=== PATIENT | male | born 1950 | race Caucasian/White ===

== ENCOUNTER 2018-01-19 14:11 | Outpatient (CLI) | payer MEDICARE, BC, SELFPAY ==
[2018-01-19 14:37] LABS: Abs Immature Grans 0.03 k/cumm (0.0-0.09); Absolute Basophil Count 0.04 k/cumm (0.0-0.2); Absolute Eosinophil Count 0.31 k/cumm (0.0-0.7); Absolute Lymphocyte Count 2.23 k/cumm (1.2-3.4); Absolute Neutrophil Count 6.31 k/cumm (1.2-6.7); Basophils % 0.4; Eosinophils % 3.2; HCT 38.8 % (40.0-50.0); HGB 13.2 g/dL (13.5-17.5); Immature Grans % 0.3; Lymphocytes % 22.7; Mean Corpuscular Hemoglobin 31.7 pg (27.0-33.0); Mean Platelet Volume 9.3 fL (8.0-11.0); Monocytes % 9.2; Neutrophils % 64.2; Platelet Count 288 x1000/uL (130-400); RBC 4.17 m/cumm (4.50-6.00); RBC Distribution Width 13.3 % (11.8-14.1); White Blood Cell Count 9.82 k/cumm (4.4-10.8)
[2018-01-19 15:31] LABS: ALT 62 U/L (12-78); AST 43 U/L (15-37); Albumin 3.5 g/dL (3.4-5.0); Alkaline Phosphatase 115 U/L (46-116); C-Reactive Protein 2.17 mg/dL (0.0-0.3); CREATININE 0.81 mg/dL (0.70-1.30)
== END 2018-01-19 14:31 ==
PROVIDERS: PCP Family Medicine; Visit Provider Internal Medicine Rheumatology
DX: M06.9 Rheumatoid arthritis, unspecified (principal); Z79.899 Other long term (current) drug therapy
CPT/HCPCS: 36415; 82040; 82565; 84075; 84450; 84460; 85025; 86140

== ENCOUNTER 2018-02-02 12:40 | Outpatient (CLI) | payer MEDICARE, BC, SELFPAY ==
[2018-02-02 13:16] LABS: Abs Immature Grans 0.04 k/cumm (0.0-0.09); Absolute Eosinophil Count 0.01 k/cumm (0.0-0.7); Absolute Lymphocyte Count 1.05 k/cumm (1.2-3.4); Absolute Monocyte Count 0.21 k/cumm (0.11-0.7); Basophils % 0.4; Eosinophils % 0.1; HGB 13.5 g/dL (13.5-17.5); Immature Grans % 0.4; Lymphocytes % 9.2; Mean Corp. HGB Concentration 33.8 g/dL (32.0-36.0); Mean Corpuscular Hemoglobin 31.5 pg (27.0-33.0); Mean Corpuscular Volume 93.5 fL (80-95); Mean Platelet Volume 10.2 fL (8.0-11.0); Monocytes % 1.8; Neutrophils % 88.1; Platelet Count 267 x1000/uL (130-400); RBC 4.28 m/cumm (4.50-6.00); RBC Distribution Width 13.5 % (11.8-14.1); White Blood Cell Count 11.41 k/cumm (4.4-10.8)
[2018-02-02 13:19] LABS: Absolute Basophil Count 0.05 k/cumm (0.0-0.2); Absolute Neutrophil Count 10.05 k/cumm (1.2-6.7)
[2018-02-02 13:31] LABS: ALT 86 U/L (12-78); AST 208 U/L (15-37); Albumin 3.4 g/dL (3.4-5.0); Alkaline Phosphatase 73 U/L (46-116); C-Reactive Protein 0.28 mg/dL (0.0-0.3); CREATININE 1.03 mg/dL (0.70-1.30)
== END 2018-02-02 13:00 ==
PROVIDERS: PCP Family Medicine; Visit Provider Internal Medicine Rheumatology
DX: M06.9 Rheumatoid arthritis, unspecified (principal); Z79.899 Other long term (current) drug therapy
CPT/HCPCS: 36415; 82040; 82565; 84075; 84450; 84460; 85025; 86140

== ENCOUNTER 2018-02-08 14:41 | Outpatient (CLI) | payer MEDICARE, BC, SELFPAY ==
[2018-02-08 15:11] LABS: Abs Immature Grans 0.05 k/cumm (0.0-0.09); Absolute Eosinophil Count 0.07 k/cumm (0.0-0.7); Absolute Lymphocyte Count 1.72 k/cumm (1.2-3.4); Absolute Monocyte Count 0.52 k/cumm (0.11-0.7); Absolute Neutrophil Count 9.36 k/cumm (1.2-6.7); Basophils % 0.3; Eosinophils % 0.6; HGB 13.7 g/dL (13.5-17.5); Immature Grans % 0.4; Lymphocytes % 14.6; Mean Corp. HGB Concentration 34.3 g/dL (32.0-36.0); Mean Corpuscular Hemoglobin 31.3 pg (27.0-33.0); Mean Corpuscular Volume 91.3 fL (80-95); Mean Platelet Volume 9.9 fL (8.0-11.0); Monocytes % 4.4; Neutrophils % 79.7; Platelet Count 263 x1000/uL (130-400); RBC 4.38 m/cumm (4.50-6.00); RBC Distribution Width 13.8 % (11.8-14.1); White Blood Cell Count 11.75 k/cumm (4.4-10.8)
[2018-02-08 15:12] LABS: Absolute Basophil Count 0.04 k/cumm (0.0-0.2)
[2018-02-08 16:06] LABS: ALT 64 U/L (12-78); AST 52 U/L (15-37); Albumin 3.7 g/dL (3.4-5.0); Alkaline Phosphatase 83 U/L (46-116); C-Reactive Protein 0.34 mg/dL (0.0-0.3); CREATININE 0.86 mg/dL (0.70-1.30)
== END 2018-02-08 15:01 ==
LOC: LBN 14:42 → LBO 14:54
PROVIDERS: PCP Family Medicine; Visit Provider Internal Medicine Rheumatology
DX: M06.9 Rheumatoid arthritis, unspecified (principal); Z79.899 Other long term (current) drug therapy
CPT/HCPCS: 36415; 82040; 82565; 84075; 84450; 84460; 85025; 86140

== ENCOUNTER 2018-02-17 11:06 | Outpatient (CLI) | payer MEDICARE, BC, SELFPAY ==
[2018-02-17 11:46] LABS: Abs Immature Grans 0.02 k/cumm (0.0-0.09); Absolute Basophil Count 0.03 k/cumm (0.0-0.2); Absolute Eosinophil Count 0.22 k/cumm (0.0-0.7); Absolute Lymphocyte Count 1.84 k/cumm (1.2-3.4); Absolute Monocyte Count 0.67 k/cumm (0.11-0.7); Absolute Neutrophil Count 6.35 k/cumm (1.2-6.7); Basophils % 0.3; Eosinophils % 2.4; HCT 38.9 % (40.0-50.0); HGB 13.4 g/dL (13.5-17.5); Immature Grans % 0.2; Lymphocytes % 20.2; Mean Corp. HGB Concentration 34.4 g/dL (32.0-36.0); Mean Corpuscular Hemoglobin 31.9 pg (27.0-33.0); Mean Corpuscular Volume 92.6 fL (80-95); Mean Platelet Volume 9.8 fL (8.0-11.0); Monocytes % 7.3; Neutrophils % 69.6; Platelet Count 230 x1000/uL (130-400); RBC Distribution Width 13.5 % (11.8-14.1); White Blood Cell Count 9.13 k/cumm (4.4-10.8)
[2018-02-19 12:40] LABS: Lyme Ab w Rflx to Lyme Confirm Negative
[2018-02-21 17:18] LABS: Parvovirus B19 Ab, IgG Positive (Negative); Parvovirus B19 Ab, IgM Negative (Negative)
== END 2018-02-17 11:26 ==
PROVIDERS: PCP Family Medicine; Visit Provider Internal Medicine Rheumatology
DX: T84.84XA Pain due to internal orthopedic prosthetic devices, implants and grafts, initial encounter (principal)
CPT/HCPCS: 36415; 87040; 85025; 86618; 86747

== ENCOUNTER 2018-06-12 14:35 | Outpatient (CLI) | payer MEDICARE, BC, SELFPAY ==
[2018-06-12 14:51] LABS: Abs Immature Grans 0.02 k/cumm (0.0-0.09); Absolute Basophil Count 0.04 k/cumm (0.0-0.2); Absolute Eosinophil Count 0.24 k/cumm (0.0-0.7); Absolute Lymphocyte Count 2.52 k/cumm (1.2-3.4); Absolute Monocyte Count 0.69 k/cumm (0.11-0.7); Absolute Neutrophil Count 4.88 k/cumm (1.2-6.7); Basophils % 0.5; Eosinophils % 2.9; HCT 39.1 % (40.0-50.0); HGB 13.5 g/dL (13.5-17.5); Immature Grans % 0.2; Mean Corp. HGB Concentration 34.5 g/dL (32.0-36.0); Mean Corpuscular Hemoglobin 31.8 pg (27.0-33.0); Mean Platelet Volume 9.7 fL (8.0-11.0); Monocytes % 8.2; Neutrophils % 58.2; Platelet Count 275 x1000/uL (130-400); RBC 4.25 m/cumm (4.50-6.00); RBC Distribution Width 13.9 % (11.8-14.1); White Blood Cell Count 8.39 k/cumm (4.4-10.8)
[2018-06-12 17:04] LABS: ALT 35 U/L (12-78); AST 30 U/L (15-37); Albumin 3.5 g/dL (3.4-5.0); Alkaline Phosphatase 82 U/L (46-116); C-Reactive Protein 0.69 mg/dL (0.0-0.3); CREATININE 0.91 mg/dL (0.70-1.30)
== END 2018-06-12 14:55 ==
PROVIDERS: PCP Family Medicine; Visit Provider Internal Medicine Rheumatology
DX: M06.9 Rheumatoid arthritis, unspecified (principal); Z79.899 Other long term (current) drug therapy
CPT/HCPCS: 36415; 82040; 82565; 84075; 84450; 84460; 85025; 86140

== ENCOUNTER 2018-07-04 14:28 | Outpatient (CLI) | payer MEDICARE, BC, SELFPAY ==
[2018-07-04 16:09] LABS: Cholesterol 181 mg/dL (50-200); HDL Cholesterol 74 mg/dL (40-60); LDL CHOLESTEROL 90 mg/dL (<100); Triglyceride 82 mg/dL (30-150)
== END 2018-07-04 14:48 ==
PROVIDERS: PCP Family Medicine; Visit Provider Family Medicine
DX: I10 Essential (primary) hypertension (principal)
CPT/HCPCS: 36415; 80061; 83721

== ENCOUNTER 2018-09-13 10:25 | Outpatient (CLI) | payer MEDICARE, BC, SELFPAY ==
[2018-09-13 10:58] LABS: Abs Immature Grans 0.01 k/cumm (0.0-0.09); Absolute Basophil Count 0.02 k/cumm (0.0-0.2); Absolute Eosinophil Count 0.17 k/cumm (0.0-0.7); Absolute Lymphocyte Count 1.75 k/cumm (1.2-3.4); Absolute Neutrophil Count 3.81 k/cumm (1.2-6.7); Basophils % 0.3; Eosinophils % 2.6; HCT 39.2 % (40.0-50.0); HGB 13.4 g/dL (13.5-17.5); Immature Grans % 0.2; Lymphocytes % 27.1; Mean Corp. HGB Concentration 34.2 g/dL (32.0-36.0); Mean Corpuscular Hemoglobin 31.5 pg (27.0-33.0); Mean Platelet Volume 10.1 fL (8.0-11.0); Monocytes % 10.8; Platelet Count 264 x1000/uL (130-400); RBC 4.26 m/cumm (4.50-6.00); RBC Distribution Width 14.2 % (11.8-14.1); White Blood Cell Count 6.46 k/cumm (4.4-10.8)
[2018-09-13 12:47] LABS: ALT 31 U/L (12-78); AST 26 U/L (15-37); Albumin 3.6 g/dL (3.4-5.0); Alkaline Phosphatase 68 U/L (46-116); CREATININE 0.77 mg/dL (0.70-1.30)
[2018-09-13 13:59] LABS: C-Reactive Protein 0.21 mg/dL (0.0-0.3)
== END 2018-09-13 10:45 ==
PROVIDERS: PCP Family Medicine; Visit Provider Internal Medicine Rheumatology
DX: M06.9 Rheumatoid arthritis, unspecified (principal); Z79.899 Other long term (current) drug therapy
CPT/HCPCS: 36415; 82040; 82565; 84075; 84450; 84460; 85025; 86140

== ENCOUNTER 2018-10-06 10:37 | Outpatient (CLI) | payer MEDICARE, BC, SELFPAY ==
[2018-10-06 11:18] LABS: Abs Immature Grans 0.02 k/cumm (0.0-0.09); Absolute Basophil Count 0.03 k/cumm (0.0-0.2); Absolute Eosinophil Count 0.17 k/cumm (0.0-0.7); Absolute Lymphocyte Count 1.54 k/cumm (1.2-3.4); Absolute Monocyte Count 0.56 k/cumm (0.11-0.7); Basophils % 0.5; Eosinophils % 2.7; HCT 38.5 % (40.0-50.0); Immature Grans % 0.3; Lymphocytes % 24.8; Mean Corp. HGB Concentration 33.8 g/dL (32.0-36.0); Mean Corpuscular Hemoglobin 31.5 pg (27.0-33.0); Mean Corpuscular Volume 93.2 fL (80-95); Mean Platelet Volume 10.3 fL (8.0-11.0); Neutrophils % 62.7; Platelet Count 268 x1000/uL (130-400); RBC 4.13 m/cumm (4.50-6.00); RBC Distribution Width 14.4 % (11.8-14.1); White Blood Cell Count 6.22 k/cumm (4.4-10.8)
[2018-10-06 12:25] LABS: ALT 30 U/L (12-78); AST 18 U/L (15-37); Albumin 3.4 g/dL (3.4-5.0); Alkaline Phosphatase 65 U/L (46-116); C-Reactive Protein 0.09 mg/dL (0.0-0.3); CREATININE 0.89 mg/dL (0.70-1.30)
== END 2018-10-06 10:57 ==
PROVIDERS: PCP Family Medicine; Visit Provider Internal Medicine Rheumatology
DX: M06.9 Rheumatoid arthritis, unspecified (principal); Z79.899 Other long term (current) drug therapy
CPT/HCPCS: 82040; 82565; 84075; 84450; 84460; 85025; 86140

== ENCOUNTER 2018-10-14 11:18 | Emergency (ER) | payer MEDICARE, BC, SELFPAY ==
[2018-10-14 11:20] VITALS: BP 122/72; PULSE 70; RESP 14; TEMP 37.2; O2SAT 97
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
[2018-10-14] MEDS: Lidocaine 5% Patch 1 PATCH TP (12:38)
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
[2018-10-14] MEDS: Acetaminophen 325 MG TAB 650 MG PO (12:43)
--- NOTE | 2018-10-14 13:05 | NUR.NOTE ---
Nursing Note: pt sent home with incentive spectrometer clear instructions given
== END 2018-10-14 13:00 | disposition home or self-care (01) ==
PROVIDERS: Emergency Provider Student in an Organized Health Care Education/Training Program; PCP Family Medicine
DX: S20.212A Contusion of left front wall of thorax, initial encounter (principal); V18.0XXA Pedal cycle driver injured in noncollision transport accident in nontraffic accident, initial encounter; Y93.55 Activity, bike riding
CPT/HCPCS: 99283; 71046; 71100

== ENCOUNTER 2019-01-23 09:40 | Outpatient (CLI) | payer MEDICARE, BC, SELFPAY ==
[2019-01-23 10:14] LABS: Abs Immature Grans 0.02 k/cumm (0.0-0.09); Absolute Basophil Count 0.03 k/cumm (0.0-0.2); Absolute Eosinophil Count 0.21 k/cumm (0.0-0.7); Absolute Lymphocyte Count 1.71 k/cumm (1.2-3.4); Absolute Monocyte Count 0.73 k/cumm (0.11-0.7); Absolute Neutrophil Count 3.67 k/cumm (1.2-6.7); Basophils % 0.5; Eosinophils % 3.3; HCT 41.5 % (40.0-50.0); HGB 14.2 g/dL (13.5-17.5); Immature Grans % 0.3; Lymphocytes % 26.8; Mean Corp. HGB Concentration 34.2 g/dL (32.0-36.0); Mean Corpuscular Hemoglobin 31.4 pg (27.0-33.0); Mean Corpuscular Volume 91.8 fL (80-95); Monocytes % 11.5; Neutrophils % 57.6; Platelet Count 286 x1000/uL (130-400); RBC 4.52 m/cumm (4.50-6.00); RBC Distribution Width 14.3 % (11.8-14.1); White Blood Cell Count 6.37 k/cumm (4.4-10.8)
[2019-01-23 10:47] LABS: ALT 40 U/L (16-63); AST 27 U/L (15-37); Albumin 3.6 g/dL (3.4-5.0); Alkaline Phosphatase 92 U/L (46-116); CREATININE 0.75 mg/dL (0.70-1.30)
== END 2019-01-23 10:00 ==
PROVIDERS: PCP Family Medicine; Visit Provider Internal Medicine Rheumatology
DX: M06.9 Rheumatoid arthritis, unspecified (principal); Z79.899 Other long term (current) drug therapy
CPT/HCPCS: 36415; 82040; 82565; 84075; 84450; 84460; 85025; 86140

== ENCOUNTER 2019-07-23 01:35 | Outpatient (CLI) | payer MEDICARE, BC, SELFPAY ==
--- NOTE | 2019-07-23 06:15 | DI.US_ITS ---
EXAM: US SCROTUM CLINICAL HISTORY: Nodule posterior aspect R testis,lump, n50.89 TECHNIQUE: Ultrasound performed using standard protocol. COMPARISON: US AAA SCREENING from 06/21/2017 FINDINGS: Scrotal ultrasound was performed according to the usual protocol. There are mild bilateral hydrocele s. Testicular echotexture is within normal limits with an incidental right microlith noted. There i s normal vascular flow to the testes which is symmetrical. Epididymi show normal vascular flow. There are multiple right epididymal head cysts which appear to correspond with patient's palpable scrotal abnormality, the largest measures about 14 millimeters in diameter. IMPRESSION: Multiple right epididymal head cysts, corresponding to the patient's palpable abnormality. No other significant findings. No intra testicular mass. DATA REPOSITORY:
== END 2019-07-23 01:55 ==
PROVIDERS: PCP Family Medicine; Visit Provider Family Medicine
DX: N50.89 Other specified disorders of the male genital organs (principal); N50.3 Cyst of epididymis; N43.3 Hydrocele, unspecified
CPT/HCPCS: 76870

== ENCOUNTER 2019-09-05 02:44 | Outpatient (CLI) | payer MEDICARE, BC, SELFPAY ==
[2019-09-05 13:32] LABS: Abs Immature Grans 0.03 k/cumm (0.0-0.09); Absolute Basophil Count 0.02 k/cumm (0.0-0.2); Absolute Eosinophil Count 0.12 k/cumm (0.0-0.7); Absolute Monocyte Count 0.73 k/cumm (0.11-0.7); Absolute Neutrophil Count 2.57 k/cumm (1.2-6.7); Basophils % 0.4; Eosinophils % 2.1; HCT 37.2 % (40.0-50.0); HGB 12.6 g/dL (13.5-17.5); Immature Grans % 0.5 %; Lymphocytes % 38.8; Mean Corp. HGB Concentration 33.9 g/dL (32.0-36.0); Mean Corpuscular Volume 91.6 fL (80-95); Mean Platelet Volume 9.6 fL (8.0-11.0); Monocytes % 12.9; Neutrophils % 45.3; Platelet Count 260 x1000/uL (130-400); RBC 4.06 m/cumm (4.50-6.00); White Blood Cell Count 5.67 k/cumm (4.4-10.8)
[2019-09-05 14:29] LABS: ALT 28 U/L (16-63); AST 30 U/L (15-37); Albumin 3.7 g/dL (3.4-5.0); Alkaline Phosphatase 67 U/L (46-116); Anion Gap 10.3 mmol/L (3-11); BUN 21 mg/dL (7-18); Bilirubin, Total 0.6 mg/dL (0.2-1.0); C-Reactive Protein 0.22 mg/dL (0.0-0.3); CO2 24.7 mmol/L (21.0-32.0); CREATININE 0.85 mg/dL (0.70-1.30); Calcium 8.5 mg/dL (8.5-10.1); Chloride 104 mmol/L (98-107); Glucose 118 mg/dL (74-106); Sodium 139 mmol/L (136-145); Total Protein 6.4 g/dL (6.4-8.2)
== END 2019-09-05 03:04 ==
PROVIDERS: PCP Family Medicine; Visit Provider Internal Medicine Rheumatology
DX: M06.9 Rheumatoid arthritis, unspecified (principal); Z79.899 Other long term (current) drug therapy
CPT/HCPCS: 36415; 80053; 85025; 86140

== ENCOUNTER 2020-01-08 00:16 | Outpatient (CLI) | payer MEDICARE, BC, SELFPAY ==
[2020-01-10 19:16] LABS: Patient Race White; SARS-CoV-2 RNA Undetected (Undetected); SARS-CoV-2 Specimen Source Nasal
== END 2020-01-08 00:36 ==
PROVIDERS: PCP Nurse Practitioner; Visit Provider Nurse Practitioner
DX: Z11.59 Encounter for screening for other viral diseases (principal)
CPT/HCPCS: U0003

== ENCOUNTER 2020-02-26 05:10 | Outpatient (CLI) | payer MEDICARE, BC, SELFPAY ==
[2020-02-26 09:02] LABS: Abs Immature Grans 0.02 10^3/uL (0.0-0.06); Absolute Basophil Count 0.02 10^3/uL (0.0-0.2); Absolute Eosinophil Count 0.15 10^3/uL (0.0-0.7); Absolute Lymphocyte Count 2.17 10^3/uL (1.2-3.4); Absolute Monocyte Count 0.91 10^3/uL (0.1-0.8); Absolute Neutrophil Count 2.29 10^3/uL (1.2-6.7); Basophils % 0.4; Eosinophils % 2.7; Immature Grans % 0.4; MCH 30.4 pg (27.0-33.0); MCHC 33.3 % (32.0-36.0); MCV 91.1 fL (80-95); MPV 10.2 fL (8.0-11.0); Monocytes % 16.4; Neutrophils % 41.1; Nucleated RBC 0 %; Platelet Count 239 10^3/uL (130-400); RBC 4.28 10^6/uL (4.36-5.78); RDW 15.2 % (11.8-14.1); WBC 5.56 10^3/uL (4.4-10.8)
[2020-02-26 09:54] LABS: ALT 28 U/L (16-63); AST 27 U/L (15-37); Albumin 3.7 g/dL (3.4-5.0); Alkaline Phosphatase 62 U/L (46-116); Anion Gap 8.8 mmol/L (3-11); BUN 13 mg/dL (7-18); Bilirubin, Total 0.7 mg/dL (0.2-1.0); CO2 26.2 mmol/L (21.0-32.0); CREATININE 0.75 mg/dL (0.70-1.30); Calcium 8.4 mg/dL (8.5-10.1); Chloride 107 mmol/L (98-107); Glucose 84 mg/dL (74-106); Potassium 4.7 mmol/L (3.5-5.1); Sodium 142 mmol/L (136-145); Total Protein 6.5 g/dL (6.4-8.2)
== END 2020-02-26 05:30 ==
PROVIDERS: PCP Nurse Practitioner; Visit Provider Internal Medicine Rheumatology
DX: M06.9 Rheumatoid arthritis, unspecified (principal); Z79.899 Other long term (current) drug therapy
CPT/HCPCS: 36415; 80053; 85025; 86140

== ENCOUNTER 2020-08-26 02:58 | Outpatient (CLI) | payer MEDICARE, BC, SELFPAY ==
[2020-08-26 13:12] LABS: Abs Immature Grans 0.02 10^3/uL (0.0-0.06); Absolute Basophil Count 0.01 10^3/uL (0.0-0.2); Absolute Eosinophil Count 0.08 10^3/uL (0.0-0.7); Absolute Lymphocyte Count 2.14 10^3/uL (1.2-3.4); Absolute Monocyte Count 1.11 10^3/uL (0.1-0.8); Absolute Neutrophil Count 2.38 10^3/uL (1.2-6.7); Basophils % 0.2; Eosinophils % 1.4; HCT 35.6 % (40.0-50.0); HGB 11.9 g/dL (13.5-17.5); Immature Grans % 0.3; Lymphocytes % 37.3; MCH 30.3 pg (27.0-33.0); MCHC 33.4 % (32.0-36.0); MCV 90.6 fL (80-95); MPV 10.4 fL (8.0-11.0); Monocytes % 19.3; Neutrophils % 41.5; Nucleated RBC 0 %; Platelet Count 209 10^3/uL (130-400); RBC 3.93 10^6/uL (4.36-5.78); RDW 15.1 % (11.8-14.1); RDW-SD 50.8 fL; WBC 5.74 10^3/uL (4.4-10.8)
[2020-08-26 14:36] LABS: ALT 32 U/L (16-63); AST 30 U/L (15-37); Albumin 3.8 g/dL (3.4-5.0); Alkaline Phosphatase 63 U/L (46-116); Anion Gap 9.2 mmol/L (3-11); BUN 17 mg/dL (7-18); Bilirubin, Total 0.4 mg/dL (0.2-1.0); C-Reactive Protein 0.28 mg/dL (0.0-0.3); CO2 26.8 mmol/L (21.0-32.0); CREATININE 0.9 mg/dL (0.70-1.30); Calcium 8.8 mg/dL (8.5-10.1); Chloride 105 mmol/L (98-107); Glucose 83 mg/dL (74-106); Potassium 4.4 mmol/L (3.5-5.1); Sodium 141 mmol/L (136-145); Total Protein 6.6 g/dL (6.4-8.2)
== END 2020-08-26 02:59 | disposition home or self-care (01) ==
LOC: LBO 02:58
PROVIDERS: PCP Nurse Practitioner; Visit Provider Internal Medicine Rheumatology
DX: M06.9 Rheumatoid arthritis, unspecified (principal); Z79.899 Other long term (current) drug therapy
CPT/HCPCS: 36415; 80053; 85025; 86140

== ENCOUNTER 2021-03-01 11:23 | Outpatient (CLI) | payer MEDICARE, BC, SELFPAY ==
[2021-03-02 01:34] LABS: COVID-19 RT-PCR UVMMC Result Negative (Negative)
== END 2021-03-01 11:24 | disposition home or self-care (01) ==
PROVIDERS: PCP Nurse Practitioner; Visit Provider Internal Medicine Rheumatology
DX: Z20.822 Contact with and (suspected) exposure to COVID-19 (principal); Z01.818 Encounter for other preprocedural examination
CPT/HCPCS: 87635; U0003; U0005

== ENCOUNTER 2021-03-02 02:18 | Outpatient (CLI) | payer MEDICARE, BC, SELFPAY ==
[2021-03-02 13:12] LABS: HCT 39.3 % (40.0-50.0); MCH 29.4 pg (27.0-33.0); MCHC 33.1 % (32.0-36.0); MCV 88.9 fL (80-95); MPV 11.4 fL (8.0-11.0); Platelet Count 226 10^3/uL (130-400); RBC 4.42 10^6/uL (4.36-5.78); RDW 15.2 % (11.8-14.1); RDW-SD 49.9 fL; WBC 6.21 10^3/uL (4.4-10.8)
[2021-03-02 14:37] LABS: ALT 31 U/L (16-63); AST 29 U/L (15-37); Alkaline Phosphatase 63 U/L (46-116); Anion Gap 9.7 mmol/L (3-11); BUN 14 mg/dL (7-18); Bilirubin, Total 0.4 mg/dL (0.2-1.0); C-Reactive Protein 0.15 mg/dL (0.0-0.3); CO2 25.3 mmol/L (21.0-32.0); CREATININE 0.8 mg/dL (0.70-1.30); Calcium 8.9 mg/dL (8.5-10.1); Chloride 105 mmol/L (98-107); Glucose 80 mg/dL (74-106); Potassium 4.6 mmol/L (3.5-5.1); Sodium 140 mmol/L (136-145); Total Protein 6.8 g/dL (6.4-8.2)
== END 2021-03-02 02:19 | disposition home or self-care (01) ==
LOC: LBO 02:19
PROVIDERS: PCP Nurse Practitioner; Visit Provider Internal Medicine Rheumatology
DX: M06.89 Other specified rheumatoid arthritis, multiple sites (principal)
CPT/HCPCS: 36415; 80053; 85027; 86140

== ENCOUNTER 2021-03-03 01:37 | Outpatient (RCR) | payer MEDICARE, BC, SELFPAY | END 2021-03-22 23:59 | disposition home or self-care (01) | LOC: INF 01:37 | PROVIDERS: PCP Nurse Practitioner; Visit Provider Family Medicine | DX: D84.821 Immunodeficiency due to drugs (principal); Z29.8 Encounter for other specified prophylactic measures; M06.9 Rheumatoid arthritis, unspecified | CPT/HCPCS: 96372; Q0220 ==

== ENCOUNTER 2021-05-17 03:07 | Outpatient (CLI) | payer MEDICARE, BC, SELFPAY ==
[2021-05-18 13:55] LABS: COVID-19 RT-PCR UVMMC Result Negative (Negative)
== END 2021-05-17 03:08 | disposition home or self-care (01) ==
PROVIDERS: PCP Nurse Practitioner; Visit Provider Internal Medicine Rheumatology
DX: Z20.822 Contact with and (suspected) exposure to COVID-19 (principal); Z01.818 Encounter for other preprocedural examination
CPT/HCPCS: U0003; U0005

== ENCOUNTER 2021-05-20 03:47 | Outpatient (RCR) | payer MEDICARE, BC, SELFPAY | END 2021-05-20 23:59 | disposition home or self-care (01) | LOC: INF 03:47 | PROVIDERS: PCP Nurse Practitioner; Visit Provider Family Medicine | DX: D84.821 Immunodeficiency due to drugs (principal) | CPT/HCPCS: 96372; Q0221 ==

== ENCOUNTER 2021-09-01 03:10 | Outpatient (CLI) | payer MEDICARE, BC, SELFPAY ==
[2021-09-01 13:11] LABS: Abs Immature Grans 0.07 10^3/uL (0.0-0.06); Absolute Basophil Count 0.02 10^3/uL (0.0-0.2); Absolute Eosinophil Count 0.25 10^3/uL (0.0-0.7); Absolute Monocyte Count 1.54 10^3/uL (0.1-0.8); Absolute Neutrophil Count 3.04 10^3/uL (1.2-6.7); Basophils % 0.3; Eosinophils % 3.4; HCT 37.8 % (40.0-50.0); HGB 13.2 g/dL (13.5-17.5); Immature Grans % 0.9; Lymphocytes % 33.7; MCH 30.3 pg (27.0-33.0); MCHC 34.9 % (32.0-36.0); MCV 87 fL (80-95); MPV 11.3 fL (8.0-11.0); Monocytes % 20.8; Neutrophils % 40.9; Platelet Count 229 10^3/uL (130-400); RBC 4.36 10^6/uL (4.36-5.78); RDW 15.8 % (11.8-14.1); RDW-SD 49.8 fL; WBC 7.42 10^3/uL (4.4-10.8)
== END 2021-09-01 03:11 | disposition home or self-care (01) ==
LOC: LBO 03:18
PROVIDERS: PCP Nurse Practitioner; Visit Provider Internal Medicine Rheumatology
DX: M05.79 Rheumatoid arthritis with rheumatoid factor of multiple sites without organ or systems involvement (principal); Z79.899 Other long term (current) drug therapy
CPT/HCPCS: 36415; 85025

== ENCOUNTER 2021-09-03 02:05 | Outpatient (CLI) | payer MEDICARE, BC, SELFPAY ==
--- OUTSIDE RECORDS SUMMARY | 2021-09-03 02:09 | XMS_ITS | Encounter Summary ---
:[address] [facility] Address [address] [place] [address] Care Team Providers Name Role Phone Cathy Mota SUPERVISOR BRAKE REPAIR Primary Care Provider Encounter Details Date Type Department Care Team Description 05/17/2021 Lab Requisition [facility] Outr Resulting Lab, Pathology & Laboratory Provider [facility] [address] [place] [address] Social History Tobacco Use Types Packs/Day Years Used Date Former Smoker Smokeless Tobacco: Never Used Alcohol Use Standard Drinks/Week Comments Yes 2 (1 standard drink = 0.6 oz pure alcoho l) Sex Assigned at Date Recorded Not on file documented as of this encounter Functional Status Functional Status Response Date of Assessment Because of a physical, mental, or emotional condition, No 06/06/2019 does this person have difficulty doing errands alone such as visiting a doctor's office or shopping? Cognitive Status Response Date of Assessment Because of a physical, mental, or emotional condition, No 06/06/2019 does this person have serious difficulty concentrating, remembering, or making decisions? documented as of this encounter Plan of Treatment Upcoming Encounters Date Type Specialty Care Team Description 09/16/2021 Nurse Only Infusion Therapy 09/30/2021 Nurse Only Infusion Therapy 03/07/2022 Telemedicine Rheumatology Sirisha Puckett MD [address] [facility] [address] [place] [phone] (Wo rk) 07/12/2022 Office Visit Dermatology Lian Bai MD [address] [facility], [facility] [place] [address] [place], [place] [phone] (Wo rk) documented as of this encounter Procedures Procedure Name Priority Date/Time Associated Diagnosis Comme nts [facility] Today 05/17/2021 9:28 EDT LAB PCR COVID-19 TESTING Routine 05/17/2021 9:28 EDT Resu lts for this procedure are i n the results section. documented in this encounter Results COVID-19 TEST [facility] LAB PCR (05/17/2021 9:28 EDT) Specimen Swab Performing Organization Address City/[facility]/ZIP Code Phon e Number [facility] [address] [place] [address] SERVICES COVID-19 TESTING (05/17/2021 9:28 EDT) COVID-19 rt-PCR Negative Negative [facility] Result Comment: [facility] This test has not been FDA c leared or approved. This test has been authorized by FDA under an EUA for use by authorized laboratories. This test has been authorized only for detection of nucleic acid fro SERVICES m 2019-nCoV, not for any oth er viruses or pathogens. This test is only authorized for the duration of the declaration that circumstances exist justifying the authorization of emergency use of in vitro d iagnostic tests for detectio n and/or diagnosis of 2019-nCoV under section 564(b)(1) of Act, 21 U.S.C ?? 360bbb-3(b) (1), unless the authorization is terminated or revoked sooner. Negative results do not prec lude 2019-nCoV infection and should not be used as the sole basis for treatment or other patient management decisions. Negative results must be combined with clinical observa tions, patient history, and epidemiological informatio n. Testing was performed using the asim SARS-CoV-2 assay ([employer] on the Asim 6800 System Performing Lab Asim [address] [facility] Lab [facility] SERVICES Specimen Swab Performing Organization Address City/[facility]/ZIP Code Phon e Number [facility] [address] [place] [address] SERVICES documented in this encounter Visit Diagnoses Not on filedocumented in this encounter Care Teams Furnace Tapper Relationship Specialty Start Date End Date Cathy Mota, SUPERVISOR BRAKE REPAIR PCP - General 02/27/[address] [place] [phone] documented as of this encounter
--- OUTSIDE RECORDS SUMMARY | 2021-09-03 02:09 | XMS_ITS | Encounter Summary ---
:1950 Author Organization [facility] Address [address] [place] [address] Care Team Providers Name Role Phone Cathy Mota IN FILE OPERATOR Primary Care Provider Reason for Visit Reason Comments Follow-up [facility]; feels well with no deysi cristian Conley yesterday. 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 ([facility]) (HCC) (Primary Dx); [facility] Rheumatology Chronic lymphocytic leukemia ([facility]) ( HCC); [address] Long-term use [place] immunosupp[place] [address] [address] [place] [address] Social History Tobacco Use Types Packs/Day Years Used Date Former Smoker Smokeless Tobacco: Never Used Alcohol Use Standard Drinks/Week Comments Yes 2 (1 standard drink = 0.6 oz pure alcoho l) Sex Assigned at Date Recorded Not on file documented as of this encounter Last Filed Vital Signs Vital Sign Reading Time Taken Comments Blood Pressure 124/78 03/04/2021 1001 EST Pulse 72 03/04/2021 1001 EST Temperature 36.2 ??C (97.2 ??F) 03/04/2021 1001 EST Respiratory Rate - - Oxygen Saturation - - Inhaled Oxygen Concentration - - Weight 85.3 kg (188 lb) 03/04/2021 1001 EST Height 172.7 cm (5' 8) 03/04/2021 1001 EST Body Mass Index 28.59 03/04/2021 1001 EST documented in this encounter Functional Status Functional Status Response [...] making decisions? documented as of this encounter Patient Instructions Patient InstructionsSirisha Puckett MD - 03/04/2021 10:00 EST No changes Rituximab in two weeks Labs prior to next visit documented in this encounter Progress Notes Sirisha Puckett MD - 03/04/[address] [facility] Rheumatology Chief Complaint Patient presents with ??? Follow-up [facility]; feels well with no pain. Got Evusheld yesterday. HPI: 1. 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 On biologic therapies prior torituximab. Added rituximab due to development of CLL, scleritis. 2. CLL (chronic lymphocytic leukemia) - In remission with rituximab. 3. Scleritis of both eyes - Had work-up at [facility] by Dr Conte. Symptoms worsened withtrial off naproxen, and improved on oral prednisone. Treated with short course of durezol, as well as rituximab, and doing well except for episodic increase in eye pressures. INTERVAL HISTORY: Otilio returns for 6 month follow up. No changes were made at the last visit. We discussed with Otilio getting a dose of Evusheld for preexposure prophylaxis for COVID due to him being on B-cell depletion therapy (rituximab). Otilio agreed to do this, and as a result we postponed his rituximab infusion by 2 weeks. Otilio says he had an increase in hands, feet, left hip and left knee.This was about a month ago, and he is better for the past two weeks. No intervention was done for the flare. Today, Otilio says he is doing well. He says that he received the Evusheld yesterday, and did not haveany side effects. Otilio denies any significant joint pain or swelling. Last rituximab infusions were on 09/08/2020 and 09/22/2020. Next infusions are scheduled for later this month. Current Outpatient Medications Medication ??? brimonidine (ALPHAGAN) 0.2 % ophthalmic solution ??? dorzolamide (TRUSOPT) 2 % ophthalmic solution ??? ferrous gluconate (FERGON) 324 mg (38 mg iron) tablet ??? lisinopril (PRINIVIL) 10 mg tablet ??? MEDICAL MARIJUANA ??? Melatonin 1 mg tablet ??? Multivitamins with Minerals tablet tablet ??? omeprazole (PRILOSEC) 20 mg capsule ??? RITUXIMAB INTRAVENOUS ??? timolol (TIMOPTIC) 0.25 % ophthalmic solution ??? UNABLE TO FIND No current facility-administered medications for this visit. Allergies include: Etanercept and Methotrexate Past Medical History: Diagnosis Date ??? 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 Anemia ??? Hemorrhagic colitis 08/2007 ??? 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 Review of Systems: Denies shortness of breath, chest pain, or rash. Had cataract surgery, right eye, with Dr Mas on 01/29/2021. Postop note reviewed from 02/04/2021 indicating no complications. Otilio is still on drops for glaucoma, and says pressures have been good. Scleritis is quiet. Has follow up with Dr Mas soon. Physical Examination: BP 124/78 Pulse 72 Temp 36.2 ??C (97.2 ??F) Ht 172.7 cm (68) Wt 85.3 kg (188 lb) BMI 28.59 kg/m?? EYES: Conjunctivae not injected ENT: Wearing a mask. NECK: Reduction in extension and lateral rotation without pain. No lymphadenopathy. CHEST: Clear to auscultation bilaterally. CARDIOVASCULAR: Regular rate and rhythm. No murmur. No peripheral edema. JOINT EXAM: No soft tissue swelling or synovitis of MCP or PIP joints of hands, MTPs feet. Right shoulder with moderate reduction in abduction; internal rotation to mid-back; left shoulder continues with moderate reduction abduction, internal rotation to posterior waist. Elbows with full painless ROM.Right wrist is surgically fused. Left wrist has decreased extension and flexion, no swelling, is close to being fused, unchanged. Full painless ROM knees, ankles. Right hip with mild decrease in external rotation, full internal rotation and no discomfort in groin. Left hip (prosthesis) with normal ROM, and no discomfort. SKIN: No rash on arms, legs. No nail pitting. No dilated capillary loops in the nail beds. Labs: Labs 08/27/20, [facility]: CBC w/diff wnl except HGB 11.9; CMP wnl; CRP 0.28 mg/dL. Labs 03/02/21, [facility]: CBC wnl except HGB 13.0; CMP wnl, CRP 0.15 mg/dL. Assessment and Plan: 1. Seropositive rheumatoid arthritis of multiple joints (HCC-CMS) (HCC) Low to no RA disease activity based on joint exam, history and lab results. Due for rituximab later this month. 2. Chronic lymphocytic leukemia (HCC-CMS) (HCC) In remission; receiving rituximab. 3. Long-term use of immunosuppressant medication Up-to-date on Covid vaccine and booster, and received a dose of Evusheld yesterday, which Otilio tolerated well. Check labs prior to next visit. Follow up in 6 months. Sirisha Puckett MD 03/04/2021 10:20 documented in this encounter Plan of Treatment Upcoming Encounters Date Type Specialty Care Team Description 09/16/2021 Nurse Only Infusion Therapy 09/30/2021 Nurse Only Infusion Therapy 03/07/2022 Telemedicine Rheumatology Sirisha Puckett MD [address] [facility] [address] [place] [phone] (Wo rk) 07/12/2022 Office Visit Dermatology Lian Bai MD [address] [facility], [facility] [address] [place], [place] [phone] (Wo rk) documented as of this encounter Visit Diagnoses Diagnosis Seropositive rheumatoid arthritis of mul tiple joints (HCC-CMS) (HCC) - Primary Chronic lymphocytic leukemia (HCC-CMS) ( HCC) Chronic lymphoid leukemia, without menti on of having achieved remission Long-term use of immunosuppressant medic ation Encounter for long-term (current) use of other medications documented in this encounter Discontinued Medications Medication Sig Discontinue Reason Start Date End Date diphenhydrAMINE (BENADRYL) 1 cap orally now Therapy completed 09/2703/04/2021 25 mg capsule ketOROLAC tromethamine Place 1 Drop into Therapy completed 01/28/2003/04/2021 (ACULAR LS) 0.4 % drops the right eye 4 times daily. montelukast (SINGULAIR) 10 1 tab orally now Therapy completed 09/2703/04/2021 mg tablet ofloxacin (OCUFLOX) 0.3 % Place 1 Drop into Therapy completed 01/2903/04/2021 ophthalmic solution both eyes 4 times daily. prednisoLONE (PRED FORTE) 1 Place 1 Drop into Therapy completed 03/04/2021 % ophthalmic suspension the right eye 4 times daily. documented as of this encounter Care Teams Maintenance Scheduler Relationship Specialty Start Date End Date Cathy Mota NP PCP - General 02/27/[address] [place] [phone] documented as of this encounter
--- OUTSIDE RECORDS SUMMARY | 2021-09-03 02:09 | XMS_ITS | Encounter Summary ---
:1950 Author Organization [facility] Address [address] [place] [address] Care Team Providers Name Role Phone Cathy Mota REVERSING MILL ROLLER Primary Care Provider Reason for Visit Reason Comments Follow-up the Pt.states that have been feeling well, and has no question or concern. 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 ([facility]) (HCC) (Primary Dx); [facility] Rheumatology Chronic lymphocytic leukemia ([facility]) ( HCC); [address] Immunocompromised state due to drug ther apy (HCC); [place] [address] [address] Long-term use of immunosuppressant medic ation [phone] [place] [address] Social History Tobacco Use Types Packs/Day Years Used Date Former Smoker Smokeless Tobacco: Never Used Alcohol Use Standard Drinks/Week Comments Yes 2 (1 standard drink = 0.6 oz pure alcoho l) Sex Assigned at Date Recorded Not on file documented as of this encounter Last Filed Vital Signs Vital Sign Reading Time Taken Comments Blood Pressure 118/72 09/02/2021 1108 EDT Pulse 60 09/02/2021 1108 EDT Temperature 36.5 ??C (97.7 ??F) 09/02/2021 1108 EDT Respiratory Rate - - Oxygen Saturation - - Inhaled Oxygen Concentration - - Weight 85.3 kg (188 lb) 09/02/2021 1108 EDT Height 172.7 cm (5' 8) 09/02/2021 1108 EDT Body Mass Index 28.59 09/02/2021 1108 EDT documented in this encounter Functional Status Functional [...] Patient Instructions Patient InstructionsSirisha Puckett MD - 09/02/2021 11:00 EDT I'll let you know about the other labs Evusheld in mid-Oct at [facility] Rituximab as planned Labs prior to next visit documented in this encounter Progress Notes Sirisha Puckett MD - 09/02/2021 1100 EDT [facility] Rheumatology Chief Complaint Patient presents with ??? Follow-up the Pt.states that have been feeling well, and has no question or concern. HPI: 1. 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 On biologic therapies prior torituximab. Added rituximab due to development of CLL, scleritis. 2. CLL (chronic lymphocytic leukemia) - In remission with rituximab. 3. Scleritis of both eyes - Had work-up at [facility] by Dr Conte. Symptoms worsened withtrial off naproxen, and improved on oral prednisone. Treated with short course of durezol, as well as rituximab, and doing well except for episodic increase in eye pressures. INTERVAL HISTORY: Otilio returns for 6 month follow up. No changes were made at the last visit. Today, Otilio says he is doing well. Otilio denies any significant joint pain or swelling. Last rituximab infusions were on 03/18/21 and 04/01/21. Next infusions are scheduled for later this month. Had PT for left Achilles, and says this is improving. Is trying to do stretches daily. Current Outpatient Medications Medication ??? dorzolamide (TRUSOPT) 2 % ophthalmic solution ??? ELDERBERRY FRUIT-HONEY ORAL ??? ferrous gluconate (FERGON) 324 mg (38 mg iron) tablet ??? lisinopril (PRINIVIL) 10 mg tablet ??? magnesium oxide (MAG-OX) 400 mg (241.3 mg magnesium) tablet ??? MEDICAL MARIJUANA ??? Melatonin 1 mg tablet ??? Multivitamins with Minerals tablet tablet ??? omeprazole (PRILOSEC) 20 mg capsule ??? RITUXIMAB INTRAVENOUS ??? timolol (TIMOPTIC) 0.25 % ophthalmic solution ??? UNABLE TO FIND ??? UNABLE TO FIND No current facility-administered medications for this visit. Allergies include: Gold sodium thiomalate, Humira [adalimumab], Cat dander, Etanercept, House dust, and Methotrexate Past Medical History: Diagnosis Date ??? 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 Anemia ??? Arthritis ??? Asthma ??? 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 Hemorrhagic colitis 08/2007 ??? Sunburn ??? Transient global amnesia 01/30/2016 Seen in ER with episode ??? 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 Stroke Mother ??? Alcohol Abuse Father ??? Depression Sister ??? Asthma Sister ??? Alcohol Abuse Sister ??? *Other(comment) Paternal Grandmother Unspecified skin cancer ??? Substance Abuse Paternal Grandfather ??? Alcohol Abuse Paternal Grandfather ??? *Other(comment) Other Family hx of rheumatoid arthritis ??? Depression Daughter ??? Asthma Son Review of Systems: Denies shortness of breath, chest pain, or rash. Received Evusheld 03/04/21 and mid-April for second dose at [facility]. Had cataract surgery, right eye, with Dr Mas on 01/29/2021. Otilio is son drops for glaucoma, and says pressures have been good. Scleritis is quiet. Physical Examination: BP 118/72 (BP Cuff Location: Right arm, BP Cuff Sizes: Adult, regular) Pulse 60 Temp 36.5 ??C (97.7 ??F) Ht 172.7 cm (68) Wt 85.3 [...] (prosthesis) with normal ROM, and no discomfort. Mild swelling at left distal Achilles tendon. SKIN: No rash on arms, legs. No nail pitting. No dilated capillary loops in the nail beds. Labs: Labs 08/27/20, [facility]: CBC w/diff wnl except HGB 11.9; CMP wnl; CRP 0.28 mg/dL. Labs 03/02/21, [facility]: CBC wnl except HGB 13.0; CMP wnl, CRP 0.15 mg/dL. Labs 09/01/21, [facility]: WBC 7.42, HGB 13.2, PLT 229, ALYC 2500. CMP and CRP pending. Assessment and Plan: 1. Seropositive rheumatoid arthritis of multiple joints (HCC-CMS) ([facility]) Low to no RA disease activity based on joint exam, history and lab results. Due for rituximab later this month. 2. Chronic lymphocytic leukemia (HCC-CMS) (HCC) In remission; receiving rituximab. 3. Immunocompromised state due to drug therapy (HCC) Up-to-date on Covid vaccine and booster doses, and received Evusheld. Will recommend another dose of Evusheld for this Sept. 3. Long-term use of immunosuppressant medication Check labs prior to next visit. Follow up in 6 months. Sirisha Puckett MD 09/02/2021 11:22 documented in this encounter Plan of Treatment Upcoming Encounters Date Type Specialty Care Team Description 09/16/2021 Nurse Only Infusion Therapy 09/30/2021 Nurse Only Infusion Therapy 03/07/2022 Telemedicine Rheumatology Sirisha Puckett MD [address] [facility] [address] [place], [place] [phone] (Wo rk) 07/12/2022 Office Visit Dermatology Lian Bai MD [address] [facility] [place], [place] [address] (Wo rk) documented as of this encounter Visit Diagnoses Diagnosis Seropositive rheumatoid arthritis of mul tiple joints (HCC-CMS) (HCC) - Primary Chronic lymphocytic leukemia (HCC-CMS) ( [facility]) Chronic lymphoid leukemia, without menti on of having achieved remission Immunocompromised state due to drug ther apy ([facility]) Long-term use of immunosuppressant medic ation Encounter for long-term (current) use of other medications documented in this encounter Discontinued Medications Medication Sig Discontinue Reason Start Date End Date brimonidine (ALPHAGAN) Place 1 Drop into Therapy completed 02/05/2009/02/2021 0.2 % ophthalmic solution the right eye 2 times daily. Iron-Vitamin C 100-250 mg daily. Duplicate order 09/02/2021 tablet documented as of this encounter Historical Medications This list may reflect changes made after this encounter. Medication Sig Dispensed Refills Start Date End Date magnesium oxide (MAG-OX) Take 25 mg by mouth 0 400 mg (241.3 mg daily. magnesium) tablet Iron-Vitamin C 100-250 mg daily. 0 09/02/2021 tablet added in this encounter Care Teams Supervisor Public Health Nursing Relationship Specialty Start Date End Date Cathy Mota NP PCP - General 02/27/[address] [place] [phone] documented as of this encounter
--- OUTSIDE RECORDS SUMMARY | 2021-09-03 02:09 | XMS_ITS | Encounter Summary ---
:1950 Author Organization [facility] Address [address] [place] [address] Care Team Providers Name Role Phone Cathy Mota RECORD SYSTEMS ANALYST Primary Care Provider Reason for Visit Reason Comments Infusion Rituxan 2 of 2 Episode Based Medications (Routine) - Authorization Not Required Specialty Diagnoses / Procedures Referred By Contact Refer red To Contact Infusion Therapy Diagnoses Seropositive rheumatoid arthritis of multiple joints ([facility]) ([facility]) Sirisha Puckett MD [facility] [address] [place] [address] [place] [address] Referral ID Status Reason Start Expiration Visits Visits Date Date Requested Authorized [id number] Authorization Not 01/11/2022 4 4 Required 1 Encounter Details Date Type Department Care Team Description 04/01/2021 Nurse Only [facility] Se ropositive rheumatoid Adult Hem Onc Infusi on arthritis of multiple [address] joints ([facility]) ([facility]) [place] [address] (Primary Dx) [phone] Social History Tobacco Use Types Packs/Day Years Used Date Former Smoker Smokeless Tobacco: Never Used Alcohol Use Standard Drinks/Week Comments Yes 2 (1 standard drink = 0.6 oz pure alcoho l) Sex Assigned at Date Recorded Not on file documented as of this encounter Last Filed Vital Signs Vital Sign Reading Time Taken Comments Blood Pressure 128/72 04/01/2021 1110 EST Pulse 68 04/01/2021 1110 EST Temperature - - Respiratory Rate - - Oxygen Saturation 98% 04/01/2021 1110 EST Inhaled Oxygen Concentration - - Weight - - Height - - Body Mass Index - - documented in this encounter Functional Status Functional [...] making decisions? documented as of this encounter Progress Notes Shanta Shirley RN - 04/01/2021 1100 EST Otilio comes in for 2 of [address] Puckett. He states he tolerated the last infusion without any issues. He does feel the lower dose of steroid is easier to tolerate. Treatment infused without incident. He will return in 6 months as needed. I encouraged him to call with any questions or concerns, SHANTA SHIRLEY RN documented in this encounter Plan of Treatment Upcoming Encounters Date Type Specialty Care Team Description 09/16/2021 Nurse Only Infusion Therapy 09/30/2021 Nurse Only Infusion Therapy 03/07/2022 Telemedicine Rheumatology Sirisha Puckett MD [address] [facility] [address] [place] [address] (Lili fraga) 07/12/2022 Office Visit Dermatology Lian Bai MD [address] [facility] [address] [place], [place] [address] (Lili fraga) documented as of this encounter Visit Diagnoses Diagnosis Seropositive rheumatoid arthritis of mul tiple joints (HCC-CMS) ([facility]) - Primary documented in this encounter Administered Medications Inactive Administered Medications - up to 3 most recent administrations Medication Order MAR Action Action Date Dose Rate Site acetaminophen (TYLENOL) tablet 650 Given 04/01/2021 11:10 EST 65 0 mg mg 650 mg, oral, NOW X1, 1 dose, On Riya 04/01/21 at 1130, Routine diphenhydrAMINE (BENADRYL) capsule 25 mg Given 04/01/2021 11:10 EST 25 mg 25 mg, oral, NOW X1, 1 dose, On Riya 04/01/21 at 1130, Routine methylPREDNISolone sod suc(PF) (SOLU-MEDROL) Given 04/01/2021 11 :22 EST 80 mg injection 80 mg 80 mg, intravenous, NOW X1, 1 dose, On Riya 04/01/21 at 1130, Routine riTUXimab (RITUXAN) 1,000 mg in dextrose 5% New Bag 03/23 11:50 EST 1,000 mg (D5W) 250 mL infusion 1,000 mg, intravenous, NOW X1, 1 dose, On Riya 04/01/21 at 1130 sodium chloride 0.9 % (NS) infusion New Bag 04/01/2021 11:14 EST 25 mL/hr at 25 mL/hr, intravenous, CONTINUOUS, Starting on Riya 04/01/21 at 1130, Until Riya 04/01/21 at 1629, Routine documented in this encounter Orders Nursing Count Last Ordered Date First Ordered Date NURSING COMMUNICATION 1 04/01/2021 VITAL SIGNS 1 04/01/2021 VITAL SIGNS - NOTIFY MD 1 04/01/2021 documented in this encounter Care Teams Supervisor Production Department Relationship Specialty Start Date End Date Cathy Mota NP PCP - General 02/27/20 [facility] [address] [place] [phone] documented as of this encounter
--- OUTSIDE RECORDS SUMMARY | 2021-09-03 02:09 | XMS_ITS | Encounter Summary ---
:[address] [facility] Address [address] [place] [address] Care Team Providers Name Role Phone Cathy Mota FAST FOOD SHIFT SUPERVISOR Primary Care Provider Reason for Visit Reason Onset Date Comments Medication Management 03/18/2021 Encounter Details Date Type Department Care Team Description 03/18/2021 Telephone [facility] - Kristie Mendoza Med ication Management [facility] Rheumatology RN [address] [place] [address] Social History Tobacco Use Types Packs/Day Years [...] making decisions? documented as of this encounter Miscellaneous Notes Telephone Encounter - Kristie Mendoza RN - 03/18/2021 1051 EST Tricia Dyer called to report that Otilio is there for his Rituxan and he pointed out that that thedose of methylprednisolone at his last Rituxan was 80 mg because he didn't react well to the 125 mg.Read the encounter where Dr. Puckett changed the methylpred dose and changed the dose to 80 mg. documented in this encounter Plan of Treatment Upcoming Encounters Date Type Specialty Care Team Description 09/16/2021 Nurse Only Infusion Therapy 09/30/2021 Nurse Only Infusion Therapy 03/07/2022 Telemedicine Rheumatology Sirisha Puckett MD [address] [facility] [address] [place], [place] [phone] (Wo rk) 07/12/2022 Office Visit Dermatology Lian Bai MD [address] [facility] [address] [place], [place] [address] (Wo rk) documented as of this encounter Visit Diagnoses Not on filedocumented in this encounter Care Teams Phy Therapist Relationship Specialty Start Date End Date Cathy Mota, KRISTI PCP - General 02/27/[address] [place] [phone] documented as of this encounter
--- OUTSIDE RECORDS SUMMARY | 2021-09-03 02:09 | XMS_ITS | Encounter Summary ---
:1950 Author Organization [facility] Address [address] [place] [address] Care Team Providers Name Role Phone Cathy Mota IT SOFTWARE DEVELOPER Primary Care Provider Reason for Visit Reason Onset Date Comments Post-OP Follow Up 03/11/2021 POM#1 CE PCIOLcatrachito t eye (01/29/2021) Encounter Details Date Type Department Care Team Description 03/11/2021 Post-op Visit [facility] Jameel Mas, Cat aract extraction Ophthalmology - Berl in MD status of eye, right [address] (Primary Dx) [address] [place] [phone] Social History Tobacco Use Types Packs/Day Years [...] documented as of this encounter Progress Notes Jameel Mas MD - 03/11/2021 1045 EST Chief Complaint: Pseudophakia, Cataract Post-Op Month 1, right eye(s) HPI POM #1 s/p CE/PCIOL, right eye(s). Location: Right eye Pain: 0 - No pain Quality: Blurry Severity: Duration: Weeks Timing: Lasts: Context: POM #1 s/p CE/PCIOL, right eye (01/29/21) finished all drops. Used brimonidine bid in righteye for 2-3 weeks and then stopped. Modifying factors: Using dorz bid & timolol bid- both eyes. Used drops this morning & last evening. Feels occasional pressure behind both eyes- not painful. Associated Signs & Symptoms: Would like rx for bifocal today- is using otc readers & reportsnear vision still a little blurry. Visual Fluctuations: None Attestation: Base Eye Exam Visual Acuity (Snellen - Linear) Right Left Dist sc 20/40 20/40 -2 Dist ph sc 20/25 +3 20/20 -1 Tonometry (Applanation, 11:15) Right Left Pressure 16 19 Pupils Pupils APD Right PERRL None Left PERRL None Dilation Right eye: Phenylephrine 2.5%, Tropicamide 1% @ 11:15 Refraction Manifest Refraction (Auto) Sphere Cylinder [place] Dist VA Add Near VA Right -1.25 +2.50 095 Left -1.50 +2.25 090 Manifest Refraction #2 Sphere Cylinder [place] Dist VA Add Near VA Right -0.75 +1.00 090 20/20-2 +2.75 J1+ Left -0.50 +1.25 095 20/20-1 +2.75 J1+ Final Rx Sphere Cylinder [place] Add Right -0.75 +1.00 090 +2.75 Left -0.50 +1.25 095 +2.75 Expiration Date: 03/12/2023 Cataract surgery right eye 01/29/2021 IMPRESSION & PLAN: POM #1 s/p CE/PCIOL, right eye(s) -The patient is doing well -Finished with eye drops -Recommend AT's PRN for burning -MRx given -Resume follow up with Dr. Charles Glaucoma (secondary), both eyes With prior steroid response, IOP is again acceptable. Continue timolol BID both eyes Continue Dorzolamide BID both eyes Keep follow up with Dr. Charles I have reviewed the patient's past medical, family, social and surgical history. I have also reviewed the patient's medications, allergies, and problem list. I performed my own HPI and have reviewed the tech's ROS as well. I personally completed this exam myself. Jameel Mas MD documented in this encounter Plan of Treatment Upcoming Encounters Date Type Specialty Care Team Description 09/16/2021 Nurse Only Infusion Therapy 09/30/2021 Nurse Only Infusion Therapy 03/07/2022 Telemedicine Rheumatology Sirisha Puckett MD [address] [place] [address] [address] [place] [phone] (Wo rk) 07/12/2022 Office Visit Dermatology Lian Bai MD [address] [facility], [address] [place], [place] [phone] (Wo rk) documented as of this encounter Visit Diagnoses Diagnosis Cataract extraction status of eye, right - Primary documented in this encounter Eye Exam Visual Acuity (Snellen - Linear) Right eye Left eye Dist sc 20/40 20/40 -2 Dist ph sc 20/25 +3 20/20 -1 Tonometry #1 (Applanation, 11:15) Right eye Left eye Pressure 16 19 Tonometry #2 (Applanation-MD, 11:58) Right eye Left eye Pressure 16 18 Pupils Pupils APD Right eye PERRL None Left eye PERRL None Neuro/Psych Oriented x3: Yes Mood/Affect: Normal Dilation Right eye: Phenylephrine 2.5%, Tropicami de 1% @ 11:15 Slit Lamp Exam Right eye Left eye Lids/Lashes Normal Normal Conjunctiva/Sclera White and quiet White and quiet Cornea Sealed incisions, Nasal pterygium Clear 2mm onto cornea Anterior Chamber Deep and quiet Deep and quiet Iris Round and reactive Round and reactive Lens Posterior chamber intraocular Posterior chamber intraocular lens lens Vitreous Posterior vitreous detachment Fundus Exam Right eye Left eye Disc Healthy Rim C/D Ratio 0.4 Macula few small central drusen Vessels Normal Periphery Normal Manifest Refraction #1 (Auto) Sphere Cylinder Yuma Dist VA Add Near VA Right eye -1.25 +2.50 095 Left eye -1.50 +2.25 090 Manifest Refraction #2 Sphere Cylinder [place] Dist VA Add Near VA Right eye -0.75 +1.00 090 20/20-2 +2.75 J1+ Left eye -0.50 +1.25 095 20/20-1 +2.75 J1+ Final Rx Sphere Cylinder [place] Add Right eye -0.75 +1.00 090 +2.50 Left eye -0.50 +1.25 095 +2.50 Expiration Date: 03/12/2023 Comments: S/p Cataract surgery Right eye : 01/29/2021 Left eye: 05/15/2020 Cataract surgery right eye 01/29/2021 Care Teams Utility Teller Relationship Specialty Start Date End Date Cathy Mota NP PCP - General 02/27/[address] [place] [phone] documented as of this encounter
--- OUTSIDE RECORDS SUMMARY | 2021-09-03 02:09 | XMS_ITS | Clinical Summary ---
:1950 Author Organization [facility] Address [address] [place] [address] Care Team Providers Name Role Phone Cathy Mota MANAGER SPA Primary Care Provider Allergies Active Allergy Reactions Severity Noted Date Comments Cat Dander 01/08/2021 Verified Etanercept 10/08/2018 Other reaction( s): uveitis Gold Sodium Thiomalate Rash Medium 01/08/2021 Verif ied House Dust 05/11/2021 Uncoded. Severi ty unknown. Adalimumab Medium 01/08/2021 Verified. Non-e ffective Methotrexate 10/08/2018 Other reaction( s): increased LFTs Medications Medication Sig Dispensed Refills Start Date End Date Status omeprazole (PRILOSEC) 1 cap(s) orally 0 Active 20 mg capsule once a day lisinopril (PRINIVIL) 1 tab(s) orally 0 Active 10 mg tablet once a day RITUXIMAB INTRAVENOUS 1000 mg in 250 mls 0 9 Active NS IV over 90 minutes MEDICAL MARIJUANA minimal effective 0 Active amount inhaled as directed Melatonin 1 mg tablet Take by mouth. 0 Active Multivitamins with Take 1 Tab by 0 Active Minerals tablet tablet mouth daily. ferrous gluconate Take 324 mg by 0 Active (FERGON) 324 mg (38 mg mouth daily with iron) tablet breakfast. timolol (TIMOPTIC) Place 1 Drop into 0 02/25/2020 Active 0.25 % ophthalmic both eyes 2 times solution daily. dorzolamide (TRUSOPT) Place 1 Drop into 10 mL 11 05/21/2020 Active 2 % ophthalmic both eyes 3 times solution daily. Additional Information Patient taking differently: 1 Drop both eyes 2 TIMES DAILY, Reported on 12/22/2020 UNABLE TO FIND Matcha green tea supplement- 2 tsp/ day 0 Active Green plant based protein-1 tbsp/ day UNABLE TO FIND Take 1,000 g by mouth if 0 Active needed. Epigallocatechin gallate (EGCG). Green tea extract ELDERBERRY Take 7 g/mL by mouth 0 Active FRUIT-HONEY ORAL daily. Take 30 ml magnesium oxide Take 25 mg by mouth 0 Active (MAG-OX) 400 mg daily. (241.3 mg magnesium) tablet brimonidine Place 1 Drop into the 5 mL 0 02/05/20 Discontinued (ALPHAGAN) 0.2 % right eye 2 times daily. 21 22 (Therapy completed) ophthalmic solution Iron-Vitamin C daily. 0 09/03/19 Disco ntinued 100-250 mg tablet 22 (D uplicate order) Active Problems Problem Noted Date Immunocompromised state due to drug therapy 09/02/2021 Achilles tendinitis, left leg 06/08/2021 Combined forms of age-related cataract of right eye Overview: Added automatically from request for stephane simmons [id number] Sensorineural hearing loss, bilateral 08/31/2020 Long-term use of immunosuppressant medication 06/06/19 20 S/P nasal polypectomy 06/06/2019 Scleritis of both eyes 01/22/2019 Seropositive rheumatoid arthritis of multiple joints ( [facility]) 01/22/2019 Essential hypertension 01/22/2019 Chronic lymphocytic leukemia ([facility]) 01/22/2019 Gastroesophageal reflux disease without esophagitis History of smoking 07/14/2011 Hemorrhagic colitis 07/14/2011 H/O total hip arthroplasty 07/14/2011 Overview: S/P Left anterior total hip arthroplasty - 07/14/2011 (Dr. 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 06/06/2019 Encounters Date Type Specialty Care Team Description 09/02/2021 Office Visit Rheumatology Sirisha Puckett MD Seroposit amairani rheumatoid arthritis of multiple joints ([facility]) ([facility]) (Primary Dx); Chronic lymphoc ytic leukemia ([facility]) ([facility]); Immunocompromis ed state due to drug therapy ([facility]); Long-term use o f immunosuppressant medication 09/02/2021 Telephone Rheumatology Sirisha Puckett MD Labs Only 08/13/2021 Telephone Rheumatology Sirisha Puckett MD Other (ch art prep) 08/05/2021 Telephone Rheumatology Jodi Moulton, FELICIA Appointme nt Related 07/07/2021 Office Visit Dermatology Lian Bai MD Actinic keratoses (Primary Dx); Seborrheic suman toses, inflamed; Rosacea; Actinic skin da mage from Last 3 Months Immunizations Name Administration Dates Next Due Covid-19 mRNA Booster Vaccine (MODERNA 04/25/2021, COVID-19 BOOSTER) PF 0.25 mL IM (18 yrs+) Covid-19 mRNA Vaccine (MODERNA COVID-19) 05/20/2020, 021 PF 0.5 ml IM (12 yrs+) PPD Skin Test Placement 03/13/2006 Pneumococcal Conj Vacc PCV13 (PREVNAR-13) 02/20/2018 IM Pneumococcal Polysaccharide (PPSV23) 09/08/2016, 08/15/2007, 08/20/1998 Vaccine (PNEUMOVAX-23) =>2YO SQ/IM Td (Adult) 5 Lf Vaccine (TENIVAC) 04/06/2011, 06/21/2003 Preservative Free =>7yo IM Zostavax (Zoster Vaccine, Live) SQ 06/01/2015 Surgical History Surgery Date Site/Laterality Comments WRIST FUSION Right TOTAL HIP ARTHROPLASTY Left SHOULDER ARTHROPLASTY Left INGUINAL HERNIA REPAIR Bilateral NASAL POLYP SURGERY 02/21/2000 - 02/19/2001 Medical History Medical History Date Comments Anemia Hemorrhagic colitis 08/2007 Uveitis Possibly secondary t o etanercept Absolute anemia 01/22/2019 Asthma Transient global amnesia 01/30/2016 Seen in ER with episode Arthritis Sunburn H/O chronic lymphocytic leukemia of B-ce ll type not having achieved remission Family History Medical History Relation Name Comments Depression Daughter Alcohol Abuse Father Stroke Mother *Other(comment) Other Family hx of rhe umatoid arthritis Alcohol Abuse Paternal Grandfather Substance Abuse Paternal Grandfather *Other(comment) Paternal Grandmother Unspecified skin cancer Alcohol Abuse Sister Asthma Sister Depression Sister Asthma Son Relation Name Status Comments Daughter Alive Father Mother Other Paternal Grandfather Paternal Grandmother Sister Alive Son Alive Social History Tobacco Use Types Packs/Day Years Used Date Former Smoker Smokeless Tobacco: Never Used Alcohol Use Standard Drinks/Week Comments Yes 2 (1 standard drink = 0.6 oz pure alcoho l) Sex Assigned at Date Recorded Not on file Last Filed Vital Signs Vital Sign Reading Time Taken Comments Blood Pressure 118/72 09/02/2021 1108 EDT Pulse 60 09/02/2021 1108 EDT Temperature 36.5 ??C (97.7 ??F) 09/02/2021 1108 EDT Respiratory Rate 17 01/29/2021 0940 EST Oxygen Saturation 98% 04/01/2021 1110 EST Inhaled Oxygen Concentration - - Weight 85.3 kg (188 lb) 09/02/2021 1108 EDT Height 172.7 cm (5' 8) 09/02/2021 1108 EDT Body Mass Index 28.59 09/02/2021 1108 EDT Plan of Treatment Upcoming Encounters Date Type Specialty Care Team Description 09/16/2021 Nurse Only Infusion Therapy 09/30/2021 Nurse Only Infusion Therapy 03/07/2022 Telemedicine Rheumatology Sirisha Puckett MD [address] [facility] [address] [place] [address] (Wo rk) 07/12/2022 Office Visit Dermatology Lian Bai MD [address] [facility], [address] [place], [place] [address] (Wo rk) Health Maintenance Due Date Last Done Comments Hepatitis C Screen 1950 COVID-19 Vaccine (5 - Booster for 08/25/2021 04/25/2021, , Moderna series) 05/20/2020, Additional history exists Fall Risk Screening 09/02/2022 09/02/2021, 07/07/2021, 03/04/2021, Additional history exists Implants Implanted Type Area Unmanned Equipment Operator Device Shelf Model / Identifier Expiration Serial / Date Lot Lens Intraocular Monfocl Ant Bicnvx Opt Foldable +17.0d Tecnis [id number] - [id number] Lens Right: [employer] [id number] 09/20/2024 [id number] / Implanted: Qty: 1 on 01/29/2021 by Jameel Mas MD at [facility] [id number] / Opthamology Opthamology Implant Implant Ortho Implant Ortho Implant Left: Hip Ortho Implant Ortho Implant Left: Shoulder Jason Jason Right: Wrist Insurance Payer Benefit Plan / Subscriber ID Effective Phone Address T ype Group Dates MEDICARE MEDICARE A/B [id number] 2015-Pres [address] Medicare GL ent [id number] [place] [address] [facility] [id number] 2019-Prese [id number] [facility] [employer] 0 nt [address] [place] [address] Alejandro Cadena Personal/Famil Self 1950 [address] (Home) [facility] [facility], [place] [address] Alejandro Cadena Personal/Famil Self 1950 [address] (Home) [facility] [place] [address] Alejandro Cadena Personal/Famil Self 1950 [address] (Home) [facility] [address] Alejandro Cadena Personal/Famil Self 1950 [address] (Home) [facility] [address] Alejandro Cadena Personal/Famil Self 1950 [address] (Home) [facility] [address] Alejandro Cadena Personal/Famil Self 1950 [address] (Home) [facility] [address] Cadena,Alejandro Personal/Famil Self 1950 [address] (Home) [facility] [address] Advance Directives For more information, please contact: [phone] Latest Code Status on File Code Status Date Activated Date Inactivated Comments Full Code 01/29/2021 7:24 01/29/2021 12:01 When the patient has NO PULSE: Full Code / CPR Who Made the Decision? Default/Not Discussed Care Teams 7Th Grade Social Studies Teacher Relationship Specialty Start Date End Date Cathy Mota, KRISTI PCP - General 02/27/[address] [place] [address] [address] [place] [phone]
--- OUTSIDE RECORDS SUMMARY | 2021-09-03 02:09 | XMS_ITS | Encounter Summary ---
:1950 Author Organization [facility] Address [address] [place] [address] Care Team Providers Name Role Phone Cathy Mota POISER Primary Care Provider Encounter Details Date Type Department Care Team Description 05/11/2021 [facility] Lian Aranda MD Dermatology [address] [facility] [address] [place] [address] [address], [place], [place] [address] (Wo rk) Social History Tobacco Use Types Packs/Day Years [...] documented as of this encounter Progress Notes Nain Valerio MA - 05/11/2021 0853 EDT Abstraction done by jms documented in this encounter Plan of Treatment Upcoming Encounters Date Type Specialty Care Team Description 09/16/2021 Nurse Only Infusion Therapy 09/30/2021 Nurse Only Infusion Therapy 03/07/2022 Telemedicine Rheumatology Sirisha Puckett MD [address] [facility] [address] [place], [place] [phone] (Wo rk) 07/12/2022 Office Visit Dermatology Lian Bai MD [address] [facility], [address] [place], [place] [address] (Wo rk) documented as of this encounter Visit Diagnoses Not on filedocumented in this encounter Historical Medications This list may reflect changes made after this encounter. Medication Sig Dispensed Refills Start Date End Date ELDERBERRY Take 7 g/mL by mouth 0 FRUIT-HONEY ORAL daily. Take 30 ml UNABLE TO FIND Take 1,000 g by mouth if 0 needed. Epigallocatechin gallate (EGCG). Green tea extract added in this encounter Care Teams Collator Relationship Specialty Start Date End Date Cathy Mota, KRISTI PCP - General 02/27/[address] [place] [phone] documented as of this encounter
--- OUTSIDE RECORDS SUMMARY | 2021-09-03 02:09 | XMS_ITS | Encounter Summary ---
:1950 Author Organization [facility] Address [address] [place] [address] Care Team Providers Name Role Phone Cathy Mota RFP WRITER Primary Care Provider Reason for Visit Reason Comments Other Encounter Details Date Type Department Care Team Description 04/30/2021 [facility] Yola Mas MD Other Ophthalmology - [place] in [address] [place] [phone] [place] [address] [phone] Social History Tobacco Use Types Packs/Day Years [...] this encounter Miscellaneous Notes Telephone Encounter - Jameel Mas MD - 04/30/2021 1631 EST These were originally prescribed by Dr. Shippee. If he wants to follow up here he will need an appointment in 4-5 months. documented in this encounter Plan of Treatment Upcoming Encounters Date Type Specialty Care Team Description 09/16/2021 Nurse Only Infusion Therapy 09/30/2021 Nurse Only Infusion Therapy 03/07/2022 Telemedicine Rheumatology Sirisha Puckett MD [address] [facility] [address] [place] [address] (Wo rk) 07/12/2022 Office Visit Dermatology Lian Bai MD [address] [facility], [facility] [address] [place], [place] [address] (Wo rk) documented as of this encounter Visit Diagnoses Not on filedocumented in this encounter Care Teams Sweet Goods Machine Operator Relationship Specialty Start Date End Date Cathy Mota, KRISTI PCP - General 02/27/[address] [place] [address] [address] [place] [phone] documented as of this encounter
--- OUTSIDE RECORDS SUMMARY | 2021-09-03 02:09 | XMS_ITS | Encounter Summary ---
:1950 Author Organization [facility] Address [address] [place] [address] Care Team Providers Name Role Phone Cathy Mota CNC SPECIALIST Primary Care Provider Reason for Visit Reason Onset Date Comments Labs Only 09/02/2021 Encounter Details Date Type Department Care Team Description 09/02/2021 Telephone [facility] Sirisha Puckett MD Labs Only Rheumatology [address] [facility] [address] [place] [address] [place] [address] (Wo rk) Social History Tobacco Use Types [...] this encounter Miscellaneous Notes Telephone Encounter - Jodi Moulton RN - 09/02/2021 1706 EDT It looks like we have confirmation in scanned documents that orders for CMP, CBC, and CRP were faxedon 08/13/21. Re-faxed orders with note to have lab to call patient to get him in for CMP and CRP. elephone Encounter - Donovan Collier - 09/02/2021 2025 EDT Shilpi called states they only eloise the CBC because that was the only order they received. States that if the other lab order can be faxed to they can have the patient come in to have those drawn tomorrow. documented in this encounter Plan of Treatment Upcoming Encounters Date Type Specialty Care Team Description 09/16/2021 Nurse Only Infusion Therapy 09/30/2021 Nurse Only Infusion Therapy 03/07/2022 Telemedicine Rheumatology Sirisha Puckett MD [address] [facility] [address] [place], [place] [address] (Wo rk) 07/12/2022 Office Visit Dermatology Lian Bai MD [address] [facility], [address] [place], [place] [phone] (Wo rk) documented as of this encounter Visit Diagnoses Not on filedocumented in this encounter Care Teams Environmental Protection Geologist Relationship Specialty Start Date End Date Cathy Mota NP PCP - General 02/27/20 [address] [facility] [address] [place] [address] documented as of this encounter
--- OUTSIDE RECORDS SUMMARY | 2021-09-03 02:09 | XMS_ITS | Encounter Summary ---
:1950 Author Organization [facility] Address [address] [place] [address] Care Team Providers Name Role Phone Cathy Mota BILL COLLECTOR Primary Care Provider Reason for Visit Reason Comments New Patient Visit FBSE,no personal or family h istory of skin cancer, no concerns Referral (Routine) - Authorization Not Required Specialty Diagnoses / Procedures Referred By Contact Refer red To Contact Dermatology [facility] [address] [place] [address] Phone: Fax: Referral ID Status Reason Start Expiration Visits Visits Date Date Requested Authorized [id number] Authorization Not 1 1 Required Encounter Details Date Type Department Care Team Description 07/07/2021 Office Visit [facility] - Hernandez Bai MD Actinic keratoses (Primary Dx); [facility] Dermatology [address] [place] [address] Seborrheic keratoses, inflam ed; [address] [facility] [place]; [place], [place] [phone] [place] [address] Actinic skin damage [phone] [place], [address] [place] [address] (Wo rk) Social History Tobacco Use Types [...] as of this encounter Patient Instructions Patient InstructionsGinny Ferro - 07/07/2021 11:20 EDT WOUND CARE INSTRUCTIONS FOR CRYOSURGERY (FREEZING THERAPY) Treatment with liquid nitrogen (cryosurgery) causes localized swelling, throbbing, and blister formation. Do not pop an intact blister. If the blisters open, apply Vaseline/petroleum jelly daily until the area heals. We do not recommend the use of triple antibiotic ointment or other ointments as they can cause allergic reactions and do not significantly reduce the incidence of infection, which is very rare to startwith. . CONTACT THE OFFICE IF YOU EXPERIENCE: ?? increasing redness ?? warmth to touch ?? increasing pain ?? drainage with a foul odor ?? rapid swelling of the wound ?? fever or chills It was a pleasure taking care of you today. Please call our office if you have any concerns or questions. Follow these tips to protect your skin from the sun's damaging ultraviolet rays and reduce your riskof skin cancer: Seek shade when appropriate, remembering that the sun???s rays are strongest between 10 a.m. and 2 p.m. If your shadow is shorter than you are, seek shade. Wear protective clothing, such as a lightweight long-sleeved shirt, pants, a wide-brimmed hat and sunglasses, when possible. Generously apply a broad-spectrum, water-resistant sunscreen with an SPF of 30 or higher. Broad-spectrum sunscreen provides protection from both UVA and UVB rays. ??? Use sunscreen whenever you are going to be outside, even on cloudy days. ??? Apply enough sunscreen to cover all exposed skin. Most adults need about 1 ounce ??? or enough to fill a shot glass ??? to fully cover their body. ??? Don???t forget to apply to the tops of your feet, your neck, your ears and the top of your head. ??? If you are concerned about potential adverse effects of sunscreens, consider mineral-based agents that contain zinc or titanium oxide (these are generally a bit harder to fully rub in, but are typically quite effective and well tolerated) When outdoors, reapply sunscreen every two hours, or after swimming or sweating. Use extra caution near water, snow and sand, as they reflect the damaging rays of the sun, which can increase your chance of sunburn. Avoid tanning beds. Ultraviolet light from tanning beds can cause skin cancer and premature skin aging. Consider using a self-tanning product if you want to look siddiqui, but continue to take good sun protective measures (self tanners do not provide adequate protection from the sun's rays) -------- Perform regular skin self-exams to detect skin cancer early ??? Seek evaluation for any new or suspicious spots on your skin, or anything changing, itching or bleeding. ??? Remember the ABCDEs of melanoma: A is for Asymmetry One half of the spot is unlike the other half. B is for Border The spot has an irregular, scalloped, or poorly defined border. C is for Color The spot has varying colors from one area to the next, such as shades of siddiqui, brown or black, or areas of white, red, or blue. D is for Diameter Melanomas are usually greater than 6 millimeters (about the size of a pencil eraser) but they can besmaller. E is for Evolving The spot looks different from the rest of your moles, or is changing in size, shape, or color -------- For more information and helpful tips for many skin conditions: Visit [email or web address].aad.org/public documented in this encounter Progress Notes Ginny Ferro - 07/07/2021 1120 EDT Dermatology Outpatient Visit Note Chief Complaint Patient presents with ??? New Patient Visit FBSE,no personal or family history of skin cancer, no concerns Dermatologic History: No specialty comments available. Last Dermatology office visit: NPV SUBJECTIVE Mr. Cadena is a 70 y.o. male who presents for new evaluation and treatment for a skin exam with several cutaneous concerns. He reports several raised itchy spots on his back. Also has an irritated bump on his scalp. He notes redness of his nose. Denies roughness. No personal or family history of skin cancer. OBJECTIVE VS: There were no vitals taken for this visit. Mr. Cadena is male with Ness type III skin. Cutaneous full body examination including the hair, scalp, face, eyelids, lips, neck, chest, back, abdomen, all four extremities, hands, feet, digits and nails was performed.The examination was significant for the following: - left congregation, nasal tip, right cheek x 2: pink gritty papules - back x 3: irritated stuck on waxy papules - top of scalp: stuck on pink irritated papule - central face: rare inflammatory papules with mild erythema - diffuse actinic injury and bland siddiqui macules in photo-distribution ASSESSMENT/PLAN Actinic keratoses of the left congregation, nasal tip, right cheek x 2 - The nature of actinic keratoses was discussed with the patient today. He/she was reassured that these are premalignant lesions that can, at times, resolve without treatment with vigilant sun protection. A small percentage of actinic keratoses will progress to squamous cell carcinomas. - Recommend treatment with cryotherapy today. Risks and benefits are discussed and patient agrees toproceed with treatment. See procedure note below. The patient tolerated the procedure well. Irritated seborrheic keratoses of the back x 3, top of scalp - The benign nature of the patient's lesions was discussed. No intervention is needed unless they become symptomatic and the patient was reassured today. - Given irritated and symptomatic nature, recommended treatment with liquid nitrogen cryotherapy today. Patient agrees with plan. See procedure note below. The patient tolerated the procedure well. Rosacea - Diagnosis discussed. - Not bothersome at this time. Actinic skin damage - The nature of sun-induced photo-aging and skin cancers is discussed. Sun avoidance, protective clothing, and the use of OTC broad spectrum 50+-SPF sunscreens with both UVA and UVB covereage is advised. Observe closely for skin damage/changes, and call if such occurs. No orders of the defined types were placed in this encounter. CRYOSURGERY PROCEDURE NOTE PATIENT INFORMATION: Yaw Cadena : MRN: [id number] PROVIDER: Lian Bai MD The indication, risks, benefits and alternatives to this procedure were discussed in detail with thepatient and questions were answered. The below noted lesions were then destroyed with liquid nitrogen cryosurgery using two freeze- thaw cycles. The expected healing course was discussed, and it was noted that sometimes lesions do not fully resolve, and cryosurgery can cause a white spot or a scar. Verbal wound care instructions were given. SITE/LESION TYPE/DIAGNOSIS: Lesion(s) A: Location: left congregation, nasal tip, right cheek x 2 Lesion Type/Diagnosis: 4 actinic keratosis(es) Lesion(s) B: Location: Back x 3, top of scalp Lesion Type/Diagnosis: 4 irritated seborrheic keratosis(es) He will Return in about 1 year (around 07/07/2022) for FBSE, hx AKs. Scribe Attestation By time stamping my name below, I attest that this documentation has been prepared under the direction and in the presence of the provider listed as the provider on this encounter. Ginny Ferro 07/07/2021 11:46 Provider Attestation By time stamping my name below, I, as the provider for this encounter, personally performed the services described in this documentation. All medical record entries made by the scribe were at my direction and in my presence. I have reviewed the chart and any discharge instructionsand agree that the record reflects my personal performance and is accurate and complete. Lian Bai MD 07/12/2021 22:46 documented in this encounter Plan of Treatment Upcoming Encounters Date Type Specialty Care Team Description 09/16/2021 Nurse Only Infusion Therapy 09/30/2021 Nurse Only Infusion Therapy 03/07/2022 Telemedicine Rheumatology Sirisha Puckett MD [address] [facility] [address] [place] [address] (Wo rk) 07/12/2022 Office Visit Dermatology Lian Bai MD [address] [place] [address], [address] [place], [place] [phone] (Wo rk) documented as of this encounter Visit Diagnoses Diagnosis Actinic keratoses - Primary Actinic keratosis Seborrheic keratoses, inflamed Rosacea Actinic skin damage Other dermatitis due to solar radiation documented in this encounter Care Teams Enrichment Teacher Relationship Specialty Start Date End Date Cathy Mota NP PCP - General 02/27/[address] [place] [address] documented as of this encounter
--- OUTSIDE RECORDS SUMMARY | 2021-09-03 02:09 | XMS_ITS | Encounter Summary ---
:1950 Author Organization [facility] Address [address] [place] [address] Care Team Providers Name Role Phone Cathy Mota STATEMENT CLERKS SUPERVISOR Primary Care Provider Reason for Visit Reason Comments Infusion Rituxan 1 of 2 (Fama) Episode Based Medications (Routine) - Authorization Not Required Specialty Diagnoses / Procedures Referred By Contact Refer red To Contact Infusion Therapy Diagnoses Seropositive rheumatoid arthritis of multiple joints ([facility]) ([facility]) Sirisha Pucektt MD [facility] Infusion [address] [place] [address] [place] [address] Referral ID Status Reason Start Expiration Visits Visits Date Date Requested Authorized [id number] Authorization Not 01/11/2022 4 4 Required 1 Encounter Details Date Type Department Care Team Description 03/18/2021 Nurse Only [facility] Se ropositive rheumatoid Adult Hem Onc Infusi on arthritis of multiple [address] joints ([facility]) ([facility]) [place] [address] (Primary Dx) [phone] Social History Tobacco Use Types Packs/Day Years Used Date Former Smoker Smokeless Tobacco: Never Used Alcohol Use Standard Drinks/Week Comments Yes 2 (1 standard drink = 0.6 oz pure alcoho l) Sex Assigned at Date Recorded Not on file documented as of this encounter Last Filed Vital Signs Vital Sign Reading Time Taken Comments Blood Pressure 138/72 03/18/2021 1112 EST Pulse 72 03/18/2021 1112 EST Temperature - - Respiratory Rate - - Oxygen Saturation 96% 03/18/2021 1112 EST Inhaled Oxygen Concentration - - Weight [...] encounter Progress Notes Shanta Shirley RN - 03/18/2021 1100 EST Otilio comes in for his first of two Rituxan infusions. He states he is feeling well and offers no complaints to me at this time. He did receive the Evusheld injections two weeks ago. Treatment infused without incident. He will return in two weeks and was encouraged to call with any questions or concerns, SHANTA SHIRLEY RN documented in this encounter Plan of Treatment Upcoming Encounters Date Type Specialty Care Team Description 09/16/2021 Nurse Only Infusion Therapy 09/30/2021 Nurse Only Infusion Therapy 03/07/2022 Telemedicine Rheumatology Sirisha Puckett MD 130 [facility] [address] [place] [address] (Lili fraga) 07/12/2022 Office Visit Dermatology Lian Bai MD 111 [facility], [facility] [address] [place] [address] (Lili fraga) documented as of this encounter Visit Diagnoses Diagnosis Seropositive rheumatoid arthritis of mul tiple joints (HCC-CMS) ([facility]) - Primary documented in this encounter Administered Medications Inactive Administered Medications - up to 3 most recent administrations Medication Order MAR Action Action Date Dose Rate Site acetaminophen (TYLENOL) tablet 650 Given 03/18/2021 11:10 EST 65 0 mg mg 650 mg, oral, NOW X1, 1 dose, On Riya 03/18/21 at 1130, Routine diphenhydrAMINE (BENADRYL) capsule 25 mg Given 03/18/2021 11:10 EST 25 mg 25 mg, oral, NOW X1, 1 dose, On Riya 03/18/21 at 1130, Routine methylPREDNISolone sod suc(PF) (SOLU-MEDROL) Given 03/18/2021 11 :22 EST 80 mg injection 80 mg 80 mg, intravenous, NOW X1, 1 dose, On Riya 03/18/21 at 1130, Routine riTUXimab (RITUXAN) 1,000 mg in dextrose 5% New Bag 02/21 11:50 EST 1,000 mg (D5W) 250 mL infusion 1,000 mg, intravenous, NOW X1, 1 dose, On Riya 03/18/21 at 1130 sodium chloride 0.9 % (NS) infusion New Bag 03/18/2021 11:15 EST 50 mL/hr at 50 mL/hr, intravenous, NOW X1, 1 dose, On Riya 03/18/21 at 1145, Routine documented in this encounter Orders Nursing Count Last Ordered Date First Ordered Date NURSING COMMUNICATION 2 03/18/2021 VITAL SIGNS 1 03/18/2021 documented in this encounter Care Teams Plant Technical Specialist Relationship Specialty Start Date End Date Cathy Mota NP PCP - General 02/27/[address] [place] [phone] documented as of this encounter
--- OUTSIDE RECORDS SUMMARY | 2021-09-03 02:09 | XMS_ITS | Encounter Summary ---
:1950 Author Organization [facility] Address [address] [place] [address] Care Team Providers Name Role Phone Cathy Mota SECONDARY ENGLISH TEACHER Primary Care Provider Reason for Referral Laboratory Services (Routine/Next Available) - New Request Specialty Diagnoses / Procedures Referred By Contact Refer red To Contact Diagnoses Seropositive rheumatoid arthritis of multiple sites ([facility]) ([facility]) High risk medication use Sirisha Puckett MD Procedures C REACTIVE PROTEIN [address] [facility] [address] [address] Referral ID Status Reason Start Date Expiration Date Visits V isits Requested Authorized [id number] New Request 08/13/2021 8 8 aboratory Services (Routine/Next Available) - New Request Specialty Diagnoses / Procedures Referred By Contact Refer red To Contact Diagnoses Seropositive rheumatoid arthritis of multiple sites ([facility]) ([facility]) High risk medication use Sirisha Puckett MD Procedures COMPREHENSIVE METABOLIC PANEL (CMP) [address] [facility] [address] [place] [address] Referral ID Status Reason Start Date Expiration Date Visits V isits Requested Authorized [id number] New Request 08/13/2021 8 8 aboratory Services (Routine/Next Available) - New Request Specialty Diagnoses / Procedures Referred By Contact Refer red To Contact Diagnoses Seropositive rheumatoid arthritis of multiple sites ([facility]) ([facility]) High risk medication use Sirisha Puckett MD Procedures COMPLETE BLOOD COUNT AND DIFFERENTIAL [address] [facility] [address] [place] [address] Referral ID Status Reason Start Date Expiration Date Visits V isits Requested Authorized [id number] New Request 08/13/2021 8 8 Reason for Visit Reason Onset Date Comments Other 08/13/2021 chart prep Encounter Details Date Type Department Care Team Description 08/13/2021 Telephone [facility] Sirisha Puckett MD Other (chart prep) Rheumatology [address] [facility] [address] [place] [address] [place] [phone] (Wo rk) Social History Tobacco Use [...] Telephone Encounter - Kristie Mendoza RN - 08/13/2021 1350 EDT External lab orders placed. Will bring print outs for faxing to [facility]. Thank you. elephone Encounter - Lashell Melissa - 08/13/2021 1128 EDT Pt will need new standing orders placed, current orders will on 08/18. TY. documented in this encounter Plan of Treatment Upcoming Encounters Date Type Specialty Care Team Description 09/16/2021 Nurse Only Infusion Therapy 09/30/2021 Nurse Only Infusion Therapy 03/07/2022 Telemedicine Rheumatology Sirisha Puckett MD [address] [facility] [address] [place] [address] (Wo rk) 07/12/2022 Office Visit Dermatology Lian Bai MD 111 [facility], [facility] 5 [place], [place] [address] (Wo rk) Scheduled Orders Name Type Priority Associated Diagnoses Order S chedule COMPLETE BLOOD COUNT AND Lab Routine Seropositive rhe umatoid 8 Occurrences starting DIFFERENTIAL arthritis of multiple 2021 until sites ([facility]) ([facility]) 08/13/2022 High risk medication use COMPREHENSIVE METABOLIC Lab Routine Seropositive rheu matoid 8 Occurrences starting PANEL (CMP) arthritis of multiple 2021 until sites ([facility]) ([facility]) 08/13/2022 High risk medication use C REACTIVE PROTEIN Lab Routine Seropositive rheumatoi d 8 Occurrences starting arthritis of multiple 2021 until sites ([facility]) ([facility]) 08/13/2022 High risk medication use documented as of this encounter Visit Diagnoses Diagnosis Seropositive rheumatoid arthritis of [facility] sites ([facility]) ([facility]) - Primary High risk medication use Encounter for long-term (current) use of other medications documented in this encounter Care Teams Consultants Intern Relationship Specialty Start Date End Date Cathy Mota, KRISTI PCP - General 02/27/[address] [place] [address] documented as of this encounter
--- OUTSIDE RECORDS SUMMARY | 2021-09-03 02:09 | XMS_ITS | Encounter Summary ---
:1950 Author Organization [facility] Address [address] [place] [address] Care Team Providers Name Role Phone Cathy Mota PROTOTYPE ASSEMBLER ELECTRONICS Primary Care Provider Reason for Referral Laboratory Services (Routine/Next Available) - New Request Specialty Diagnoses / Procedures Referred By Contact Refer red To Contact Diagnoses Encounter for preprocedure screening laboratory testing for COVID-19 Sirisha Puckett MD Procedures COVID-19 TESTING ([facility]) [address] [place] [address] Referral ID Status Reason Start Date Expiration Date Visits V isits Requested Authorized [id number] New Request 04/21/2021 1 1 Encounter Details Date Type Department Care Team Description 04/21/2021 Orders Only [facility] - Kristie Mendoza Enc ounter for [facility] Rheumatology RN preprocedure screening [address] [place] [address] COVID-19 (Primary Dx) [phone] Social History Tobacco Use Types Packs/Day Years [...] documented as of this encounter Progress Notes Kristie Mendoza RN - 04/21/2021 0943 EST Orders placed for preprocedure covid test as required by [facility] prior to evusheld. documented in this encounter Plan of Treatment Upcoming Encounters Date Type Specialty Care Team Description 09/16/2021 Nurse Only Infusion Therapy 09/30/2021 Nurse Only Infusion Therapy 03/07/2022 Telemedicine Rheumatology Sirisha Puckett MD 130 [facility] [address] [place] [phone] (Wo rk) 07/12/2022 Office Visit Dermatology Lian Bai MD 111 [facility], [address] [place], [place] [address] (Wo rk) Scheduled Orders Name Type Priority Associated Diagnoses Order S chedule COVID-19 TESTING Microbiology Routine Encounter for Ordered: 0 04/21/2021 ([facility] [place]) preprocedure screening laboratory testing for COVID-19 documented as of this encounter Visit Diagnoses Diagnosis Encounter for preprocedure screening lab oratory testing for COVID-19 - Primary documented in this encounter Care Teams Powder Worker Tnt Relationship Specialty Start Date End Date Cathy Mota, KRISTI PCP - General 02/27/[address] [place] [phone] documented as of this encounter
--- OUTSIDE RECORDS SUMMARY | 2021-09-03 02:09 | XMS_ITS | Encounter Summary ---
:1950 Author Organization [facility] Address [address] [place] [address] Care Team Providers Name Role Phone Cathy Mota MOUNTING MACHINE OPERATOR Primary Care Provider Reason for Visit Reason Onset Date Comments Medication Management 04/20/2021 Encounter Details Date Type Department Care Team Description 04/20/2021 Telephone [facility] - Kristie Mendoza Med ication Management [facility] Rheumatology RN [address] [place] [address] Social History Tobacco Use Types [...] Telephone Encounter - Kristie Mendoza RN - 04/20/2021 1004 EST M stating the new dosing recs for Evusheld and timing of a 4th covid booster and that Dr. Puckett sent orders to [facility] for a second round of Evusheld. Left my direct line to call with any questions. documented in this encounter Plan of Treatment Upcoming Encounters Date Type Specialty Care Team Description 09/16/2021 Nurse Only Infusion Therapy 09/30/2021 Nurse Only Infusion Therapy 03/07/2022 Telemedicine Rheumatology Sirisha Puckett MD 130 [facility] [address] [place] [address] (Wo rk) 07/12/2022 Office Visit Dermatology Lian Bai MD 111 [facility], [address] [place], [place] [address] (Wo rk) documented as of this encounter Visit Diagnoses Not on filedocumented in this encounter Care Teams Car Retarder Operator Relationship Specialty Start Date End Date Cathy Mota, KRISTI PCP - General 02/27/[address] [place] [phone] documented as of this encounter
--- OUTSIDE RECORDS SUMMARY | 2021-09-03 02:09 | XMS_ITS | Encounter Summary ---
:1950 Author Organization [facility] Address [address] [place] [address] Care Team Providers Name Role Phone Cathy Mota SET DESIGNER Primary Care Provider Reason for Visit Reason Onset Date Comments Appointment Related 08/05/2021 Encounter Details Date Type Department Care Team Description 08/05/2021 Telephone [facility] Jodi Moulton RN Appointment Related Rheumatology [address] [place], [place] [address] Social History Tobacco Use Types Packs/Day Years [...] Telephone Encounter - Jodi Moulton RN - 08/05/2021 0824 EDT M for patient advising him that his Rituxan infusions are scheduled for 09/16/21 and 09/30/21 both at 1pm. documented in this encounter Plan of Treatment Upcoming Encounters Date Type Specialty Care Team Description 09/16/2021 Nurse Only Infusion Therapy 09/30/2021 Nurse Only Infusion Therapy 03/07/2022 Telemedicine Rheumatology Sirisha Puckett MD 130 [facility] [address] [place], [place] [phone] (Wo rk) 07/12/2022 Office Visit Dermatology Lian Bai MD 111 [facility], [address] [place], [place] [address] (Wo rk) documented as of this encounter Visit Diagnoses Not on filedocumented in this encounter Care Teams Manufacturing Project Engineer Relationship Specialty Start Date End Date Cathy Mota NP PCP - General 02/27/[address] [place] [address] documented as of this encounter
--- OUTSIDE RECORDS SUMMARY | 2021-09-03 02:10 | XMS_ITS | Encounter Summary ---
:1950 Author Organization [facility] Address [address] [place] [address] Care Team Providers Name Role Phone Cathy Mota SECOND LANGUAGE TUTOR Primary Care Provider Reason for Visit Reason Comments Infusion Rituximab 1 of 2 Encounter Details Date Type Department Care Team Description 09/08/2020 Nurse Only [facility] Rh eumatoid arthritis Adult Hem Onc Infusi on involving multiple joints [address] ([facility]) (Primary Dx) [place], [place] [id number] Social History Tobacco Use Types Packs/Day Years Used Date Former Smoker Smokeless Tobacco: Never Used Sex Assigned at Date Recorded Not on [...] documented as of this encounter Progress Notes Zaynab Srinivasan RN - 09/08/2020 1300 EDT Yaw is here today for Rituximab #1 of 2 treatment plan. Patient was seen by Dr. Puckett on 08/31/20. IV catheter placed, patent with blood return present. Blood return noted before and after all chemotherapy and biotherapy infusions. Patient received pre-meds: Acetaminophen, Diphenhydramine and Methylprednisolone prior to treatment. Rituximab administered over 120min. Patient tolerating chemotherapy treatment at this time. IV catheter discontinued, site covered with band aid. Advised patient to call oncology clinic during office hours or advice line after hours for concerns or if symptoms occur requiring attention. Infusion #2 scheduled for 09/22/20, patient is aware, has appointment card. ZAYNAB SRINIVASAN RN documented in this encounter Plan of Treatment Upcoming Encounters Date Type Specialty Care Team Description 09/16/2021 Nurse Only Infusion Therapy 09/30/2021 Nurse Only Infusion Therapy 03/07/2022 Telemedicine Rheumatology Sirisha Puckett MD 130 [facility] [address] [place] [address] (Wo rk) 07/12/2022 Office Visit Dermatology Lian Bai MD 111 [facility], [address] [place] [employer] [address] (Wo rk) documented as of this encounter Visit Diagnoses Diagnosis Rheumatoid arthritis involving multiple joints (HCC-CMS) (HCC) - Primary documented in this encounter Administered Medications Inactive Administered Medications - up to 3 most recent administrations Medication Order MAR Action Action Date Dose Rate Site acetaminophen (TYLENOL) tablet 650 Given 09/08/2020 13:20 EDT 65 0 mg mg 650 mg, oral, NOW X1, 1 dose, On Mon09/08/20 at 1330, Routine diphenhydrAMINE (BENADRYL) capsule 25 mg Given 09/08/2020 13:20 EDT 25 mg 25 mg, oral, NOW X1, 1 dose, On Mon09/08/20 at 1330, Routine methylPREDNISolone sod suc(PF) (SOLU-MEDROL) Given 09/08/2020 13 :20 EDT 125 mg injection 125 mg 125 mg, intravenous, NOW X1, 1 dose, On Mon09/08/20 at 1330, Routine riTUXimab (RITUXAN) 1,000 mg in sodium New Bag 09/08/2020 13:30 ED T 1,000 mg chloride (NS) 0.9 % 250 mL RAPID infusio n 1,000 mg, intravenous, NOW X1, 1 dose, On Mon09/08/20 at 1330 sodium chloride 0.9 % (flush) flush 10 m L Given 09/08/2020 15:35 EDT 10 mL 10 mL, intravenous, PRN, Starting on Mon09/08/20 at 1303, Until Mon09/08/20 at 1809, Line Care, Routine sodium chloride 0.9 % (NS) infusion New Bag 09/08/2020 13:20 EDT 25 mL/hr at 25 mL/hr, intravenous, CONTINUOUS, Starting on Mon09/08/20 at 1330, Until Mon09/08/20 at 1809, Routine documented in this encounter Care Teams Hide Sorter Relationship Specialty Start Date End Date Cathy Mota, KRISTI PCP - General 02/27/[address] [place] [phone] documented as of this encounter
--- OUTSIDE RECORDS SUMMARY | 2021-09-03 02:10 | XMS_ITS | Encounter Summary ---
:1950 Author Organization [facility] Address [address] [place] [address] Care Team Providers Name Role Phone Cathy Mota COMPOSING ROOM MACHINIST Primary Care Provider Encounter Details Date Type Department Care Team Description 08/18/2020 Orders Only Health system - Jodi Moulton Rheu matoid arthritis involving multiple sites, unspecified whether rheumatoid factor present ([facility]) (Primary Dx); [facility] Rheumatology RN Encounter for long-term (cur rent) use of high-risk medication [address] [place], [place] [address] Social History Tobacco Use Types Packs/Day Years Used Date Never Smoker Smokeless Tobacco: Never Used Sex Assigned [...] documented as of this encounter Progress Notes Jodi Moulton RN - 08/18/2020 0934 EDT Standing order renewed. documented in this encounter Plan of Treatment Upcoming Encounters Date Type Specialty Care Team Description 09/16/2021 Nurse Only Infusion Therapy 09/30/2021 Nurse Only Infusion Therapy 03/07/2022 Telemedicine Rheumatology Sirisha Puckett MD 130 [facility] [address] [place], [place] [address] (Wo rk) 07/12/2022 Office Visit Dermatology Lian Bai MD 111 [facility] 5 [place], [place] [address] (Wo rk) documented as of this encounter Visit Diagnoses Diagnosis Rheumatoid arthritis involving multiple sites, unspecified whether rheumatoid factor present ([facility]) ([facility]) - Primary Encounter for long-term (current) use of high-risk medication Encounter for long-term (current) use of other medications documented in this encounter Care Teams Construction Trades Contractor Relationship Specialty Start Date End Date Cathy Mota NP PCP - General 02/27/[address] [place] [phone] documented as of this encounter
--- OUTSIDE RECORDS SUMMARY | 2021-09-03 02:10 | XMS_ITS | Encounter Summary ---
:1950 Author Organization [facility] Address [address] [place] [address] Care Team Providers Name Role Phone Cathy Mota GLASS DESIGNER Primary Care Provider Encounter Details Date Type Department Care Team Description 05/15/2020 Travel Social History Tobacco Use Types Packs/Day Years Used Date Never Smoker Smokeless Tobacco: Never Used Sex Assigned at Date Recorded Not on file COVID-19 Exposure Response Date Recorded In the last month, have you been in contact with No / Unsure 05/15/2020 13:08 EDT someone who was confirmed or suspected to have Coronavirus / COVID-19? documented as of this encounter Functional Status [...] Therapy 03/07/2022 Telemedicine Rheumatology Sirisha Puckett MD [address] [place] [address] [phone] (Wo rk) 07/12/2022 Office Visit Dermatology Lian Bai MD 111 [facility], [address] [place], [place] [address] (Wo rk) documented as of this encounter Visit Diagnoses Not on filedocumented in this encounter Care Teams Caustic Room Operator Relationship Specialty Start Date End Date Cathy Mota NP PCP - General 02/27/[address] [place] [address] documented as of this encounter
--- OUTSIDE RECORDS SUMMARY | 2021-09-03 02:10 | XMS_ITS | Encounter Summary ---
:1950 Author Organization [facility] Address [address] [place] [address] Care Team Providers Name Role Phone FannyJarrod smithCathy L END USER SUPPORT SPECIALIST Primary Care Provider Encounter Details Date Type Department Care Team Description 01/19/2021 Prep for Procedure [facility] Jameel Mas , Ophthalmology - [place] [address] [facility] [address] [facility] [address] [place] [phone] Social History Tobacco Use Types Packs/Day Years [...] Therapy 03/07/2022 Telemedicine Rheumatology Sirisha Puckett MD [address] [place] [address] [address] [place] [address] (Wo rk) 07/12/2022 Office Visit Dermatology Lian Bai MD 111 [facility], [address] [place], [place] [address] (Wo rk) documented as of this encounter Visit Diagnoses Not on filedocumented in this encounter Care Teams Pump Erector Relationship Specialty Start Date End Date Cathy Mota NP PCP - General 02/27/[address] [place] [address] documented as of this encounter
--- OUTSIDE RECORDS SUMMARY | 2021-09-03 02:10 | XMS_ITS | Encounter Summary ---
:1950 Author Organization [facility] Address [address] [place] [address] Care Team Providers Name Role Phone Cathy Mota ONCOLOGY SPECIALIST Primary Care Provider Encounter Details Date Type Department Care Team Description 01/29/2021 Travel Social History Tobacco Use Types Packs/Day Years Used Date Former Smoker Smokeless Tobacco: Never Used Alcohol Use Standard Drinks/Week Comments Yes 2 (1 standard drink = 0.6 oz pure alcoho l) Sex Assigned at Date Recorded Not on file COVID-19 Exposure Response Date Recorded In the last month, have you been in contact with No / Unsure 01/29/2021 7:49 EST someone who was confirmed or suspected to [...] Therapy 03/07/2022 Telemedicine Rheumatology Sirisha Puckett MD [address] [place] [address] [phone] (Wo ) 07/12/2022 Office Visit Dermatology Lian Bai MD 111 [facility], [address] [place], [place] [address] (Wo rk) documented as of this encounter Visit Diagnoses Not on filedocumented in this encounter Care Teams Financial Services Associate Relationship Specialty Start Date End Date Cathy Mota NP PCP - General 02/27/[address] [place] [address] documented as of this encounter
--- OUTSIDE RECORDS SUMMARY | 2021-09-03 02:10 | XMS_ITS | Encounter Summary ---
:1950 Author Organization [facility] Address [address] [place] [address] Care Team Providers Name Role Phone Jorge Rosario MD Primary Care Provider Unavailable Reason for Visit Reason Onset Date Comments Appointment Related 07/10/2019 Encounter Details Date Type Department Care Team Description 07/10/2019 Telephone [facility] - Jose Puckett MD Appointment Related [facility] Rheumatology [address] [facility] [address] [facility] [address] [place] [address] [place], [place] [phone] (Wo rk) Social History Tobacco Use [...] this encounter Miscellaneous Notes Telephone Encounter - Olivia Collazo - 07/10/2019 1328 EDT Otilio [facility]- returning your call to schedule a follow up documented in this encounter Plan of Treatment Upcoming Encounters Date Type Specialty Care Team Description 09/16/2021 Nurse Only Infusion Therapy 09/30/2021 Nurse Only Infusion Therapy 03/07/2022 Telemedicine Rheumatology Sirisha Puckett MD 130 [facility] [address] [place] [address] (Wo rk) 07/12/2022 Office Visit Dermatology Lian Bai MD 111 [facility], [address] [place], [place] [address] (Wo rk) documented as of this encounter Visit Diagnoses Not on filedocumented in this encounter Care Teams Dredge Pumper Relationship Specialty Start Date End Date Jorge Rosario MD PCP - General 01/24/19 02/26/20 documented as of this encounter
--- OUTSIDE RECORDS SUMMARY | 2021-09-03 02:10 | XMS_ITS | Encounter Summary ---
:1950 Author Organization [facility] Address [address] [place] [address] Care Team Providers Name Role Phone Cathy Mota MULTIPLE WIRE SAWYER Primary Care Provider Encounter Details Date Type Department Care Team Description 04/28/2020 Travel Social History Tobacco Use Types Packs/Day Years Used Date Never Smoker Smokeless Tobacco: Never Used Sex Assigned at Date Recorded Not on file COVID-19 Exposure Response Date Recorded In the last month, have you been in contact with No / Unsure 04/28/2020 13:09 EST someone who was confirmed or suspected [...] 03/07/2022 Telemedicine Rheumatology Sirisha Puckett MD 130 [facility] [address] [phone] (Wo rk) 07/12/2022 Office Visit Dermatology Lian Bai MD 111 [facility], [address] [place], [place] [address] (Wo rk) documented as of this encounter Visit Diagnoses Not on filedocumented in this encounter Care Teams Human Resource Intern Relationship Specialty Start Date End Date Cathy Mota NP PCP - General 02/27/[address] [place] [address] documented as of this encounter
--- OUTSIDE RECORDS SUMMARY | 2021-09-03 02:10 | XMS_ITS | Encounter Summary ---
:1950 Author Organization [facility] Address [address] [place] [address] Care Team Providers Name Role Phone Cathy Mota SSN/SSBN ASSISTANT NAVIGATOR Primary Care Provider Encounter Details Date Type Department Care Team Description 04/29/2020 Travel Social History Tobacco Use Types Packs/Day Years Used Date Never Smoker Smokeless Tobacco: Never Used Sex Assigned at Date Recorded Not on file COVID-19 Exposure Response Date Recorded In the last month, have you been in contact with No / Unsure 04/29/2020 8:58 EST someone who was confirmed or suspected [...] 03/07/2022 Telemedicine Rheumatology Sirisha Puckett MD 130 [facility] [place] [facility] [address] [phone] (Wo rk) 07/12/2022 Office Visit Dermatology Lian Bai MD 111 [facility], [address] [place], [place] [address] (Wo rk) documented as of this encounter Visit Diagnoses Not on filedocumented in this encounter Care Teams Self Propelled Hot Mix Roller Operator Relationship Specialty Start Date End Date Cathy Mota NP PCP - General 02/27/[address] [place] [address] documented as of this encounter
--- OUTSIDE RECORDS SUMMARY | 2021-09-03 02:10 | XMS_ITS | Encounter Summary ---
:1950 Author Organization [facility] Address [address] [place] [address] Care Team Providers Name Role Phone SvetlanaJarrodCathy L HEAD PORTER BAGGAGE Primary Care Provider Encounter Details Date Type Department Care Team Description 01/11/2021 Orders Only [facility] Kristie Mendoza RN Rheumatology [address] [place] [address] Social History Tobacco Use Types Packs/Day [...] Sirisha Puckett MD 130 [facility] [address] [place], [place] [phone] (Wo rk) 07/12/2022 Office Visit Dermatology Lian Bai MD 111 [facility] 5 [place], [place] [address] (Wo rk) documented as of this encounter Visit Diagnoses Not on filedocumented in this encounter Care Teams Assembler Molded Frames Relationship Specialty Start Date End Date Cathy Mota, KRISTI PCP - General 02/27/[address] [place] [address] documented as of this encounter
--- OUTSIDE RECORDS SUMMARY | 2021-09-03 02:10 | XMS_ITS | Encounter Summary ---
:1950 Author Organization [facility] Address [address] [place] [address] Care Team Providers Name Role Phone Cathy Mota DIRECTOR OF VOCATIONAL TRAINING Primary Care Provider Reason for Visit Reason Comments Cataract Cataract eval - right eye - ref by Leonardo Charles Consult (Routine) - Authorization Not Required Specialty Diagnoses / Procedures Referred By Contact Refer red To Contact Ophthalmology Diagnoses Cataract Jay Charles, OD [facility] [address] [address] [address] [place] [address] Phone: Fax: Referral ID Status Reason Start Expiration Visits Visits Date Date Requested Authorized [id number] Authorization Not 1 1 Required Encounter Details Date Type Department Care Team Description 12/22/2020 Office Visit [facility] Yola Mas MD Ophthalmology - [place] in [address] [place] [phone] [address] [place] [id number] [phone] Social History Tobacco Use Types Packs/Day Years [...] as of this encounter Patient Instructions Patient InstructionsJameel Mas MD - 12/22/2020 8:00 EDT Surgery scheduled for 01/29/21, right eye Start using Ketorolac (liu cap) 2 days before your surgery four times daily in the right eye. (Breakfast, Lunch, Dinner, Bedtime) Saturday 01/27 & 01/28. (liu cap) Ketorolac 1 drop 4x daily for 2 days breakfast lunch dinner bedtime Day 1: 01/27 Day 2: 01/28 documented in this encounter Ordered Prescriptions Prescription Sig Dispensed Refills Start Date End Date ofloxacin (OCUFLOX) 0.3 % Place 1 Drop into 5 mL 0 11/202003/04/2021 ophthalmic solution both eyes 4 times daily. prednisoLONE (PRED FORTE) Place 1 Drop into 5 mL 0 11/202002/10/2021 1 % ophthalmic suspension the right eye 4 times daily. ketOROLAC tromethamine Place 1 Drop into 5 mL 0 202003/04/2021 (ACULAR LS) 0.4 % drops the right eye 4 times daily. documented in this encounter Progress Notes Jameel Mas MD - 12/22/2020 0800 EDT Chief Complaint Patient presents with ??? Cataract Cataract eval - right eye - ref by Leonardo NARVAEZ The patient is a 70 y.o. male here for follow up of cataract in the right eye. He reports that he isnoticing more difficulty with driving at night (due to the right eye glare). He has no pain in the eyes. Right Eye: Blurred Vision, Glare or Light Sensitivity (pressure feeling) Left Eye: NL Visual Aid: Glasses Current Rx Age Location: Pain: 0 - No pain Quality: Severity: Duration: Timing: Lasts: Context: Pt here for cat eval - ref by Leonardo Araceli. He notices icreased blurry vision & glare - with difficlty at night. He has no new floaters or flashes, and no eye pain but does have pressure feeling on & off. Left eye stable. Modifying factors: using timolol & dorzolamide BID in both eyes Associated Signs & Symptoms: Attestation: ROS Constitutional: NL ENT/Mouth NL Cardiovascular: High Blood Pressure Respiratory: NL Gastrointestinal: Heartburn Genitourinary: NL Musculoskeletal: (RA) Integumentary: NL Neurologic: NL Psychiatric: NL Endocrine: NL Hematologic: Anemia Immunologic: Drug Allergy Applications Support Analyst: NL Exposures: None Other: Attestation: Base Eye Exam Visual Acuity (Snellen - Linear) Right Left Dist sc 20/25 -3 20/60 -3 Dist ph sc 20/25 -3 Tonometry (Applanation, 8:31) Right Left Pressure 19 14 Pupils Pupils Dark Light APD Right PERRL 4.5 3.5 None Left PERRL 4.5 3.5 None Neuro/Psych Oriented x3: Yes Mood/Affect: Normal Dilation Right eye: Tropicamide 1%, Phenylephrine 2.5% @ 8:31 Additional Tests Glare Testing (BAT) Off High Right 20/20-1 20/20-2 Left Refraction Manifest Refraction (Auto) Sphere Cylinder [place] Dist [place] Right -0.75 +0.75 105 Left -0.25 +1.00 101 Manifest Refraction #2 Sphere Cylinder [place] Dist [place] Right -0.75 +0.50 106 20/20-1 Left +0.00 +1.25 096 20/20 DIAGNOSTIC TESTING/PROCEDURES: IMPRESSION & PLAN: 1. Cataract, right eye(s) Visually significant right, The patient's visual symptoms cannot be adequately improved with a change in glasses. Additional eye conditions including glaucoma have been evaluated and do not appear to contribute the patient's visual difficulties. -Discussed cataract surgery in detail including risks (including but not limited to infection, retinal detachment, loss of vision/eye, corneal/macular edema, need for additional surgery), benefits, andalternatives and the patient elects to proceed with the right eye. -The patient was given an informational pamphlet - biometry and IOL calculations done 04/29/20 Surgical plannin01/29/21 Flomax (Tamsulosin): No Pupil dilation: 7.0 Blood thinners: No Able to lie flat: Yes Pseudoexfoliation: No Corneal guttae: no History of refractive surgery: no Risk for anisometropia: low Refractive aim: [place] Referred by: Dr. Leonardo Charles 2. Glaucoma (secondary), both eyes With prior steroid response, IOP is acceptable today. Continue timolol BID both eyes Continue Dorzolamide BID both eyes Follows with Dr. Charles. 3. Age-related macular degeneration, both eyes Right: Early non-exudative macular degeneration Left: no drusen -Recommend regular use of Amsler grid -Continue to monitor I have reviewed the patient's past medical, family, social and surgical history. I have also reviewed the patient's medications, allergies, and problem list. I performed my own HPI and have reviewed the tech's ROS as well. I completed this exam personally. Jameel Mas MD I am scribing for Jameel Mas MD, while he is personally performing the service. CLEMENTINE Kim Patient Education Topic: cataract Method: Verbal Taught to: Patient Barriers: None Outcomes: independent Signature: Jameel Mas MD documented in this encounter Plan of Treatment Upcoming Encounters Date Type Specialty Care Team Description 09/16/2021 Nurse Only Infusion Therapy 09/30/2021 Nurse Only Infusion Therapy 03/07/2022 Telemedicine Rheumatology Sirisha Puckett MD 130 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 form of senile cataract of left eye documented as of this encounter Eye Exam Visual Acuity (Snellen - Linear) Right eye Left eye Dist sc 20/25 -3 20/60 -3 Dist ph sc 20/25 -3 Tonometry (Applanation, 8:31) Right eye Left eye Pressure 19 14 Pupils Pupils Dark Light APD Right eye PERRL 4.5 3.5 None Left eye PERRL 4.5 3.5 None Neuro/Psych Oriented x3: Yes Mood/Affect: Normal Dilation Right eye: Tropicamide 1%, Phenylephrine 2.5% @ 8:31 Glare Testing (BAT) Off High Right eye 20/20-3 20/40-1 Left eye Slit Lamp Exam Right eye Left eye Lids/Lashes Normal Normal Conjunctiva/Sclera White and quiet White and quiet Cornea Nasal pterygium 2mm onto cornea Clear Anterior Chamber Deep and quiet Deep and quiet Iris Round and reactive Round and reactive Lens 2+ Nuclear sclerosis, Cortical Posterior chamber intraocular cataract lens Vitreous Posterior vitreous detachment Fundus Exam Right eye Left eye Disc Healthy Rim C/D Ratio 0.4 Macula few small central drusen Vessels Normal Periphery Normal Manifest Refraction #1 (Auto) Sphere Cylinder [place] Dist VA Right eye -0.75 +0.75 105 Left eye -0.25 +1.00 101 Manifest Refraction #2 Sphere Cylinder [place] Dist VA Right eye -0.75 +0.50 106 20/20-1 Left eye +0.00 +1.25 096 20/20 Care Teams Cloth Shearing Supervisor Relationship Specialty Start Date End Date Cathy Mota NP PCP - General 02/27/[address] [place] [phone] documented as of this encounter
--- OUTSIDE RECORDS SUMMARY | 2021-09-03 02:10 | XMS_ITS | Encounter Summary ---
:1950 Author Organization [facility] Address [address] [place] [address] Care Team Providers Name Role Phone FannyJarrod smithCathy L ADMIN DIR Primary Care Provider Reason for Visit Reason Comments Post-OP Follow Up POW #1 s/p CE/PCIOL, left ey e (05/15/20) Encounter Details Date Type Department Care Team Description 05/21/2020 Post-op Visit [facility] Jameel Mas extraction status of eye, left (Primary Dx); Ophthalmology - [place] in [place] Secondary glaucoma of both eyes, indeter minate stage [address] [place] [address] [place], [place] [phone] Social History Tobacco Use Types Packs/Day Years Used Date Never Smoker Smokeless Tobacco: Never Used Sex Assigned at Date Recorded Not on file COVID-19 Exposure Response Date Recorded In the last month, have you been in contact with No / Unsure 05/21/2020 8:59 EDT someone who was confirmed or suspected [...] Patient Instructions Patient InstructionsJameel Mas MD - 05/21/2020 9:00 EDT Stop Ofloxacin (siddiqui cap) You may stop wearing shield at night Continue with Prednisolone and Ketorolac as written on eye drop schedule. documented in this encounter Ordered Prescriptions Prescription Sig Dispensed Refills Start Date End Date dorzolamide (TRUSOPT) 2 % Place 1 Drop into 10 mL 11 02/2020 ophthalmic solution both eyes 3 times daily. documented in this encounter Progress Notes Jameel Mas MD - 05/21/2020 0900 EDT Chief Complaint: Pseudophakia, Cataract Post-Op Week 1, left eye, HPI The patient is a 69 y.o. male, POW #1 s/p CE/PCIOL, left eye. Patient denies eye pain and has used drops as instructed. Location: Left eye Pain: 0 - No pain Quality: Severity: Duration: Days Timing: Lasts: Context: POW #1 s/p CE/PCIOL, left eye (05/15/20) Modifying factors: Feels distance vision is improving some, but says it's still a bit blurry. No eyediscomfort. Post-op drops are going well. Has not been bending down. No new floaters or flashes. Associated Signs & Symptoms: Using: Lumigan: Qam, right eye / Dorzolamide: BID, both eyes / Timolol: BID, both eyes Visual Fluctuations: Attestation: Base Eye Exam Visual Acuity (Snellen - Linear) Right Left Dist sc 20/40 Dist ph sc 20/20 -1 Tonometry (Applanation, 9:17) Right Left Pressure 24 14 Tonometry #2 (Applanation, 9:23) Right Left Pressure 24 15 Pupils Pupils APD Right PERRL None Left PERRL None Neuro/Psych Oriented x3: Yes Mood/Affect: Normal Slit Lamp and Fundus Exam Slit Lamp Exam Right Left Lids/Lashes Normal Normal Conjunctiva/Sclera White and quiet White and quiet Cornea Nasal pterygium 2mm onto cornea sealed incisions, Edema over the incision Anterior Chamber Deep and quiet deep, Trace-1+ Cell Iris dilates 7 Round and reactive Lens 2+ Nuclear sclerosis, Cortical cataract Posterior chamber intraocular lens Fundus Exam Right Left Disc Clear view to posterior pole Refraction Manifest Refraction (Auto) Sphere Cylinder [place] Dist [place] Right Left -1.25 +2.00 090 20/20-1 IMPRESSION & PLAN: POW #1 s/p CE/PCIOL, left eye (05/15/20) -patient is doing well -D/C Ofloxacin -Continue ketorolac QID until bottle runs out -Taper PF TID X 1 week, BID X 1 week (according to drop schedule given) -Warnings and precautions discussed Glaucoma,both eyes IOP is elevated on right eye today Increase dorzolamide to 3 times daily. I have reviewed the patient's past medical, [...] 03/07/2022 Telemedicine Rheumatology Sirisha Puckett MD 130 [facility] [address] [place] [address] (Wo rk) 07/12/2022 Office Visit Dermatology Lian Bai MD 111 [facility], [address] [place], [place] [address] (Wo rk) documented as of this encounter Visit Diagnoses Diagnosis Cataract extraction status of eye, left - Primary Secondary glaucoma of both eyes, indeter minate stage documented in this encounter Discontinued Medications Medication Sig Discontinue Reason Start Date End Date dorzolamide (TRUSOPT) 2 % Place 1 Drop into Reorder 05/21/2020 ophthalmic solution both eyes 2 times daily. ofloxacin (OCUFLOX) 0.3 % Place 1 Drop into Therapy completed 05/1505/21/2020 ophthalmic the left eye 4 solutionIndications: times daily. Combined form of senile cataract of left eye documented as of this encounter Eye Exam Visual Acuity (Snellen - Linear) Right eye Left eye Dist sc 20/40 Dist ph sc 20/20 -1 Tonometry #1 (Applanation, 9:17) Right eye Left eye Pressure 24 14 Tonometry #2 (Applanation, 9:23) Right eye Left eye Pressure 24 15 Pupils Pupils APD Right eye PERRL None Left eye PERRL None Neuro/Psych Oriented x3: Yes Mood/Affect: Normal Slit Lamp Exam Right eye Left eye Lids/Lashes Normal Normal Conjunctiva/Sclera White and quiet White and quiet Cornea Nasal pterygium 2mm onto cornea sealed i ncisions, Edema over the incision Anterior Chamber Deep and quiet deep, Trace-1+ Cell Iris dilates 7 Round and reactive Lens 2+ Nuclear sclerosis, Cortical Posterior chamber intraocular lens cataract Fundus Exam Right eye Left eye Disc Clear view to call center specialist ior pole Manifest Refraction (Auto) Sphere Cylinder [place] Dist [place] Right eye Left eye -1.25 +2.00 090 20/20-1 Care Teams Truck Crane Operator Relationship Specialty Start Date End Date Cathy Mota NP PCP - General 02/27/[address] [place] [phone] documented as of this encounter
--- OUTSIDE RECORDS SUMMARY | 2021-09-03 02:10 | XMS_ITS | Encounter Summary ---
:[address] [facility] Address [address] [place] [address] Care Team Providers Name Role Phone Cathy Mota NETWORK CONTROL TECHNICIAN Primary Care Provider Reason for Visit Reason Comments Post-OP Follow Up Same day post op cataract sidhu rgery - Right eye Encounter Details Date Type Department Care Team Description 01/29/2021 Post-op Visit [facility] Jameel Mas, Cat aract extraction Ophthalmology - [place] in [place] status of eye, right [address] (Primary Dx) [address] [place] [phone] Social History Tobacco Use Types Packs/Day Years [...] encounter Progress Notes Jameel Mas MD - 01/29/2021 1230 EST Chief Complaint: Pseudophakia, Cataract Post-Op Day 0, right eye HPI The patient is a 70 y.o. male, POD #1 s/p Cataract extraction with PCIOL, right eye. Location: Pain: 0 - No pain Quality: Severity: Duration: Timing: Lasts: Context: Same day post op cataract surgery - Right eye. He reports no pain in the eye. The eye does feel scratchy. I gave him 1 drop of Prednsiolone, Ofloxacin and Ketorolac in right eye. Modifying factors: Associated Signs & Symptoms: Visual Fluctuations: None Attestation: Base Eye Exam Visual Acuity (Snellen - Linear) Right Left Dist sc 20/150 Dist ph sc NI Tonometry (Tonopen, 12:32) Right Left Pressure 17 Tonometry #2 (Applanation-MD, 13:06) Right Left Pressure 22 Neuro/Psych Oriented x3: Yes Mood/Affect: Normal Slit Lamp and Fundus Exam Slit Lamp Exam Right Left Lids/Lashes Normal Normal Conjunctiva/Sclera White and quiet White and quiet Cornea Sealed incisions, 1+ edema, 2+ PEEs, Nasal pterygium 2mm onto cornea Clear Anterior Chamber deep, 2+ Cell Deep and quiet Iris Dilated Round and reactive Lens Posterior chamber intraocular lens Posterior chamber intraocular lens Fundus Exam Right Left Disc slightly hazy view to posterior pole IMPRESSION & PLAN: POD #0 s/p Cataract Extraction with PCIOL, right eye -patient is doing well, one drop of Cosopt given. -Use Ofloxacin, ketorolac and PF QID (drop schedule given) -Continue to wear plastic shield over eye at night for 1 week. -Warnings and precautions discussed. -RTC 1 week or sooner PRN eye redness/pain or worsening vision I have reviewed the patient's past medical, [...] 03/07/2022 Telemedicine Rheumatology Sirisha Puckett MD [facility] [address] [place] [address] (Wo rk) 07/12/2022 Office Visit Dermatology Lian Bai MD 111 [facility], [address] [place], [place] [address] (Wo rk) documented as of this encounter Visit Diagnoses Diagnosis Cataract extraction status of eye, right - Primary documented in this encounter Eye Exam Visual Acuity (Snellen - Linear) Right eye Left eye Dist sc 20/150 Dist ph sc NI Tonometry #1 (Tonopen, 12:32) Right eye Left eye Pressure 17 Tonometry #2 (Applanation-MD, 13:06) Right eye Left eye Pressure 22 Neuro/Psych Oriented x3: Yes Mood/Affect: Normal Slit Lamp Exam Right eye Left eye Lids/Lashes Normal Normal Conjunctiva/Sclera White and quiet White and quiet Cornea Sealed incisions, 1+ edema, 2+ Clear PEEs, Nasal pterygium 2mm onto cornea Anterior Chamber deep, 2+ Cell Deep and quiet Iris Dilated Round and reactive Lens Posterior chamber intraocular Posterior chamber intraocular lens lens Fundus Exam Right eye Left eye Disc slightly hazy view to posterior pole Care Teams Medical Review Specialist Relationship Specialty Start Date End Date Cathy Mota NP PCP - General 02/27/[address] [place] [address] documented as of this encounter
--- OUTSIDE RECORDS SUMMARY | 2021-09-03 02:10 | XMS_ITS | Encounter Summary ---
:1950 Author Organization [facility] Address [address] [place] [address] Care Team Providers Name Role Phone Jorge Rosario MD Primary Care Provider Unavailable Reason for Visit Reason Onset Date Comments Results 09/08/2019 Encounter Details Date Type Department Care Team Description 09/08/2019 Telephone [facility] Sirisha Puckett MD Results Rheumatology 130 [facility] 130 [facility] [address] [place] [address] [place] [phone] (Wo rk) Social History Tobacco Use Types [...] this encounter Miscellaneous Notes Telephone Encounter - Megan Balbuena RN - 09/09/2019 0822 EDT Called pt and LM on private voicemail with results. elephone Encounter - Sirisha Puckett MD - 09/08/2019 194 EDT Please call Otilio and let him know his labs all are normal except hemoglobin is mildly decreased. Kidney, liver, CRP, white cells, etc are all normal. Repeat labs prior to next visit. Thanks. documented in this encounter Plan of Treatment Upcoming Encounters Date Type Specialty Care Team Description 09/16/2021 Nurse Only Infusion Therapy 09/30/2021 Nurse Only Infusion Therapy 03/07/2022 Telemedicine Rheumatology Sirisha Puckett MD 130 [facility] [address] [place] [phone] (Wo rk) 07/12/2022 Office Visit Dermatology Lian Bai MD 111 [facility], [address] [place], [place] [address] (Wo rk) documented as of this encounter Visit Diagnoses Not on filedocumented in this encounter Care Teams Clinic Cma Relationship Specialty Start Date End Date Jorge Rosario MD PCP - General 01/24/19 02/26/20 documented as of this encounter
--- OUTSIDE RECORDS SUMMARY | 2021-09-03 02:10 | XMS_ITS | Encounter Summary ---
:1950 Author Organization [facility] Address [address] [place] [address] Care Team Providers Name Role Phone Cathy Mota SUPERVISOR MARBLE Primary Care Provider Encounter Details Date Type Department Care Team Description 03/01/2021 Lab Requisition [facility] Outr Resulting Lab, Pathology & Laboratory Provider [facility] [address] [place] [address] Social History Tobacco Use Types [...] 03/07/2022 Telemedicine Rheumatology Sirisha Puckett MD [address] [facility] [address] [place] [phone] (Wo rk) 07/12/2022 Office Visit Dermatology Lian Bai MD 111 [facility], [facility] [address] [place], [place] [phone] (Wo rk) documented as of this encounter Procedures Procedure Name Priority Date/Time Associated Diagnosis Comme nts COVID-19 TEST [facility] Today 03/01/2021 11:20 LAB PCR EST COVID-19 TESTING Routine 03/01/2021 11:20 Results for this EST procedure are i n the results section. documented in this encounter Results COVID-19 TEST [facility] PCR (03/01/2021 11:20 EST) Specimen Swab Performing Organization Address [facility] Phon e Number [facility] [address] [place] [address] SERVICES COVID-19 TESTING (03/01/2021 11:20 EST) COVID-19 rt-PCR Negative Negative [facility] Result Comment: [facility]ENTER LAB[facility]ORY [...] tions, patient history, and epidemiological informatio n. Performed on the Visual Revenue Fusion instrument Performing Lab [place] [facility] SERVICES Specimen Swab Performing Organization Address [facility] Phon e Number [facility] [address] [place] [address] SERVICES documented in this encounter Visit Diagnoses Not on filedocumented in this encounter Care Teams Bulb Packer Relationship Specialty Start Date End Date Cathy Mota, KRISTI PCP - General 02/27/20 [address] [place] [phone] documented as of this encounter
--- OUTSIDE RECORDS SUMMARY | 2021-09-03 02:10 | XMS_ITS | Encounter Summary ---
:1950 Author Organization [facility] Address [address] [place] [address] Care Team Providers Name Role Phone SvetlanaJarrodCathy L MOLD SHEET CLEANER Primary Care Provider Encounter Details Date Type Department Care Team Description 12/31/2020 Prep for Procedure [facility] Jameel Mas ombined forms of Ophthalmology - Berl in MD Roberta age-related [address] cataract of right [address] eye (Primary Dx) [place] [address] [place], [place] [phone] Social History Tobacco Use Types Packs/Day [...] 03/07/2022 Telemedicine Rheumatology Sirisha Puckett MD [address] [facility] [address] [place] [address] (Wo rk) 07/12/2022 Office Visit Dermatology Lian Bai MD 111 [facility], [address] [place], [place] [phone] (Wo rk) documented as of this encounter Visit Diagnoses Diagnosis Combined forms of age-related cataract o f right eye - Primary Other and combined forms of senile catar act documented in this encounter Orders Case Request Count Last Ordered Date First Ordered Date CASE REQUEST OPERATING ROOM 1 01/06/2021 documented in this encounter Care Teams Keyboard Operator Relationship Specialty Start Date End Date Cathy Mota, KRISTI PCP - General 02/27/[address] [place] [phone] documented as of this encounter
--- OUTSIDE RECORDS SUMMARY | 2021-09-03 02:10 | XMS_ITS | Encounter Summary ---
:1950 Author Organization [facility] Address [address] [place] [address] Care Team Providers Name Role Phone Cathy Mota GROUP CONTROLLER Primary Care Provider Reason for Visit Reason Comments Post-OP Follow Up POW #1 s/p CE/PCIOL, right e ye (01/29/21) Encounter Details Date Type Department Care Team Description 02/04/2021 Post-op Visit [facility] Jameel Mas, Cat aract extraction Ophthalmology - Berl in MD status of eye, right [address] (Primary Dx) [address] [place] [phone] Social History Tobacco Use Types Packs/Day Years [...] Patient Instructions Patient InstructionsJameel Mas MD - 02/04/2021 8:45 EST Stop Ofloxacin (siddiqui cap) You may stop wearing shield at night Continue with Prednisolone and Ketorolac as written on eye drop schedule. Start Brimonidine (Purple cap) 2 times daily documented in this encounter Ordered Prescriptions Prescription Sig Dispensed Refills Start Date End Date brimonidine (ALPHAGAN) 0.2 Place 1 Drop into 5 mL 0 09/02/2021 % ophthalmic solution the right eye 2 times daily. documented in this encounter Progress Notes Jameel Mas MD - 02/04/2021 0845 EST Chief Complaint: Pseudophakia, Cataract Post-Op Week 1, right eye, HPI The patient is a 70 y.o. male, POW #1 s/p CE/PCIOL, right eye. Patient denies eye pain and has used drops as instructed. Location: Right eye Pain: 0 - No pain Quality: Blurry Severity: Duration: Days Timing: Lasts: Context: POW #1 s/p CE/PCIOL, right eye (01/29/21) Modifying factors: Vision still seems bit blurry for distance with right eye. No discomfort. Denies recent floaters or flashes. Using post-op drops as prescribed. Associated Signs & Symptoms: Visual Fluctuations: None Attestation: Base Eye Exam Visual Acuity (Snellen - Linear) Right Left Dist sc 20/25 +2 Tonometry (Applanation, 8:55) Right Left Pressure 22 Neuro/Psych Oriented x3: Yes Mood/Affect: Normal Slit Lamp and Fundus Exam Slit Lamp Exam Right Left Lids/Lashes Normal Normal Conjunctiva/Sclera White and quiet White and quiet Cornea Sealed incisions, 1+ edema, 2+ PEEs, Nasal pterygium 2mm onto cornea Clear Anterior Chamber deep, 2+ Cell Deep and quiet Iris Round and reactive Round and reactive Lens Posterior chamber intraocular lens Posterior chamber intraocular lens Fundus Exam Right Left Disc Clear view to posterior pole Refraction Manifest Refraction (Auto) Sphere Cylinder [place] Right -1.75 +2.50 092 Left IMPRESSION & PLAN: POW #1 s/p CE/PCIOL, right eye (01/29/21) -patient is doing well -D/C Ofloxacin -Continue ketorolac QID until bottle runs out -Taper PF TID X 1 week, BID X 1 week (according to drop schedule given) -Warnings and precautions discussed Glaucoma (secondary), both eyes With steroid response, IOP a little elevated today. Continue timolol BID both eyes Continue Dorzolamide BID both eyes Start Brimonidine BID, right eye Return in 3 weeks for follow up and IOP check I have reviewed the patient's past medical, [...] Therapy 03/07/2022 Telemedicine Rheumatology Sirisha Puckett MD [address] [place] [address] [address] [place] [phone] (Wo rk) 07/12/2022 Office Visit Dermatology Lian Bai MD 111 [facility], [address] [place], [place] [phone] (Wo rk) documented as of this encounter Visit Diagnoses Diagnosis Cataract extraction status of eye, right - Primary documented in this encounter Discontinued Medications Medication Sig Discontinue Reason Start Date End Date bimatoprost (LUMIGAN) Place 1 Drop into Therapy completed 02/04/2021 0.03 % ophthalmic the right eye at dropsIndications: open bedtime. angle glaucoma documented as of this encounter Eye Exam Visual Acuity (Snellen - Linear) Right eye Left eye Dist sc 20/25 +2 Tonometry (Applanation, 8:55) Right eye Left eye Pressure 22 Neuro/Psych Oriented x3: Yes Mood/Affect: Normal Slit Lamp Exam Right eye Left eye Lids/Lashes Normal Normal Conjunctiva/Sclera White and quiet White and quiet Cornea Sealed incisions, 1+ edema, 2+ Clear PEEs, Nasal pterygium 2mm onto cornea Anterior Chamber deep, 2+ Cell Deep and quiet Iris Round and reactive Round and reactive Lens Posterior chamber intraocular Posterior chamber intraocular lens lens Fundus Exam Right eye Left eye Disc Clear view to posterior pole Manifest Refraction (Auto) Sphere Cylinder [place] Right eye -1.75 +2.50 092 Left eye Care Teams Discount Clerk Relationship Specialty Start Date End Date Cathy Mota NP PCP - General 02/27/[address] [place] [phone] documented as of this encounter
--- OUTSIDE RECORDS SUMMARY | 2021-09-03 02:10 | XMS_ITS | Encounter Summary ---
:1950 Author Organization [facility] Address [address] [place] [address] Care Team Providers Name Role Phone Svetlana Cathy L INSTRUMENT LENS GRINDER Primary Care Provider Reason for Visit Reason Comments Follow-up RA Encounter Details Date Type Department Care Team Description 02/27/2020 Telemedicine [facility] - Sirisha Puckett Rheu matoid arthritis involving multiple joints ([facility]) (Primary Dx); [facility] Rheumatology Chronic lymphocytic leukemia ([facility]); [address] Long-term use [place] [address] [address] [place] [phone] Social History Tobacco Use Types Packs/Day Years [...] documented as of this encounter Progress Notes Sirisha Puckett MD - 02/27/2020 1030 EST [facility] Video Visit Today's visit was provided through telemedicine video conferencing: The location of the patient: Home The location of the provider: Home office Verbal consent: The concept of ???Telemedicine?? has been described to the patient.Patient has been informed of theanticipated benefits and possible risks. Patient understands the information provided regarding telemedicine, has had the opportunity to ask questions about this information, and all questions have been answered to patient???s satisfaction. Patient consents for the use of telemedicine in his/her medical care and authorizes the transmission of any relevant medical information to providers and their staff involved in patient???s medical or mental health care. Verbal consent obtained by myself or auxiliary staff: yes. Subjective: Chief Complaint(s): Follow-up (RA) HPI: 1. 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 On biologic therapies prior torituximab. Added rituximab due to development of CLL, scleritis. 2. CLL (chronic lymphocytic leukemia) - In remission with rituximab. 3. 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 Symptoms worsened withtrial off naproxen, and improved on oral prednisone. Treated with short course of durezol, as well as rituximab, and doing well except for episodic increase in eye pressures. INTERVAL HISTORY: Otilio says he is doing well physically. Denies any significant joint pain or swelling. Says mentally,it is challenging due to everything going on with Covid, election, and feeling isolated. Last rituximab was in Sep 2019, x 2 doses, and these went well. Next infusions are scheduled for 03/11 and 03/25/20. Regarding the scleritis, Otilio says he continues to use drops for glaucoma. Says scleritis is good. Will need cataract removal. I have reviewed patient's tobacco history: reports that he has never smoked. He has never used smokeless tobacco. I have reviewed current problem list and current medications. ROS: Review of Systems Constitutional: Negative for fever and weight loss. HENT: Negative for sore throat. Respiratory: Negative for shortness of breath. Gastrointestinal: Negative for heartburn. Objective: Examination: Home Vitals: Denies pain today There were no vitals taken for this visit. Pertinent exam findings: appears well, non-labored breathing and eyes are not red; no synovitis noted on hand MCPs; reduction in ROM shoulders (at baseline) Data reviewed: [facility]: 02/26/20: CBC w/diff wnl except HGB 13.0, CMP wnl, CRP 0.1 mg/dL. Assessment & Plan: 1. Rheumatoid arthritis involving multiple joints (HCC-CMS) RA appears to be low to no activity based on Otilio's report and visual inspection of some of his joints. Scleritis appears quiet as well. Next rituximab is scheduled for the end of this month, in early March for second dose. 2. Chronic lymphocytic leukemia (HCC-CMS) Quiet based on recent labs. 3. Long-term use of immunosuppressant medication Labs prior to the next visit. Follow-up in 6 months. The following staff and their role did participate in today's encounter visit: Sirisha Puckett MD documented in this encounter Plan of Treatment Upcoming Encounters Date Type Specialty Care Team Description 09/16/2021 Nurse Only Infusion Therapy 09/30/2021 Nurse Only Infusion Therapy 03/07/2022 Telemedicine Rheumatology Sirisha Puckett MD 130 [facility] [address] [place] [phone] (Wo rk) 07/12/2022 Office Visit Dermatology Lian Bai MD 111 [facility], [address] [place], [place] [phone] (Wo rk) documented as of this encounter Visit Diagnoses Diagnosis Rheumatoid arthritis involving multiple joints (HCC-CMS) (HCC) - Primary Chronic lymphocytic leukemia (HCC-CMS) ( HCC) Chronic lymphoid leukemia, without menti on of having achieved remission Long-term use of immunosuppressant medic ation Encounter for long-term (current) use of other medications documented in this encounter Discontinued Medications Medication Sig Discontinue Reason Start Date End Date brimonidine-timolol 1 gtt in each Alternate therapy (COMBIGAN) 0.2-0.5 % affected eye every 12 drops opthalmic hours solution documented as of this encounter Historical Medications This list may reflect changes made after this encounter. Medication Sig Dispensed Refills Start Date End Date timolol (TIMOPTIC) 0.25 % Place 1 Drop into 0 06/2020 ophthalmic solution both eyes 2 times daily. added in this encounter Care Teams Tank Inspector Relationship Specialty Start Date End Date Cathy Mota, KRISTI PCP - General 02/27/[address] [place] [address] [address] [place] [phone] documented as of this encounter
--- OUTSIDE RECORDS SUMMARY | 2021-09-03 02:10 | XMS_ITS | Encounter Summary ---
:1950 Author Organization [facility] Address [address] [place] [address] Care Team Providers Name Role Phone Jorge Rosario MD Primary Care Provider Unavailable Reason for Visit Reason Comments Follow-up Feels well. 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 Hands a wris ts a little swollen because of this work. Encounter Details Date Type Department Care Team Description 06/06/2019 Telemedicine [facility] - Sirisha Puckett Rheu matoid arthritis involving multiple joints ([facility] (Primary Dx); [facility] Rheumatology Chronic lymph[facility] leukemia ([facility] [address] Long-term use of immunosupp[place] [address] [address] [place] [address] Social History Tobacco Use Types Packs/Day Years Used Date Never Smoker Smokeless Tobacco: Never Used Sex Assigned at Date Recorded Not on file documented as of this encounter Last Filed Vital Signs Vital Sign Reading Time Taken Comments Blood Pressure - - Pulse - - Temperature - - Respiratory Rate - - Oxygen Saturation - - Inhaled Oxygen Concentration - - Weight 79.4 kg (175 lb) 06/06/2019 0837 EDT Height 173.4 cm (5' 8.25) 06/06/2019 0837 EDT Body Mass Index 26.41 06/06/2019 0837 EDT documented in this encounter Functional Status [...] encounter Progress Notes Sirisha Puckett MD - 06/06/2019 0963 EDT [facility] Video Visit Today's visit was provided through [...] auxiliary staff: yes. Subjective: Chief Complaint(s): Follow-up (Feels well. 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 Hands a wrists a little swollen because of this work.) HPI: 1. 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 On biologic therapies prior torituximab. Added rituximab due to development of CLL, scleritis. 2. CLL (chronic lymphocytic leukemia) - C91.10, In remission with rituximab. 3. Scleritis of both eyes - H15.003, Had work-up at [facility] by Dr Conte. Symptoms worsened with trial off naproxen, and improved on oral prednisone. Treated with short course of durezol, as well as rituximab, and doing well except for episodic increase in eye pressures. INTERVAL HISTORY: Otilio says he is doing well physically. Denies any significant joint pain or swelling. Says at times his hands get stiff, but this is short-lived. Last rituximab was in Feb 2019, x 2 doses, and these went well. Regarding the scleritis, Otilio says he is using 3 different drops. He did see a specialist in [place], and same drops were continued. He says his eyes haven't been red in a while and he thinks the scleritis is quiet. Says eye pressures were good too on his last exam, 18 and . I have reviewed patient's tobacco history: reports that he has never smoked. He has never used smokeless tobacco. I have reviewed current problem list and current medications. ROS: Review of Systems Constitutional: Negative for fever. HENT: Negative for sore throat. Respiratory: Negative for shortness of breath. Went on a 12 mile bike ride two weeks ago. Working outdoors; intermittent cough Gastrointestinal: Negative for heartburn. Tried to stop omeprazole but had recurrence of symptoms Objective: Examination: Home Vitals: Pain 04/01 Ht 173.4 cm (68.25) Wt 79.4 kg (175 lb) BMI 26.41 kg/m?? Pertinent exam findings: appears well, non-labored breathing and eyes are not red; no synovitis noted on hand MCPs; reduction in ROM shoulders (at baseline) Data reviewed: [facility]: 01/23/19: CBC w/diff wnl (WBC 6.37, ALYC 1710), creatinine 0.75, albumin 3.6, alk phos 92, AST 27, ALT 40, CRP 0.6 mg/dL. Assessment & Plan: 1. Rheumatoid arthritis involving multiple joints (HCC-CMS) RA appears to be low to no activity based on Otilio's report and visual inspection of some of his joints. Scleritis appears quiet as well. Next rituximab due in August. Will coordinate office visit at that time. 2. Chronic lymphocytic leukemia (HCC-CMS) Quiet based on last labs. Also received rituximab for RA and CLL about 3 months ago. 3. Long-term use of immunosuppressant medication Labs prior to August. I spent a total of 28 minutes with Otilio Cadena. The following staff and their role did participate in today's encounter visit: Sirisha Puckett MD documented in this encounter Plan of Treatment Upcoming Encounters Date Type Specialty Care Team Description 09/16/2021 Nurse Only Infusion Therapy 09/30/2021 Nurse Only Infusion Therapy 03/07/2022 Telemedicine Rheumatology Sirisha [facility] MD [address] [facility] [address] [place] [phone] (Wo rk) 07/12/2022 Office Visit Dermatology Lian Bai MD 111 [facility], [facility] 5 [place], [place] [phone] (Wo rk) documented as of this encounter Visit Diagnoses Diagnosis Rheumatoid arthritis involving multiple joints (HCC-CMS) (HCC) - Primary Chronic lymphocytic leukemia (HCC-CMS) ( HCC) Chronic lymphoid leukemia, without menti on of having achieved remission Long-term use of immunosuppressant medic ation Encounter for long-term (current) use of other medications documented in this encounter Historical Medications This list may reflect changes made after this encounter. Medication Sig Dispensed Refills Start Date End Date bimatoprost (LUMIGAN) 0.03 Place 1 Drop into 0 02/04/2021 % ophthalmic the right eye at dropsIndications: open bedtime. angle glaucoma added in this encounter Care Teams Pocket Setter Relationship Specialty Start Date End Date Jorge Rosario MD PCP - General 01/24/19 02/26/20 documented as of this encounter
--- OUTSIDE RECORDS SUMMARY | 2021-09-03 02:10 | XMS_ITS | Encounter Summary ---
:1950 Author Organization [facility] Address [address] [place] [address] Care Team Providers Name Role Phone Jorge Rosario MD Primary Care Provider Unavailable Reason for Visit Reason Comments Infusion Rituxan Dose #1 Encounter Details Date Type Department Care Team Description 09/12/2019 Nurse Only [facility] Rh eumatoid arthritis Adult Hem Onc Infusi on involving multiple joints [address] ([facility]) (Primary Dx) [place] [address] Social History Tobacco Use Types Packs/Day Years Used Date Never Smoker Smokeless Tobacco: Never Used Sex Assigned at Date Recorded Not on file documented as of this encounter Last Filed Vital Signs Vital Sign Reading Time Taken Comments Blood Pressure - - Pulse 58 09/12/2019 0920 EDT Temperature 36.3 ??C (97.3 ??F) 09/12/2019 0920 EDT Respiratory Rate 16 09/12/2019 0920 EDT Oxygen Saturation 97% 09/12/2019 0920 EDT Inhaled Oxygen Concentration - - Weight - [...] documented as of this encounter Progress Notes Alivia Monteiro, FELICIA - 09/12/2019 0900 EDT Pt amb in to appt after visit with MD Puckett on 08/26/19. Pt reports he's been taking Rituxan for a few years, no issues w/reactions. Denies recent illness or fever. Denies serious return of s/s between treatments and states it has really been a miracle drug of him in a number of ways. Pt denies questions or concerns for this mortgage underwriter before infusion started. Adele rapid rituxan inf well. Aware to RTC in 2 weeks for 2nd dose. Amb out of appt. documented in this encounter Plan of Treatment Upcoming Encounters Date Type Specialty Care Team Description 09/16/2021 Nurse Only Infusion Therapy 09/30/2021 Nurse Only Infusion Therapy 03/07/2022 Telemedicine Rheumatology Sirisha Puckett MD [address] [facility] [address] [place] [phone] (Wo rk) 07/12/2022 Office Visit Dermatology Lian Bai MD 111 [facility], [facility] 5 [phone] (Wo rk) documented as of this encounter Visit Diagnoses Diagnosis Rheumatoid arthritis involving multiple joints (HCC-CMS) ([facility]) - Primary documented in this encounter Administered Medications Inactive Administered Medications - up to 3 most recent administrations Medication Order MAR Action Action Date Dose Rate Site acetaminophen (TYLENOL) tablet 650 mg Given 09/12/2019 9:20 EDT 650 mg 650 mg, oral, NOW X1, 1 dose, On Riya 09/12/19 at 0900, Routine diphenhydrAMINE (BENADRYL) capsule 25 mg Given 09/12/2019 9:20 EDT 25 mg 25 mg, oral, NOW X1, 1 dose, On Riya 09/12/19 at 0900, Routine methylPREDNISolone sod suc(PF) (SOLU-MEDROL) Given 09/12/2019 9: 25 EDT 125 mg injection 125 mg 125 mg, intravenous, NOW X1, 1 dose, On Riya 09/12/19 at 0900, Routine riTUXimab (RITUXAN) 1,000 mg in sodium New Bag 09/12/2019 9:50 EDT 1,000 mg chloride (NS) 0.9 % 250 mL RAPID infusio n 1,000 mg, intravenous, NOW X1, 1 dose, On Riya 09/12/19 at 0900 sodium chloride 0.9 % (NS) infusion New Bag 09/12/2019 9:25 EDT 25 mL/hr at 25 mL/hr, intravenous, CONTINUOUS, Starting on Riya 09/12/19 at 0900, Until Riya 09/12/19 at 1426, Routine documented in this encounter Care Teams Home Therapy Teacher Relationship Specialty Start Date End Date Jorge Rosario MD PCP - General 01/24/19 02/26/20 documented as of this encounter
--- OUTSIDE RECORDS SUMMARY | 2021-09-03 02:10 | XMS_ITS | Encounter Summary ---
:1950 Author Organization [facility] Address [address] [place] [address] Care Team Providers Name Role Phone Jorge Rosario MD Primary Care Provider Unavailable Reason for Visit Reason Comments Chemotherapy Encounter Details Date Type Department Care Team Description 03/06/2019 Nurse Only [facility] [place] [facility] [place] Rh eumatoid arthritis Adult Hem Onc Infusi on involving multiple joints [address] ([facility]) (Primary Dx) [place] [address] Social History Tobacco Use Types Packs/Day Years Used Date Never Smoker Smokeless Tobacco: Never Used Sex Assigned at Date Recorded Not on file documented as of this encounter Last Filed Vital Signs Vital Sign Reading Time Taken Comments Blood Pressure 132/80 03/06/2019 1000 EST Pulse - - Temperature 36.5 ??C (97.7 ??F) 03/06/2019 1000 EST Respiratory Rate 16 03/06/2019 1000 EST Oxygen Saturation 98% 03/06/2019 1000 EST Inhaled Oxygen Concentration - - Weight - - Height - - Body Mass Index - - documented in this encounter Progress Notes Mary Granado, FELICIA - 03/06/2019 0900 EST Out-patient Chemotherapy Note Patient presents to clinic today for Rituximab treatment plan. PIV placed in left forearm, patent. Patient tolerating chemotherapy treatment at this time with no signs of reaction or side effects. Patient education: Patient educated on all medications administered today. Patient expressed understanding of education provided and no barriers identified. Patient' s PIV flushed and removed. Access site noted to be WNL. Advised patient to call oncology clinic during office hours or advice line after hours for concerns or if symptoms occur requiring attention. Patient also advised to refer to patient instructions givenat the start of chemotherapy for symptom self-management advice. MARY GRANADO RN 03/06/2019 9:33 documented in this encounter Plan of Treatment Upcoming Encounters Date Type Specialty Care Team Description 09/16/2021 Nurse Only Infusion Therapy 09/30/2021 Nurse Only Infusion Therapy 03/07/2022 Telemedicine Rheumatology Sirisha Puckett MD [address] [facility] [address] [place] [address] (Wo rk) 07/12/2022 Office Visit Dermatology Lian Bai MD [address] [facility], [facility] [address] [place], [place] [address] (Wo rk) documented as of this encounter Visit Diagnoses Diagnosis Rheumatoid arthritis involving multiple joints (HCC-CMS) (HCC) - Primary documented in this encounter Administered Medications Inactive Administered Medications - up to 3 most recent administrations Medication Order MAR Action Action Date Dose Rate Site acetaminophen (TYLENOL) tablet 650 mg Given 03/06/2019 9:15 EST 650 mg 650 mg, oral, NOW X1, 1 dose, On Mon03/06/19 at 0845, Routine diphenhydrAMINE (BENADRYL) capsule 25 mg Given 03/06/2019 9:15 EST 25 mg 25 mg, oral, NOW X1, 1 dose, On Mon03/06/19 at 0845, Routine methylPREDNISolone sod suc(PF) (SOLU-MEDROL) Given 03/06/2019 9: 34 EST 125 mg injection 125 mg 125 mg, intravenous, NOW X1, 1 dose, On Mon03/06/19 at 0845, Routine montelukast (SINGULAIR) tablet 10 mg Given 03/06/2019 9:15 EST 10 mg 10 mg, oral, NOW X1, 1 dose, On Mon03/06/19 at 0845, Routine riTUXimab (RITUXAN) 1,000 mg in sodium New Bag 03/06/2019 10:00 ES T 1,000 mg chloride (NS) 0.9 % 250 mL RAPID infusio n 1,000 mg, intravenous, NOW X1, 1 dose, On Mon03/06/19 at 0845 sodium chloride 0.9 % (NS) infusion New Bag 03/06/2019 9:34 EST 125 mL/hr at 125 mL/hr, intravenous, CONTINUOUS, Starting on Mon03/06/19 at 0845, Until Mon03/06/19 at 1359, Routine documented in this encounter Care Teams Dog Track Kennel Manager Relationship Specialty Start Date End Date Jorge Rosario MD PCP - General 01/24/19 02/26/20 documented as of this encounter
--- OUTSIDE RECORDS SUMMARY | 2021-09-03 02:10 | XMS_ITS | Encounter Summary ---
:1950 Author Organization [facility] Address [address] [place] [address] Care Team Providers Name Role Phone Giuseppe Quintanilla MD Primary Care Provider Unavailable Encounter Details Date Type Department Care Team Description 10/19/2016 Historical Results [facility] - Samuel Cruz, [facility] Lab - Main [facility] [address] [place] [address] [phone] [address] [place] [address] Social History Tobacco Use Types Packs/Day Years Used Date Never Assessed Sex Assigned at Date Recorded Not on file documented as of this encounter Plan of Treatment Upcoming Encounters Date Type Specialty Care Team Description 09/16/2021 Nurse Only Infusion Therapy 09/30/2021 Nurse Only Infusion Therapy 03/07/2022 Telemedicine Rheumatology Sirisha Puckett MD [address] [facility] [address] [place], [place] [phone] (Wo rk) 07/12/2022 Office Visit Dermatology Lian Bai MD [address] [facility], [address] [place], [place] [address] (Wo rk) documented as of this encounter Procedures Procedure Name Priority Date/Time Associated Diagnosis Comme nts CBC W/PLT & Routine 10/19/2016 9:57 EDT Results for this DIFF,POINT OF CARE procedure are in - [facility] the results section. documented in this encounter Results CBC W/PLT & DIFF,POINT OF CARE - [facility] (10/19/2016 9:57 EDT) Pathologist Sig nature ABSOLUTE NEUTROPHIL 5.4 1.7 - 7.0 [facility] COUN - [facility] 10e3/uL CENTER LAB BASO # - [facility] 0.05 0.0 - 0.3 [facility] 10e3/uL [facility] BASO % - [facility] 1 0 - 2 % [facility] EOS # - [facility] 0.39 0.05 - 0.5 [facility] 10e3/uL [facility] EOS % - [facility] 4 0 - 5 % [facility] GRAN % - [facility] 59.7 40 - 80 % [facility] HEMATOCRIT - [facility] 40.6 36.0 - 52.0 % [facility] HEMOGLOBIN - [facility] 14.0 13.7 - 17.5 g/dl [facility] LYMPH # - [facility] 2.3 0.9 - 2.9 [facility] 10e3/ul [facility] LYMPH% - [facility] 25.5 20 - 40 % [facility] MEAN CORPUSCULAR HGB - 32.0 26 - 34 pg [facility] MEAN CORPUSCULAR HGB 34.5 31 - 36 g/dL [facility] CONC [facility] CENTER LAB MEAN CELL VOLUME - 92.7 77 - 100 fl [facility] MONO # - [facility] 0.9 0.3 - 0.9 [facility] 10e3/uL [facility] MONO% - [facility] 9.9 0 - 12 % [facility] PLATELET COUNT 232 150 - 400 [facility] 10e3/ul [facility] RED BLOOD COUNT - [facility] 4.38 4.3 - 5.7 [facility] D 10e6/ul [facility] RED CELL DISTRI WIDTH 13.1 11.8 - 15.6 % [facility] D [facility] WHITE BLOOD COUNT - 9.0 3.5 - 10.5 [facility] 10e3/ul [facility] Specimen Performing Organization Address City/State/ZIP Code Phon e Number [facility] [address] [place] [address] [facility] documented in this encounter Visit Diagnoses Not on filedocumented in this encounter Care Teams Head Wrestling Coach Relationship Specialty Start Date End Date Giuseppe Quintanilla MD PCP - General 01/02/15 01/23/19 documented as of this encounter
--- OUTSIDE RECORDS SUMMARY | 2021-09-03 02:10 | XMS_ITS | Encounter Summary ---
:1950 Author Organization [facility] Address [address] [place] [address] Care Team Providers Name Role Phone Cathy Mota TOP LIFT AND AUTOMATIC WINDOW REPAIRER Primary Care Provider Reason for Visit Reason Onset Date Comments Medication Management 02/22/2021 Encounter Details Date Type Department Care Team Description 02/22/2021 Telephone [facility] - Kristie Mendoza Med ication Management [facility] Rheumatology RN [address] [place] [address] Social History Tobacco Use Types [...] Telephone Encounter - Kristie Mendoza RN - 02/24/[address] Puckett's reply to lena with appreciation expressed. elephone Encounter - Sirisha Puckett MD - 02/23/2021 1713 EST No, this shouldn't interfere with the infusion. Ideally, if he got it prior to 03/04/21 that would begood, but I don't think we have control over this. I will send an order in to [facility] and copy C Reji on email for the order. Thanks. elephone Encounter - Kristie Mendoza RN - 02/23/2021 1325 EST Lena called to say that he is interested in trying to get the Evusheld. He asked if it would interfere at all with his Rituxan infusion which is scheduled for 03/04/21. Telephone Encounter - Kristie Mendoza RN - 02/22/2021 1644 EST Lena called back and I reviewed the written information from the [facility] about evusheld as well as potential side effects. He is going to look it up (provided spelling) and discuss with his and he will get back to us tomorrow. elephone Encounter - Kristie Mendoza RN - 02/22/2021 1414 EST LVM asking Lena to call my direct line to discuss whether he is interested in receiving Evusheld. documented in this encounter Plan of Treatment Upcoming Encounters Date Type Specialty Care Team Description 09/16/2021 Nurse Only Infusion Therapy 09/30/2021 Nurse Only Infusion Therapy 03/07/2022 Telemedicine Rheumatology Sirisha Puckett MD [address] [facility] [address] [place] [address] (Wo rk) 07/12/2022 Office Visit Dermatology Lian Bai MD [address] [facility], [facility] [address] [place], [place] [address] (Wo rk) documented as of this encounter Visit Diagnoses Not on filedocumented in this encounter Care Teams Enhanced Environmental Operator Relationship Specialty Start Date End Date Cathy Mota NP PCP - General 02/27/[address] [place] [address] documented as of this encounter
--- OUTSIDE RECORDS SUMMARY | 2021-09-03 02:10 | XMS_ITS | Encounter Summary ---
:1950 Author Organization [facility] Address [address] [place] [address] Care Team Providers Name Role Phone Cathy Mota REGISTERED VETERINARY TECHNICIAN Primary Care Provider Reason for Visit Reason Comments Infusion Rituxan 2 of 2 Encounter Details Date Type Department Care Team Description 03/25/2020 Nurse Only [facility] Rh eumatoid arthritis Adult Hem Onc Infusi on involving multiple joints [address] ([facility]) (Primary Dx) [place], [place] [id number] Social History Tobacco Use Types Packs/Day Years [...] encounter Progress Notes Shanta Shirley RN - 03/25/2020 0900 EST Otilio comes in for his second Rituxan infusion for this cycle. He states he is feeling well and offers no complaints to me at this time. Treatment infused without difficulty. He will follow up with Dr. Puckett and return for additional infusions in 6 months as needed. I encouraged him to call with any questions or concerns, SHANTA SHIRLEY, RN documented in this encounter Plan of Treatment Upcoming Encounters Date Type Specialty Care Team Description 09/16/2021 Nurse Only Infusion Therapy 09/30/2021 Nurse Only Infusion Therapy 03/07/2022 Telemedicine Rheumatology Sirisha Puckett MD [address] [facility] [address] [place] [address] (Wo rk) 07/12/2022 Office Visit Dermatology Lian Bai MD 111 [facility], [facility] [address] [place], [place] [address] (Wo rk) documented as of this encounter Visit Diagnoses Diagnosis Rheumatoid arthritis involving multiple joints (HCC-CMS) (HCC) - Primary documented in this encounter Administered Medications Inactive Administered Medications - up to 3 most recent administrations Medication Order MAR Action Action Date Dose Rate Site acetaminophen (TYLENOL) tablet 650 mg Given 03/25/2020 9:04 EST 650 mg 650 mg, oral, NOW X1, 1 dose, On Mon03/25/20 at 0915, Routine diphenhydrAMINE (BENADRYL) capsule 25 mg Given 03/25/2020 9:04 EST 25 mg 25 mg, oral, NOW X1, 1 dose, On Mon03/25/20 at 0915, Routine methylPREDNISolone sod suc(PF) (SOLU-MEDROL) Given 03/25/2020 9: 20 EST 125 mg injection 125 mg 125 mg, intravenous, NOW X1, 1 dose, On Mon03/25/20 at 0915, Routine riTUXimab (RITUXAN) 1,000 mg in sodium New Bag 03/25/2020 9:32 EST 1,000 mg chloride (NS) 0.9 % 250 mL RAPID infusio n 1,000 mg, intravenous, NOW X1, 1 dose, On Mon03/25/20 at 0915 sodium chloride 0.9 % (NS) infusion New Bag 03/25/2020 9:18 EST 25 mL/hr at 25 mL/hr, intravenous, CONTINUOUS, Starting on Mon03/25/20 at 0915, Until Mon03/25/20 at 1343, Routine documented in this encounter Care Teams Transplant Surgeon Relationship Specialty Start Date End Date Cathy Mota, REGISTERED VETERINARY TECHNICIAN PCP - General 02/27/[address] [place] [phone] documented as of this encounter
--- OUTSIDE RECORDS SUMMARY | 2021-09-03 02:10 | XMS_ITS | Encounter Summary ---
:1950 Author Organization [facility] Address [address] [place] [address] Care Team Providers Name Role Phone Jorge Rosario MD Primary Care Provider Unavailable Reason for Visit Reason Comments Follow-up Things have been going well. still having problems in his eyes with getting the pressure down due to scl eritis Encounter Details Date Type Department Care Team Description 01/24/2019 Office Visit [facility] - Sirisha Puckett Rheu matoid arthritis involving multiple joints ([facility]) (Primary Dx); [facility] Rheumatology Chronic lymphocytic leukemia ([facility]); [address] [place] [address] [address] [place] [address] Social History Tobacco Use Types Packs/Day Years Used Date Never Smoker Smokeless Tobacco: Never Used Sex Assigned at Date Recorded Not on file documented as of this encounter Last Filed Vital Signs Vital Sign Reading Time Taken Comments Blood Pressure 116/70 01/24/2019 0939 EST Pulse 60 01/24/2019 0939 EST Temperature - - Respiratory Rate - - Oxygen Saturation - - Inhaled Oxygen Concentration - - Weight 79.4 kg (175 lb) 01/24/2019 0939 EST Height 173.4 cm (5' 8.25) 01/24/2019 0939 EST Body Mass Index 26.41 01/24/2019 0939 EST documented in this encounter Patient Instructions Patient InstructionsSirisha Puckett MD - 01/24/2019 9:30 EST --Rituximab in Feb 2019 --Labs prior to next visit --wax specialist as planned documented in this encounter Progress Notes Sirisha Puckett MD - 01/24/2019 0930 EST [facility] Rheumatology Chief Complaint Patient presents with ??? Follow-up Things have been going well. still having problems in his eyes with getting the pressure down due to scleritis HPI: 1. 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 On biologic therapies prior torituximab. Added rituximab due to development of CLL, scleritis. 2. CLL (chronic lymphocytic leukemia) - C91.10, In remission with rituximab. 3. 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 Symptoms worsened with trial off naproxen, and improved on oral prednisone. Treated with short course of durezol, as well as rituximab, and doing well except for episodic increase in eye pressures. INTERVAL HISTORY: Otilio returns for 4 month follow up. Last rituximab treatment was in September. Otilio says he is doing well with respect to RA. He denies any significant joint pain or morning stiffness. Continues to work out for exercise. Main issue has been glaucoma. Has been trying different drops. Had a reaction to Combigan with redness of skin around his eyes. Stopped the combigan, and redness of skin around his eyes resolved, but pressures increased. He is back on combigan. He is being sent to wax specialist in [place]. Current Outpatient Medications: acetaminophen (TYLENOL) 325 mg tablet brimonidine-timolol (COMBIGAN) 0.2-0.5 % drops opthalmic solution diphenhydrAMINE (BENADRYL) 25 mg capsule dorzolamide (TRUSOPT) 2 % ophthalmic solution lisinopril (PRINIVIL) 10 mg tablet MEDICAL MARIJUANA Melatonin 1 mg tablet montelukast (SINGULAIR) 10 mg tablet omeprazole (PRILOSEC) 20 mg capsule RITUXIMAB INTRAVENOUS No current facility-administered medications for this visit. Allergies include: Etanercept and Methotrexate Past Medical History: Diagnosis Date ??? Anemia ??? Hemorrhagic colitis 08/2007 ??? 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 Social History: Continues to enjoy snf. Talked at a [place] meeting recently on veterans for peace. Review of Systems: I had referred him to ENT for intermittent hoarseness and choking. Otilio tells me today that he saw Dr Moore, [facility], and had fiberoscopy--says this was negative. Was instructed in making sure he slows down with eating, smaller bites, etc. Hasn't had any choking episodes since then. Denies shortness of breath, chest pain, or rash. Has had some wheezing when on his cross horse trainer. Says he has had a cold. Had a flu vaccine and pneumonia vaccine (not sure which one). Physical Examination: BP 116/70 Pulse 60 Ht 173.4 cm (68.25) Wt 79.4 kg (175 lb) BMI 26.41 kg/m?? EYES: Conjunctivae not injected ENT: No sign of thrush. NECK: Reduction in extension and lateral rotation without pain. NO lymphadenopathy. CHEST: Clear to auscultation bilaterally. CARDIOVASCULAR: Regular rate and rhythm. No murmur. No peripheral edema. JOINT EXAM: No soft tissue swelling or synovitis of MCP or PIP joints of hands, MTPs feet. Right shoulder with mild reduction in abduction; internal rotation to mid-back; left shoulder continues with moderate reduction abduction, internal rotation to posterior waist. Elbows with full painless ROM. Right wrist is surgically fused. Left wrist has [...] capillary loops in the nail beds. Labs: [facility]: 01/23/19: CBC w/diff wnl (WBC 6.37, ALYC 1710), creatinine 0.75, albumin 3.6, alk phos 92, AST 27, ALT 40, CRP 0.6 mg/dL. Diagnosis / Assessment: 1. Rheumatoid arthritis involving multiple joints (HCC-CMS) Low to no RA disease activity. Labs wnl except for mild increase in CRP, but still less than 1.0. 2. Chronic lymphocytic leukemia (HCC-CMS) In remission on rituximab. 3. Scleritis of both eyes Having increased eye pressure. Recommendations/Evaluation: --Rituximab in Feb 2019 --Labs prior to next visit --wax specialist as planned Sirisha Puckett MD 01/24/2019 9:50 documented in this encounter Plan of Treatment Upcoming Encounters Date Type Specialty Care Team Description 09/16/2021 Nurse Only Infusion Therapy 09/30/2021 Nurse Only Infusion Therapy 03/07/2022 Telemedicine Rheumatology Sirisha Puckett MD [address] [facility] [address] [place] [address] (Wo rk) 07/12/2022 Office Visit Dermatology Lian Bai MD [address] [facility], [address] [place], [place] [address] (Wo rk) documented as of this encounter Visit Diagnoses Diagnosis Rheumatoid arthritis involving multiple joints (HCC-CMS) (HCC) - Primary Chronic lymphocytic leukemia (HCC-CMS) ( HCC) Chronic lymphoid leukemia, without menti on of having achieved remission Scleritis of both eyes Scleritis, unspecified documented in this encounter Historical Medications This list may reflect changes made after this encounter. Medication Sig Dispensed Refills Start Date End Date Melatonin 1 mg tablet Take by mouth. 0 MEDICAL MARIJUANA minimal effective 0 amount inhaled as directed RITUXIMAB INTRAVENOUS 1000 mg in 250 mls 0 2018 NS IV over 90 minutes lisinopril (PRINIVIL) 10 1 tab(s) orally 0 mg tablet once a day omeprazole (PRILOSEC) 20 1 cap(s) orally 0 mg capsule once a day dorzolamide (TRUSOPT) 2 % Place 1 Drop into 0 05/21/2020 ophthalmic solution both eyes 2 times daily. acetaminophen (TYLENOL) 2 tabs orally now 0 09/2708/31/2020 325 mg tablet brimonidine-timolol 1 gtt in each 0 (COMBIGAN) 0.2-0.5 % drops affected eye every opthalmic solution 12 hours diphenhydrAMINE (BENADRYL) 1 cap orally now 0 09/201803/04/2021 25 mg capsule montelukast (SINGULAIR) 10 1 tab orally now 0 09/201803/04/2021 mg tablet added in this encounter Care Teams Press Room Supervisor Relationship Specialty Start Date End Date Jorge Rosario MD PCP - General 01/24/19 02/26/20 documented as of this encounter
--- OUTSIDE RECORDS SUMMARY | 2021-09-03 02:10 | XMS_ITS | Encounter Summary ---
:1950 Author Organization [facility] Address [address] [place] [address] Care Team Providers Name Role Phone Giuseppe Quintanilla MD Primary Care Provider Unavailable Encounter Details Date Type Department Care Team Description 08/24/2016 Historical Results [facility] - Huy Guevara, ROUNDER AND BACKER Only [facility] [address] [place] [address] [address] [place] [address] Social History Tobacco Use Types Packs/Day Years Used Date Never Assessed Sex Assigned at Date Recorded Not on file documented as of this encounter Plan of Treatment Upcoming Encounters Date Type Specialty Care Team Description 09/16/2021 Nurse Only Infusion Therapy 09/30/2021 Nurse Only Infusion Therapy 03/07/2022 Telemedicine Rheumatology Sirisha Puckett MD [address] [facility] [address] [place] [address] (Wo rk) 07/12/2022 Office Visit Dermatology Lian Bai MD [address] [facility], [address] [place], [place] [address] (Wo rk) documented as of this encounter Procedures Procedure Name Priority Date/Time Associated Comments Diagnosis COMPLETE BLOOD COUNT Routine 08/24/2016 11:10 Res ults for this WITH DIFFERENTIAL EDT procedure are in (AUTO) the results section. LDH Routine 08/24/2016 10:50 Results for this EDT procedure are i n the results section. BASIC METABOLIC PANEL Routine 08/24/2016 10:50 Re sults for this (BMP) EDT procedure are i n the results section. documented in this encounter Results COMPLETE BLOOD COUNT WITH DIFFERENTIAL (AUTO) (08/24/2016 11:10 EDT) Pathologist Sig nature ABSOLUTE NEUTROPHIL 5.57 1.7 - 7.0 [facility] COUN - [facility] 10e3/ul [facility] BASO # - [facility] 0.05 0.0 - 0.3 [facility] 10e3/uL [facility] BASO % - [facility] 1 0 - 2 % [facility] EOS # - [facility] 0.20 0.05 - 0.5 [facility] 10e3/uL [facility] EOS % - [facility] 2 0 - 5 % [facility] GRAN % - [facility] 67 40 - 80 % [facility] HEMATOCRIT - [facility] 40.7 36.0 - 52.0 % [facility] HEMOGLOBIN - [facility] 13.8 13.7 - 17.5 g/dl [facility] IG# - [facility] 0.02 0 - 0.07 10e3/uL [facility] IG% - [facility] 0.2 0 - 0.9 % [facility] LYMPH # - [facility] 2.00 0.9 - 2.9 [facility] 10e3/uL [facility] LYMPH% - [facility] 24 20 - 40 % [facility] MEAN CORPUSCULAR HGB - 31.4 26 - 34 pg [facility] ME D [facility] MEAN CORPUSCULAR HGB 33.9 31 - 36 g/dL [facility] CONC - [facility] MEAN CELL VOLUME - 92.7 77 - 100 fl [facility] MONO # - [facility] 0.48 0.3 - 0.9 [facility] 10e3/uL [facility] MONO% - [facility] 6 0 - 12 % [facility] PLATELET COUNT 242 150 - 400 [facility] 10e3/ul [facility] RED BLOOD COUNT - [facility] 4.39 4.3 - 5.7 [facility] D 10e6/ul [facility] RED CELL DISTRI WIDTH 13.8 11.8 - 15.6 % [facility] D - [facility] WHITE BLOOD COUNT - 8.3 3.5 - 10.5 [facility] 10e3/ul [facility] Specimen Performing Organization Address City/[facility]/ZIP Code Phon e Number [facility] [address] [place] [address] [facility] (ABNORMAL) LDH (08/24/2016 10:50 EDT) Pathologist Sig nature LDH - [facility] 203 (H) 100 - 190 U/L [facility] Specimen Performing Organization Address [facility] Code Phon e Number [facility] [address] [place] [address] [facility] (ABNORMAL) BASIC METABOLIC PANEL (BMP) (08/24/2016 10:50 EDT) BUN - [facility] 17 7 - 18 mg/dL [facility] CALCIUM - [facility] 8.4 (L) 8.5 - 10.1 [facility] mg/dL [facility] Chloride 107 98 - 107 mEq/L [facility] CO2 Total 27 21 - 32 mEq/L [facility] CREATININE 0.82 0.5 - 1.3 [facility] mg/dL [facility] eGFR >60 [facility] Comment: [facility] Chronic renal impairment is defined as GFR <60 Multiply result by 1.210 for patients . Anion Gap 7 5 - 15 [facility] GLUCOSE - [facility] 82 70 - 100 mg/dL [facility] Potassium 4.2 3.5 - 5.0 [facility] mEq/L [facility] Sodium 141 135 - 145 [facility] mEq/L [facility] Specimen Performing Organization Address City/[facility]/ZIP Code Phon e Number [facility] [address] [place] [address] [facility] documented in this encounter Visit Diagnoses Not on filedocumented in this encounter Care Teams Furn[employer] Equipment Operator Relationship Specialty Start Date End Date Giuseppe Quintanilla MD PCP - General 01/02/15 01/23/19 documented as of this encounter
--- OUTSIDE RECORDS SUMMARY | 2021-09-03 02:10 | XMS_ITS | Encounter Summary ---
:1950 Author Organization [facility] Address [address] [place] [address] Care Team Providers Name Role Phone Cathy Mota LUMBER STICKER Primary Care Provider Encounter Details Date Type Department Care Team Description 06/04/2020 Travel Social History Tobacco Use Types Packs/Day Years Used Date Never Smoker Smokeless Tobacco: Never Used Sex Assigned at Date Recorded Not on file COVID-19 Exposure Response Date Recorded In the last month, have you been in contact with No / Unsure 06/04/2020 9:59 EDT someone who was confirmed or suspected [...] Therapy 03/07/2022 Telemedicine Rheumatology Sirisha Puckett MD [address] [place] [address] [address] (Wo rk) 07/12/2022 Office Visit Dermatology Lian Bai MD [address] [facility], [address] [place] [address] (Wo rk) documented as of this encounter Visit Diagnoses Not on filedocumented in this encounter Care Teams Welt Butter Hand Relationship Specialty Start Date End Date Cathy Mota NP PCP - General 02/27/[address] [place] [address] documented as of this encounter
--- OUTSIDE RECORDS SUMMARY | 2021-09-03 02:10 | XMS_ITS | Encounter Summary ---
:1950 Author Organization [facility] Address [address] [place] [address] Care Team Providers Name Role Phone FannyCathy smith Symone SOFTWARE TECHNICAL LEAD Primary Care Provider Reason for Referral Specialty Diagnoses / Procedures Referred By Contact Refer red To Contact Jameel Mas MD [address] [place] [address] Referral ID Status Reason Start Date Expiration Date Visits Requ ested Visits Authorized Comments - Bleeding - Discharge - Fever/chills - Flashes or floaters - Headache - Increased pain - Nausea or vomiting - Vision loss Reason for Visit Auth/Cert Specialty Diagnoses / Procedures Referred By Contact Refer red To Contact Diagnoses 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 of age-related cataract of right eye [H25.811] Procedures [facility] X[facility]SL [facility] RMVL INSJ IO LENS PROSTH W/O ECP EXTRACTION, CATARACT, EXTRACAPSULAR, WITH IOL INSERTION Referral ID Status Reason Start Date Expiration Date Visits Requ ested Visits Authorized [id number] 1 1 Encounter Details Date Type Department Care Team Description 01/29/2021 Hospital Encounter [facility]ulma Mas [place] [facility] [place] [address] [facility] [address] [place] [phone] (Wo rk) Social History Tobacco Use Types [...] / COVID-19? documented as of this encounter Last Filed Vital Signs Vital Sign Reading Time Taken Comments Blood Pressure 143/85 01/29/2021 0940 EST Pulse 56 01/29/2021 0807 EST Temperature 36.4 ??C (97.6 ??F) 01/29/2021 0954 EST Respiratory Rate 17 01/29/2021 0940 EST Oxygen Saturation 96% 01/29/2021 0940 EST Inhaled Oxygen Concentration - - Weight 82.1 kg (181 lb) 01/29/2021 0807 EST Height 172.7 cm (5' 8) 01/29/2021 0807 EST Body Mass Index 27.52 01/29/2021 0807 EST documented in this encounter Functional Status [...] making decisions? documented as of this encounter Medications at Time of Discharge Medication Sig Dispensed Refills Start Date End Date dorzolamide (TRUSOPT) 2 % Place 1 Drop into 10 mL 11 02/2020 ophthalmic solution both eyes 3 times daily. ferrous gluconate (FERGON) Take 324 mg by 0 324 mg (38 mg iron) tablet mouth daily with breakfast. lisinopril (PRINIVIL) 10 1 tab(s) orally 0 mg tablet once a day MEDICAL MARIJUANA minimal effective 0 amount inhaled as directed Melatonin 1 mg tablet Take by mouth. 0 Multivitamins with Take 1 Tab by mouth 0 Minerals tablet tablet daily. omeprazole (PRILOSEC) 20 1 cap(s) orally 0 mg capsule once a day RITUXIMAB INTRAVENOUS 1000 mg in 250 mls 0 2018 NS IV over 90 minutes timolol (TIMOPTIC) 0.25 % Place 1 Drop into 0 06/2020 ophthalmic solution both eyes 2 times daily. UNABLE TO FIND Matcha green tea supplement- 2 tsp/ day 0 Green plant based protein-1 tbsp/ day bimatoprost (LUMIGAN) 0.03 Place 1 Drop into 0 02/04/2021 % ophthalmic the right eye at dropsIndications: open bedtime. angle glaucoma diphenhydrAMINE (BENADRYL) 1 cap orally now 0 09/201803/04/2021 25 mg capsule ketOROLAC tromethamine Place 1 Drop into 5 mL 0 202003/04/2021 (ACULAR LS) 0.4 % drops the right eye 4 times daily. montelukast (SINGULAIR) 10 1 tab orally now 0 09/201803/04/2021 mg tablet ofloxacin (OCUFLOX) 0.3 % Place 1 Drop into 5 mL 0 11/202003/04/2021 ophthalmic solution both eyes 4 times daily. prednisoLONE (PRED FORTE) Place 1 Drop into 5 mL 0 11/202002/10/2021 1 % ophthalmic suspension the right eye 4 times daily. documented as of this encounter Discharge Disposition Disposition Code Departure Means Destination Comments Home or Self Care Car Home home with documented in this encounter H&P Notes Jameel Mas MD - 01/29/2021 0719 EST The preoperative history and physical which was performed within 30 days of this Procedure (completed 01/08/21 by Cathy Mota PhD, SOFTWARE TECHNICAL LEAD scanned under Media tab) has been reviewed and the clinically appropriate elements of the physical examination have been repeated. There are no changes to the documented history and physical or if so such changes are documented below Jameel Mas MD 01/29/21 7:19 documented in this encounter OR Notes OR Surgeon - Jameel Mas MD - 01/29/2021 0909 EST PREOPERATIVE DIAGNOSIS: Visually significant and symptomatic cataract, right eye. See preoperative ophthalmology notes for cataract subtype. POSTOPERATIVE DIAGNOSIS: same as above PROCEDURES: 1. Review of intraocular lens power calculations, both eyes 2. Extraction of lens by phacoemulsification, right eye. 3. Intraocular lens implantation, Judson and Judson model ZCB00 17.0 D, right eye. SURGEON: Jameel Mas MD RUG DYER HELPER: CLEMENTINE Kim ANESTHESIA: Topical and MAC ESTIMATED BLOOD LOSS: less than 1.0 mL SPECIMENS: None COMPLICATIONS: None INDICATIONS: Please see my preoperative notes for a complete explanation of the patient's indications for surgery. PROCEDURE IN DETAIL: After obtaining informed consent, the patient was taken to the operating room where blood pressure, cardiac, and oxygen monitors were applied. A time-out then took place confirmingthe patient, the procedure, and the correct site. Drops of 0.5% tetracaine and 5% povidone-iodine were applied to the ocular surface and conjunctival cul-de-sac as part of the prep. The right eye was then prepped with Betadine and draped in the usual sterile fashion for intraocular surgery. A lid speculum was placed into the right eye. Additional drops of tetracaine were then applied. A paracentesis was created with an MVR blade. 1% preservative-free lidocaine with 1% phenylephrine was injected intothe anterior chamber. The anterior chamber was then deepened with VisCoat and a Ramirez ring was used to immobilize the eye. A triplanar clear corneal incision was created using a 2.4 mm keratome temporally. A continuous curvelinear capsulorrhexis was created using a pre-bent cystitome and capsulorrhexis forceps. Hydrodissection was performed using balanced salt solution on a cannula. Phacoemulsification of the lens nucleus was accomplished in a phacochop technique. The nuclear fragments were completely removed using phacoemulsification. The remaining cortex was removed using irrigation and aspiration. The capsular bag was filled with ProVisc. The intraocular lens power calculations were reviewedand the best lens was selected to give the desired post-operative refractive state. A 17.0 diopter lens was placed into the capsular bag using a lens injector. The lens was positioned with a Anupama chop per and centered well. The remaining viscoelastic material was removed using irrigation and aspiration. The eye was formed and the incisions were hydrated with balanced salt solution on an angled blunt-tipped cannula. The incisions were then checked with Weck-Olga sponges and found to be watertight. Moxifloxacin 0.5% was injected into the anterior chamber with a 30 gauge cannula a total of 0.1 mL was given. The lid speculum, drapes, and operating microscope were removed from the surgical field and Betadine was cleansed from the periocular skin using a wet sponge. Prednisolone drops were instilled into the conjunctival sac. A clear protective shield was taped over eye. The patient tolerated the procedure well and there were no complications. The patient returned to the care analyst area alert and in good condition. reprocedure Instructions - De Obregon RN - 01/27/2021 8976 EST Yaw Cadena has been instructed as follows regarding medication administration for the day of the scheduled procedure. Date of Surgery: 01/29/2021 Instructions for Taking Medications Day of Surgery Medication Sig Last Dose Hold DOS Take DOS bimatoprost (LUMIGAN) 0.03 % ophthalmic drops Place 1 Drop into the right eye at bedtime. Patient not taking: Reported on 12/22/2020 diphenhydrAMINE (BENADRYL) 25 mg capsule 1 cap orally now Patient not taking: Reported on 12/22/2020 dorzolamide (TRUSOPT) 2 % ophthalmic solution Place 1 Drop into both eyes 3 times daily. Patient taking differently: Place 1 Drop into both eyes 2 times daily. ferrous gluconate (FERGON) 324 mg (38 mg iron) tablet Take 324 mg by mouth daily with breakfast. hold ketOROLAC tromethamine (ACULAR LS) 0.4 % drops Place 1 Drop into the right eye 4 times daily. lisinopril (PRINIVIL) 10 mg tablet 1 tab(s) orally once a day yes MEDICAL MARIJUANA minimal effective amount inhaled as directed Melatonin 1 mg tablet Take by mouth. hold montelukast (SINGULAIR) 10 mg tablet 1 tab orally now Patient not taking: Reported on 12/22/2020 Multivitamins with Minerals tablet tablet Take 1 Tab by mouth daily. hold ofloxacin (OCUFLOX) 0.3 % ophthalmic solution Place 1 Drop into both eyes 4 times daily. omeprazole (PRILOSEC) 20 mg capsule 1 cap(s) orally once a day yes prednisoLONE (PRED FORTE) 1 % ophthalmic suspension Place 1 Drop into the right eye 4 times daily. RITUXIMAB INTRAVENOUS 1000 mg in 250 mls NS IV over 90 minutes timolol (TIMOPTIC) 0.25 % ophthalmic solution Place 1 Drop into both eyes 2 times daily. UNABLE TO FIND Matcha green tea supplement- 2 tsp/ day Green plant based protein-1 tbsp/ day holdye documented in this encounter Plan of Treatment Upcoming Encounters Date Type Specialty Care Team Description 09/16/2021 Nurse Only Infusion Therapy 09/30/2021 Nurse Only Infusion Therapy 03/07/2022 Telemedicine Rheumatology Sirisha Puckett MD [address] [facility] [address] [place] [address] (Wo rk) 07/12/2022 Office Visit Dermatology Lian Bai MD [address] [facility], [facility] [address] [place], [place] [address] (Wo rk) Scheduled Referrals Name Type Priority Associated Order Schedule Diagnoses PROVIDER FOLLOW-UP Outpatient Routine/Next Ordered: INSTRUCTIONS Referral Available 01/29/2021 documented as of this encounter Procedures Procedure Name Priority Date/Time Associated Diagnosis Comme nts EXTRACTION, CATARACT, 01/29/2021 8:21 EST Combined for ms of EXTRACAPSULAR, WITH IOL age-related catar act of INSERTION right eye documented in this encounter Visit Diagnoses Diagnosis Combined forms of age-related cataract o f right eye - Primary Other and combined forms of senile catar act documented in this encounter Admitting Diagnoses Diagnosis Combined forms of age-related cataract o f right eye Other and combined forms of senile catar act documented in this encounter Administered Medications Inactive Administered Medications - up to 3 most recent administrations Medication Order MAR Action Action Date Dose Rate Site acetaminophen (TYLENOL) tablet 650 mg 650 mg, oral, ONCE, Starting on 01/20 at 0920, Until Mon01/29/21 at 1156, Routine, Recovery (only) fentaNYL citrate (PF) injection 25 mcg 25 mcg, intravenous, EVERY 5 MIN PRN, St arting on Mon01/29/21 at 0920, Until Mon01/29/21 at 1156, Pain, Moderate-Severe Pain (Scale 4-10), Routine, Recovery (only) glycopyrrolate (ROBINUL) injection 0.2 m g 0.2 mg, intravenous, EVERY 3 MINUTES PRN , Starting on Mon01/29/21 at 0920, Until Mon01/29/21 at 1156, BRADYCARDIA, Routine, Recovery ( only) ketOROLAC (ACULAR) 0.5 % ophthalmic solution 1 Given 021 8:10 EST 1 Drop Drop 1 Drop, right eye, PRE-OP MULTIPLE, 3 doses, Starting on Mon01/29/21 at 0724, Until Mon01/29/21 at 0810, for cataract pre-procedure, follow admin instructions, Routine, Preprocedure Given 01/29/2021 7:58 EST 1 Drop Given 01/29/2021 7:46 EST 1 Drop labetalol (TRANDATE) injection 5 mg 5 mg, intravenous, EVERY 3 MINUTES PRN, Starting on Mon01/29/21 at 0920, Until Mon01/29/21 at 1156, High Blood Pressure, S BP greater than 180 mmHg, Routine, Recovery (only) lactated ringers BOLUS 500 mL 500 mL, intravenous, ONCE PRN, 1 dose, S tarting on Mon01/29/21 at 0920, Until Mon01/29/21 at 1156, Other, SBP below 100 o r MAP below 60, Routine, Recovery (only) ofloxacin (OCUFLOX) 0.3 % ophthalmic solution 1 Given 01/29/2021 8:19 EST 1 Drop Drop 1 Drop, right eye, PRE-OP MULTIPLE, 3 doses, Starting on Mon01/29/21 at 0724, Until Mon01/29/21 at 0819, Other, for cataract pre-procedure, follow admin instructions, Routine, Preprocedure Given 01/29/2021 8:17 EST 1 Drop Given 01/29/2021 8:15 EST 1 Drop ondansetron (PF) (ZOFRAN) injection 4 mg 4 mg, intravenous, ONCE PRN, 1 dose, Sta rting on Mon01/29/21 at 0920, Until Mon01/29/21 at 1156, Nausea, Routine, Recovery (only) phenylephrine (MYDFRIN) 2.5 % ophthalmic Given 01/29/2021 8:[address] 1 Drop solution 1 Drop 1 Drop, right eye, PRE-OP MULTIPLE, 3 doses, Starting on Mon01/29/21 at 0724, Until Mon01/29/21 at 0807, Other, for cataract pre-procedure, follow admin instructions, Routine, Preprocedure Given 01/29/2021 7:54 EST 1 Drop Given 01/29/2021 7:43 EST 1 Drop tropicamide (MYDRIACYL) 1 % ophthalmic solution Given 01/29/2021 8:02 EST 1 Drop 1 Drop 1 Drop, right eye, PRE-OP MULTIPLE, 3 doses, Starting on Mon01/29/21 at 0724, Until Mon01/29/21 at 0802, Other, for cataract pre-procedure, follow admin instructions, Routine, Preprocedure Given 01/29/2021 7:49 EST 1 Drop Given 01/29/2021 7:35 EST 1 Drop documented in this encounter Active and Recently Administered Medications Times are shown in EST. Scheduled Medication Order 01/27/2021 01/28/2021 01/29/2021 acetaminophen (TYLENOL) tablet 650 mg 650 mg, oral, ONCE, Starting on 01/20 at 0920, Until Mon01/29/21 at 1156, Routine, Recovery (only) lidocaine 1% + phenylephrine 1% intracameral syringe (COMPLETED) 0844 (Given - Provider: Jameel Mas MD)0845 (Due) 0.8 mL, intracameral, INTRA-OP ONCE, 1 d ose, On Mon01/29/21 at 0845, Routine, Intraprocedure moxifloxacin intracameral syringe 1.5 mg/0.3 mL 0845 (Canceled Entry - Provider: Batch Job User Admin - Comment: Automatically canceled at discontinue of medication order) 1.5 mg, intracameral, INTRA-OP ONCE, 1 dose, On Mon01/29/21 at 0845, Routine PRN Medication Order 01/27/2021 01/28/2021 01/29/2021 balanced salt solution inrrigation solut ion (BSS PLUS) 500 mL, EPINEPHrine HCl (PF) (ADRENALIN) 0.3 mL irrigation (CANCELED) 0839 (Given - Provider: Jameel Mas MD - Comment: irrigation) PRN, Starting on Mon01/29/21 at 0839, U ntil Mon01/29/21 at 0910, Routine, Intraprocedure balanced salts (BSS) ophthalmic solution (CANCELED) 0842 (Given - Provider: Jameel Mas MD) PRN, Starting on Mon01/29/21 at 0842, U ntil Mon01/29/21 at 0910, Routine, Intraprocedure chondroitin-sodium hyaluronate (VISCOAT) ophthalmic solution (CA NCELED) 0843 (Given - Provider: Jameel Mas MD) PRN, Starting on Mon01/29/21 at 0843, U ntil Mon01/29/21 at 0910, Routine, Intraprocedure fentaNYL citrate (PF) injection 25 mcg 25 mcg, intravenous, EVERY 5 MIN PRN, St arting on Mon01/29/21 at 0920, Until Mon01/29/21 at 1156, Pain, Moderate-Severe Pain (Scale 4-10), Routine, Recovery (only) glycopyrrolate (ROBINUL) injection 0.2 mg 0.2 mg, intravenous, EVERY 3 MINUTES PRN , Starting on Mon01/29/21 at 0920, Until Mon01/29/21 at 1156, BRADYCARDIA, Routine, Recovery (only) ketOROLAC (ACULAR) 0.5 % ophthalmic solution 1 Drop (COMPLETED) 0746 (Given - Provider: Mary José RN)0758 (Given - Provider: Mary José RN)0810 (Given - Provider: Mary José RN) 1 Drop, right eye, PRE-OP MULTIPLE, 3 do ses, Starting on Mon01/29/21 at 0724, Until Discontinued, for cataract pre-procedure, follow admin instructions, Routine, Preprocedure labetalol (TRANDATE) injection 5 mg 5 mg, intravenous, EVERY 3 MINUTES PRN, Starting on Mon01/29/21 at 0920, Until Mon01/29/21 at 1156, High Blood Pressure, SBP greater than 180 mmHg, Routine, Recovery (only) lactated ringers BOLUS 500 mL 500 mL, intravenous, ONCE PRN, 1 dose, S tarting on Mon01/29/21 at 0920, Until Mon01/29/21 at 1156, Other, SBP below 100 or MAP below 60, Routine, Recovery (only) moxifloxacin (VIGAMOX) 0.5 % ophthalmic solution (CANCELED) 0855 (Given - Provider: Jameel Mas MD - Comment: injection) PRN, Starting on Mon01/29/21 at 0855, U ntil Mon01/29/21 at 0910, Routine, Intraprocedure ofloxacin (OCUFLOX) 0.3 % ophthalmic solution 1 Drop (COMPLETED) 0815 (Given - Provider: Mary José RN)0817 (Given - Provider: Mary José RN)0819 (Given - Provider: Mary José RN) 1 Drop, right eye, PRE-OP MULTIPLE, 3 do ses, Starting on Mon01/29/21 at 0724, Until Mon01/29/21 at 1344, Other, for cataract pre-procedure, follow admin instructions, Routine, Preprocedure ondansetron (PF) (ZOFRAN) injection 4 mg 4 mg, intravenous, ONCE PRN, 1 dose, Sta rting on Mon01/29/21 at 0920, Until Mon01/29/21 at 1156, Nausea, Routine, Recovery (only) phenylephrine (MYDFRIN) 2.5 % ophthalmic solution 1 Drop (COMPLE ISHAN) 0743 (Given - Provider: Mary José RN)0754 (Given - Provider: Mary José RN)0807 (Given - Provider: Mary José RN) 1 Drop, right eye, PRE-OP MULTIPLE, 3 do ses, Starting on Mon01/29/21 at 0724, Until Discontinued, Other, for cataract pre-procedure, follow admin instructions, Routine, Preprocedure povidone-iodine 5 % ophthalmic solution (CANCELED) 0855 (Given - Provider: Jameel Mas MD) PRN, Starting on Mon01/29/21 at 0855, U ntil Mon01/29/21 at 0910, Routine, Intraprocedure sodium hyaluronate (HEALON) ophthalmic injection (CANCELED) 0846 (Given - Provider: Jameel Mas MD) PRN, Starting on Mon01/29/21 at 0846, U ntil Mon01/29/21 at 0910, Routine, Intraprocedure tetracaine (PONTOCAINE) 0.5 % ophthalmic solution (CANCELED) 0844 (Given - Provider: Jameel Mas MD) PRN, Starting on Mon01/29/21 at 0844, U ntil Mon01/29/21 at 0910, Routine, Intraprocedure tropicamide (MYDRIACYL) 1 % ophthalmic solution 1 Drop (COMPLETE D) 0735 (Given - Provider: Mary José, FELICIA)0749 (Given - Provider: Mary José, FELICIA)0802 (Given - Provider: Mary José RN) 1 Drop, right eye, PRE-OP MULTIPLE, 3 do ses, Starting on Mon01/29/21 at 0724, Until Discontinued, Other, for cataract pre-procedure, follow admin instructions, Routine, Preprocedure documented in this encounter Orders Medications Ordered That Might Not Have Count Last Ord ered Date First Ordered Date Been Administered acetaminophen (TYLENOL) tablet 650 mg 1 01/29/2021 balanced salt solution inrrigation 1 01/29/2021 solution (BSS PLUS) 500 mL, EPINEPHrine HCl (PF) (ADRENALIN) 0.3 mL irrigation balanced salts (BSS) ophthalmic solution 1 chondroitin-sodium hyaluronate (VISCOAT) 1 ophthalmic solution fentaNYL citrate (PF) injection 25 mcg 1 glycopyrrolate (ROBINUL) injection 0.2 mg 1 2020 labetalol (TRANDATE) injection 5 mg 1 01/29/2021 lactated ringers BOLUS 500 mL 1 01/29/2021 lidocaine 1% + phenylephrine 1% 1 01/29/2021 intracameral syringe moxifloxacin (VIGAMOX) 0.5 % ophthalmic 1 01/30/20 21 solution moxifloxacin intracameral syringe 1.5 1 01/29/2021 mg/0.3 mL ondansetron (PF) (ZOFRAN) injection 4 mg 1 povidone-iodine 5 % ophthalmic solution 1 01/30/20 sodium hyaluronate (HEALON) ophthalmic 1 1 injection tetracaine (PONTOCAINE) 0.5 % ophthalmic 1 021 solution Nursing Count Last Ordered Date First Ordered Date ACTIVITY INSTRUCTIONS 2 01/29/2021 BATHING INSTRUCTIONS 1 01/29/2021 WOUND CARE INSTRUCTIONS 1 01/29/2021 Discharge Count Last Ordered Date First Ordered Date DISCHARGE PATIENT 1 01/29/2021 documented in this encounter Care Teams Senior Telecommunications Engineer Relationship Specialty Start Date End Date Cathy Mota NP PCP - General 02/27/[address] [place] [phone] documented as of this encounter
--- OUTSIDE RECORDS SUMMARY | 2021-09-03 02:10 | XMS_ITS | Encounter Summary ---
:1950 Author Organization [facility] Address [address] [place] [address] Care Team Providers Name Role Phone Cathy Mota SENIOR CONTROLLER Primary Care Provider Encounter Details Date Type Department Care Team Description 01/27/2021 Travel Social History Tobacco Use Types Packs/Day Years Used Date Former Smoker Smokeless Tobacco: Never Used Alcohol Use Standard Drinks/Week Comments Yes 2 (1 standard drink = 0.6 oz pure alcoho l) Sex Assigned at Date Recorded Not on file COVID-19 Exposure Response Date Recorded In the last month, have you been in contact with No / Unsure 01/27/2021 13:55 EST someone who was confirmed or suspected [...] Therapy 03/07/2022 Telemedicine Rheumatology Sirisha Puckett MD [address] [place] [address] [phone] (Wo ) 07/12/2022 Office Visit Dermatology Lian Bai MD [address] [facility] [place] [address] (Wo rk) documented as of this encounter Visit Diagnoses Not on filedocumented in this encounter Care Teams Handicraft Or Hobby Shop Manager Relationship Specialty Start Date End Date Cathy Mota NP PCP - General 02/27/[address] [place] [address] documented as of this encounter
--- OUTSIDE RECORDS SUMMARY | 2021-09-03 02:10 | XMS_ITS | Encounter Summary ---
:1950 Author Organization [facility] Address [address] [place] [address] Care Team Providers Name Role Phone Jorge Rosario MD Primary Care Provider Unavailable Reason for Visit Reason Comments Chemotherapy And Provider Visit Rituxan #2 Encounter Details Date Type Department Care Team Description 09/26/2019 Nurse Only [facility] Rh eumatoid arthritis Adult Hem Onc Infusi on involving multiple joints [address] ([facility]) (Primary Dx) [place] [address] Social History Tobacco Use Types Packs/Day Years [...] documented as of this encounter Progress Notes Carmen Nova RN - 09/26/2019 0900 EDT Yaw comes in today for Dose 2 of 2, Rituxan infusions. Last treatment on 09/11. Per Dr. Puckett, patient to follow up in 6 months. Right AC 22g placed (+) brisk, blood return. Pre-meds given: Tylenol, Benadryl, Methylprednisolone. Rituxan 1000mg infused over 90m, tolerated well without event. PIV removed, flushed (+) brisk blood return. Covered with gauze/tape. Encouraged to call for any questions or concerns. CARMEN NOVA, RN documented in this encounter Plan of Treatment Upcoming Encounters Date Type Specialty Care Team Description 09/16/2021 Nurse Only Infusion Therapy 09/30/2021 Nurse Only Infusion Therapy 03/07/2022 Telemedicine Rheumatology Sirisha Puckett MD [address] [facility] [address] [place] [address] (Wo rk) 07/12/2022 Office Visit Dermatology Lian Bai MD [address] [facility] [place], [place] [phone] (Wo rk) documented as of this encounter Visit Diagnoses Diagnosis Rheumatoid arthritis involving multiple joints (HCC-CMS) (HCC) - Primary documented in this encounter Administered Medications Inactive Administered Medications - up to 3 most recent administrations Medication Order MAR Action Action Date Dose Rate Site acetaminophen (TYLENOL) tablet 650 mg Given 09/26/2019 9:15 EDT 650 mg 650 mg, oral, NOW X1, 1 dose, On Riya 09/26/19 at 0915, Routine diphenhydrAMINE (BENADRYL) capsule 25 mg Given 09/26/2019 9:15 EDT 25 mg 25 mg, oral, NOW X1, 1 dose, On Riya 09/26/19 at 0915, Routine methylPREDNISolone sod suc(PF) (SOLU-MEDROL) Given 09/26/2019 9: 15 EDT 125 mg injection 125 mg 125 mg, intravenous, NOW X1, 1 dose, On Riya 09/26/19 at 0915, Routine riTUXimab (RITUXAN) 1,000 mg in sodium New Bag 09/26/2019 9:45 EDT 1,000 mg chloride (NS) 0.9 % 250 mL RAPID infusio n 1,000 mg, intravenous, NOW X1, 1 dose, On Riya 8/6/20 at 0915 sodium chloride 0.9 % (NS) infusion New Bag 09/26/2019 9:15 EDT 25 mL/hr at 25 mL/hr, intravenous, CONTINUOUS, Starting on Riya 09/26/19 at 0915, Until Riya 09/26/19 at 1402, Routine documented in this encounter Care Teams Automotive Starter Repairer Relationship Specialty Start Date End Date Jorge Rosario MD PCP - General 01/24/19 02/26/20 documented as of this encounter
--- OUTSIDE RECORDS SUMMARY | 2021-09-03 02:10 | XMS_ITS | Encounter Summary ---
:1950 Author Organization [facility] Address [address] [place] [address] Care Team Providers Name Role Phone Svetlana Cathy L CASH PERSON Primary Care Provider Reason for Visit Reason Onset Date Comments Pre-op Exam 04/29/2020 Encounter Details Date Type Department Care Team Description 04/29/2020 Office Visit [facility] Yola Mas MD Ophthalmology - [place] in [address] [place] [address] [address] [place] [address] [place] [address] [phone] Social History Tobacco Use Types Packs/Day Years [...] making decisions? documented as of this encounter Ordered Prescriptions Prescription Sig Dispensed Refills Start Date End Date prednisoLONE (PRED FORTE) Place 1 Drop into 1 Bottle 0 06/04/2020 1 % ophthalmic the left eye 4 suspensionIndications: times daily. Combined form of senile cataract of left eye ketOROLAC tromethamine Place 1 Drop into 5 mL 0 202006/04/2020 (ACULAR LS) 0.4 % the left eye 4 dropsIndications: Combined times daily. form of senile cataract of left eye ofloxacin (OCUFLOX) 0.3 % Place 1 Drop into 1 Bottle 0 05/21/2020 ophthalmic the left eye 4 solutionIndications: times daily. Combined form of senile cataract of left eye documented in this encounter Progress Notes Katerin Harley COA - 04/29/2020 0900 EST IOL Master/Lens Star only BIOMETRY Right eye Left eye Type: Lenstar Lenstar Indication: IOL Calculations IOL Calculations Biometry Completed by CLEMENTINE Kim Original tests to be found in patients shadow chart I was directly supervised by Dr. Chelsey Potter and she was in the suite and immediately available for the entire time the service was provided. documented in this encounter Plan of Treatment Upcoming Encounters Date Type Specialty Care Team Description 09/16/2021 Nurse Only Infusion Therapy 09/30/2021 Nurse Only Infusion Therapy 03/07/2022 Telemedicine Rheumatology Sirisha Puckett MD [address] [facility] [address] [place] [address] (Wo rk) 07/12/2022 Office Visit Dermatology Lian Bai MD [address] [facility], [address] [place] [address] (Wo rk) documented as of this encounter Procedures Procedure Name Priority Date/Time Associated Diagnosis Comme nts IOL MASTER/LENS Routine 04/29/2020 16:38 Combined form of Resu lts for this STAR ONLY EST senile cataract of procedure are in right eye the results Combined form of section. senile cataract of left eye documented in this encounter Results IOL MASTER/LENS STAR ONLY (04/29/2020 16:38 EST) Specimen Narrative [facility] - 04/29/2020 16:[address] BIOMETRY ??Right eye Left eye Type: ??Lenstar Lenstar ?? Indication: ??IOL Calculations ??IOL Mark culations ?? Biometry Completed by Giancarlo Kim Original tests to be found in patients s hadow chart I was directly supervised by Dr. Chelsey Potter and she was in the suite and immediately available for the entire time the service was provided. Performing Organization Address City/State/ZIP Code Phon e Number [facility] POINT OF CARE documented in this encounter Visit Diagnoses Diagnosis Combined form of senile cataract of righ t eye - Primary Combined form of senile cataract of left eye documented in this encounter Care Teams Embroidery Supervisor Relationship Specialty Start Date End Date Cathy Mota, KRISTI PCP - General 02/27/[address] [place] [phone] documented as of this encounter
--- OUTSIDE RECORDS SUMMARY | 2021-09-03 02:10 | XMS_ITS | Encounter Summary ---
:1950 Author Organization [facility] Address [address] [place] [address] Care Team Providers Name Role Phone Cathy Mota MENTAL HEALTH PROGRAM DIRECTOR Primary Care Provider Encounter Details Date Type Department Care Team Description 07/27/2020 Orders Only [facility] - Samuel Simeon, RN Rheu matoid arthritis [facility] Rheumatology involving multiple [address] joints ([facility]) [place] [address] (Primary Dx) [phone] Social History Tobacco Use Types Packs/Day Years [...] documented as of this encounter Progress Notes Samuel Simeon RN - 07/27/2020 0954 EDT DMARD Standing Order Labs have been ordered for 1 year. documented in this encounter Plan of Treatment Upcoming Encounters Date Type Specialty Care Team Description 09/16/2021 Nurse Only Infusion Therapy 09/30/2021 Nurse Only Infusion Therapy 03/07/2022 Telemedicine Rheumatology Sirisha Puckett MD [address] [facility] [address] [place] [address] (Wo rk) 07/12/2022 Office Visit Dermatology Lian Bai MD 111 [facility], [facility] 5 [place], [place] [address] (Wo rk) documented as of this encounter Visit Diagnoses Diagnosis Rheumatoid arthritis involving multiple joints (HCC-CMS) (HCC) - Primary documented in this encounter Care Teams Display Card Writer Relationship Specialty Start Date End Date Cathy Mota NP PCP - General 02/27/[address] [place] [address] [address] [place] [phone] documented as of this encounter
--- OUTSIDE RECORDS SUMMARY | 2021-09-03 02:10 | XMS_ITS | Encounter Summary ---
:1950 Author Organization [facility] Address [address] [place] [address] Care Team Providers Name Role Phone Cathy Mota DIRECTOR REACTOR PROJECTS Primary Care Provider Reason for Visit Reason Comments Post-OP Follow Up POD #0 s/p Cataract Extracti on with PCIOL, left eye (05/15/20) Encounter Details Date Type Department Care Team Description 05/15/2020 Post-op Visit [facility] Jameel Mas, Cat aract extraction Ophthalmology - [place] in [place] status of eye, left [address] (Primary Dx) [address] [place] [phone] Social History Tobacco Use Types Packs/Day Years [...] encounter Progress Notes Jameel Mas MD - 05/15/2020 1300 EDT Chief Complaint: Pseudophakia, Cataract Post-Op Day 0, left eye HPI The patient is a 69 y.o. male, POD #0 s/p Cataract extraction with PCIOL, left eye. Location: Left eye Pain: 0 - No pain Quality: Severity: Duration: Timing: Lasts: Context: POD #0 s/p Cataract Extraction with PCIOL, left eye (05/15/20) Modifying factors: No discomfort presently. Tech instilled all 3 post-op drops at 1:44 PM Associated Signs & Symptoms: Visual Fluctuations: Attestation: Base Eye Exam Visual Acuity (Snellen - Linear) Right Left Dist sc 20/150 -1 Tonometry (Applanation, 13:47) Right Left Pressure 15 13 Neuro/Psych Oriented x3: Yes Mood/Affect: Normal Slit Lamp and Fundus Exam Slit Lamp Exam Right Left Lids/Lashes Normal Normal Conjunctiva/Sclera White and quiet White and quiet Cornea Nasal pterygium 2mm onto cornea sealed incisions, 2+ Edema, 2+ Punctate epithelial erosions Anterior Chamber Deep and quiet deep, 2+ Cell Iris dilates 7 Dilated Lens 2+ Nuclear sclerosis, Cortical cataract Posterior chamber intraocular lens Fundus Exam Right Left Disc hazy view to posterior pole IMPRESSION & PLAN: POD #0 s/p Cataract Extraction with PCIOL, left eye (05/15/20) -patient is doing well -Use Ofloxacin, ketorolac and PF QID (drop [...] 03/07/2022 Telemedicine Rheumatology Sirisha Puckett MD [address] [facility] [address] [place] [address] (Wo rk) 07/12/2022 Office Visit Dermatology Lian Bai MD 111 [facility], [facility] [place] [facility] 5 [place], [place] [phone] (Wo rk) documented as of this encounter Visit Diagnoses Diagnosis Cataract extraction status of eye, left - Primary documented in this encounter Eye Exam Visual Acuity (Snellen - Linear) Right eye Left eye Dist sc 20/150 -1 Tonometry (Applanation, 13:47) Right eye Left eye Pressure 15 13 Dorzolamide and timolol drops given 2:05 Neuro/Psych Oriented x3: Yes Mood/Affect: Normal Slit Lamp Exam Right eye Left eye Lids/Lashes Normal Normal Conjunctiva/Sclera White and quiet White and quiet Cornea Nasal pterygium 2mm onto cornea sealed i ncisions, 2+ Edema, 2+ Punctate epithelial erosions Anterior Chamber Deep and quiet deep, 2+ Cell Iris dilates 7 Dilated Lens 2+ Nuclear sclerosis, Cortical Posterior chamber intraocular lens cataract Fundus Exam Right eye Left eye Disc hazy view to posteri or pole Care Teams Cnc Service Technician Relationship Specialty Start Date End Date Cathy Mota NP PCP - General 02/27/[address] [place] [address] documented as of this encounter
--- OUTSIDE RECORDS SUMMARY | 2021-09-03 02:10 | XMS_ITS | Encounter Summary ---
:1950 Author Organization [facility] Address [address] [place] [address] Care Team Providers Name Role Phone Jorge Rosario MD Primary Care Provider Unavailable Reason for Visit Reason Onset Date Comments Appointment Related 07/16/2019 Inquiring about infu khloe schedule Encounter Details Date Type Department Care Team Description 07/16/2019 Telephone [facility] - Jose Puckett MD Appointment Related [facility] Rheumatology [address] (Inquiring about [address] [facility] [address] infusion schedule) [place] [address] [place], [place] [phone] Social History Tobacco Use Types Packs/Day [...] Telephone Encounter - Megan Balbuena RN - 07/16/2019 1716 EDT Pt is due in August for infusions.Called pt and left that information on private voicemail. elephone Encounter - Lisette Doll - 07/16/2019 1640 EDT Patient called to schedule follow up for August with Dr. Puckett. Patient also was inquiring about when his upcoming infusions are planned to be and would like to speak with a nurse about when those dates possibly were. Patient states the best number to reach him is [phone]. Thanks. documented in this encounter Plan of Treatment Upcoming Encounters Date Type Specialty Care Team Description 09/16/2021 Nurse Only Infusion Therapy 09/30/2021 Nurse Only Infusion Therapy 03/07/2022 Telemedicine Rheumatology Sirisha Puckett MD [address] [facility] [address] [place] [address] (Wo rk) 07/12/2022 Office Visit Dermatology Lian Bai MD [address] [facility], [address] [place], [place] [address] (Wo rk) documented as of this encounter Visit Diagnoses Not on filedocumented in this encounter Care Teams Head Bellhop Captain Relationship Specialty Start Date End Date Jorge Rosario MD PCP - General 01/24/19 02/26/20 documented as of this encounter
--- OUTSIDE RECORDS SUMMARY | 2021-09-03 02:10 | XMS_ITS | Encounter Summary ---
:1950 Author Organization [facility] Address [address] [place] [address] Care Team Providers Name Role Phone FannyJarrod smithCathy Symone HOTEL OFFICE MANAGER Primary Care Provider Encounter Details Date Type Department Care Team Description 01/07/2021 Documentation Visit [facility] Jameel Mas Combined forms of Ophthalmology - MD Roberta age-related [place] [address] cataract of right [address] eye (Primary Dx) [address] [place] [phone] Social History Tobacco Use Types Packs/Day Years [...] encounter Progress Notes Jameel Mas MD - 01/07/2021 1700 EST Right Eye Lens Calc w/o IOL Biometry Optical Coherence Biometry Calculations Date of original biometry: 04/29/20 Read date: 01/19/21 Indicated eye: the right eye Procedure date: 01/29/21 Procedure location: [facility] Lens type: ZCB00 Lens power: 17.0 Electronically Signed: Jameel Mas MD 01/19/21 documented in this encounter Plan of Treatment Upcoming Encounters Date Type Specialty Care Team Description 09/16/2021 Nurse Only Infusion Therapy 09/30/2021 Nurse Only Infusion Therapy 03/07/2022 Telemedicine Rheumatology Sirisha Puckett MD [address] [facility] [address] [place], [place] [address] (Wo rk) 07/12/2022 Office Visit Dermatology Lian Bai MD 111 [facility], [facility] 5 [place], [place] [address] (Wo rk) documented as of this encounter Procedures Procedure Name Priority Date/Time Associated Diagnosis Comme nts RIGHT EYE LENS CALC Routine 01/19/2021 9:47 EST Combined forms of Results for this W/O IOL BIOMETRY age-related cataract pro cedure are in of right eye the results section. documented in this encounter Results RIGHT EYE LENS CALC W/O IOL BIOMETRY (01/19/2021 9:47 EST) Specimen Narrative [facility] POINT OF CARE - 01/19/2021 9:47 ES T Optical Coherence Biometry Calculations Date of original biometry: 04/29/20 Read date: 01/19/21 Indicated eye: the right eye Procedure date: 01/29/21 Procedure location: [facility] Lens type: ZCB00 ?? Lens power: 17.0 Electronically Signed: Jameel Mas MD 01/19/21 Performing Organization Address City/State/ZIP Code Phon e Number [facility] POINT OF CARE documented in this encounter Visit Diagnoses Diagnosis Combined forms of age-related cataract o f right eye - Primary Other and combined forms of senile catar act documented in this encounter Care Teams Sub Prior Relationship Specialty Start Date End Date Cathy Mota NP PCP - General 02/27/[address] [place] [address] documented as of this encounter
--- OUTSIDE RECORDS SUMMARY | 2021-09-03 02:10 | XMS_ITS | Encounter Summary ---
:1950 Author Organization [facility] Address [address] [place] [address] Care Team Providers Name Role Phone Jorge Rosario MD Primary Care Provider Unavailable Reason for Visit Reason Comments Follow-up Things have been going well Encounter Details Date Type Department Care Team Description 08/26/[address] [facility] - Sirisha Puckett Rheu matoid arthritis involving multiple joints ([facility]) (Primary Dx); [facility] Rheumatology Chronic lymphocytic leukemia ([facility] [address] Scleritis of both eyes; [place] [address] [address] Long-term use of immunosuppressant medic ation [phone] [place] [phone] Social History Tobacco Use Types Packs/Day Years Used Date Never Smoker Smokeless Tobacco: Never Used Sex Assigned at Date Recorded Not on file documented as of this encounter Last Filed Vital Signs Vital Sign Reading Time Taken Comments Blood Pressure 118/70 08/26/2019 1038 EDT Pulse - - Temperature - - Respiratory Rate - - Oxygen Saturation - - Inhaled Oxygen Concentration - - Weight 78 kg (172 lb) 08/26/2019 1038 EDT Height 173.4 cm (5' 8.25) 08/26/2019 1038 EDT Body Mass Index 25.96 08/26/2019 1038 EDT documented in this encounter Functional Status [...] Patient Instructions Patient InstructionsSirisha Puckett MD - 08/26/2019 10:30 EDT --Labs tomorrow at [facility] --Rituximab infusions later this month documented in this encounter Progress Notes Sirisha Puckett MD - 08/26/2019 1030 EDT [facility] Rheumatology Chief Complaint Patient presents with ??? 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 Added rituximab due to development of CLL, scleritis. 2. CLL (chronic lymphocytic leukemia) - C91.10, In remission with rituximab. 3. 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 Symptoms worsened with trial off naproxen, and improved on oral prednisone. Treated with short course of durezol, as well as rituximab, and doing well except for episodic increase in eye pressures. ?? INTERVAL HISTORY: Otilio returns for follow up. Last rituximab was in Feb 2019, x 2 doses, and he is due for next rituximab later this month. Otilio says he is doing well. Denies any flare ups. Says eyes have been clear of scleritis. Still dealing with glaucoma. Says the left hip was bothering him (hip is replaced), lateral and groin areas. This was a couple ofweeks ago and has since improved. Current Outpatient Medications: acetaminophen (TYLENOL) 325 mg tablet bimatoprost (LUMIGAN) 0.03 % ophthalmic drops brimonidine-timolol (COMBIGAN) 0.2-0.5 % drops opthalmic solution diphenhydrAMINE (BENADRYL) 25 mg capsule dorzolamide (TRUSOPT) 2 % ophthalmic solution ferrous gluconate (FERGON) 324 mg (38 mg iron) tablet lisinopril (PRINIVIL) 10 mg tablet MEDICAL MARIJUANA Melatonin 1 mg tablet montelukast (SINGULAIR) 10 mg tablet Multivitamins with Minerals tablet tablet omeprazole (PRILOSEC) 20 mg capsule RITUXIMAB INTRAVENOUS No current facility-administered medications for this visit. Allergies include: Etanercept and Methotrexate Past Medical History: Diagnosis Date ??? 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 Anemia ??? Hemorrhagic colitis 08/2007 ??? 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 Social History: Continues to enjoy fci. Being more active bicycle riding. Review of Systems: Denies shortness of breath, chest pain, or rash. Had colonoscopy last week; says no biopsies were needed. Physical Examination: BP 118/70 (BP Cuff Sizes: Adult, regular) Ht 173.4 cm (68.25) Wt 78 kg (172 lb) BMI 25.96 kg/m?? EYES: Conjunctivae not injected ENT: Wearing [...] capillary loops in the nail beds. Labs: [facility]: 01/23/19: CBC w/diff wnl (WBC 6.37, ALYC 1710), creatinine 0.75, albumin 3.6, alk phos 92, AST 27, ALT 40, CRP 0.6 mg/dL. Assessment and Plan: 1. Rheumatoid arthritis involving multiple joints (HCC-CMS) Low to no RA disease activity. Labs for this visit are pending. Rituximab later this month. 2. Chronic lymphocytic leukemia (HCC-CMS) In remission on rituximab. 3. Scleritis of both eyes Having increased eye pressure--following with ophthamology. Follow up in 6 months. Sirisha Puckett MD 08/26/2019 10:43 documented in this encounter Plan of Treatment Upcoming Encounters Date Type Specialty Care Team Description 09/16/2021 Nurse Only Infusion Therapy 09/30/2021 Nurse Only Infusion Therapy 03/07/2022 Telemedicine Rheumatology Sirisha Puckett MD [address] [facility] [address] [place] [address] (Wo rk) 07/12/2022 Office Visit Dermatology Lian Bai MD 111 [facility], [facility] 5 [place], [place] [address] (Wo rk) documented as of this encounter Visit Diagnoses Diagnosis Rheumatoid arthritis involving multiple joints (HCC-CMS) (HCC) - Primary Chronic lymphocytic leukemia (HCC-CMS) ( HCC) Chronic lymphoid leukemia, without menti on of having achieved remission Scleritis of both eyes Scleritis, unspecified Long-term use of immunosuppressant medic ation Encounter for long-term (current) use of other medications documented in this encounter Historical Medications This list may reflect changes made after this encounter. Medication Sig Dispensed Refills Start Date End Date ferrous gluconate (FERGON) Take 324 mg by 0 324 mg (38 mg iron) tablet mouth daily with breakfast. Multivitamins with Minerals Take 1 Tab by mouth 0 tablet tablet daily. added in this encounter Care Teams Retail Aide Relationship Specialty Start Date End Date Jorge Rosario MD PCP - General 01/24/19 02/26/20 documented as of this encounter
--- OUTSIDE RECORDS SUMMARY | 2021-09-03 02:10 | XMS_ITS | Encounter Summary ---
:1950 Author Organization [facility] Address [address] [place] [address] Care Team Providers Name Role Phone Cathy Mota Symone DAIRY POWDER MIXER OPERATOR Primary Care Provider Encounter Details Date Type Department Care Team Description 05/06/2020 Documentation Visit [facility] Jameel Mas Combined form of Ophthalmology - MD Roberta senile cataract of [place] [address] left eye (Primary [address] Gunner Dx) [address] [place] [phone] Social History Tobacco Use Types Packs/Day [...] encounter Progress Notes Jameel Mas MD - 05/06/2020 0843 EDT Left Eye Lens Calc w/o IOL Biometry Optical Coherence Biometry Calculations Date of original biometry: 04/29/20 Read date: 05/07/20 Indicated eye: the left eye Procedure date: 05/15/20 Procedure location: [facility] Lens type: ZCB00 Lens power: 17.5 Electronically Signed: Jameel Mas MD 05/07/20 documented in this encounter Plan of Treatment Upcoming Encounters Date Type Specialty Care Team Description 09/16/2021 Nurse Only Infusion Therapy 09/30/2021 Nurse Only Infusion Therapy 03/07/2022 Telemedicine Rheumatology Sirisha Puckett MD [address] [place] [address] [address] [place], [place] [address] (Wo rk) 07/12/2022 Office Visit Dermatology Lian Bai MD 111 [facility], [address] [place], [place] [address] (Wo rk) documented as of this encounter Procedures Procedure Name Priority Date/Time Associated Diagnosis Comme nts LEFT EYE LENS CALC Routine 05/07/2020 13:19 Combined form of R esults for this W/O IOL BIOMETRY EDT senile cataract of proce dure are in left eye the results section. documented in this encounter Results LEFT EYE LENS CALC W/O IOL BIOMETRY (05/07/2020 13:19 EDT) Specimen [facility]ative [facility] - 05/07/2020 13:19 E DT Optical Coherence Biometry Calculations Date of original biometry: 04/29/20 Read date: 05/07/20 Indicated eye: the left eye Procedure date: 05/15/20 Procedure location: [facility] Lens type: ZCB00 ?? Lens power: 17.5 Electronically Signed: Jameel Mas MD 05/07/20 Performing Organization Address City/State/ZIP Code Phon e Number [facility] POINT OF CARE documented in this encounter Visit Diagnoses Diagnosis Combined form of senile cataract of left eye - Primary documented in this encounter Care Teams Vp Revenue Cycle Relationship Specialty Start Date End Date Cathy Mota, KRISTI PCP - General 02/27/[address] [place] [address] documented as of this encounter
--- OUTSIDE RECORDS SUMMARY | 2021-09-03 02:10 | XMS_ITS | Encounter Summary ---
:1950 Author Organization 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 ([facility]) (Primary Dx); [facility] [place] Chronic lymphocytic leukemia ([facility]); [address] Scleritis of both eyes; [place] [address] [address] Long-term use of immunosuppressant medic ation [phone] [place] [phone] Social History Tobacco Use Types Packs/Day Years Used Date Former Smoker Smokeless Tobacco: Never Used Sex Assigned at Date Recorded Not on file documented as of this encounter Last Filed Vital Signs Vital Sign Reading Time Taken Comments Blood Pressure 136/80 08/31/2020 1138 EDT Pulse 64 08/31/2020 1138 EDT Temperature - - Respiratory Rate - - Oxygen Saturation - - Inhaled Oxygen Concentration - - Weight 82.3 kg (181 lb 8 oz) 08/31/2020 1138 EDT Height - - Body Mass Index 27.4 08/26/2019 1038 EDT documented in this encounter [...] Patient Instructions Patient InstructionsSirisha Puckett MD - 08/31/2020 11:30 EDT Labs prior to next visit Rituximab later this month documented in this encounter Progress Notes Sirisha Puckett MD - 08/31/2020 1130 EDT [facility] Rheumatology Chief Complaint Patient presents with ??? Follow-up RA- pt reports no complaints or concerns today HPI: 1. 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 On biologic therapies prior torituximab. Added rituximab due to development of CLL, scleritis. 2. CLL (chronic lymphocytic leukemia) - In remission with rituximab. 3. Scleritis of both eyes - Had work-up at [facility] by Dr Conte. Symptoms worsened withtrial off naproxen, and improved on oral prednisone. Treated with short course of durezol, as well as rituximab, and doing well except for episodic increase in eye pressures. INTERVAL HISTORY: Otilio returns for follow up. Otilio says he is doing well. Denies any significant joint pain or swelling. Last rituximab infusions were on 03/11/20 and 03/25/20. Next infusions are scheduled for later this month. Otilio has concerns about being on rituximab and recent concerns about possibility of lack of responseto the Covid vaccine. He and I had a portal message exchange on this as well. Otilio would like to know if he has other options for the treatment of RA that would not immunosuppress him. He also says he has been a little lax with wearing a mask in public. Current Outpatient Medications Medication ??? bimatoprost (LUMIGAN) 0.03 % ophthalmic drops ??? diphenhydrAMINE (BENADRYL) 25 mg capsule ??? dorzolamide (TRUSOPT) 2 % ophthalmic solution ??? ferrous gluconate (FERGON) 324 mg (38 mg iron) tablet ??? ketOROLAC tromethamine (ACULAR LS) 0.4 % drops ??? lisinopril (PRINIVIL) 10 mg tablet ??? MEDICAL MARIJUANA ??? Melatonin 1 mg tablet ??? montelukast (SINGULAIR) 10 mg tablet ??? Multivitamins with Minerals tablet [...] file. Social History: Continues to enjoy fci. Has been hiking at least once a week. Review of Systems: Denies shortness of breath, chest pain, or rash. Had cataract surgery, left eye, with Dr Mas. Went well. Will have right eye done in about 6 months. Still on drops for glaucoma, and says pressures have been good. Scleritis is quiet. Physical Examination: BP 136/80 (BP Cuff Location: Left arm, BP Cuff Sizes: Adult, regular) Pulse 64 Wt 82.3 kg (181 lb 8 oz) BMI 27.40 kg/m?? EYES: Conjunctivae not injected ENT: Wearing [...] in the nail beds. Labs: Labs 08/27/20, [facility]: CBC w/diff wnl except HGB 11.9; CMP wnl; CRP 0.28 mg/dL. Assessment and Plan: 1. Seropositive rheumatoid arthritis of multiple joints (HCC-CMS) Low to no RA disease activity. Rituximab later this month. 2. Chronic lymphocytic leukemia (HCC-CMS) In remission on rituximab. 3. Scleritis of both eyes Quiet. 4. Long-term use of immunosuppressant medication Discussed with Otilio that the rituximab is controlling three diseases -- RA, CLL, and scleritis. We don't have another option that would be this effective for all three conditions. He also has been on other biologics for RA, without nearly the same success as rituximab. I understand his concerns about Covid. He can decrease his risk of getting Covid by wearing a mask when in public and trying to control who he interacts with. I am hoping that reliable antibody testing will be available soon. Also, there is ongoing study of booster vaccination that would apply to patients who are immunocompromised. Check labs prior to next visit. Follow up in 6 months. Sirisha Puckett MD 08/31/2020 11:53 documented in this encounter Plan of Treatment Upcoming Encounters Date Type Specialty Care Team Description 09/16/2021 Nurse Only Infusion Therapy 09/30/2021 Nurse Only Infusion Therapy 03/07/2022 Telemedicine Rheumatology Sirisha Puckett MD [address] [facility] [address] [place] [address] (Wo rk) 07/12/2022 Office Visit Dermatology Lian Bai MD [address] [facility], [facility] [address] [place], [place] [address] (Wo rk) documented as [...] Sig Discontinue Reason Start Date End Date acetaminophen (TYLENOL) 2 tabs orally now Therapy completed 019 08/31/2020 325 mg tablet documented as of this encounter Historical Medications This list may reflect changes made after this encounter. Medication Sig Dispensed Refills Start Date End Date UNABLE TO FIND Matcha green tea supplement- 2 tsp/ day 0 Green plant based protein-1 tbsp/ day added in this encounter Care Teams Emergency Man Relationship Specialty Start Date End Date Cathy Mota, KRISTI PCP - General 02/27/[address] [place] [phone] documented as of this encounter
--- OUTSIDE RECORDS SUMMARY | 2021-09-03 02:10 | XMS_ITS | Encounter Summary ---
:1950 Author Organization [facility] Address [address] [place] [address] Care Team Providers Name Role Phone Cathy Mota TIE MILL OPERATOR Primary Care Provider Encounter Details Date Type Department Care Team Description 07/13/2020 Orders Only [facility] Sirisha Puckett MD Rheumatology [address] [place] [address] [address] [place] [address] [place] [address] (Wo rk) Social History Tobacco [...] encounter Progress Notes Sirisha Puckett MD - 07/13/2020 1417 EDT Noted. Will let Otilio know that we won't be able to order antibodies yet per [facility] protocol. Jodi Rosen RN - 07/13/2020 1417 EDT Caty from [facility] lab returned call and stated that at this time their policy is that all antibody testing must be approved by their pathologist Dr. Downs and that Dr. Puckett would need to call him at [phone] to discuss parameters for approval. Jodi Moulton RN - 07/13/2020 1417 EDT LVM for [facility] lab requesting callback on my direct line. Advised that it's okay to leave a detailed message advising us on what they are using for Covid antibody testing. Sirisha Winchester MD - 07/13/2020 1417 EDT Patient requests Covid antibody testing at [facility]. Can you find out what test [facility] is using for Covid antibody testing? documented in this encounter Plan of Treatment Upcoming Encounters Date Type Specialty Care Team Description 09/16/2021 Nurse Only Infusion Therapy 09/30/2021 Nurse Only Infusion Therapy 03/07/2022 Telemedicine Rheumatology Sirisha Puckett MD [address] [facility] [address] [place] [address] (Wo rk) 07/12/2022 Office Visit Dermatology Lian Bai MD [address] [facility], [facility] [address] [place], [place] [address] (Wo rk) documented as of this encounter Visit Diagnoses Not on filedocumented in this encounter Care Teams Bobbin Handler Relationship Specialty Start Date End Date Cathy Mota NP PCP - General 02/27/[address] [place] [address] documented as of this encounter
--- OUTSIDE RECORDS SUMMARY | 2021-09-03 02:10 | XMS_ITS | Encounter Summary ---
:1950 Author Organization [facility] Address [address] [place] [address] Care Team Providers Name Role Phone Cathy Mota PLASTICS SUPERVISOR Primary Care Provider Reason for Visit Auth/Cert Specialty Diagnoses / Procedures Referred By Contact Refer red To Contact Diagnoses 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 of age-related cataract of right eye [H25.811] Procedures OR XCAPSL CTRC RMVL INSJ IO LENS PROSTH W/O ECP EXTRACTION, CATARACT, EXTRACAPSULAR, WITH IOL INSERTION Referral ID Status Reason Start Date Expiration Date Visits Requ ested Visits Authorized [id number] 1 1 Encounter Details Date Type Department Care Team Description 01/29/2021 Anesthesia Event [facility] Leia Solomon MD [address] [place] [phone] Operating Room Mackenzie Alvarado MD [address] [place] [phone] [place] [address] Anesthesia Record Procedure Summary Procedure Name Responsible Anesthesia Start Anesthesia Stop Time Anesthesiologist Time Laurie PULIDO Alexa E, MD 01/29/21 0830 01/29/21 091 5 CATARACT, EXTRACAPSULAR, WITH IOL INSERTION (Right Eye) Events Date Time Event Comment 01/29/2021 0830 An Start The patient was re-evaluated immediately before moderate or deep sedation use, before anesthesia induction, or be fore the anesthesia procedure. 0830 An Start Data 0835 Anesthesia Ready 0910 an stop data 0915 Handoff to RN I completed my h andoff to the receiving nurse during which we: 1. Beatriz ntified the patient 2. Identified the responsible provider 3. Reviewed the pertinent medical history 4. Discussed the surgical course 5. Reviewed intra-o p anesthesia management and issues during anesthesi a 6. Set expectations for post-procedure p eriod 7. Allowed opportunity for questions and ac knowledgement of understanding. 0915 An Stop Name Total midazolam 1 mg/mL 2 mL vial 2 mg hydrALAzine injection 4 mg NaCl 0.9% (NS) infusion 10 mL Agents Name O2 N2O Air Aux O2 flow Blood No blood administrations on file. Lines, Drains, and Airways Type Details Placement Removal Wound Right; Eye; micro 01/29/21 0830 by incisions Peripheral IV 01/29/21; 0815; 22; 01/29/21 0815 by Estefanía, 01/20 0954 by Distal, Left, Posterior; FELICIA Hernandez Leah, RN Forearm; Inserted by RN (Cruz Wang RN); 1; None; Chlorhexidine; 01/29/21; 0954 documented in this encounter Social History Tobacco Use Types Packs/Day Years [...] making decisions? documented as of this encounter OR Notes Anesthesia Postprocedure Evaluation - Elliot Lindsey AA - 01/29/2021 0915 EST Patient: Yaw Cadena Vital signs were reviewed with the recovery nurse. Complete vitals history is available in the Epic flowsheets. Vitals Value Taken Time BP 155/94 01/29/21 0914 Temp 36.3 01/29/21 0915 Resp 15 01/29/21 0915 Pulse From Oximetry 65 BPM 01/29/21 0915 SpO2 95 % 01/29/21 0915 Vitals shown include unvalidated device data. Last Pain Score - Type of Anesthesia - MAC Anesthesia Post Evaluation Post-procedure vitals reviewed and are stable. Level of consciousness: alert and oriented and awake Temperature status: normothermia Respiratory status: airway patent and room air Cardiovascular status: appropriate for condition, acceptable, stable and within patient's normal range Hydration status: adequate Nausea/Vomiting: none Pain management: adequate Post-Op Assessment: patient tolerated procedure well with no complications Patient participation: able to participate Disposition: outpatient/home Anesthesia Complications: No apparent anesthesia complications nesthesia Preprocedure Evaluation - Leia Sullivan MD - 01/28/2021 1043 EST Anesthesia Preprocedure Evaluation Patient Medical History, including Anesthesia History reviewed. Chart and Nursing Notes reviewed, including NPO status and Medication History. Additional ROS/History Findings: Chronic lymphocytic leukemia (in remission, follows / [facility] oncology), RA, HTN, GERD, asthma (hasn'tused inhaler in many years) PCP note dated 01/27/21 reviewed in media scans No current facility-administered medications for this encounter. Current Outpatient Medications Medication ??? bimatoprost (LUMIGAN) [...] ??? Multivitamins with Minerals tablet tablet ??? [START ON 01/29/2021] ofloxacin (OCUFLOX) 0.3 % ophthalmic solution ??? omeprazole (PRILOSEC) 20 mg capsule ??? [START ON 01/29/2021] prednisoLONE (PRED FORTE) 1 % ophthalmic suspension ??? RITUXIMAB INTRAVENOUS ??? timolol (TIMOPTIC) 0.25 % ophthalmic solution ??? UNABLE TO FIND Allergies Allergen Reactions ??? Etanercept Other reaction(s): uveitis ??? Methotrexate Other reaction(s): increased LFTs Past Medical History: Diagnosis Date ??? 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 Anemia ??? Hemorrhagic colitis 08/2007 ??? 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 INGUINAL HERNIA REPAIR Bilateral ??? SHOULDER ARTHROPLASTY Left ??? TOTAL HIP ARTHROPLASTY Left ??? WRIST FUSION Right Past Anesthetics [x] sab for thr 2011 [x]No family history of allergic reactions to anesthesia Review of Systems Constitutional: Negative. Respiratory: Negative. Cardiovascular: Negative. Gastrointestinal: Negative. Negative for heartburn. Musculoskeletal: Positive for joint pain. Neurological: Negative. Endo/Heme/Allergies: Negative. SOCIAL HISTORY: Social History Tobacco Use Smoking Status Former Smoker Smokeless Tobacco Never Used Social History Substance and Sexual Activity Drug Use Yes ??? Types: Marijuana Social History Substance and Sexual Activity Alcohol Use Yes ??? Alcohol/week: 2.0 - 3.0 standard drinks ??? Types: 2 - 3 Cans of beer per week Lab Results Component Value Date HGB 14.0 10/19/2016 MCV 92.7 10/19/2016 PLT 232 10/19/2016 Lab Results Component Value Date NA 141 08/24/2016 K 4.2 08/24/2016 CL 107 08/24/2016 CO2 27 08/24/2016 Lab Results Component Value Date BUN 17 08/24/2016 Lab Results Component Value Date CREATININE 0.82 08/24/2016 No results found for: INR, PROTIME No results found for: PTT COVID: [x] None on file Blood Type: No results found for: ABO, LABRH, LABANTI, SPECEXP EKG: [x] N/A ECHO: [x] N/A Cardiac Stress: [x] N/A There were no vitals taken for this visit. Physical Exam Airway Mallampati: I TM distance: >3 FB Neck ROM: full Comments: Full webster Cardiovascular - normal exam Dental - normal exam Comments: Some fillings/crowns top/bottom Pulmonary - normal exam Abdominal Anesthesia Plan ASA 2 Anesthesia Type - MAC Anesthesia plan and risks discussed. Informed consent obtained from patient. The preoperative history and physical which was performed within 30 days of this procedure, has beenreviewed and the clinically appropriate elements of the physical examination have been repeated. There are no changes to the documented history and physical or, if so, such changes are documented in this note PAT Note Notes from 12/29/20 through 01/28/21 No notes of this type exist for this encounter. documented in this encounter Plan of Treatment Upcoming Encounters Date Type Specialty Care Team Description 09/16/2021 Nurse Only Infusion Therapy 09/30/2021 Nurse Only Infusion Therapy 03/07/2022 Telemedicine Rheumatology Sirisha Puckett MD [address] [facility] [address] [place] [address] (Wo rk) 07/12/2022 Office Visit Dermatology Lian Bai MD [address] [facility] [place], [place] [address] (Wo rk) documented as of this encounter Visit Diagnoses Not on filedocumented in this encounter Administered Medications Inactive Administered Medications - up to 3 most recent administrations Medication Order MAR Action Action Date Dose Rate Site hydrALAZINE (APRESOLINE) injection Given 01/29/2021 8:44 EST 4 mg intravenous, PRN, Starting on Mon01/29/21 at 0844, Until Mon01/29/21 at 0915, Routine, Anesthesia Intraprocedure midazolam (PF) (VERSED) injection Given 01/29/2021 8:41 EST 1 mg intravenous, PRN, Starting on Mon01/29/21 at 0834, Until Mon01/29/21 at 0915, Routine, Anesthesia Intraprocedure Given 01/29/2021 8:34 EST 1 mg sodium chloride 0.9 % (NS) infusion New Bag 01/29/2021 8:33 EST intravenous, FA IP EQF CONTINUOUS PRN FOR ONE STEP MEDS, Starting on Mon01/29/21 at 0833, Until Mon01/29/21 at 0915, Routine, Anesthesia Intraprocedure documented in this encounter Care Teams Mix Mill Tender Relationship Specialty Start Date End Date Cathy Mota NP PCP - General 02/27/20 [address] [place] [phone] documented as of this encounter
--- OUTSIDE RECORDS SUMMARY | 2021-09-03 02:10 | XMS_ITS | Encounter Summary ---
:1950 Author Organization [facility] Address [address] [place] [address] Care Team Providers Name Role Phone Cathy Mota LOST AND FOUND CLERK Primary Care Provider Reason for Visit Auth/Cert Specialty Diagnoses / Procedures Referred By Contact Refer red To Contact Diagnoses 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 of age-related cataract of right eye [H25.811] Procedures IN XCAPSL CTRC RMVL INSJ IO LENS PROSTH W/O ECP EXTRACTION, CATARACT, EXTRACAPSULAR, WITH IOL INSERTION Referral ID Status Reason Start Date Expiration Date Visits Requ ested Visits Authorized [id number] 1 1 Encounter Details Date Type Department Care Team Description 01/29/2021 Surgery [facility] - Darnell Mas MD EXTRACTION, CATARACT, [facility] Operating Room [address] EXTRACAPSULAR, WITH IOL [address] [place], [place] INSERTION [[address] [place] [phone] (CPT??)] [phone] (Wo rk) Surgery Details Date/Time Status Location OR Service Patient Class Case Class Case Trauma Type Case? 01/29/21 Posted [facility] OR [address] - [address] Outpatient Elective Surgery Panel 1 Procedure LRB Anes Op Region Wound Class Commen ts EXTRACTION, CATARACT, Right Monitor Anesthesia Care Eye C lass I/ Clean EXTRACAPSULAR, WITH IOL INSERTION Surgeon Surgeon Role Service Panel Jameel Mas MD Primary Ophthalmology 1 Social History Tobacco Use Types Packs/Day Years [...] Sign Reading Time Taken Comments Blood Pressure 142/83 01/29/2021 0807 EST Pulse 56 01/29/2021 0807 EST Temperature 36.5 ??C (97.7 ??F) 01/29/2021 0807 EST Respiratory Rate 17 01/29/2021 0807 EST Oxygen Saturation 94% 01/29/2021 08 EST Inhaled Oxygen Concentration - - Weight [...] Procedure (completed 01/08/21 by Cathy Mota PhD, LOST AND FOUND CLERK scanned under Media tab) has been reviewed [...] D, right eye. SURGEON: Jameel Mas MD BAGEL MAKER: CLEMENTINE Kim ANESTHESIA: Topical and MAC ESTIMATED [...] complications. The patient returned to the care trainer area alert and in good condition. reprocedure Instructions - De Obregon RN - 01/27/2021 1407 EST Yaw Cadena has been instructed as [...] 03/07/2022 Telemedicine Rheumatology Sirisha Puckett MD [address] [facility] [address] [place] [address] (Wo rk) 07/12/2022 Office Visit Dermatology Lian Bai MD [address] [facility], [address] [place], [place] [address] (Wo rk) Scheduled Referrals [...] and combined forms of senile catar act Combined forms of age-related cataract o f [...] Until Mon01/29/21 at 1156, Routine, Recovery (only) balanced salt solution inrrigation Given 01/29/2021 8:39 EST 500 mL Right Eye solution (BSS PLUS) 500 mL, EPINEPHrine HCl (PF) (ADRENALIN) 0.3 mL irrigation PRN, Starting on Mon01/29/21 at 0839, Until Mon01/29/21 at 0910, Routine, Intraprocedure balanced salts (BSS) ophthalmic solution Given 01/29/2021 8:42 EST 30 mL PRN, Starting on Mon01/29/21 at 0842, Until Mon01/29/21 at 0910, Routine, Intraprocedure chondroitin-sodium hyaluronate (VISCOAT) Given 01/29/2021 8:[address] 1 Each Right Eye ophthalmic solution PRN, Starting on Mon01/29/21 at 0843, Until Mon01/29/21 at 0910, Routine, Intraprocedure fentaNYL citrate [...] r MAP below 60, Routine, Recovery (only) lidocaine 1% + phenylephrine 1% Given 01/29/2021 8:44 EST 0.8 mL Right Eye intracameral syringe 0.8 mL, intracameral, INTRA-OP ONCE, 1 dose, On Mon01/29/21 at 0845, Routine, Intraprocedure moxifloxacin (VIGAMOX) 0.5 % ophthalmic solution Given 01/29/2021 8:55 EST 1 Drop PRN, Starting on Mon01/29/21 at 0855, Until Mon01/29/21 at 0910, Routine, Intraprocedure ofloxacin (OCUFLOX) [...] Drop Given 01/29/2021 7:43 EST 1 Drop povidone-iodine 5 % ophthalmic solution Given 01/29/2021 8:55 EST 2 Drops Right Ey e PRN, Starting on Mon01/29/21 at 0855, Until Mon01/29/21 at 0910, Routine, Intraprocedure sodium hyaluronate (HEALON) ophthalmic Given 01/29/2021 8:46 EST 8.5 mg Right Eye injection PRN, Starting on Mon01/29/21 at 0846, Until Mon01/29/21 at 0910, Routine, Intraprocedure tetracaine (PONTOCAINE) 0.5 % Given 01/29/2021 8:44 EST 2 Drops Right Eye ophthalmic solution PRN, Starting on Mon01/29/21 at 0844, Until Mon01/29/21 at 0910, Routine, Intraprocedure tropicamide (MYDRIACYL) 1 % ophthalmic solution Given [...] José, FELICIA)0749 (Given - Provider: Mary José, RN)0802 (Given - Provider: Mary José RN) 1 Drop, right eye, PRE-OP MULTIPLE, 3 do ses, Starting on Mon01/29/21 at 0724, Until Discontinued, Other, for cataract pre-procedure, follow admin instructions, Routine, Preprocedure documented in this encounter Orders Medications Ordered That Might Not Have Count Last Ord ered Date First Ordered Date Been Administered acetaminophen (TYLENOL) tablet 650 mg 1 01/29/2021 fentaNYL citrate (PF) injection 25 mcg 1 glycopyrrolate (ROBINUL) injection 0.2 mg 1 2020 labetalol (TRANDATE) injection 5 mg 1 01/29/2021 lactated ringers BOLUS 500 mL 1 01/29/2021 moxifloxacin intracameral syringe 1.5 1 01/29/2021 mg/0.3 mL ondansetron (PF) (ZOFRAN) injection 4 mg 1 021 Nursing Count Last Ordered Date First Ordered Date ACTIVITY INSTRUCTIONS 2 01/29/2021 BATHING INSTRUCTIONS 1 01/29/2021 WOUND CARE INSTRUCTIONS 1 01/29/2021 Discharge Count Last Ordered Date First Ordered Date DISCHARGE PATIENT 1 01/29/2021 documented in this encounter Care Teams Assistant Professor Of Radiology Relationship Specialty Start Date End Date Cathy Mota NP PCP - General 02/27/[address] [place] [phone] documented as of this encounter
--- OUTSIDE RECORDS SUMMARY | 2021-09-03 02:10 | XMS_ITS | Encounter Summary ---
:1950 Author Organization [facility] Address [address] [place] [address] Care Team Providers Name Role Phone Giuseppe Quintanilla MD Primary Care Provider Unavailable Encounter Details Date Type Department Care Team Description 06/14/2016 Hospital Encounter [facility]- Jackie Unknown, Provider, [facility] [address] [facility] [phone] [place] [address] (Work) [phone] Social History Tobacco Use Types Packs/Day Years Used Date Never Assessed Sex Assigned at Date Recorded Not on file documented as of this encounter Discharge Disposition Disposition Code Departure Means Destination Home or Self Half-Way documented in this encounter Plan of Treatment Upcoming Encounters Date Type Specialty Care Team Description 09/16/2021 Nurse Only Infusion Therapy 09/30/2021 Nurse Only Infusion Therapy 03/07/2022 Telemedicine Rheumatology Sirisha Puckett MD [address] [facility] [address] [place] [address] (Wo rk) 07/12/2022 Office Visit Dermatology Lian Bai MD [address] [facility] [address] [place], [place] [address] (Wo rk) documented as of this encounter Visit Diagnoses Not on filedocumented in this encounter Care Teams Solution Architect Relationship Specialty Start Date End Date Giuseppe Quintanilla MD PCP - General 01/02/15 01/23/19 documented as of this encounter
--- OUTSIDE RECORDS SUMMARY | 2021-09-03 02:10 | XMS_ITS | Encounter Summary ---
:[address] [facility] Address [address] [place] [address] Care Team Providers Name Role Phone Cathy Mota GRANULAR OPERATOR Primary Care Provider Reason for Visit Reason Comments Infusion Rituxan #2 Encounter Details Date Type Department Care Team Description 09/22/[address] [facility] Rh eumatoid arthritis Adult Hem Onc Infusi on involving multiple joints [address] ([facility]) (Primary Dx) [place], [place] [id number] Social History Tobacco Use Types Packs/Day Years [...] encounter Progress Notes Carmen Nova RN - 09/22/2020 1300 EDT Yaw comes in today for Dose 2 of 2, Rituxan infusions. Last treatment on 09/08. Per Dr. Puckett, patient to follow up in 6 months. Methylprednisolone reduced to 80mg. ?? Left AC 22g placed (+) brisk, blood return. Pre-meds given: Tylenol, Benadryl, Methylprednisolone. Rituxan 1000mg infused over 120m, tolerated well without event. ?? PIV removed, flushed (+) brisk blood return. Covered with gauze/tape. ?? Encouraged to call for any questions or concerns. ?? CARMEN NOVA RN documented in this encounter Plan of Treatment Upcoming Encounters Date Type Specialty Care Team Description 09/16/2021 Nurse Only Infusion Therapy 09/30/2021 Nurse Only Infusion Therapy 03/07/2022 Telemedicine Rheumatology Sirisha Puckett MD [address] [facility] [address] [place] [address] (Wo rk) 07/12/2022 Office Visit Dermatology Lian Bai MD [address] [facility] [address] [place], [place] [address] (Wo rk) documented as of this encounter Visit Diagnoses Diagnosis Rheumatoid arthritis involving multiple joints (HCC-CMS) (HCC) - Primary documented in this encounter Administered Medications Inactive Administered Medications - up to 3 most recent administrations Medication Order MAR Action Action Date Dose Rate Site acetaminophen (TYLENOL) tablet 650 Given 09/22/2020 13:05 EDT 65 0 mg mg 650 mg, oral, NOW X1, 1 dose, On Mon09/22/20 at 1330, Routine diphenhydrAMINE (BENADRYL) capsule 25 mg Given 09/22/2020 13:05 EDT 25 mg 25 mg, oral, NOW X1, 1 dose, On Mon09/22/20 at 1330, Routine methylPREDNISolone sod suc(PF) (SOLU-MEDROL) Given 09/22/2020 13 :07 EDT 80 mg injection 80 mg 80 mg, intravenous, NOW X1, 1 dose, On Mon09/22/20 at 1330, Routine riTUXimab (RITUXAN) 1,000 mg in sodium New Bag 09/22/2020 13:30 ED T 1,000 mg chloride (NS) 0.9 % 250 mL RAPID infusio n 1,000 mg, intravenous, NOW X1, 1 dose, On Mon09/22/20 at 1330 sodium chloride 0.9 % (NS) infusion New Bag 09/22/2020 13:00 EDT 25 mL/hr at 25 mL/hr, intravenous, CONTINUOUS, Starting on Mon09/22/20 at 1330, Until Mon09/22/20 at 1733, Routine documented in this encounter Orders Medications Ordered That Might Not Have Count Last Ord ered Date First Ordered Date Been Administered sodium chloride 0.9 % (flush) flush 10 mL 1 2020 documented in this encounter Care Teams Bench Assembler Relationship Specialty Start Date End Date Cathy Mota, KRISTI PCP - General 02/27/[address] [place] [address] documented as of this encounter
--- OUTSIDE RECORDS SUMMARY | 2021-09-03 02:10 | XMS_ITS | Encounter Summary ---
:1950 Author Organization [facility] Address [address] [place] [address] Care Team Providers Name Role Phone Cathy Mota GROUND WATER CONTRACTOR Primary Care Provider Reason for Visit Reason Onset Date Comments Medications Refill 02/10/2021 Encounter Details Date Type Department Care Team Description 02/10/2021 Refill [facility] Yola Mas MD Medications Refill Ophthalmology - [place] in [address] [place] [address] [address] [place] [address] [place] [address] [phone] Social History Tobacco Use Types Packs/Day Years [...] Place 1 Drop into 5 mL 0 03/04/2021 1 % ophthalmic suspension the right eye 4 times daily. documented in this encounter Miscellaneous Notes Telephone Encounter - Suzan Amezcua - 02/10/2021 1315 EST Need refill of ketorolac and prednisolone [facility]acy [facility] documented in this encounter Plan of Treatment Upcoming Encounters Date Type Specialty Care Team Description 09/16/2021 Nurse Only Infusion Therapy 09/30/2021 Nurse Only Infusion Therapy 03/07/2022 Telemedicine Rheumatology Sirisha Puckett MD 130 [facility] [address] [place] [phone] (Wo rk) 07/12/2022 Office Visit Dermatology Lian Bai MD 111 [facility], [address] [place], [place] [address] (Wo rk) documented as of this encounter Visit Diagnoses Not on filedocumented in this encounter Discontinued Medications Medication Sig Discontinue Reason Start Date End Date prednisoLONE (PRED FORTE) Place 1 Drop into Reorder 01/29/2021 02/10/2021 1 % ophthalmic suspension the right eye 4 times daily. documented as of this encounter Care Teams Vamp Stitcher Relationship Specialty Start Date End Date Cathy Mota NP PCP - General 02/27/[address] [place] [address] [address] [place] [address] documented as of this encounter
--- OUTSIDE RECORDS SUMMARY | 2021-09-03 02:10 | XMS_ITS | Encounter Summary ---
:[address] 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 form of senile cataract of left eye documented in this encounter Progress Notes Jameel Mas MD - 06/04/2020 0945 EDT Chief Complaint: Pseudophakia, Cataract Post-Op Month 1, left eye(s) HPI POM #1 s/p CE/PCIOL, left eye(s). Location: Left eye Pain: 0 - No pain Quality: Severity: Duration: Days Timing: Lasts: Context: POM#1 s/p CEwPCIOL left eye. Vision improved with no pain, and no new floaters or flashes. Right eye stable as well. Modifying factors: Associated Signs & Symptoms: Using: Lumigan: Qam, right eye / Dorzolamide: TID, both eyes / Timolol: BID, both eyes Visual Fluctuations: None Attestation: Base Eye Exam Visual Acuity (Snellen - Linear) Right Left Dist sc 20/40 -2 Dist cc 20/25 -1 Tonometry (Applanation, 10:25) Right Left Pressure 20 13 Neuro/Psych Oriented x3: Yes Mood/Affect: Normal Dilation Left eye: Tropicamide 1%, Phenylephrine 2.5% @ 10:25 Slit Lamp and Fundus Exam Slit Lamp Exam Right Left Lids/Lashes Normal Normal Conjunctiva/Sclera White and quiet White and quiet Cornea Nasal pterygium 2mm onto cornea sealed incisions Anterior Chamber Deep and quiet deep, Trace-1+ Cell Iris Round and reactive Round and reactive Lens 2+ Nuclear sclerosis, Cortical cataract Posterior chamber intraocular lens Fundus Exam Right Left Vitreous Normal Disc Healthy Rim C/D Ratio 0.5 Macula Normal Vessels Normal Periphery Normal Refraction Wearing Rx Sphere Cylinder [place] Add Right -1.25 +1.50 090 +2.25 Left -1.75 +1.25 090 +2.25 Manifest Refraction (Auto) Sphere Cylinder [place] Dist VA Right Left -1.00 +1.50 101 20/20- Manifest Refraction #2 Sphere Cylinder [place] Dist VA Right Left -0.75 +1.75 096 20/20 IMPRESSION & PLAN: POW #3+ s/p CE/PCIOL, left eye(s) -The patient is doing well, with very mild residual inflammatory cell. -Finished with steroid drops -Restart Ketorolac QID for 2 more weeks. -Recommend AT's PRN for burning -Resume follow up with Dr. Charles Glaucoma, both eyes With history of steroid response. IOP in the right eye is better after increasing dorzolamide, but this will need further monitoring to see if it stays down. IOP in the left eye is excellent. 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 form of senile cataract of left eye prednisoLONE (PRED FORTE) Place 1 Drop into Therapy completed 05/1506/04/2020 1 % ophthalmic the left eye 4 suspensionIndications: times daily. Combined form of senile cataract of left eye documented as of this encounter Eye Exam Visual Acuity (Snellen - Linear) Right eye Left eye Dist sc 20/40 -2 Dist cc 20/25 -1 Tonometry (Applanation, 10:25) Right eye Left eye Pressure 20 13 Neuro/Psych Oriented x3: Yes Mood/Affect: Normal Dilation Left eye: Tropicamide 1%, Phenylephrine 2.5% @ 10:25 Slit Lamp Exam Right eye Left eye Lids/Lashes Normal Normal Conjunctiva/Sclera White and quiet White and quiet Cornea Nasal pterygium 2mm onto cornea sealed i ncisions Anterior Chamber Deep and quiet deep, Trace-1+ Cell Iris Round and reactive Round and reactive Lens 2+ Nuclear sclerosis, Cortical Posterior chamber intraocular lens cataract Vitreous Normal Fundus Exam Right eye Left eye Disc Healthy Rim C/D Ratio 0.5 Macula Normal Vessels Normal Periphery Normal Wearing Rx Sphere Cylinder [place] Add Right eye -1.25 +1.50 090 +2.25 Left eye -1.75 +1.25 090 +2.25 Manifest Refraction #1 (Auto) Sphere Cylinder [place] Dist VA Right eye Left eye -1.00 +1.50 101 20/20- Manifest Refraction #2 Sphere Cylinder [place] Dist VA Right eye Left eye -0.75 +1.75 096 20/20 Care Teams Air Pollution Analyst Relationship Specialty Start Date End Date Cathy Mota NP PCP - General 02/27/[address] [place] [address] documented as of this encounter
--- OUTSIDE RECORDS SUMMARY | 2021-09-03 02:10 | XMS_ITS | Encounter Summary ---
:1950 Author Organization [facility] Address [address] [place] [address] Care Team Providers Name Role Phone Cathy Mota WRINGER OPERATOR Primary Care Provider Reason for Visit Reason Comments Infusion Rituxan 1 of 2 Encounter Details Date Type Department Care Team Description 03/11/2020 Nurse Only [facility] Rh eumatoid arthritis Adult Hem Onc Infusi on involving multiple joints [address] ([facility]) (Primary Dx) [place] [address] Social History Tobacco Use Types Packs/Day Years Used Date Never Smoker Smokeless Tobacco: Never Used Sex Assigned at Date Recorded Not on file documented as of this encounter Last Filed Vital Signs Vital Sign Reading Time Taken Comments Blood Pressure 142/76 03/11/2020 0910 EST Pulse 68 03/11/2020 0910 EST Temperature - - Respiratory Rate - - Oxygen Saturation 96% 03/11/2020 0910 EST Inhaled Oxygen Concentration - - Weight [...] encounter Progress Notes Shanta Shirley RN - 03/11/2020 0900 EST Otilio comes in for 1 of 2 Rituxan infusions ordered by Dr. Puckett. He offers no complaints to me at this time. Treatment infused without difficulty. He will return in two weeks and was encouraged to call with any questions or concerns, SHANTA SHIRLEY RN documented in this encounter Plan of Treatment Upcoming Encounters Date Type Specialty Care Team Description 09/16/2021 Nurse Only Infusion Therapy 09/30/2021 Nurse Only Infusion Therapy 03/07/2022 Telemedicine Rheumatology Sirisha Puckett MD 130 [facility] [address] [place] [address] (Wo rk) 07/12/2022 Office Visit Dermatology Lian Bai MD 111 [facility], [facility] [address] [place], [place] [address] (Wo rk) documented as of this encounter Visit Diagnoses Diagnosis Rheumatoid arthritis involving multiple joints (HCC-CMS) (HCC) - Primary documented in this encounter Administered Medications Inactive Administered Medications - up to 3 most recent administrations Medication Order MAR Action Action Date Dose Rate Site acetaminophen (TYLENOL) tablet 650 mg Given 03/11/2020 9:14 EST 650 mg 650 mg, oral, NOW X1, 1 dose, On Mon03/11/20 at 0930, Routine diphenhydrAMINE (BENADRYL) capsule 25 mg Given 03/11/2020 9:14 EST 25 mg 25 mg, oral, NOW X1, 1 dose, On Mon03/11/20 at 0930, Routine methylPREDNISolone sod suc(PF) (SOLU-MEDROL) Given 03/11/2020 9: 25 EST 125 mg injection 125 mg 125 mg, intravenous, NOW X1, 1 dose, On Mon03/11/20 at 0930, Routine riTUXimab (RITUXAN) 1,000 mg in sodium New Bag 03/11/2020 9:45 EST 1,000 mg chloride (NS) 0.9 % 250 mL RAPID infusio n 1,000 mg, intravenous, NOW X1, 1 dose, On Mon03/11/20 at 0930 sodium chloride 0.9 % (NS) infusion New Bag 03/11/2020 9:20 EST 25 mL/hr at 25 mL/hr, intravenous, CONTINUOUS, Starting on Mon03/11/20 at 0930, Until Mon03/11/20 at 1408, Routine documented in this encounter Care Teams Director Of Channel Marketing Relationship Specialty Start Date End Date Cathy Mota, KRISTI PCP - General 02/27/[address] [place] [phone] documented as of this encounter
--- OUTSIDE RECORDS SUMMARY | 2021-09-03 02:10 | XMS_ITS | Encounter Summary ---
:[address] [facility] Address [address] [place] [address] Care Team Providers Name Role Phone FannyJarrod smithCathy Symone DIE BAKER Primary Care Provider Reason for Visit Reason Comments Eye Problem Cataract evaluation - left e ye Encounter Details Date Type Department Care Team Description 04/28/2020 Office Visit [facility] Yola Mas MD Ophthalmology - [place] in [address] [place] [phone] [place] [address] [phone] Social History Tobacco Use Types Packs/Day Years [...] Patient Instructions Patient InstructionsJameel Mas MD - 04/28/2020 13:15 EST Please make an appointment with your Primary Doctor for a pre-operative physical. Try to schedule for about 2 weeks prior to your surgery. Your lens measurement appointment is: April 29 at 9:00am at our office [address], [place], [place] Your surgery date is: May 15 at [facility] (check in at Patient Registration).The Hospital will call you prior to the surgery with your report time. documented in this encounter Progress Notes Jameel Mas MD - 04/28/2020 1315 EST Chief Complaint Patient presents with ??? Eye Problem Cataract evaluation - left eye HPI The patient is a 69 y.o. male is here for a cataract evaluation Left eye. He reports vision has beendecreasing in left eye. He has been sensitive to glare and light at night. He has been using Lumigan, Timolol and Dorzolamide as directed. Right Eye: Blurred Vision, Glare or Light Sensitivity, Problem with Night Vision Left Eye: Blurred Vision, Glare or Light Sensitivity, Problem with Night Vision Visual Aid: Glasses Current Rx Age > Location: Pain: 0 - No pain Quality: Severity: Duration: Timing: Lasts: Context: Pt here for cataract evaluation, he has noticied decline in vision of left eye in the past few months, with sensitvity to glare/lights at night. He reports no pain or irritation in his eyes, and no floaters or flashes. Modifying factors: uses Lumigan right eye once daily, timolol BID & Dorzolamide BID in both eyes(glaucoma). has h/o scleritis/RA Associated Signs & Symptoms: last Rituximab infusion in feb 2019 Attestation: ROS Constitutional: ENT/Mouth NL Cardiovascular: High Blood Pressure Respiratory: NL Gastrointestinal: (acid reflux) Genitourinary: NL Musculoskeletal: (RA) Integumentary: NL Neurologic: NL Psychiatric: NL Endocrine: NL Hematologic: Leukemia(lymphocytic leukemia) Immunologic: Drug Allergy Bar Welder: NL Exposures: Other: Attestation: Base Eye Exam Visual Acuity (Snellen - Linear) Right Left Dist cc 20/25 20/40 -1 Dist ph cc 20/30 -2 Correction: Glasses Tonometry (Applanation, 13:47) Right Left Pressure 18 17 Pupils Dark Light APD Right 4 3 None Left 4 3 None Visual Roque (Counting fingers) Right Left Full Full Extraocular Movement Right Left Full Full Neuro/Psych Oriented x3: Yes Mood/Affect: Normal Dilation Both eyes: Tropicamide 1%, Phenylephrine 2.5% @ 13:47 Additional Tests Glare Testing (BAT) Off High Right 20/20 20/25 Left 20/30+1 20/40-1 Slit Lamp and Fundus Exam Slit Lamp Exam Right Left Lids/Lashes Normal Normal Conjunctiva/Sclera White and quiet White and quiet Cornea Nasal pterygium 2mm onto cornea Peripheral Stromal vessels Anterior Chamber Deep and quiet Deep and quiet Iris dilates 7 dilates 5.5 Lens 2+ Nuclear sclerosis, Cortical cataract 2+ Nuclear sclerosis, 2-3+ Scattered Cortical cataract Fundus Exam Right Left Vitreous Normal Normal Disc Healthy Rim Healthy Rim C/D Ratio 0.4 0.5 Macula Normal Normal Vessels Normal Normal Periphery Normal Normal Refraction Wearing Rx Sphere Cylinder [place] Add Right -1.25 +1.50 090 +2.25 Left -1.75 +1.25 090 +2.25 Manifest Refraction (Auto) Sphere Cylinder [place] Dist VA Right -0.50 +1.00 104 Left -2.25 +0.75 100 Manifest Refraction #2 Sphere Cylinder [place] Dist VA Right -1.25 +1.25 090 20/20 Left -2.50 +1.00 090 20/30+1 DIAGNOSTIC TESTING/PROCEDURES: IMPRESSION & PLAN: 1. Cataract, left eye(s) Visually significant left, The patient's visual symptoms cannot be adequately improved with a changein glasses. Additional eye conditions including glaucoma have been evaluated and do not appear to contribute the patient's visual difficulties. -Discussed cataract surgery in detail including risks (including but not limited to infection, retinal detachment, loss of vision/eye, corneal/macular edema, need for additional surgery), benefits, andalternatives and the patient elects to proceed with the Left eye only for now. -The patient was given an informational pamphlet -Return for biometry and IOL calculations, BOTH eyes- April 29 at 9:00am Surgical planning: May 15 - left eye Flomax (Tamsulosin): No Pupil dilation: Right - 7, Left - 5.5 Blood thinners: Able to lie flat: Yes Pseudoexfoliation: No Corneal guttae: No History of refractive surgery: No Risk for anisometropia: No Refractive aim: [place] Referred by: Dr. Charles ([facility]) Discussed history of inflammation (scleritis) and steroid response. We will plan to use an abbreviated steroid taper, and may consider adding additional IOP lowering medications if the IOP becomes elevated. The pupil does not dilate as well on the left eye and he may need a malyugin ring during surgery. 2. Glaucoma (secondary), both eyes With prior steroid response Continue Lumigan daily right eye Continue timolol BID both eyes Continue Dorzolamide BID both eyes Follows with Dr. Charles. I have reviewed the patient's past medical, family, social and surgical history. I have also reviewed the patient's medications, allergies, and problem list. I performed my own HPI and have reviewed the tech's ROS as well. I completed this exam personally. Jameel Mas MD I am scribing for Jameel Mas MD, while he is personally performing the service. CLEMENTINE Chisholm Patient Education Topic: Cataracts Method: Verbal Taught to: Patient Barriers: None Outcomes: independent Signature: Jameel Mas MD documented in this encounter Plan of Treatment Upcoming Encounters Date Type Specialty Care Team Description 09/16/2021 Nurse Only Infusion Therapy 09/30/2021 Nurse Only Infusion Therapy 03/07/2022 Telemedicine Rheumatology Sirisha Puckett MD 130 [facility] [address] [place] [address] (Wo rk) 07/12/2022 Office Visit Dermatology Lian Bai MD 111 [facility], [facility] [address] [place], [place] [address] (Wo rk) documented as of this encounter Visit Diagnoses Diagnosis Combined form of senile cataract of righ t eye - Primary Combined form of senile cataract of left eye documented in this encounter Eye Exam Visual Acuity (Snellen - Linear) Right eye Left eye Dist cc 20/25 20/40 -1 Dist ph cc 20/30 -2 Correction: Glasses Tonometry (Applanation, 13:47) Right eye Left eye Pressure 18 17 Pupils Dark Light APD Right eye 4 3 None Left eye 4 3 None Visual Roque (Counting fingers) Right eye Left eye Full Full Extraocular Movement Right eye Left eye Full Full Neuro/Psych Oriented x3: Yes Mood/Affect: Normal Dilation Both eyes: Tropicamide 1%, Phenylephrine 2.5% @ 13:47 Glare Testing (BAT) Off High Right eye 20/20 20/25 Left eye 20/30+1 20/40-1 Slit Lamp Exam Right eye Left eye Lids/Lashes Normal Normal Conjunctiva/Sclera White and quiet White and quiet Cornea Nasal pterygium 2mm onto cornea Peripher al Stromal vessels Anterior Chamber Deep and quiet Deep and quiet Iris dilates 7 dilates 5.5 Lens 2+ Nuclear sclerosis, Cortical 2+ Nuclea r sclerosis, 2-3+ cataract Scattered Cortical c ataract Vitreous Normal Normal Fundus Exam Right eye Left eye Disc Healthy Rim Healthy Rim C/D Ratio 0.4 0.5 Macula Normal Normal Vessels Normal Normal Periphery Normal Normal Wearing Rx Sphere Cylinder [place] Add Right eye -1.25 +1.50 090 +2.25 Left eye -1.75 +1.25 090 +2.25 Manifest Refraction #1 (Auto) Sphere Cylinder [place] Dist VA Right eye -0.50 +1.00 104 Left eye -2.25 +0.75 100 Manifest Refraction #2 Sphere Cylinder [place] Dist VA Right eye -1.25 +1.25 090 20/20 Left eye -2.50 +1.00 090 20/30+1 Care Teams Mail Truck Driver Relationship Specialty Start Date End Date Cathy Mota NP PCP - General 02/27/[address] [place] [address] documented as of this encounter
--- OUTSIDE RECORDS SUMMARY | 2021-09-03 02:10 | XMS_ITS | Encounter Summary ---
:1950 Author Organization [facility] Address [address] [place] [address] Care Team Providers Name Role Phone Cathy Mota COLLECTIONS TECHNICIAN Primary Care Provider Encounter Details Date Type Department Care Team Description 05/21/2020 Travel Social History Tobacco Use Types Packs/Day [...] Therapy 03/07/2022 Telemedicine Rheumatology Sirisha Puckett MD [address] [place] [address] [address] (Wo rk) 07/12/2022 Office Visit Dermatology Lian Bai MD [address] [facility], [address] [place], [place] [address] (Wo rk) documented as of this encounter Visit Diagnoses Not on filedocumented in this encounter Care Teams Loading Unit Operator Seating Relationship Specialty Start Date End Date Cathy Mota NP PCP - General 02/27/[address] [place] [address] documented as of this encounter
--- OUTSIDE RECORDS SUMMARY | 2021-09-03 02:10 | XMS_ITS | Encounter Summary ---
:1950 Author Organization [facility] Address [address] [place] [address] Care Team Providers Name Role Phone Cathy Mota OPTIMIZATION ANALYST Primary Care Provider Reason for Referral Laboratory Services (Routine/Next Available) - New Request Specialty Diagnoses / Procedures Referred By Contact Refer red To Contact Diagnoses Encounter for preprocedure screening laboratory testing for COVID-19 Sirisha Puckett MD Procedures COVID-19 TESTING ([facility], [facility], [place]) [address] [facility] [address] [place] [address] Referral ID Status Reason Start Date Expiration Date Visits V isits Requested Authorized [id number] New Request 03/01/2021 1 1 Reason for Visit Reason Onset Date Comments Medication Management 03/01/2021 Encounter Details Date Type Department Care Team Description 03/01/[address] [facility] - Kristie Mendoza Med ication Management [facility] Rheumatology RN [address] [place] [address] Social History Tobacco Use Types [...] Telephone Encounter - Kristie Mendoza RN - 03/01/2021 1544 EST Talked with Otilio and let him know Dr. Puckett's reply. He is fine with getting Rituxan 03/18 at 11:00 asscheduled and then requesting the second one be scheduled 04/01/21 at 11:00 if possible. Forwarding this to Tricia Dyer so Rituxan can be cancelled on to Evusheld and second one scheduled 12/11. Thank you. elephone Encounter - Sirisha Puckett MD - 03/01/2021 1506 EST Good question. There are no data on this. If possible, can he postpone the rituximab by 2 weeks? elephone Encounter - Kristie Mendoza RN - 03/01/2021 1358 EST FELICIA Resendiz from [facility] called because she scheduled Otilio for his Evusheld on Monday03/03/21 and Otilio has a Rituxan infusion scheduled 03/04/21. Astrid wanted to make sure there is no conflictwith that timing. elephone Encounter - Sirisha Puckett MD - 03/01/2021 1255 EST Thank you. Telephone Encounter - Kristie Mendoza RN - 03/01/2021 0959 EST Astrid RN from [facility] infusion area called to say that in order to Evusheld there, patients have to have a negative covid test 48-72 hours prior to getting the Evusheld. She can get Otilio in this weekon Monday or if he gets a negative covid test result. [facility] has a covid testing center and they don't send the tests to the state so can get results within 48 hours. I called that testing site to get their fax number so we can send the order there and then will let Otilio know to call to schedule a test. There phone number is [phone]. Order placed for the test and will fax it when I getthe fax number. documented in this encounter Plan of Treatment Upcoming Encounters Date Type Specialty Care Team Description 09/16/2021 Nurse Only Infusion Therapy 09/30/2021 Nurse Only Infusion Therapy 03/07/2022 Telemedicine Rheumatology Sirisha Puckett MD [address] [facility] [address] [place] [address] (Wo rk) 07/12/2022 Office Visit Dermatology Lian Bai MD [address] [facility], [address] [place], [place] [address] (Wo rk) Scheduled Orders Name Type Priority Associated Diagnoses Order S chedule COVID-19 TESTING Microbiology Routine Encounter for Ordered: 0 03/01/2021 ([facility], [facility], [place]) preprocedure screening laboratory testing for COVID-19 documented as of this encounter Visit Diagnoses Diagnosis Encounter for preprocedure screening lab oratory testing for COVID-19 - Primary documented in this encounter Care Teams Roll Machine Operator Relationship Specialty Start Date End Date Cathy Mota NP PCP - General 02/27/[address] [place] [address] documented as of this encounter
--- OUTSIDE RECORDS SUMMARY | 2021-09-03 02:10 | XMS_ITS | Encounter Summary ---
:1950 Author Organization [facility] Address [address] [place] [address] Care Team Providers Name Role Phone Jorge Rosario MD Primary Care Provider Unavailable Reason for Visit Reason Comments Chemotherapy Encounter Details Date Type Department Care Team Description 03/20/2019 Nurse Only [facility] eumatoid arthritis Adult Hem Onc Infusi on involving multiple joints [address] ([facility]) (Primary Dx) [place] [address] Social History Tobacco Use Types Packs/Day Years Used Date Never Smoker Smokeless Tobacco: Never Used Sex Assigned at Date Recorded Not on file documented as of this encounter Last Filed Vital Signs Vital Sign Reading Time Taken Comments Blood Pressure 138/82 03/20/2019 0946 EST Pulse - - Temperature 35.8 ??C (96.5 ??F) 03/20/2019 0946 EST Respiratory Rate 18 03/20/2019 0946 EST Oxygen Saturation 98% 03/20/2019 0946 EST Inhaled Oxygen Concentration - - Weight - - Height - - Body Mass Index - - documented in this encounter Progress Notes Mary Granado RN - 03/20/2019 0900 EST Out-patient Chemotherapy Note Patient presents to clinic today for cycle #2 , day # 2 of Rituximab treatment plan. Patient noted with Peripheral IV Left forearm for access. IV flushed, site patent and brisk blood return noted before and after all chemotherapy and biotherapy infusions. Patient received rituximab. Patient tolerating chemotherapy treatment at this time with no signs of reaction or side effects. Patient education: Patient educated on all medications administered today. Patient expressed understanding of education provided and no barriers identified Patient' s PIV flushed and removed. Access site noted to be WNL. Will see Dr. Puckett in May for f/u. Advised patient to call oncology clinic during office hours or advice line after hours for concerns or if symptoms occur requiring attention. Patient also advised to refer to patient instructions givenat the start of chemotherapy for symptom self-management advice. MARY GRANADO RN 03/20/2019 9:49 documented in this encounter Plan of Treatment Upcoming Encounters Date Type Specialty Care Team Description 09/16/2021 Nurse Only Infusion Therapy 09/30/2021 Nurse Only Infusion Therapy 03/07/2022 Telemedicine Rheumatology Sirisha Puckett MD [address] [facility] [address] [place], [place] [address] (Wo rk) 07/12/2022 Office Visit Dermatology Lian Bai MD [address] [facility], [address] [place], [place] [address] (Wo rk) documented as of this encounter Visit Diagnoses Diagnosis Rheumatoid arthritis involving multiple joints (HCC-CMS) (HCC) - Primary documented in this encounter Administered Medications Inactive Administered Medications - up to 3 most recent administrations Medication Order MAR Action Action Date Dose Rate Site acetaminophen (TYLENOL) tablet 650 mg Given 03/20/2019 9:35 EST 650 mg 650 mg, oral, NOW X1, 1 dose, On Mon03/20/19 at 0830, Routine methylPREDNISolone sod suc(PF) (SOLU-MEDROL) Given 03/20/2019 9: 35 EST 125 mg injection 125 mg 125 mg, intravenous, NOW X1, 1 dose, On Mon03/20/19 at 0830, Routine riTUXimab (RITUXAN) 1,000 mg in sodium New Bag 03/20/2019 9:46 EST 1,000 mg chloride (NS) 0.9 % 250 mL RAPID infusio n 1,000 mg, intravenous, NOW X1, 1 dose, On Mon03/20/19 at 0830 documented in this encounter Orders Medications Ordered That Might Not Have Count Last Ord ered Date First Ordered Date Been Administered diphenhydrAMINE (BENADRYL) capsule 25 mg 1 020 documented in this encounter Care Teams Dicer Operator Relationship Specialty Start Date End Date Jorge Rosario MD PCP - General 01/24/19 02/26/20 documented as of this encounter
--- OUTSIDE RECORDS SUMMARY | 2021-09-03 02:11 | XMS_ITS | Encounter Summary ---
:1950 [place] [address] Care Team Providers Name Role Phone Jorge Rosario MD Primary Care Provider Encounter Details Date Type Department Care Team Description 03/11/2021 Telephone Orthopaedics at [facility] Sneha Fountain APRN [facility] [place] [address] ORTHOPAEDIC SURGERY [phone] [place] [id number] (Wo rk) Social History Tobacco Use Types Packs/Day Years Used Date Former Smoker Cigarettes 0.5 Quit: 05/17/18 74 Smokeless Tobacco: Never Used Alcohol Use Standard Drinks/Week Comments Yes 0 (1 standard drink = 0.6 oz pure alcoho l) 1-2 day Alcohol Habits Answer Date Recorded How often do you have a drink containing alcohol? Not asked How many drinks containing alcohol do you have on a typical Not asked day when you are drinking? How often do you have six or more drinks on one occasion? No t asked Comment: 1-2 day 08/07/2017 Sex Assigned at Date Recorded Not on file documented as of this encounter Miscellaneous Notes Telephone Encounter - Sneha Fountain APRN - 03/11/2021 3:58 PM EST Chart review. Recommend x-rays prior to appointment. I have already ordered this as a future order in the computer. documented in this encounter Plan of Treatment Not on filedocumented as of this encounter Results XR Pelvis and Hip 2 Views Left (03/24/2021 11:12 AM EST) Anatomical Region Laterality Modality Pelvis, Hip Left Digital Radiography Specimen (Source) Anatomical Location Collection Method / Collectio n Time Received Time / Laterality Volume Impressions 03/24/2021 11:44 AM EST Uncomplicated left TRINI. Thank you for letting us participate in the care of this patient. ??If you are a health care provider and have any questi ons regarding this report, please contact the number below. ??For patients who have questions please contact the health care management associate that requested your imaging first. ? Electronically signed by: Diamante Lang MD, [facility] ([phone]), at 03/24/2021 11:44 AM Narrative 03/24/2021 11:44 AM EST EXAMINATION: XR PELVIS AND HIP 2 VIEWS LEFT CLINICAL HISTORY: S/P TRINI TECHNIQUE: 3 views of the pelvis and hips COMPARISON: 08/07/2017 FINDINGS: There is a left total hip arthroplasty i n unchanged alignment. No periprosthetic lucency or fracture. Grossly stable appe arance of the right hip. Procedure Note Diamante Lang MD - 03/24/2021Formatt ing of this note might be different from the original. EXAMINATION: XR PELVIS AND HIP 2 VIEWS L EFT CLINICAL HISTORY: S/P TRINI TECHNIQUE: 3 views of the pelvis and hips COMPARISON: 08/07/2017 FINDINGS: There is a left total hip arthroplasty i n unchanged alignment. No periprosthetic lucency or fracture. Grossly stable appe arance of the right hip. IMPRESSION Uncomplicated left TRINI. Thank you for letting us participate in the care of this patient. If you are a health care provider and have any questi ons regarding this report, please contact the number below. For patients w ho have questions please contact the health care management associate that requested your imaging first. Sneha Fountain APRN IMG DX ORDERABLES documented in this encounter Visit Diagnoses Diagnosis History of total left hip replacement - Primary History of total left hip replacement documented in this encounter Care Teams Steel Fabricator Relationship Specialty Start Date End Date Jorge Rosario MD PCP - General 05/18/11 03/23/[address] [place] [address] documented as of this encounter
--- OUTSIDE RECORDS SUMMARY | 2021-09-03 02:11 | XMS_ITS | Encounter Summary ---
:1950 Author Organization [facility] Address [address] [place] [address] Care Team Providers Name Role Phone Unavailable Primary Care Provider Unavailable Encounter Details Date Type Department Care Team Description 07/26/2006 Before PRISM Converted [facility] - Sirisha Puckett MD Visit (Maple) Maple conversion [address] [facility] [place], [place] [phone] [place] [phone] Social History Tobacco Use Types Packs/Day Years Used Date Never Assessed Sex Assigned at Date Recorded Not on file documented as of this encounter Progress Notes Rigoberto, Conv Md Allergy Immunology - 12/28/2008 1317 EST DIVISION OF RHEUMATOLOGY PROGRESS/FOLLOWUP NOTE - 07/26/2006 SUBJECTIVE Yaw Cadena is a 55-year-old gentleman with seropositive rheumatoid arthritis, who was last seen in rheumatology in January 2006 and is here for a followup visit. He says that his left wrist continues to be the most problematic joint for him. He occasionally has left shoulder pain but has been able to get back to the gym for the last one and a half months and played nine holes of golf with hisson. He took himself off sulfasalazine early in April because he had not noticed much difference being on sulfasalazine along with the Humira, and has not noticed any worsening in his arthritis since being off of it. REVIEW OF SYSTEMS A 13-point review was done by the patient and documented in his medical record. It is all negative except for two hours of morning stiffness, trouble sleeping, and slightly more anxiety and depression. MEDICATIONS 1. Humira 40 mg subcutaneous every other week. 2. Omeprazole 20 mg daily. 3. Glucosamine daily. PHYSICAL EXAMINATION The patient appears in no acute distress. His son is with him today. He rates pain a 3-4/10 in the left wrist. Height 68.5 inches. Weight is 193 pounds which is unchanged from his last visit. Blood pressure 126/72. Pulse 60. Respirations 12. HEENT: Sclerae are anicteric with moist mucous membranes. Neck: No cervical or supraclavicular lymphadenopathy. Chest: Lungs are clear to auscultation bilaterally. Cardiovascular: Regular rate and rhythm without murmur. Joint exam: Full painless range of motion of the large joints of the upper and lower extremities. Atthe left wrist, he has about 60% diminished flexion and extension in the wrist, as well as soft tissue swelling and tenderness mostly at the ulnar aspect. Soft tissue swelling and tenderness at the third and fourth MTPs of the left foot. Remaining exam is unremarkable. LABORATORY Labs from July 24, 2006, show a white count of 9.98, hemoglobin 13.3, platelets 239,000, a normal differential, creatinine 1.0, albumin 3.6, alkaline phosphatase 83, AST 38, ALT 46. X-rays of the left wrist from April 2005 were reviewed again today and discussed with Otilio. They showed significant narrowing at the radiocarpal and radioulnar joints especially at the radioulnar jointspace with erosion at the carpal bones. ASSESSMENT Seropositive rheumatoid arthritis with persistent inflammation and pain at the left wrist. He has intermittently used a splint, which he is not satisfied with because of the way it is made and it causes pain in the palm of his hand. We agree that he likely was not getting much additional benefit on the sulfasalazine, and staying on the Humira alone is appropriate at this time especially since he has not tolerated methotrexate because of increased LFTs. However, we are concerned of the continuing activity in the left wrist. Corticosteroid injection today may help decrease the pain, but we can not be certain that it will increase his range of motion much. It is certainly worth a try. Having a more appropriate better fitting wrist splint will likely provide benefit to him with reduction in pain and inflammation. PLAN 1. Informed consent and final verification was performed by Dr. Puckett and documented in the patient'smedical record. The left wrist was prepped with Betadine and alcohol. Ethyl chloride spray was used as a topical anesthetic. A 27-gauge needle was used for deeper anesthesia with 1% lidocaine without ep inephrine and then a 22-gauge needle with 20 mg of Aristospan and an additional 1 mL of lidocaine was injected into the left wrist. He tolerated the procedure well and had decreased pain after the procedure. 2. Continue Humira 40 mg every other week. 3. He was fitted with a left large-sized Corflex Splint and given a prescription to order one. 4. He may use ibuprofen 600 mg up to three times a day as needed for pain. 5. Followup in November or sooner if needed. The patient was seen on July 26, [address] Sherif Riley. saw and examined the patient with the resident. I agree with the findings and plan of care documented in the resident's note. Signed by Sherif Riley MD 07/31/2006 15:03 Reviewed by Sirisha Puckett MD 07/29/2006 23:20 Lia Willis MDSheldon M Cooper, MD Dictated by: Sirisha Puckett MD Sherif Riley MD -Sirisha Puckett MD -CHAVO Job ID: [id number] Doc ID: [id number] cc: Giuseppe Quintanilla MD Doc ID: [id number] cc: Giuseppe Quintanilla MD documented in this encounter Plan of Treatment Upcoming Encounters Date Type Specialty Care Team Description 09/16/2021 Nurse Only Infusion Therapy 09/30/2021 Nurse Only Infusion Therapy 03/07/2022 Telemedicine Rheumatology Sirisha Puckett MD [address] [place] [address] [address] ([facility]) 07/12/2022 Office Visit Dermatology Lian Bai MD 111 [facility] [address] [place], [place] [address] (Wo rk) documented as of this encounter Visit Diagnoses Not on filedocumented in this encounter
--- OUTSIDE RECORDS SUMMARY | 2021-09-03 02:11 | XMS_ITS | Encounter Summary ---
:1950 Author Organization [place] [address] Care Team Providers Name Role Phone Jorge Rosario MD Primary Care Provider Encounter Details Date Type Department Care Team Description 08/21/2019 Hospital [place] [address] Social History Tobacco Use Types Packs/Day Years [...] on file documented as of this encounter Medications at Time of Discharge Medication Sig Dispensed Refills Start Date End Date timolol (TIMOPTIC) INSTILL 1 DROP INTO BOTH 3 04/2017 0.25 % Drops EYES TWO TIMES A DAY lisinopril TAKE ONE TABLET BY MOUTH 4 05/23/2017 (PRINIVIL;ZESTRIL) 10 EVERY DAY mg Tablet UNABLE TO FIND Medical marijuana 0 GOLIMUMAB (SIMPONI Inject subcutaneously 0 SUBQ) every 30 days. brimonidine (ALPHAGAN) 0 08/03/2015 0.2 % Drops RESTASIS 0.05 % 0 07/02/2015 Dropperette naproxen (EC NAPROSYN) 0 07/04/2015 500 mg Tablet, Delayed Release (E.C.) ranitidine (ZANTAC) 0 07/30/2015 150 mg Tablet fluticasone (FLOVENT) Inhale 1 puff into the 0 110 mcg/Actuation lungs daily. inhaler documented as of this encounter Plan of Treatment Not on filedocumented as of this encounter Procedures Procedure Name Priority Date/Time Associated Diagnosis Comme nts SURGICAL PATHOLOGY Routine 08/21/2019 10:30 AM Ailin santiago for this REPORT EDT procedure are i n the results section. documented in this encounter Results Surgical Pathology Report (08/21/2019 10:30 AM EDT) Component Value Ref Test Analysis Performed At [facility] gist Range Method Time Signature Surgical ? Location: [facility] Report The signing pathologist has (i) examined the relevant preparation(s) for the [facility] specimen(s) and (ii) rendered or confirmed the diagnosis(es) . HOSPITAL LABORATORY . ?Surgic al Pathology DIAGNOSIS Rectum, ??polypectomy: - ??Hyperplastic polyp. CR-PX Electronically signed by: ??Allen Rodriguez MD Verified: ??08/28/2019 ?Pathologist Performed at: ??-[facility] Dept. of Pathology, [place], [place] SPECIMEN(S) SUBMITTED A - Rectal polyp x 2, biopsy ?? (not provided) Referring Identifier: ?(not provided) Copy to: Jorge Rosario CLINICAL INFORMATION Screening SPECIMEN PROCESSING A - Labeled/Fixative: #1 rectal polyp, formalin. Quantity/Size: Three, ranging 0.2-0.3 cm. Tissue Description: Soft, siddiqui-brown tissues. Sections/Processing: Submitted en toto ??in 1 cassette labeled A1. ??MLL Specimen (Source) Anatomical Collection Method Collection Time Re ceived Time Location / / Volume Laterality 08/21/2019 10:30 AM EDT Manjinder Yan DO PATHOLOGY/CYTOLOGY ORDERABL ES Performing Organization Address City/State/ZIP Code Phon e Number [place] [phone] documented in this encounter Visit Diagnoses Not on filedocumented in this encounter Care Teams Embossing Calender Operator Relationship Specialty Start Date End Date Jorge Rosario MD PCP - General 05/18/11 03/23/[address] [place] [address] documented as of this encounter
--- OUTSIDE RECORDS SUMMARY | 2021-09-03 02:11 | XMS_ITS | Encounter Summary ---
:1950 Author Organization [facility] Address [address] [place] [address] Care Team Providers Name Role Phone Unavailable Primary Care Provider Unavailable Encounter Details Date Type Department Care Team Description 11/01/2004 Hospital Encounter [facility] Bobo, Maldonado [facility] [phone] [place] [address] [place] [phone] (Wo rk) Social History Tobacco Use Types Packs/Day Years Used Date Never Assessed Sex Assigned at Date Recorded Not on file documented as of this encounter Discharge Disposition Disposition Code Departure Means Destination Auto Discharge documented in this encounter Plan of Treatment Upcoming Encounters Date Type Specialty Care Team Description 09/16/2021 Nurse Only Infusion Therapy 09/30/2021 Nurse Only Infusion Therapy 03/07/2022 Telemedicine Rheumatology Sirisha Puckett MD 130 [facility] [address] [place] [address] (Wo rk) 07/12/2022 Office Visit Dermatology Lian Bai MD 111 [facility], [facility] 5 [place], [place] [address] (Wo rk) documented as of this encounter Visit Diagnoses Not on filedocumented in this encounter
--- OUTSIDE RECORDS SUMMARY | 2021-09-03 02:11 | XMS_ITS | Encounter Summary ---
:1950 Author Organization [facility] [place] [address] Care Team Providers Name Role Phone Jorge Rosario MD Primary Care Provider Encounter Details Date Type Department Care Team Description 08/06/2012 Hospital Encounter [place] [facility] [place]D of Left hip s/p L TRINI on 07/13; [address] [place] [address] Social History Tobacco Use Types Packs/Day Years Used Date Former Smoker Cigarettes 0.5 Quit: 05/17/18 74 Smokeless Tobacco: Never Used Alcohol Use Standard Drinks/Week Comments Yes 0 (1 standard drink = 0.6 oz pure alcoho l) 2-4 drinks per week Alcohol Habits Answer Date Recorded How often do you have a drink containing alcohol? Not asked How many drinks containing alcohol do you have on a Not aske d typical day when you are drinking? How often do you have six or more drinks on one Not asked occasion? Comment: 2-4 drinks per week 06/17/2011 Sex Assigned at Date Recorded Not on file documented as of this encounter Medications at Time of Discharge Medication Sig Dispensed Refills Start Date End Date GOLIMUMAB (SIMPONI Inject subcutaneously 0 SUBQ) every 30 days. fluticasone (FLOVENT) Inhale 1 puff into the 0 110 mcg/Actuation lungs daily. inhaler documented as of this encounter Plan of Treatment Not on filedocumented as of this encounter Procedures Procedure Name Priority Date/Time Associated Diagnosis Comme nts XR PELVIS AP AND Routine 08/06/2012 2:52 PM DJD of Left hip s/ p Results for this HIP 2 VIEWS OF 1 EDT L TRINI on 07/13 procedure are in HIP Status post hip the results replacement section. documented in this encounter Results XR pelvis AP and hip 2 views of 1 hip (08/06/2012 2:52 PM EDT) Anatomical Region Laterality Modality Pelvis, Hip N/A Radiographic Imaging Specimen (Source) Anatomical Collection Method Collection Time Re ceived Time Location / / Volume Laterality 08/06/2012 2:52 PM EDT Narrative 08/06/2012 4:38 PM EDT Examination AP PELVIS AND 2 VIEWS ONE HIP/LEFT Clinical History Status Post TRINI Comparison Comparisons 08/17/2011. Findings 3 views of the left hip prosthesis. ??Th is is compared to 2 views on 08/17/2011. Left total hip arthroplasty without evid ence for radiographic complication. ?? Position alignment is unchanged stable a ppearance of the right hip with moderate degree of degenerative change a nd prominent marginal osteophytes. ??The SI joints are intact. Procedure Note Linda Del Castillo MD - 08/06/2012Forma tting of this note might be different from the original. Examination AP PELVIS AND 2 VIEWS ONE HIP/LEFT Clinical History Status Post TRINI Comparison Comparisons 08/17/2011. Findings 3 views of the left hip prosthesis. This is compared to 2 views on 08/17/2011. Left total hip arthroplasty without evid ence for radiographic complication. Position alignment is unchanged stable a ppearance of the right hip with moderate degree of degenerative change a nd prominent marginal osteophytes. The SI joints are intact. 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
--- OUTSIDE RECORDS SUMMARY | 2021-09-03 02:11 | XMS_ITS | Encounter Summary ---
:1950 Author Organization [facility] Address [address] [place] [address] Care Team Providers Name Role Phone Jorge Rosario MD Primary Care Provider Encounter Details Date Type Department Care Team Description 06/06/2012 Hospital Encounter [facility] [place] [facility] [place] [address] [place] [address] Sirisha Hoskins MD [address] [place] [address] [address] [place] [address] [place] [address] Social History Tobacco Use Types Packs/Day [...] the 0 110 mcg/Actuation lungs daily. inhaler omeprazole (PRILOSEC) 20mg, PO, Once daily 0 03/2307/26/2012 20 mg capsule documented as of this encounter Procedure Notes Shaw Espinoza MD - 06/06/2012 11:52 AM EDTProcedure(s): ARTHROCENTESIS,DRAIN/INJECT JOINT/BURSA Pre-Procedure Diagnose(s): Left shoulder pain Yaw Cadena [id number] HISTORY: left shoulder Pain Left shoulder joint INJECTION UNDER FLUOROSCOPY TECHNIQUE: After an extensive conversation with the patient regarding risks and benefits, oral and written consent were obtained. The patient was placed supine on the fluoroscopic table. The skin overlying the left shoulder was prepped and draped in the usual aseptic manner. 1% Lidocaine was used to achieve local anesthesia. Under fluoroscopic guidance, 25 gauge needle was advanced into the joint space. Small amount of air was injected to the document needle placement. A mixture of Ropivacaine, Lidocaine and triamcinolone acetonide was injected. All needles removed at end of procedure. FINDINGS: 1. Small amount of injected air in the left glenohumeral joint space. 2. PAIN SCORE: Before: 4 /10 After: 3. Medications: Lidocaine 1% - <5 ml, for subcutaneous anesthesia Ropivacaine HCL 0.5% - 3ml, vial size 20ml, discarded 17ml Triamciolone Acetonide - 40 mg, vial size 50mg, discarded 10mg Fluoroscopy time: 13 sec COMPLICATIONS: None immediate. POST-PROCEDURE CARE: Information regarding monitor of infection, post- procedural pain and management of steroid flare were reviewed with patient. IMPRESSION: Uneventful left shoulder joint injection under fluoroscopy. Resident/Fellow: none Attending:Shaw Pelaez MD was present for and performed the entire procedure. documented in this encounter Miscellaneous Notes Miscellaneous - Provider, Scanning - 06/10/2012 8:39 PM EDT Miscellaneous - Provider, Scanning - 06/10/2012 8:33 PM EDT documented in this encounter Plan of Treatment Not on filedocumented as of this encounter Procedures Procedure Name Priority Date/Time Associated Diagnosis Comme nts XR FLUORO INJECTION Routine 06/06/2012 11:20 AM R esults for this FL DRAIN LARGE JT EDT procedure are in the results section. documented in this encounter Results XR Fluoro injection FL drain large JT (06/06/2012 11:20 AM EDT) Anatomical Region Laterality Modality N/A Radiographic Imaging Specimen (Source) Anatomical Collection Method Collection Time Re ceived Time Location / / Volume Laterality 06/06/2012 11:20 AM EDT Impressions 06/07/2012 12:09 PM EDT IMPRESSION: Uneventful left shoulder joint injection under fluoroscopy. ?? Resident/Fellow: None ?? Attending: Shaw Pelaez MD was present for and performed the entire procedure. Narrative 06/07/2012 12:09 PM EDT Left Shoulder Joint Injection under Fluoroscopy ?? HISTORY: Left shoulder pain TECHNIQUE: After an extensive conversati on with the patient regarding risks and benefits, oral and written consent were obtained. The patient was placed supine on the fluoroscopic table. The skin over lying the left shoulder was prepped and draped in the usual aseptic manner. 1% l idocaine was used to achieve local anesthesia. Under fluoroscopic guidance, a 25-gauge needle was advanced into the joint space. A small amount of air w as injected to the document needle placement. A mixture of ropivacaine, lid ocaine and triamcinolone acetonide was injected. All needles were removed at th e end of the procedure. ?? FINDINGS: ?? 1. A small amount of injected air in the left glenohumeral joint space. ?? 2. PAIN SCORE: ?? Before: 10 ?? After: ?? 3. Medications: ?? Lidocaine 1% - <5 ml, for subcutaneous a nesthesia ?? Ropivacaine HCL 0.5% - 3 ml, vial size 2 0 ml, discarded 17 ml ?? Triamcinolone acetonide - 40 mg, vial si ze 50 mg, discarded 10 mg ?? Fluoroscopy time: 13 sec ?? COMPLICATIONS: None immediate. ?? POST-PROCEDURE CARE: Information regardi ng monitoring of infection, post-procedural pain, and management of steroid flare was reviewed with the patient. ?? Procedure Note Shaw Espinoza MD - 06/07/2012Formatti ng of this note might be different from the original. Left Shoulder Joint Injection under Fluo roscopy HISTORY: Left shoulder pain TECHNIQUE: After an extensive conversati on with the patient regarding risks and benefits, oral and written consent were obtained. The patient was placed supine on the fluoroscopic table. The skin over lying the left shoulder was prepped and draped in the usual aseptic manner. 1% l idocaine was used to achieve local anesthesia. Under fluoroscopic guidance, a 25-gauge needle was advanced into the joint space. A small amount of air w as injected to the document needle placement. A mixture of ropivacaine, lid ocaine and triamcinolone acetonide was injected. All needles were removed at th e end of the procedure. FINDINGS: 1. A small amount of injected air in the left glenohumeral joint space. 2. PAIN SCORE: Before: 4 /10 After: 1 /10 3. Medications: Lidocaine 1% - <5 ml, for subcutaneous a nesthesia Ropivacaine HCL 0.5% - 3 ml, vial size 2 0 ml, discarded 17 ml Triamcinolone acetonide - 40 mg, vial si ze 50 mg, discarded 10 mg Fluoroscopy time: 13 sec COMPLICATIONS: None immediate. POST-PROCEDURE CARE: Information regardi ng monitoring of infection, post-procedural pain, and management of steroid flare was reviewed with the patient. IMPRESSION IMPRESSION: Uneventful left shoulder nidhi nt injection under fluoroscopy. Resident/Fellow: None Attending: Shaw Pelaez MD was present for and performed the entire procedure. Sirisha Puckett MD IMG FLUORO ORDERABLES documented in this encounter Visit Diagnoses Not on filedocumented in this encounter Administered Medications Inactive Administered Medications - up to 3 most recent administrations Medication Order MAR Action Action Date Dose Rate Site ropivacaine (PF) 5 mg/mL (0.5 %) 4 Given 06/06/2012 11:00 AM EDT mL with triamcinolone acetonide 10 mg injection Intra-articular, ONCE, 1 dose, On Mon06/06/12 at 1145 documented in this encounter Care Teams Flexo Operator Relationship Specialty Start Date End Date Jorge Rosario MD PCP - General 05/18/11 03/23/[address] [place] [address] documented as of this encounter
--- OUTSIDE RECORDS SUMMARY | 2021-09-03 02:11 | XMS_ITS | Encounter Summary ---
:1950 Author Organization [facility] Address [address] [place] [address] Care Team Providers Name Role Phone Giuseppe Quintanilla MD Primary Care Provider Unavailable Jorge Rosario MD Primary Care Provider Unavailable Cathy Mota NP Primary Care Provider Encounter Details Date Type Department Care Team Description 09/28/2005 Hospital Encounter [facility] Sirisha Puckett MD [place] [address] [facility] [address] [facility] [address] [place], [place] [address] [place] [address] [phone] (Wo rk) Social History Tobacco Use [...] / COVID-19? documented as of this encounter Plan of Treatment Upcoming Encounters Date Type Specialty Care Team Description 09/16/2021 Nurse Only Infusion Therapy 09/30/2021 Nurse Only Infusion Therapy 03/07/2022 Telemedicine Rheumatology Sirisha Puckett MD [address] [facility] [address] [place] [address] (Wo rk) 07/12/2022 Office Visit Dermatology Lian Bai MD [address] [facility] [place], [place] [address] (Wo rk) documented as of this encounter Visit Diagnoses Not on filedocumented in this encounter Care Teams [employer] Consultant Relationship Specialty Start Date End Date Giuseppe Quintanilla MD PCP - General 01/02/15 01/23/19 Jorge Rosario MD PCP - General 01/24/19 02/26/20 Cathy Mota NP PCP - General 02/27/[address] [place] [address] [address] [place] [address] documented as of this encounter
--- OUTSIDE RECORDS SUMMARY | 2021-09-03 02:11 | XMS_ITS | Encounter Summary ---
:1950 Author Organization [facility] [place] [address] Care Team Providers Name Role Phone Jorge Rosario MD Primary Care Provider Encounter Details Date Type Department Care Team Description 08/12/2013 Hospital Encounter [place] [facility] [place] following [address] [facility] [address] [place] [address] Social History Tobacco Use Types Packs/Day [...] Start Date End Date UNABLE TO FIND Medical marijuana 0 GOLIMUMAB (SIMPONI Inject subcutaneously 0 SUBQ) every 30 days. fluticasone (FLOVENT) Inhale 1 puff into the 0 110 mcg/Actuation lungs daily. inhaler omeprazole (PRILOSEC) Take 10 mg by mouth 0 02/1408/05/2015 20 mg capsule every 48 hours. documented as of this encounter Plan of Treatment Not on filedocumented as of this encounter Procedures Procedure Name Priority Date/Time Associated Diagnosis Comme nts XR PELVIS AND Routine 08/12/2013 11:56 AM Aftercare following Results for this LATERAL HIP EDT joint replacement procedure are in the results section. documented in this encounter Results XR pelvis and lateral hip (08/12/2013 11:56 AM EDT) Anatomical Region Laterality Modality Pelvis, Hip N/A Radiographic Imaging Specimen (Source) Anatomical Collection Method Collection Time Re ceived Time Location / / Volume Laterality 08/12/2013 11:56 AM EDT Narrative 08/12/2013 2:56 PM EDT Examination PELVIS+LATERAL HIP/LEFT Clinical History 62-year-old male, status post recent, 12/02 LEFT TRINI ANTERIOR Comparison Prior imaging 08/17/2011 and 08/06/2012. Findings Left total hip arthroplasty anterior sammy leary with acetabular and femoral shaft components well positioned and well alig esther no interval changes compared to previous. No peripheral lucency to sugge st loosening or infection. ??The degree of degenerative change involving the rig ht hip is unchanged with prominent marginal osteophytes and bony overgrowth . Procedure Note Linda Del Castillo MD - 08/12/2013Forma tting of this note might be different from the original. Examination PELVIS+LATERAL HIP/LEFT Clinical History 62-year-old male, status post recent, 12/02 LEFT TRINI ANTERIOR Comparison Prior imaging 08/17/2011 and 08/06/2012. Findings Left total hip arthroplasty anterior sammy leary with acetabular and femoral shaft components well positioned and well alig esther no interval changes compared to previous. No peripheral lucency to sugge st loosening or infection. The degree of degenerative change involving the rig ht hip is unchanged with prominent marginal osteophytes and bony overgrowth . Mark Vines MD IMG DX ORDERABLES documented in this encounter Visit Diagnoses Diagnosis Aftercare following joint replacement documented in this encounter Care Teams Professor Of Theology Relationship Specialty Start Date End Date Jorge Rosario MD PCP - General 05/18/11 03/23/[address] [place] [address] [address] [place] [address] documented as of this encounter
--- OUTSIDE RECORDS SUMMARY | 2021-09-03 02:11 | XMS_ITS | Encounter Summary ---
:1950 Author Organization [facility] [place] [address] Care Team Providers Name Role Phone Jorge Rosario MD Primary Care Provider Encounter Details Date Type Department Care Team Description 05/20/2013 Orders Only Orthopaedics at [facility] Mark Vines, Aftercare following [address] [facility] Roberta [place] [address] [address] Janet Baxter (Primary Dx) [phone] [place] [address] Social History Tobacco Use Types Packs/Day Years [...] filedocumented as of this encounter Results XR pelvis and lateral [...] Visit Diagnoses Diagnosis Aftercare following joint replacement - Primary Aftercare following joint replacement documented in this encounter Care Teams Criminal Investigative Agent Relationship Specialty Start Date End Date Jorge Rosario MD PCP - General 05/18/11 03/23/[address] [place] [address] documented as of this encounter
--- OUTSIDE RECORDS SUMMARY | 2021-09-03 02:11 | XMS_ITS | Encounter Summary ---
:1950 Author Organization [facility] Address [address] [place] [address] Care Team Providers Name Role Phone Giuseppe Quintanilla MD Primary Care Provider Unavailable Jorge Rosario MD Primary Care Provider Unavailable Cathy Mota NP Primary Care Provider Encounter Details Date Type Department Care Team Description 02/01/2006 Hospital Encounter [facility] - Sherif Riley MD [address] [place] [address] [place] [phone] [facility] Unknown, Provider, [address] [place], [place] [address] Social History Tobacco Use Types Packs/Day Years [...] 03/07/2022 Telemedicine Rheumatology Sirisha Puckett MD [address] [place] [address] (Wo rk) 07/12/2022 Office Visit Dermatology Lian Bai MD [address] [facility] [place], [place] [address] (Wo rk) documented as of this encounter Visit Diagnoses Not on filedocumented in this encounter Care Teams Petroleum Refinery Laborer Relationship Specialty Start Date End Date Giuseppe Quintanilla MD PCP - General 01/02/15 01/23/19 Jorge Rosario MD PCP - General 01/24/19 02/26/20 Cathy Mota NP PCP - General 02/27/[address] [place] [id number] documented as of this encounter
--- OUTSIDE RECORDS SUMMARY | 2021-09-03 02:11 | XMS_ITS | Encounter Summary ---
:1950 Author Organization [facility] Address [address] [place] [address] Care Team Providers Name Role Phone Unavailable Primary Care Provider Unavailable Encounter Details Date Type Department Care Team Description 05/04/2005 Before PRISM Converted [facility] - Sirisha Puckett MD Visit ([place]) Maple conversion [address] [facility] [address] [address] [place], [place] [id number] [place] [id number] Social History Tobacco Use Types Packs/Day Years Used Date Never Assessed Sex Assigned at Date Recorded Not on file documented as of this encounter Progress Notes Rigoberto, Conv Wall Covering Installer - 02/13/2009 3883 EST DIVISION OF RHEUMATOLOGY PROGRESS/FOLLOWUP NOTE - 06/01/2005 SUBJECTIVE: This is a followup visit for a 54-year-old gentleman with rheumatoid arthritis. The patient was last seen on May 04, 2005, by Drs. Riley and Italo. Since that time the patient started Humira 40 mg subcutaneously every two weeks with his first dose being about one week ago. He tolerated his first injection well and has had no injection site reactions. The patient notes considerable improvement in his joint pain, specifically his hips are much improved as are his shoulders, hands, and feet. Hehas continued on prednisone and tapered to 10 mg daily about one week ago as well. Prior to that time he had been on 20 mg a day and had been on that dose for about four weeks. The patient continues to be on a leave from work and plans to go back to workon Monday. He has been engaging in physicaltherapy for his shoulders as well as other activities including yoga and mindfulness meditation. He has been seeing a chiropractor for his neck and says that he will have just a couple more visits there in the future. REVIEW OF SYSTEMS: The patient denies fevers, chills, eye pain, oral ulcers, shortness of breath, chest pain, abdominal pain, dysuria, skin changes, swollen or tender lymph nodes, increased thirst or urination, or a change in mood. In fact, he states that his mood is much improved since he has been feeling better. He has less than 30 minutes of morning stiffness. MEDICATIONS: 1. Humira 40 mg subcutaneously every two weeks. 2. Prednisone 10 mg daily. 3. Omeprazole 20 mg daily. 4. Various number of herbal medications and supplements for which he has brought a list to be included in his chart. 5. No longer taking Ambien or hydrocodone p.r.n. PHYSICAL EXAM: The patient appears pleasant and is in no acute distress. Today he rates the pain a 4/10 in the left shoulder and right hand. Blood pressure 132/70. Pulse 84. Respirations 12. Weight 182- 1/2 pounds. HEENT: Sclerae are clear, no oral ulcers. Chest: Lungs are clear to auscultation bilaterally. Heart: Regular rate and rhythm without murmur. Extremities: Much improved range of motion in the shoulders bilaterally. He can now fully abduct both shoulders. He continues to have some limitation with externally rotating the shoulders. The soft tissue swelling in the joints of the hands and wrists is also much improved compared to the last visit. He currently has some soft tissue swelling in the second MCP on the left hand, but absent the rest of the MCPs on the wrist. His hips have very goodrange of motion without any pain. The MTPs are now only tender at the third MTP of the left foot with some swelling. The remaining MTPs are without swelling or tenderness. Labs from 05/04/05 shows AST of 43, ALT of 86, creatinine 0.8, albumin 3.9, alkaline phosphatase 169,and sed rate of 26. ASSESSMENT: Rheumatoid arthritis with high titer CCP antibodies. The patient continues to have negative rheumatoid factor. The patient is much improved since continuing on the prednisone and now starting the Humira. He only has had one dose of Humira, so most of his improvement islikely secondary to the prednisone and his ability to take some time off from work to take better care of himself. The patient's films of the hands, feet, and shoulders done at the last visit showed some progression and erosions in the feet. Because of the patient's erosive disease and high titer CCP antibodies, his prognosis for further erosions warrants more aggressive treatment at this time. PLAN: 1. The patient will continue the Humira 40 mg subcutaneously every two weeks. He will check labs after his second dose to make sure that his liver function and blood counts remain normal. If these lab results are within the normal range, can then check labs every four to six months thereafter. 2. He will begin further tapering of his prednisone to 7.5 mg daily for two weeks and then to 5 mg daily for an additional two weeks. The patient will then call Dr. Puckett prior to tapering his dose further. He has been on a high dose of prednisone for about five weeks and, therefore, more gradual taperwhen he gets to 5mg daily will be followed. 3. The patient will have a followup visit with us in two months. The patient was seen with Dr. Sherif Riley. I saw and examined the patient with Dr. Sirisha Puckett. I agree with the HPI, exam findings, and the plan of care as outlined above. I have documented any additions/changes in the body of the note. Signed by Sherif Riley MD 06/08/2005 10:10 Reviewed by Sirisha Puckett MD 06/07/2005 11:27 Lia Willis MDSheldon M Cooper, MD Dictated by: Sirisha Puckett MD Sherif Riley MD - Sirisha Puckett MD P - O19 Job ID: [id number] Document ID: [id number] cc: MD Giuseppe Rodgers MD Dorothy Yoder Wall Covering Installer - 01/30/2009 0021 EST DIVISION OF RHEUMATOLOGY PROGRESS/FOLLOWUP NOTE - 05/04/2005 SUBJECTIVE: This patient is a 54 year old gentlemen with seronegative inflammatory arthritis. The patient was last seen in March of 2004by Dr. Mary Stoddard. The patient in the interim has been followed by his primary care physician for probable seronegative rheumatoid arthritis. The patient is he re today due to a flare in his symptoms and his inability to tolerate Methotrexate because of increases in his AST and ALT liver enzymes. The patient was originally diagnosed with seronegative rheumatoid arthritis in 1989 at [facility]. He initially presented with jaw pain that progressed to bilateral hand, shoulder, hip, and foot pain. Hewas treated for a while with Plaquenil and then switched to gold injections. He subsequently developed a significant rash because of the gold injections. In May of 1991, he transferred his care to Dr. Sherif Riley. X- rays at the time showed erosionsat the MTPs and radiocarpal degenerative changesat the right wrist. His MCPs were unremarkable. The patient was started on Methotrexate 7.5 mg weekly. He did well, eventually tapering off his Methotrexate in February of 1995. 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 Sometime in 2003, the patient resumed Methotrexate under the guidance of his primary care physician.He had a slight increase in his ALT and AST, and Methotrexate was then stopped. He was referred backto [facility] for reevaluation of his seronegative inflammatory arthritis. He saw Dr. Mary carson in November of 2003. He was restarted on Methotrexate 10 mg per week, after given an option of restarting Methotrexate or beginning an alternative DMARD, including one of the new TNF-alpha inhibitors. Within one month, the patient's ALT and AST increased mildly. Dr. Stoddard sent labs to check for hemochromatosis which were negative. His Methotrexate was then stopped, and he was started on Sulfasalazine, eventually to [facility]. His ALT and AST remained slightly elevated through March of 2004 and normalized in his labs on June of 2004, approximately 5months after stopping the Methotrexate. The patient then was followed by his primary care physician in the interim. He presents today with flare again in his hands, shoulders, and feet. Dr. Stoddard had arranged an evaluation of his right wrist with Dr. Bobo. His wrist was subsequently fused in May of 2004, and he has done well. The patient is not exactlysure when he stopped the sulfasalazine. He has tried Arthrotec and one other anti-inflammatory medication which have not helped. Most recently, he was put on Prednisone 40 mg a day for a week and then tapering to 20 mg a day as of yesterday. The patient has no history of psoriasis or family history of psoriasis. He has no history of an enteric infection, significant upper respiratory infection, inflammatory bowel disease, or episodes of uveitis or iritis. REVIEW OF SYSTEMS: 14-point review of systems was reviewed with the patient. All were negative except for those mentioned in the HPI. PAST MEDICAL HISTORY: In addition to seronegative inflammatory arthritis, the patient had nasal polyps removed a few years ago. He has a history of rib fracture in December 2004 after falling in his driveway on the ice. He has a remote history of asthma. CURRENT MEDICATIONS: 1. Prednisone 20 mg daily. 2. Omeprazole 20 mg daily. 3. Ambien 5 mg as needed. 4. Hydrocodone 7.5/750 mg as needed. The patient has not used much of this since starting the Prednisone. ALLERGIES: Gold injections caused rash. SOCIAL HISTORY: The patient is and lives in [place], [place]. He has two children, both of whom are healthy. He has a remote history of tobacco. He drinks about 2 beers on the weekends. FAMILY HISTORY: The patient's aunt and a first cousin have rheumatoid arthritis. PHYSICAL EXAM: The patient appears pleasant and is in no acute distress. Today, he rates pain as 7- 8/10 in his shoulders and feet, a6/10 in his left hand, and a 2/10 in his hips. Blood pressure 116/60. Pulse 68. Respiratory rate 12. Weight 177 pounds. Height 68.5 inches. HEENT: Sclerae are clear. He has no oral ulcers. Neck: No cervical or supraclavicular lymphadenopathy. Respiratory: Lungs are clear to auscultation bilaterally. Cardiovascular: He has a regular rate and rhythm without murmur. Skin:He has no nail pitting and no rash. Neurologic: His deep tendon reflexes are 2+ throughout. He has 5/5 strength throughout all large muscle groups without any pain with strength testing. He has a nonantalgic gait. His sensation is intact to light touch throughout extremities. EXTREM: He has limited range of motion in the shoulders bilaterally, as well as in the wrists (the rightwrist is fused). He has soft tissue swelling in the left wrist, as well as the first through third MCPs of the left hand and the first and fourth MCPs of the right hand. All of the MTPs have swelling and tenderness. He is also tender over the dorsum of the feet. He has bilateral groin pain with flexion and external rotationof the hips bilaterally. The knees are unremarkable. He can flex and extend his back at the waist without pain or difficulty. Going up on his toes causes pain. LABS: From 2005, shows rheumatoid factor less than 20 and SARA titer of 40 and speckled. White count of 12.6. Hemoglobin 13.1. Platelets of 394. Sedimentation rate of 76. Labs from July 12, 1991,shows a rheumatoid factor and SARA both negative. ASSESSMENT: Seronegative inflammatory arthritis, probable rheumatoid arthritis. The patient clearly has erosive changes in the feet, as well as significant degenerative changes in the right wrist. We have no recent x-rays of his hands, shoulders, feet, or hips. He has had at least two rheumatoid factors, one back in 1991, and another this month which showed a negative rheumatoid factor. He has not had cyclic citrullinated peptide (CCP) antibodies checked. He had done well with Methotrexate back in the early .He did not seem to get much benefit after restarting it in 2003, although he was on a low dose and for a short duration. He also had experienced mild increases in his ALT and AST. However, looking back at the notes when he was under Dr. Riley's care, he had persistent mild elevations inhis ALT and AST at that time and remained on Methotrexate. The patient denies significant alcohol use. He has not been tested for hepatitis or other underlying liver diseases, except Dr. Stoddard did testhim for hemochromatosis, and those labs were negative. At this time, the patient is interested in looking into the TNF-alpha inhibitors. He had been reluctant to do this in the past because of the unknown risk of malignancy and the risk of infection and low blood counts. PLAN: 1. The patient will remain on Prednisone 20 mg a day and will continue this dose through next week until we have a chance to look at new x- rays and obtain some additional labs. 2. The patient will have plain films of the hands, shoulders, feet, and pelvis done today. 3. We will check sedimentation rate, comprehensive metabolic panel, and cyclic citrullinated peptide(CCP) antibodies for rheumatoid arthritis. 4. In the case that he decides to start a TNF-alpha inhibitor, today we will check baseline chest x-ray, as well as, place a PPD for screening for tuberculosis. 5. The patient was given information on Remicade, Enbrel, and Humira, three TNF- alpha inhibitors. 6. We will check a hepatitis panel at the patient's next visit. 7. The patient will follow up with us in four to six weeks. We will be in touch with him before thattime to discuss further tapering of his Prednisone and plans for treatment. The patient was seen with Dr. Sherif Riley. I saw and examined the patient with Dr. Sirisha Puckett. I agree with the HPI, exam findings, and the plan of care as outlined above. I have documented any additions/changes in the body of the note. ADDENDUM: Labs from 05/04/05 show CCP antibodies > 100.0, ESR 26, and comprehensive metabolic panel all within normal limits except for alk phos 169 and ALT 86. Significantly increased CCP antibodiesis consistent with rheumatoid arthritis. Patient's plain films of the hands and feet show significant erosive changes. patient's PPD was negative, as well as chest x-ray. Mr. Cadena will be contacted with these results and initiation of a TNF-alpha inihibitor will be recommended. We have approval from his insurance company as well. Signed by Sherif Riley MD 05/12/2005 11:05 Reviewed by Sirisha Puckett MD 05/10/2005 19:47 Lia Willis, Jessy Riley MD Dictated by: Sirisha Puckett MD Sherif Riley MD - Sirisha Puckett MD P - O9 Job ID: [id number] Document ID: [id number] cc: MD Giuseppe Elder MD documented in this encounter Plan of Treatment Upcoming Encounters Date Type Specialty Care Team Description 09/16/2021 Nurse Only Infusion Therapy 09/30/2021 Nurse Only Infusion Therapy 03/07/2022 Telemedicine Rheumatology Sirisha Puckett MD [address] [facility] [address] [place] [address] (Wo rk) 07/12/2022 Office Visit Dermatology Lian Bai MD [address] [facility] [place], [place] [address] (Wo rk) documented as of this encounter Visit Diagnoses Not on filedocumented in this encounter
--- OUTSIDE RECORDS SUMMARY | 2021-09-03 02:11 | XMS_ITS | Encounter Summary ---
:1950 Author Organization [facility] [address] Care Team Providers Name Role Phone Cathy Mota APRN Primary Care Provider [phone] Reason for Visit Reason Comments Follow Up Surgery L TRINI 07/14/11 Encounter Details Date Type Department Care Team Description 03/24/2021 Office Visit Orthopaedics at [facility] Sneha Fountain, History of total left [facility] JUNIOR DATABASE ADMINISTR[place] [address] [facility] [phone] ORTHOPAEDIC SURGERY [place] [address] Social History Tobacco Use Types Packs/Day Years [...] Sign Reading Time Taken Comments Blood Pressure 120/64 03/24/2021 1:31 PM EST Pulse 67 03/24/2021 1:31 PM EST Temperature - - Respiratory Rate - - Oxygen Saturation - - Inhaled Oxygen Concentration - - Weight 84.3 kg (185 lb 14.4 oz) 03/24/2021 1:31 PM EST Height 172.7 cm (5' 8) 03/24/2021 1:31 PM EST Body Mass Index 28.27 03/24/2021 1:31 PM EST documented in this encounter Progress Notes Kandy Fountainorashailesh Martinez, JUNIOR DATABASE ADMINISTRATOR - 03/24/2021 1:40 PM EST Arthroplasty/Orthopaedic History: 1. LEFT hip TRINI. DOS: 07/14/2011. Dr. Vines Chief Complaint: Routine rotary f/u for LEFT hip TRINI HPI: Yaw Cadena is a very pleasant 70 y.o. year-old male and is now 10 years status post left total hip replacement. The patient has been doing well overall. The patient is not having any pain. There is occasional tightness in the anterior thigh. No mechanical or instability complaints. No fevers, chills, nausea, vomiting, or symptoms of infection. Yaw has been ambulating with no assistive device and remains active. He is not taking pain medicine for the hip. Patient's medications, allergies, past medical, surgical, social and family histories were reviewed and updated as appropriate. ROS: Denies: fever, chills, night sweats, nausea, or vomiting Physical Exam: Vitals: 03/24/21 1331 BP: 120/64 BP Location (NBP): Left arm Patient Position: Sitting BP Cuff Sizes: Large Adult (32-43 cm) Pulse: 67 Weight: 84.3 kg (185 lb 14.4 oz) Height: 172.7 cm (5' 8) Body mass index is 28.27 kg/m??. Well-appearing male in no acute distress. Alert and Oriented x 3 and answers all questions appropriately. Hip Exam: Left Leg Length: Longer leg: equal Limb Length discrepancy: 0cm Motion: Flexion contracture: 0 Total degrees of Flexion: 105 Total degrees of Abduction: 30 Total degrees of Ext Rotation: 30 Total degrees of Internal Rotation: 10 Gait Abnormality: Normal Pulses Palpable: Left PT: Yes Left DP: Yes Motor/Sensory: Left Distal Motor: Normal Distal Sensory: Normal Hip Abductors: 5 Trendelenburg test: negative X-RAYS: Multiple radiographic views were obtained at my request and reviewed with the patient. X-rays show a well-placed prosthesis with no evidence of fracture, subsidence, loosening, or periprosthetic complication. Questionnaire Responses: [facility] Surgical Postop Visit 03/24/2021 PROMIS-10 General Health Very Good PROMIS-10 Quality of Life Very Good PROMIS-10 Physical Health Very Good PROMIS-10 Mental Health Very Good PROMIS-10 Social Activity Good PROMIS-10 Everyday Activities Completely PROMIS-10 Pain 2 PROMIS-10 Fatigue Mild PROMIS-10 Social Roles Very Good PROMIS-10 Anxious or Depressed Sometimes PROMIS PHYSICAL HEALTH SCORE 54.1 PROMIS MENTAL HEALTH SCORE 48.3 HOOS JR Scores 100 Problems with surgical incision/wound after surgery No Gone to ER since knee surgery No Admitted to hospital since recent ortho surgery No Hospital - Date of admission - Discharge date - Reason you went to hospital - Additional surgery on same body part No TRINI Grade 8 Pain in other HIP None Back pain at this moment None Satisfaction with Treatment Satisfied Choose Same Treatment Again Definitely yes Orthopeadics [facility] Response 03/24/2021 HOOS JR Scores 100 ASES VAS-LEFT - ASES ADL-LEFT ARM - ASES LEFT ARM - Spine [facility] Response 03/24/2021 HOOS JR Scores 100 ASSESSMENT/PLAN: Mr. Cadena is a 70 y.o. year old male 10 years status post left total hip replacement. He continues to do well at 10 years s/p TRINI surgery. Activity precautions to prevent prematureimplant failure and joint specific exercises reviewed. We will see him back in 5 years for repeat examination. X- rays will be needed at that time. Patient may continue with normal activities as his pain and function allow. Pt agrees, questions solicited/answered, will return as scheduled and as neededfor concerns or questions. Pt understands they may also call us prn for above. We discussed the appropriate precautions surrounding dental prophylaxis; according to the AAOS Appropriate Use Criteria we do recommend antibiotic use prior to dental procedures for Yaw due to biologic/immune modulator medication. Recommended antibiotic: Amoxicillin (50mg/kg, maximum 2 gm) 1 hour prior to dental work; dose: 2000 mg (reportedly currently not using antibiotics with dental work) If Yaw has any changes in health status we recommend he contact our office prior to dental procedures for updated recommendations We also discussed maintaining good foot care and giving prompt attention to any source of infection throughout the body including foot ulcers and urinary tract infections. All questions were answered. Signed: SNEHA FOUNTAIN APRN 03/24/2021 documented in this encounter Plan of Treatment Not on filedocumented as of this encounter Visit Diagnoses Diagnosis History of total left hip replacement documented in this encounter Care Teams Hearing Aid Repairer Relationship Specialty Start Date End Date Cathy Mota APRN PCP - General Family Medicine 03/24/[address] [place] [address] [address] [place] [address] documented as of this encounter
--- OUTSIDE RECORDS SUMMARY | 2021-09-03 02:11 | XMS_ITS | Encounter Summary ---
:1950 Author Organization [facility] Address [address] [place] [address] Care Team Providers Name Role Phone Giuseppe Quintanilla MD Primary Care Provider Unavailable Jorge Rosario MD Primary Care Provider Unavailable Cathy Mota NP Primary Care Provider Encounter Details Date Type Department Care Team Description 07/26/2006 Hospital Encounter [facility] - [facility] Sirisha Puckett MD Nerinx [address] [facility] 111 [facility] [address] [place], [place] [id number] [place] [address] [phone] (Wo rk) Social History Tobacco Use [...] Telemedicine Rheumatology Sirisha Puckett MD [address] [facility] [address] [place] [address] (Wo rk) 07/12/2022 Office Visit Dermatology Lian Bai MD 111 [facility], [address] [place], [place] [address] (Wo rk) documented as of this encounter Procedures Procedure Name Priority Date/Time Associated Diagnosis Comme nts SURGICAL PATHOLOGY Routine 08/17/2007 0:00 EDT Re sults for this procedure are i n the results section. SURGICAL PATHOLOGY Routine 08/17/2007 0:00 EDT Re sults for this procedure are i n the results section. documented in this encounter Results SURGICAL PATHOLOGY (08/17/2007 0:00 EDT) Pathology Report: SURGICAL PATHOLOGY REPORT TONYA VILLALTA Reports generated via electronic interface contain inna ginal data; LAB however they are lacking the format of the original re port. Caution should be taken when reading/interpreting unfo rmatted reports. Name: ? LEANNA CADENA ? Accession #: ? [id number] ? : ? 1950 (Age: 56) ??M ? Collect Date: ? 08/17/2007 ? Location: ? [facility] ? Receive Date: ? 008 ? Provider: LOUISE SPENCE DO Copy to: GIUSEPPE QUINTANILLA MD ? Final Pathologic Diagnosis: A. ?Colon, ascending, biopsy: 1. ?Acute colitis with acute inflammatory exudate and reactive epithelial changes. ??See comment. B. ?Colon, transverse, biopsy: 1. ?Acute inflammatory exudate. C. ?Colon, sigmoid, biopsy: 1. ?No pathologic features. D. ?Rectum, biopsy: 1. ?No pathologic features. Comment: ? The changes seen in the ascending colon biopsy (A) may represent an infectious or ischemic colitis. ??Clinical corre lation is recommended. ??(Dr. Rodriguez)/[facility] Document reviewed and electronically signed by: GREGORIO ESCOTO MD Report ??Date: 08/23/2007 16:17 By the signature above, the attending physician certif ies that he/she has personally conducted a gross and/or microscopic examin ation of the described specimens and rendered or confirmed the above diagnosi s. Specimen(s) Received: A. ?Bx ascending colon B. ? Bx transverse colon C. ? Bx sigmoid colon D. ? Bx rectum Clinical History: ? Hx bloody diarrhea, RLQ pain, infectious coliti s, on Cipro/Flagyl, inflammation only in ascending colon Gross Description: ? Received in Hollande' s fixative labelled Surinder and #1 bx ascending colon are three polypoid bi opsies each measuring approximately 0.4 x 0.2 x 0.2 cm. ??The specimen is submitted intact as (A). Received in Hollande's fixative labelled Surinder a nd #2 bx transverse colon are two biopsies which vary in si ze from 0.1 x 0.1 x 0.1 cm up to 0.7 x 0.2 x 0.2 cm. ??The specimen is submitted intact as (B ). Received in Hollande's fixative labelled Cadena and #3 bx sigmoid colon is a 0.7 x 0.2 ??x 0.2 cm biopsy. ??The specimen is sidhu bmitted intact as (C). Received in [facility]'s fixat amairani labelled Cadena and #4 bx rectum are two biopsies measuring 0.3 x 0.2 x 0.2 cm and 0.5 x 0.3 x 0.2 cm. ??The specimen is submitted intact as (D). ??(LARS Urena)/akhil End of Report Specimen Performing Organization Address City/State/ZIP Code Phon e Number [facility] [address] [place] [address] SERVICES [facility] [address] [place] [address] SURGICAL PATHOLOGY (08/17/2007 0:00 EDT) Pathologist [facility] Pathology Report: SURGICAL PATHOLOGY REPORT ? [address] Reports generated via TransferWise interface contain original data; ? LAB however they are lacking the format of the original report. ? Caution should be taken when reading/interpreting unformatted reports. ? Name: ? LEANNA CADENA ? Accession #: ? [id number] ? : ? 1950 (Age: 56) ??M ? Collec t Date: ? 08/17/2007 ? Location: ? [facility] ? R eceive Date: ? 08/20/2007 ? Provider: CHRISTOPHLEONOR АННА SON DO ? Copy to: GIUSEPPE QUINTANILLA MD ? Final Pathologic Diagnosis: ? A. ?Colon, asce nding, biopsy: ? 1. ?Acute colit is with acute inflammatory exudate and reactive ? epithelial changes. ??See co mment. ? B. ?Colon, de santiago sverse, biopsy: ? 1. ?Acute infla mmatory exudate. ? C. ?Colon, sigm oid, biopsy: ? 1. ?No patholog ic features. ? D. ?Rectum, bio psy: ? 1. ?No patholog ic features. ? Comment: ? The changes seen in t he ascending colon biopsy (A) may represent an ? infectious or ischemic colit is. ??Clinical correlation is recommended. ??(Dr. ? Jennifer)/kmm ? Document reviewed and electr onically signed by: ? Gregorio Escoto MD ? Report ??Date: 08/23/2007 16 :17 ? By the signature above, the attending physician certifies that he/she has ? personally conducted a gross and/or microscopic examination of the described ? specimens and rendered or co nfirmed the above diagnosis. ? Specimen(s) Received: ? A. ?Bx ascendin g colon ? B. ? Bx transverse colon ? C. ? Bx sigmoid colon ? D. ? Bx rectum ? Clinical History: ? Hx bloody diarrhea, R LQ pain, infectious colitis, on Cipro/Flagyl, ? inflammation only in ascendi ng colon ? Gross Description: ? Received in Reji' s fixative labelled Surinder and #1 bx ascending ?? colon are three polypoid bi opsies each measuring approximately 0.4 x 0.2 x 0.2 cm. ??The specimen is submit tim intact as (A). ? Received in Reji's fixat amairani labelled Surinder and #2 bx transverse ? colon are two biopsies whic h vary in size from 0.1 x 0.1 x 0.1 cm up to 0.7 x ?? 0.2 x 0.2 cm. ??The specimen is submitted intact as (B). ? Received in [facility]'s fixat amairani labelled Surinder and #3 bx sigmoid colon ?? is a 0.7 x 0.2 ??x 0.2 cm bi opsy. ??The specimen is submitted intact as (C). ? Received in [facility]'s fixat amairani labelled Surinder and #4 bx rectum are two biopsies measuring 0.3 x 0.2 x 0.2 cm and 0.5 x 0.3 x 0.2 cm. ??The specimen is ?? submitted intact as (D). ??( LARS Urena)/akhil ? End of Report ? Specimen Performing Organization Address City/[facility] [address]/ZIP Code Phon e Number [facility] [address] [place] [address] SERVICES [facility] [address] [place] [address] documented in this encounter Visit Diagnoses Not on filedocumented in this encounter Care Teams Acid Recovery Operator Relationship Specialty Start Date End Date Giuseppe Quintanilla MD PCP - General 01/02/15 01/23/19 Jorge Rosario MD PCP - General 01/24/19 02/26/20 Cathy Mota NP PCP - General 02/27/[address] [place] [address] [address] [place] [address] documented as of this encounter
--- OUTSIDE RECORDS SUMMARY | 2021-09-03 02:11 | XMS_ITS | Encounter Summary ---
:1950 Author Organization [facility] [place] [address] Care Team Providers Name Role Phone Jorge Rosario MD Primary Care Provider Encounter Details Date Type Department Care Team Description 08/17/2011 Hospital Encounter XRay at [facility] DJD (degenerative joint [address] [place] [address] Dr disease) [place] [address] Social History Tobacco Use Types Packs/Day [...] the 0 110 mcg/Actuation lungs daily. inhaler aspirin 325 mg tablet Take 1 tablet by mouth 60 tablet 1 08/26/2011 2 times daily for 42 days. acetaminophen Take 2 tablets by 30 tablet 0 07/15/2011 08/ (TYLENOL) 500 mg mouth every 8 hours. tablet OXYcodone (ROXICODONE) Take 1 tablet by mouth 100 tablet 0 0 07/15/2011 10/10/2011 5 mg immediate release every 4 hours as tablet needed for Pain (mild pain). omeprazole (PRILOSEC) 20mg, PO, Once daily 0 03/2307/26/2012 20 mg capsule documented as of this encounter Plan of Treatment Not on filedocumented as of this encounter Procedures Procedure Name Priority Date/Time Associated Diagnosis Comme nts XR PELVIS AND Routine 08/17/2011 12:41 PM Osteoarth NOS-pelvis Results for this LATERAL HIP EDT procedure are i n the results section. documented in this encounter Results XR PELVIS AND LATERAL HIP (08/17/2011 12:41 PM EDT) Anatomical Region Laterality Modality Pelvis, Hip N/A Radiographic Imaging Specimen (Source) Anatomical Collection Method Collection Time Re ceived Time Location / / Volume Laterality 08/17/2011 12:41 PM EDT Narrative 08/17/2011 3:40 PM EDT Examination PELVIS+LATERAL HIP/LEFT Clinical History Reason for exam and clinical history: s/ p hip arthroplasty; Comparison 07/15/2011. Technique AP pelvis and lateral view left hip. Findings The patient is status post noncemented l eft total hip arthroplasty. ??No acute complication is seen. ??Again noted are osteophytes at the right hip were there is superior joint space narrowing. Impression Left total hip arthroplasty without acut e complication. Procedure Note Luciano Deal MD - 08/17/2011Forma tting of this note might be different from the original. Examination PELVIS+LATERAL HIP/LEFT Clinical History Reason for exam and clinical history: s/ p hip arthroplasty; Comparison 07/15/2011. Technique AP pelvis and lateral view left hip. Findings The patient is status post noncemented l eft total hip arthroplasty. No acute complication is seen. Again noted are os teophytes at the right hip were there is superior joint space narrowing. Impression Left total hip arthroplasty without acut e complication. Mark Vines MD IMG DX ORDERABLES documented in this encounter Visit Diagnoses Diagnosis DJD (degenerative joint disease) of hip Osteoarthrosis, unspecified whether gene ralized or localized, pelvic region and thigh documented in this encounter Care Teams Head Inspector Relationship Specialty Start Date End Date Jorge Rosario MD PCP - General 05/18/11 03/23/[address] [place] [address] documented as of this encounter
--- OUTSIDE RECORDS SUMMARY | 2021-09-03 02:11 | XMS_ITS | Encounter Summary ---
:1950 Author Organization [facility] [place] [address] Care Team Providers Name Role Phone Jorge Rosario MD Primary Care Provider Encounter Details Date Type Department Care Team Description 08/22/2019 External Results Medical Records Provider, [facility] [place] [address] Social History Tobacco Use Types Packs/Day [...] Associated Diagnosis Comme nts SURGICAL PATHOLOGY Routine 08/22/2019 Results f or this SCAN procedure are i n the results section . documented in this encounter Results Scan Doc: Surgical Pathology (08/22/2019) Narrative This result has an attachment that is no t available. Historical Provider MD SUGGS MGR SCAN EXT ORDR/RSLT documented in this encounter Visit Diagnoses Not on filedocumented in this encounter Care Teams Institutional Nutrition Consultant Relationship Specialty Start Date End Date Jorge Rosario MD PCP - General 05/18/11 03/23/[address] [place] [address] documented as of this encounter
--- OUTSIDE RECORDS SUMMARY | 2021-09-03 02:11 | XMS_ITS | Encounter Summary ---
:1950 Author Organization [facility] Address [facility] [place] [address] Care Team Providers Name Role Phone Jorge Rosario MD Primary Care Provider Reason for Visit Reason Comments Aftercare Of Tjr Left TRINI 07/14/11 Encounter Details Date Type Department Care Team Description 08/06/2012 Office Visit Orthopaedics at [facility], DR SARAH AMBROSIO of Left hip s/p [facility] Manjinder Franks PA [facility] [address] L TRINI on 07[address] Drive (Primary Dx) [place] [phone] Social History Tobacco Use Types Packs/Day Years [...] Sign Reading Time Taken Comments Blood Pressure 140/78 08/06/2012 3:16 PM EDT Pulse 54 08/06/2012 3:16 PM EDT Temperature - - Respiratory Rate - - Oxygen Saturation - - Inhaled Oxygen Concentration - - Weight 79.4 kg (175 lb) 08/06/2012 3:16 PM EDT Height 172.7 cm (5' 8) 08/06/2012 3:16 PM EDT Body Mass Index 26.61 08/06/2012 3:16 PM EDT documented in this encounter Patient Instructions Patient InstructionsManjinder Franks PA - 08/06/2012 3:46 PM EDT -activities as tolerated with exception of running (axial loading) -infection awareness -continue stretching and strengthening -antibiotic prior to dental work documented in this encounter Progress Notes Manjinder Franks PA - 08/06/2012 3:51 PM EDT Date: July 14, 2011 Surgeon: Mark Vines MD Surgical Procedure Performed: Injection left hip with 10 cc marcaine 0.25% with epi, into skin and subcutaneous tissues (CPT code 08154) Left total hip arthroplasty, anterior Hueter approach with Borger table (CPT code 16625) Left hip intraoperative radiologic examination (CPT code 87355) Components Used: Billy Accolade 2 stem, size 5, 127 degrees Tritanium cup, 58 mm, cluster 36 mm ID, neutral poly 36-2.5 mm Biolox head Bearing surface: ceramic on poly HPI: 61 yo male returns 1 year from his hip replacement. He has done well. He has no pain; mild stiffness after activity which resolves readily. He has no complaints in regard To the hip. His health has been stable aside from the hip. Questionnaire Responses: myD-H Hip & Knee 08/06/2012 MODEMS Expectation - MODEMS Satisfaction 100 VR12 - Physical Component Summary 50.67 VR12 - Mental Component Summary 57.53 PROMIS-10 General Health Very Good PROMIS-10 Quality of Life Very Good PROMIS-10 Physical Health Very Good PROMIS-10 Mental Health Very Good PROMIS-10 Social Activity and Relationship Satisfaction Very Good PROMIS-10 Social Roles at Home and Work Very Good PROMIS-10 Everyday Physical Activities Completely PROMIS-10 Anxious or Depressed last 7 days Rarely PROMIS-10 Fatigue last 7 days Moderate PROMIS-10 Pain last 7 days 1 PROMIS PHYSICAL HEALTH SCORE (range 16-68) 50.8 PROMIS MENTAL HEALTH SCORE (range 21-68) 53.3 Arthritis Ladder - Hip - X-rays: Noncemented hip implants; no sign of loosening or subsidence. No evidence of complication. There has been interval bone growth Assessment: S/p left TRINI Plan: We reviewed joint precautions and infection management. Antibiotic prophylaxis was recommended. We discussed appropriate activities to prevent premature implant failure. I encouraged continued joint specific rehab exercises. We'll plan to f/u in 1 year(s) or sooner as needed. documented in this encounter Plan of Treatment Not on filedocumented as of this encounter Visit Diagnoses Diagnosis DJD of Left hip s/p L TRINI on 07/13 - Prim prateek Osteoarthrosis, unspecified whether gene ralized or localized, pelvic region and thigh documented in this encounter Care Teams Live Games Dealer Relationship Specialty Start Date End Date Jorge Rosario MD PCP - General 05/18/11 03/23/21 [facility] [address] [place] [address] documented as of this encounter
--- OUTSIDE RECORDS SUMMARY | 2021-09-03 02:11 | XMS_ITS | Encounter Summary ---
:1950 Author Organization [facility] Address [facility] [place] [address] Care Team Providers Name Role Phone Jorge Rosario MD Primary Care Provider Reason for Visit Reason Comments Aftercare Of Tjr SP L TRINI DOS 07/14/11 (ANTERI OR) Encounter Details Date Type Department Care Team Description 08/17/2011 Office Visit Orthopaedics at [facility] Mark Vines, S/P total hip [facility] arthroplasty ([address] [place]) [place] [address] [phone] [place] [address] Social History Tobacco Use Types Packs/Day Years [...] Sign Reading Time Taken Comments Blood Pressure 139/83 08/17/2011 1:32 PM EDT Pulse 67 08/17/2011 1:32 PM EDT Temperature 36.5 ??C (97.7 ??F) 08/17/2011 1:32 PM EDT Respiratory Rate - - Oxygen Saturation - - Inhaled Oxygen Concentration - - Weight 84 kg (185 lb 3.2 oz) 08/17/2011 1:32 PM EDT Height 172.7 cm (5' 8) 08/17/2011 1:32 PM EDT Body Mass Index 28.16 08/17/2011 1:32 PM EDT documented in this encounter Progress Notes Mark Vines MD - 04/01/2012 7:11 PM EST One month visit for this pleasant gentleman who had a left anterior total hip arthroplasty approximately one month ago. Overall doing well, excellent pain control with tyzm-azi-uqfulor analgesics. No significant complications. Using no ambulatory devices most of the time. Review of systems: All negative. myD-H Hip & Knee 08/16/2011 MODEMS Expectation MODEMS Satisfaction 100 VR12 - Physical Component Summary 42.5 VR12 - Mental Component Summary 42.14 Radiographs: Implants in excellent position, leg lengths and offset set equal. No evidence of complication. Examination: Incision dry, healing well, no drainage or dehiscence. Calves are soft. Passive range of motion of the left hip is comfortable. Plan: Referral to physical therapy, counseling regarding appropriate activities at this point, askedhim to stay away from any significant or strenuous activities until 3 months after surgery since this is the type of stem which bony ingrowth into the implant should be relatively stable. documented in this encounter Plan of Treatment Not on filedocumented as of this encounter Visit Diagnoses Diagnosis S/P total hip arthroplasty - Primary Hip joint replacement by other means documented in this encounter Care Teams Life Trainer Relationship Specialty Start Date End Date Jorge Rosario MD PCP - General 05/18/11 03/23/[address] [place] [address] documented as of this encounter
--- OUTSIDE RECORDS SUMMARY | 2021-09-03 02:11 | XMS_ITS | Encounter Summary ---
:1950 Author Organization [facility] Address [address] [place] [address] Care Team Providers Name Role Phone Giuseppe Quintanilla MD Primary Care Provider Unavailable Jorge Rosario MD Primary Care Provider Unavailable Cathy Mota NP Primary Care Provider Encounter Details Date Type Department Care Team Description 05/20/2005 Hospital Encounter [facility] Alicia Rich MD 111 [facility] [address] [place] [address] [address] [place] [address] (Wo rk) Social History Tobacco Use Types [...] 03/07/2022 Telemedicine Rheumatology Sirisha Puckett MD 130 [facility] [address] [place] [address] (Wo rk) 07/12/2022 Office Visit Dermatology Lian Bai MD 111 [facility], [address] [place], [place] [address] (Wo rk) documented as of this encounter Visit Diagnoses Not on filedocumented in this encounter Care Teams Insurance Policy Issue Clerk Relationship Specialty Start Date End Date Giuseppe Quintanilla MD PCP - General 01/02/15 01/23/19 Jorge Rosario MD PCP - General 01/24/19 02/26/20 Cathy Mota NP PCP - General 02/27/[address] [place] [address] [address] [place] [address] documented as of this encounter
--- OUTSIDE RECORDS SUMMARY | 2021-09-03 02:11 | XMS_ITS | Encounter Summary ---
:1950 Author Organization [facility] Address [facility] [address] Care Team Providers Name Role Phone Jorge Rosario MD Primary Care Provider Reason for Visit Reason Comments Left Hip Pain DOS 07/14/11 Left TRINI Encounter Details Date Type Department Care Team Description 10/10/2011 Office Visit Orthopaedics at [facility] Mark Vines, Status post hip replacement (Primary Dx); [facility] MD AMBROSIO of Left hip s/p L TRINI on [address] [place] [address] [phone] [place] [address] Social History Tobacco Use Types Packs/Day Years [...] Sign Reading Time Taken Comments Blood Pressure 128/80 10/10/2011 3:18 PM EDT Pulse 68 10/10/2011 3:18 PM EDT Temperature - - Respiratory Rate - - Oxygen Saturation - - Inhaled Oxygen Concentration - - Weight 81.6 kg (180 lb) 10/10/2011 3:18 PM EDT Height 172.7 cm (5' 8) 10/10/2011 3:18 PM EDT Body Mass Index 27.37 10/10/2011 3:18 PM EDT documented in this encounter Progress Notes Lian Galeano, RUFINA - 10/10/2011 3:42 PM EDT Patient Name: Yaw Cadena : 1950 MR#: [id number] Case Date: 07/14/11 Surgeon: Kezia Vines Procedure: left total hip replacement HPI: Yaw Cadena is a very pleasant 60 y.o. year-old male who presents for a 3 months follow-up of the above procedure. The patient has been doing very well and his pain is markedly improved over preoperative status. No fevers, chills, nausea, vomiting, or symptoms of infection. Yaw has been ambulating with no assistive device. He is planning to retire in 7 days and traveling for the next2 months to [place]. Physical Exam: Well-appearing male in no acute distress. Alert and Oriented x 3 and answers all questions appropriately. Hip Exam: Left Keen Hip Score: Less than 30 degrees of fixed flexion: Yes Less than 10 degrees of fixed adduction: Yes Less than 10 degrees of fixed int rotation in extension: Yes Limb Length discrepancy: 0cm Motion: Total degrees of Flexion: 95 Total degrees of Abduction: 45 Total degrees of Ext Rotation: 30 Total degrees of Adduction: 5 Gait Abnormality: Normal Pulses Palpable: Right PT: Yes Right DP: Yes Motor/Sensory: Left Distal Motor: Normal Distal Sensory: Normal ASSESSMENT/PLAN: 3 months post-op and doing well. Continue weightbearing as tolerated and working onrange of motion, and we will see him back in 9 months for repeat examination. x-rays will be needed at that time. Patient may return to normal activities as his pain and function allow. We discussed the appropriate precautions surrounding dental prophylaxis. I stressed that he should avoid elective dental procedures for the first 6 months after surgery and then call the office for a prescription prior to any further dental work for the lifetime of the joint replacement. We also discussed maintaining good foot care and giving prompt attention to any source of infection throughout thebody including foot ulcers and urinary tract infections. Signed: RUFINA GODWIN 10/10/2011 documented in this encounter Plan of Treatment Not on filedocumented as of this encounter Results XR pelvis AP and [...] documented in this encounter Visit Diagnoses Diagnosis Status post hip replacement - Primary Hip joint replacement by other means DJD of Left hip s/p L TRINI on 07/13 Osteoarthrosis, unspecified whether gene ralized or localized, pelvic region and thigh DJD of Left hip s/p L TRINI on 07/13 Osteoarthrosis, unspecified whether gene ralized or localized, pelvic region and thigh Status post hip replacement Hip joint replacement by other means documented in this encounter Care Teams Invoice Control Clerk Relationship Specialty Start Date End Date Jorge Rosario MD PCP - General 05/18/11 03/23/[address] [place] [address] documented as of this encounter
--- OUTSIDE RECORDS SUMMARY | 2021-09-03 02:11 | XMS_ITS | Encounter Summary ---
:1950 Author Organization [place] [address] Care Team Providers Name Role Phone Jorge Rosario MD Primary Care Provider Reason for Referral Physical Therapy (Routine) - Complete - Patient Will Schedule External Appt Specialty Diagnoses / Procedures Referred By Contact Refer red To Contact Physical Therapy Diagnoses Status post hip replacement [facility] [address] [place] [address] [place] [phone] Referral ID Status Reason Start Expiration Visits Visits Date Date Requested Authorized [id number] Complete - Evaluate and 08/05/2011 02/01/2012 12 12 Patient Will Treat Schedule External Appt Encounter Details Date Type Department Care Team Description 08/05/2011 Orders Only [place] [facility] [place] Mckeon, Status post hip [facility] Roberta mclaughlin RN replacement ([place] [phone] Dx) [phone] Social History Tobacco Use Types Packs/Day Years [...] as of this encounter Plan of Treatment Scheduled Referrals Name Type Priority Associated Diagnoses Order S chedule REFERRAL TO Outpatient Referral Routine Status post hip Order ed: PHYSICAL THERAPY replacement 08/05/2011 documented as of this encounter Visit Diagnoses Diagnosis Status post hip replacement - Primary Hip joint replacement by other means documented in this encounter Care Teams Bricklayer Supervisor Relationship Specialty Start Date End Date Jorge Rosario MD PCP - General 05/18/11 03/23/[address] [facility] [address] [place] [address] documented as of this encounter
--- OUTSIDE RECORDS SUMMARY | 2021-09-03 02:11 | XMS_ITS | Encounter Summary ---
:1950 Author Organization Address [address] [place] [address] Care Team Providers Name Role Phone Unavailable Primary Care Provider Unavailable Encounter Details Date Type Department Care Team Description 07/16/2004 Before PRISM Converted [facility], Visit (Maple) Maple conversion MD Kaya [address] [place] [address] Social History Tobacco Use Types Packs/Day Years Used Date Never Assessed Sex Assigned at Date Recorded Not on file documented as of this encounter Procedure Notes Rigoberto, Conv Chemist Food - 10/01/2010 1201 EDT DATE: 07/16/2004 SURGEON: YONI BOBO MD INFORMATION RECEPTIONIST: KAYA MYLES MD; KIM HARRINGTON MS IV PREOPERATIVE DIAGNOSIS: Right wrist arthritis, rheumatoid arthritis. POSTOPERATIVE DIAGNOSIS: Right wrist arthritis, rheumatoid arthritis PROCEDURE: 1. Right wrist fusion. 2. Darrach procedure. 3. Partial wrist denervation. ANESTHESIA: Axillary block. Laryngeal mask airway. Local. INDICATIONS: Mr. Cadena is a 55-year-old gentleman with rheumatoid arthritis who has had long-standing right wrist pain secondary to arthritic changes. He has significantly limited range of motion at this point and a wrist fusion to alleviate his pain was indicated. The risks and benefits of the procedure were discussed at length and proper consent was obtained. PROCEDURE: Mr. Cadena had an axillary block placed by the Anesthesia Team in the preop hold and then was brought to the operative suite. He was placed supine on the operating room table with his right arm extended over an arm board. His right arm had a tourniquet unsterilely placed at the top of his arm. His arm was sterilely prepped and draped in the usual fashion from his fingertips to above hiselbow. Prior to moving forward, a carey moment was taken indicating the patients name. Two grams ofIV Kefzol were infused prior to tourniquet inflation. An Esmarch was used to exsanguinate the limb and the tourniquet was inflated to 250 mmHg. A longitudinal dorsal incision was made over the third metacarpal over the wrist and then over the proximal distal radius. It was carried sharply down throughthe skin intothe subcutaneous tissue. Small crossing veins were cauterized. The EPL tendon was visualized and taken out of the third extensor compartment and dislocated over Listers tubercle. The dissection was then carried distal sharply and a capsulotomy was made revealing the underlying wrist jointand carpal bone. There was clearly pancarpal arthritis with severe degenerative changes including settling and bony malformation. Inspection of the distal radioulnar joint revealed significant degenerative changes to the ulnar head and quite lax ligamentous structures. There was no obvious TFCC intact. The dorsal and volar radial ulnar ligaments were incised and the ulnar head was removed using a ??-inch sagittal saw. Attention was turned to a synovectomy throughout the wrist in the DRUJ at this point. There were significant amounts of inflamed synovium which was thickened. This was removed using the sharp rongeur and curette. Attention was then turned to removing articular cartilage. The articulations between radiocarpal joints and midcarpal joint were all denuded of articular cartilage down to subchondral bone. This was done using a high-speed bur as well as needle-nosed rongeur. The wrist wasthen fitted with a 3.5/2.7 mm wrist fusion plate with dorsal angulation. This fit well. The cancellous bone within the ulnar head was used as bone graft and placed in the intercarpal joints and radiocarpal joints. One cc of Christie was then pushed into the radiocarpal and midcarpal joints. The plate was then fixed tothe distal radius and the middle of the third metacarpal shaft. A 2.7 mm cortical screw was placed in the third metacarpal shaft and a 3.5-mm cortical screw was placed in the distal radius. Fluoroscopy was then brought in and the wrist fusion position was imaged. This was felt to be adequate. The remaining screws were then inserted including two more 2.7-mm cortical screws into the third metacarpal, one 2.7-mm screw into the midcarpal joint and two 3.5-mm cortical screws in the distalradius. These were all then checked under x-ray image and the screw lengths and alignment were felt to be adequate. The sensory branch of the posterior interosseous nerve was visualized and cut for a partial wrist denervation. The wound was then irrigated lightly. The fourth extensor compartment was reconstituted by closing the fascia dorsally. This was done using 3-0 Vicryl. The distal forearm fascia was then closed in interrupted fashion using 3-0 Vicryl. The skin was closed using 4-0 nylon in vertical mattress orientation. A sterile dressing was applied to the skin and a volar splint was placed.The tourniquet was let down at 83 minutes. The patient tolerated the procedure well and was brought to the PACU for postoperative care. Dr. Bobo was present and scrubbed for the entire procedure. d - 07/16/2004 13:19:22 - KAYA MYLES MD t - 07/17/2004 00:13:21 - [facility] Voice ID - [id number] Document ID - [id number] cc: KAYA MYLES MD, <DICTATOR> DEBORAH HUNTER MD, REFERRING PHYSICIAN YONI BOBO MD, ATTENDING PHYSICIAN KAYA MYLES MD, <Dictator> This document has been electronically signed by YONI BOBO MD on 07/28/2004 14:40:53. [id number] cc: YONI BOBO MD, ATTENDING PHYSICIAN DEBORAH HUNTER MD, REFERRING PHYSICIAN KAYA MYLES MD, <DICTATOR> documented in this encounter Plan of Treatment Upcoming Encounters Date Type Specialty Care Team Description 09/16/2021 Nurse Only Infusion Therapy 09/30/2021 Nurse Only Infusion Therapy 03/07/2022 Telemedicine Rheumatology Sirisha Puckett MD [address] [place] [address] [phone] (Wo rk) 07/12/2022 Office Visit Dermatology Lian Bai MD [address] [facility] [place], [place] [address] (Wo rk) documented as of this encounter Visit Diagnoses Not on filedocumented in this encounter
--- OUTSIDE RECORDS SUMMARY | 2021-09-03 02:11 | XMS_ITS | Encounter Summary ---
:1950 Author Organization [facility] Address [facility] [address] [place] [address] Care Team Providers Name Role Phone Jorge Rosario MD Primary Care Provider Reason for Visit Reason Comments Follow Up Surgery left ant daniela 07/14/11 Encounter Details Date Type Department Care Team Description 08/12/2013 Office Visit [facility] [place] [facility] [place] SMITH H/O total hip [facility] arthropla sty left Drive 07-14-11 [place] [address] Social History Tobacco Use Types Packs/Day [...] Sign Reading Time Taken Comments Blood Pressure 133/76 08/12/2013 12:39 PM EDT Pulse 58 08/12/2013 12:39 PM EDT Temperature - - Respiratory Rate - - Oxygen Saturation - - Inhaled Oxygen Concentration - - Weight 83.4 kg (183 lb 14.4 oz) 08/12/2013 12:39 PM EDT Height 172.7 cm (5' 8) 08/12/2013 12:39 PM EDT Body Mass Index 27.96 08/12/2013 12:39 PM EDT documented in this encounter Progress Notes Ray Eid PA - 08/12/2013 1:03 PM EDT Subjective: Yaw Cadena is 62 y.o. and is now 2 years post left total hip arthroplasty. The patient is not having any pain. The patient denies fever, wound drainage, increasing redness, pus, increasing pain, increasing swelling. Post op problems reported: none He is ambulating with a normal gait and no as sistive devices. ROS: Denies fevers, chills, night sweats, nausea,or vomiting. Objective: BP 133/76 Pulse 58 Ht 172.7 cm (5' 8) Wt 83.416 kg (183 lb 14.4 oz) BMI 27.97 kg/m2 General : alert, appears stated age and cooperative Gait: Normal. Tenderness: none DVT Evaluation: No evidence of DVT seen on physical exam. I have made the following determinations: Post Op left Hip Exam: Keen Hip Score: Less than 30 degrees of fixed flexion: Yes Less than 10 degrees of fixed adduction: Yes Less than 10 degrees of fixed int rotation in extension: Yes Limb Length discrepancy: 0cm Motion: Total degrees of Flexion: 90 Total degrees of Abduction: 25 Total degrees of Ext Rotation: 30 Total degrees of Adduction: 5 Gait Abnormality: Normal Pulses Palpable: left PT: Yes left DP: Yes Motor/Sensory: left Distal Motor: Normal Distal Sensory: Normal Hip Abductors: 5 Imaging X-rays demonstrate a well seated arthroplasty Assessment: Status post left total hip arthroplasty. Plan: Continue with activities as tolerated We discussed the appropriate precautions surrounding dental prophylaxis. We also discussed maintaining good foot care and giving prompt attention to any source of infection throughout the body including foot ulcers and urinary tract infections. Follow up: 2 years. with x-rays of the left hip RUFINA FRITZ documented in this encounter Plan of Treatment Not on filedocumented as of this encounter Visit Diagnoses Diagnosis H/O total hip arthroplasty left 07-14-11 Hip joint replacement by other means documented in this encounter Care Teams Livestock Nutritionist Relationship Specialty Start Date End Date Jorge Rosario MD PCP - General 05/18/11 03/23/[address] [place] [address] documented as of this encounter
--- OUTSIDE RECORDS SUMMARY | 2021-09-03 02:11 | XMS_ITS | Encounter Summary ---
:1950 [place] [address] Care Team Providers Name Role Phone Kitty Nuñez MD Primary Care Provider Encounter Details Date Type Department Care Team Description 07/14/2011 - Hospital Encounter 3 Pebbles Bro, HEBERT of Left hip s/p L TRINI on 07/13 (Primary Dx); 07/15/2011 [facility] Hip pain, bilateral [address] [place] [phone] Social History Tobacco Use Types Packs/Day Years [...] Sign Reading Time Taken Comments Blood Pressure 105/66 07/15/2011 5:50 AM EDT Pulse 81 07/15/2011 7:00 AM EDT Temperature 36.8 ??C (98.2 ??F) 07/15/2011 5:50 AM EDT Respiratory Rate 18 07/15/2011 7:00 AM EDT Oxygen Saturation 96% 07/15/2011 7:00 AM EDT Inhaled Oxygen Concentration - - Weight 81.6 kg (180 lb) 07/14/2011 1:33 PM EDT Height 172.7 cm (5' 8) 07/14/2011 1:33 PM EDT Body Mass Index 27.37 07/14/2011 1:33 PM EDT documented in this encounter Discharge Instructions Patient InstructionsYudy Maya PA - 07/14/2011 3:06 PM EDT DISCHARGE INSTRUCTIONS AND FOLLOWUP APPOINTMENTS: Activity: You can fully weight bear as tolerated on your left leg using a walker or crutches at all times for balance and protection. Wear the ISHAN hose bilaterally to your lower legs until you are seenin followup. You should remove these at least once per day to inspect your skin. Anti-coagulation follow up: You have been discharged on enteric coated Aspirin to prevent blood clots. You should take Aspirin 325 mg twice daily x 6 weeks- STOP on August 25, unless you are told otherwise by Dr. Vines. Take each dose with food to help prevent stomach irritation. Diet: Resume a regular diet as tolerated but increase your intake of fluids and fiber while you are on narcotics to prevent constipation. Drink plenty of fluids to stay hydrated. Increase the amount ofprotein in your diet to promote healing. Driving: NO driving until you are cleared to do so by Dr. Vines. You should NOT drive while you are on narcotic pain meds as these can affect your judgement and reaction times. Contact your surgeon with any questions. Medications: 1. The pain medication you are on can cause constipation so increase your intake of fluids and fiberwhile you are on them. The stool softener, Sennakot, that has been prescribed can also be taken to facilite a bowel movement. You can take an ohga-brb-qqhhksp medication, miralax if needed. 2. If you need a renewal on your narcotic pain medication, you need to give the Orthopedic clinic enough time to process your request. This can take up to three days, so plan accordingly. 3. The charts below will let you know of any medication changes that might have occured during your hospital stay. 4. As your pain improves, decrease your dose of pain medication and space your doses further apart. Wound: 1. You do not have any external sutures or stan in place. Your sutures are internal and will be absorbed over time. 2. May shower if safe standing or with a shower seat, but use the tegaderm or other waterproof dressing to cover the incision. DO NOT submerge the wound. Remove the tegaderm after the shower and replace with a new dry dressing. After 10 days, if there is no drainage from the incision, may shower without a dressing on. 3. Change your dressing daily with a dry sterile dressing for 1 week. After that leave the incision open to air. 4. Call your orthopedic surgeon- Dr. Vines (#[phone]) with any fever, chills, sweats, redness or drainage from the wound. Misc: Remember that ICE and elevation are very important after surgery to help decrease swelling andcontrol pain. Use ICE for 20-30 minutes at a time and keep your leg elevated as much as possible. Follow up Appointments: X-rays in Radiology 3T prior to follow up appointment: August 11 at 11:45 AM. Follow up appointment with Dr. Vines in Orthopedics 3C: August 11 at 12:45 PM. documented in this encounter Medications at Time of Discharge Medication Sig Dispensed Refills Start Date End Date GOLIMUMAB (SIMPONI Inject subcutaneously 0 SUBQ) every 30 days. fluticasone (FLOVENT) Inhale 1 puff into the 0 110 mcg/Actuation lungs daily. inhaler aspirin 325 mg tablet Take 1 tablet by mouth 60 tablet 1 08/26/2011 2 times daily for 42 days. bisacodyl (DULCOLAX) 5 Take 2 tablets by 30 tablet 2 201108/17/2011 mg EC tablet mouth 2 times daily as needed for Constipation. acetaminophen Take 2 tablets by 30 tablet 0 07/15/201109/21 (TYLENOL) 500 mg mouth every 8 hours. tablet OXYcodone (ROXICODONE) Take 1 tablet by mouth 100 tablet 0 0 07/15/2011 10/10/2011 5 mg immediate release every 4 hours as tablet needed for Pain (mild pain). senna-docusate Take 1-4 tablets by 60 tablet 1 07/15/2011 0 08/17/2011 (PERICOLACE) 8.6-50 mg mouth 2 times daily. per tablet omeprazole (PRILOSEC) 20mg, PO, Once daily 0 03/2307/26/2012 20 mg capsule documented as of this encounter Progress Notes Sheba Davis RN - 07/15/2011 4:23 PM EDT Patient discharge to home. IV removed, site benign. My assessment remains unchanged from my previousassessment. RN Discussed pain management with patient, pain tolerable. Patient medicated prior to discharge. Patient has all belongings and supplies needed. Patient received After Visit Summary and prescriptions. These were reviewed, patient verbalizes understanding of AVS. All questions answered. Patient encouraged to call with questions or concerns. Patient discharged to home with family. VNA called with [facility] Mat[facility] an paperwork faxed to same. Jay Greer - 07/15/2011 12:53 PM EDT Medication Aid Encounter Note Patient Name: Yaw Cadena : [id number] MR#: [id number] Admit Date: 07/14/2011 6:09 AM Hospital Day 1 day Narrative:Visited to introduce and assess acceptance of Medication Aid services. Pt was sitting on chairwatching TV. Assessment:Patient coping positively with stresses of illness/hospitalization at this time. Pt ws ingood spirit and very welcoming. Intervention and Outcome:Pt has good family support and living with family. Medication Aid services accepted. Conversation to build trusting relationship. Follow-up: Pt is hoping to go home if here then follow up Time in Direct Care: 15 Min Jay Greer 07/15/2011 Loretta Daugherty RN - 07/15/2011 9:52 AM EDT This is a healthy appearing 60 yo gentleman who underwent L anterior TRINI with dr Vines on 07/15/11. Pt has been OOB, ambulated and cleared for stairs. Pt has had al d/c'd and he has voided, juanito po, pain controlled and pt feels ready for discharge to home. We discussed VNA services thru [facility] for home PT. Pt will discharge on ASA. Pt requests FWW and agrees to securing thru [facility]. Pt is and available to transport but she works and will only be available for assist limited time. Pt has 2 grown dtrs who will be home with pt. Pt has few steps with rail at entry. Will complete VNA referral and secure FWW anticipate d/c later today. TINT Allan Powers III, MD - 07/15/2011 7:07 AM EDT Orthopaedic Surgery Inpatient Progress Note Yaw Cadena is a 60 y.o. male who underwent Total Hip Replacement. Date of Admission: 07/14/2011 Hospital Day 1 day Subjective: The patient is doing well. Pain is under control.no nausea, emesis, sob or chest pain. Mobilizing, voiding, tolerating po. Objective: Vital signs stable. Last value Range last 8 hrs Temperature Temp: 36.8 ??C (98.2 ??F) Temp: [36.7 ??C (98.1 ??F)-36.8 ??C (98.2 ??F)] Heart Rate Heart Rate: 86 Heart Rate: [86-89] Blood Pressure BP: 105/66 mmHg BP: (105-113)/(61-66) Respiratory Rate Resp: 18 Resp: [14-18] SpO2 SpO2: 94 % SpO2: [94 %] Intake/Output Summary (Last 24 hours) at 07/15/11 0707 Last data filed at 07/15/11 0550 Gross per 24 hour Intake 3743 ml Output 4640 ml Net -897 ml Physical Exam: General: alert and oriented and no apparent distress Cardio Vascular: RRR checked peripherally Abdomen:soft Extremity Exam: Left Hip: Dressing is clean, dry and intact. Thigh:soft Calves:soft Sensation: superficial peroneal intact, deep peroneal intact and tibial intact Motor Function: ankle plantar flexion intact, ankle dorsiflexion intact, and EHL intact, Dorsalis Pedal pulse is present Laboratory Lab Results Component Value Date WBC 9.4 07/15/2011 Hemoglobin 9.7* 07/15/2011 Hematocrit 28.9* 07/15/2011 Platelets 141* 07/15/2011 Potassium 4.0 07/15/2011 Calcium 7.6* 07/15/2011 Glucose Lvl 110 07/15/2011 BUN 9* 07/15/2011 Creatinine 0.74* 07/15/2011 Assessment:pod#1 s/p L TRINI. Stable. Likely home today Plan: ?? Mobilize with Physical Therapy. Weight bearing WBAT ?? Change dressing daily, starting POD #2. ?? Antibiotics x 24 hours ?? Pain Control: oral analgesia ?? DVT Prophalaxis: Mechanical compression and Aspirin, 325 mg tablet BID ?? Discharge Planning: Home. Follow up in 4-6 weeks with AP Pelvis and Lateral Hip X-Rays. ALLAN POWERS III, MD 07/15/2011 Fannie Epstein RN - 07/14/2011 1:30 PM EDT Pt arrived to floor from PACU via bed in stable condition. Pt is alert and oriented times three. Vital signs stable. Pt denies chest pain and SOB. Heart rate is regular, lung sounds are clear bilaterally. Al catheter remains intact draining adequate amounts of clear, yellow urine. Hypoactive bowel sounds in all four quadrants. Pt reports that pain is a 3 out of 10. Pt using CHIPPER FEEDER appropriately. Dressing to left hip is clean, dry and intact. Pt educated on use of incentive spirometer. Call bee in reach, will continue to monitor. Swathi Fontanez MD - 07/14/2011 12:19 PM EDT Orthopaedic Surgery Post-Op Check Note Surgery: Left Anterior TRINI Patient Active Problem List Diagnoses Code ??? CIS - Bilateral hip OA ??? CIS - Bilateral shoulder pain ??? CIS - Entered not Verified ??? CIS - Exercize induced asthma ??? CIS - Rheumatoid arthritis ??? DJD of hip s/p Anterior TRINI on 07/13 715.95U S/Events: Denies CP, SOB, nausea, vomiting, abd pain. Pain well controlled. Denies paresthesia in lateral leftthigh. O: Vitals: Temp: [36.1 ??C (97 ??F)-36.4 ??C (97.5 ??F)] Heart Rate: [44-59] Resp: [16-18] BP: (100-158)/(54-85) SpO2: [95 %-100 %] I/O this shift: In: 2137 [I.V.:2137] Out: 1914 [Urine:1465; Blood:450] Exam: General: NAD, awake/alert Resp: Breathing comfortably Abd: S/NT/ND LLE: Dressing c/d/i. Motor intact to EHL, FHL, TA. Sensation intact in foot/calf. Brisk capillary refill distally. Imaging: Date: 07/13 - AP Pelvis The left hip is reduced. There is no evidence of intra-op fracture. A/P: 60 y.o. year old male POD#0 s/p left anterior TRINI, progressing well with stable vitals and uop. - Orders reviewed - continue all post-operative care - No hip precautions Latanya Mancia RN - 07/14/2011 10:24 AM EDT 1024: Left hip X Rays done 1040: S.O. to bedside for brief visit. 1008: Phone ISBAR report to Paz DUARTE on [address] Kelly Orlando RN - 07/14/2011 7:06 AM EDT Compression stocking to right leg documented in this encounter H&P Notes Allan Powers III, MD - 07/14/2011 6:27 AM EDT The patient's history and physical exam have been reviewed and completed. There has been no intervalchange from that of the pre-operative history and physical exam. However the patient did cut himselfon the distal aspect of his right middle finger on razor this am. Will discuss with Dr. Vines. documented in this encounter Procedure Notes Provider, Mike - 07/16/2011 1:24 PM EDTAssociated Order(s): SCAN DOC: IMPLANTABLE DEVICES; SCAN DOC: IMPLANTABLE DEVICES documented in this encounter Miscellaneous Notes Miscellaneous - Provider, Mike - 07/16/2011 12:20 PM EDT Plan of Care - Sheba Davis RN - 07/15/2011 4:13 PM EDT Problem: Pressure Ulcer Risk (Using Jeremy Scale) (Adult, Obstetric) Intervention: Pressure Ulcer Risk (Using Jeremy Scale): Related Risk Factors Patients skin noted to be intact at this time and free of pressure ulcers. Patient able to independently turn themselves every 2 hours. RN will monitor patients skin. Problem: Hip Replacement, Total (Adult) Intervention: Infection Prevention Patient POD 1. Patient ambulating with walker independently. Patient aware of daily exercises and following their precautions. Incision is free of signs/symptoms of infection. Patient is using ice appropriately before and after exercising. Problem: Pain, Acute (Adult, Obstetric) Intervention: Acute Pain: Related Risk Factors Patient tolerating tylenol 1000mg every 8 hours and oxycodone every 4 hours as needed. . Patient states pain is 3-4/10. Patient aware to alert RN if pain is not being controlled with current pain medication. RN will monitor patient. Patient is free of falls and is calling appropriately for ambulation. Initial Assessments - Nicky Carmona OT - 07/15/2011 11:40 AM EDT Occupational Therapy Evaluation Patient profile: Yaw Cadena is a 60 y.o. male patient of Pebbles Jung MD;Benigno Vines*, admitted on 07/14/2011 for L TRINI via anterior approach. Past Medical History Diagnosis Date ??? Osteoarthritis ??? Rheumatoid arthritis ??? Nasal polyp ??? S/P nasal polypectomy ??? Exercise-induced asthma ??? GERD (gastroesophageal reflux disease) 07/14/2011 ??? History of smoking 07/14/2011 ??? 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 Anemia 07/14/2011 ??? History of hemorrhagic colitis 07/14/2011 Past Surgical History Procedure Date ??? Wrist surgery Social History: Patient lives with his , two children, one graduating from high school the other home from college for the summer. Has three steps with rail to enter and full flight of steps to his bedroom with rail. Has no walker. Wants to walk with walker. Has available for a week. Interested in home PT then outpatient. Has walk in shower set-up, and regular free standing toilet in the home. Precautions/Special Considerations: Anterior hip, no formal precautions; Full WBAT Post-operative course: uneventful Objective: Seen today for OT evaluation. Cognitive Status/Behavior: alert, oriented to person, place, and time and affect appropriate to mood Vision & Perception: NA Range of motion, strength, coordination: Hand dominance: right Bilateral UEs are within functional limitations S/p L TRINI and with decreased hip ROM R LE WFL Activities of Daily Living: Self-feeding: Independent with setup Hygiene grooming: Independent with setup Upper and lower body self care and bathing: ?? Unable to access feet today 2' decreased hip ROM and discomfort. Told not to push it and to work towards it. States can help with LB dressing for now, as anticipate should be able to do in a few days. ?? Discussed home shower set-up. Pt has a walk in shower like here. He showered today after set-up from nursing. Toileting: Toilet Transfer: Performs independently Toilet Hygiene: Reports independence Functional Mobility: Sit to stand: independent/supervised Ambulation: supervision with FWW around his room Stand to sit: independent Balance: Good sitting and standing with FWW IADL???s: Assistance available to patient. Endurance: Information taken from last recorded vitals in flowsheet. Last value Range last 8 hrs Heart Rate Heart Rate: 72 Heart Rate: [72-86] Blood Pressure BP: 117/73 mmHg BP: (105-117)/(66-73) SpO2 SpO2: 95 % SpO2: [94 %-96 %] Pt tolerated on room air. Pain: mild Informed Consent: The patient agrees to and understands the OT treatment plan and goals. Education: patient have been educated on Role of occupational therapy/rehabilitation, Transfers, Assistive device/technique, ADL, Safety, Precautions/Protocol, Functional Mobility, Home Management, Recommendations and Discharge planning and verbalizes understanding. Patient status, treatment, and mobility recommendations discussed with nursing. Assessment: Pt has been seen by OT for evaluation and ADL teaching. He demonstrates the ability to perform basicADL???s- minus LB dressing 2' increased discomfort and decreased ROM in hip today. He states his can help for now. He is mobilizing about room and unit with FWW, and actually showered after set-uptoday from nursing. Anticipate that Pt will return home with assistance. Anticipate no further OT needs. Recommendations: Equipment needs at discharge: Rolling walker Discharge Recommendations: Patient would benefit from continued outpatient physical therapy to progress toward functional goals. Total time spent with patient: 12 minutes Total timed interventions: 0 minutes Pager: [phone] NICKY CARMONA OT 07/15/2011 Occupational Therapy Rehabilitation Department Initial Assessments - Joaquin Looney, PT - 07/15/2011 8:04 AM EDT Physical Therapy Evaluation Total Hip Arthroplasty Patient Profile: Pt. is a 60 y.o. y.o. male admitted on 07/14/2011 by Pebbles Jung MD for L ant TRINI. PMH: Past Medical History Diagnosis Date ??? Osteoarthritis ??? Rheumatoid arthritis ??? Nasal polyp ??? S/P nasal polypectomy ??? Exercise-induced asthma ??? GERD (gastroesophageal reflux disease) 07/14/2011 ??? History of smoking 07/14/2011 ??? 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 Anemia 07/14/2011 ??? History of hemorrhagic colitis 07/14/2011 PSH: Past Surgical History Procedure Date ??? Wrist surgery Social History: Patient lives with his , two children, one graduating from high school the otherhome from college for the summer. Has three steps with rail to enter and full flight of steps to hisbedroom with rail. Has no walker. Wants to walk with walker. Has available for a week. Interested in home PT then outpatient. Precautions/Special Considerations: Anterior hip, no formal precautions; Full WBAT Post-operative course: uneventful Subjective: Patient states ???I feel okay I'm trying to get a baseline for the pain?? (when nurseexplained that he does not want pain meds this morning) Objective: Vitals: SpO2: WNL on room air, HR 90s Most recent Hgb value: 9.7 Pain: 5/10 with mobility Functional Mobility: Supine->sit indep with cues for ease and technique. HOB up just slightly, pt says he has a bed that does this at home Sit->supine per pt was able to do this last night after he walked Sit->stand with supervision, could do so indep at this time if disconnected from IV's/lines Stand->sit supervision; pt is able to do so independently at this time. Gait: Ambulated 200 ft using walker supervision; pt is able to do so independently at this time. Gait pattern: Step through, slow Pt. to utilize walker to amb indep at this time Stairs: negotiated stairs using both hands on one rail, says will be available to take walker up or down the stairs, as he will only need to do so once a day to go up to bed or come down in the morning. Advised that he can get crutches and work on more stair training in his home setting with PT if he wants to be fully indep without need for to move his walker. Today???s Treatment: 1. Evaluation 2. Patient instructed in and performed 10 reps each ankle pumps, gluteal sets, adductor sets, short arc quads and heel slides. Pt has been provided the protocol exercise handout and has been instructedto perform the exercises three times a day while here. Informed Consent: The patient agrees to and understands the PT treatment plan and goals. Education: patient educated on Bed mobility, Transfers, Stairs, Exercise, Positioning, Precautions/protocol, Gait , Role of therapy and Discharge planning and verbalizes and demonstrates understanding. Patient status, treatment, and mobility recommendations discussed with nursing staff. Assessment: Pt is POD#1 ant L TRINI. Pt. tolerated today???s session well. Pt presents with pain, decreased ROM, strength, functional mobility, and gait skills. Pt will benefit from PT to address his/her functional deficits to restore prior level of function. Patient has achieved physical therapy goals sufficientlyfor safe d/c to home. Goals: Pt will be knowledgeable of prescribed exercises. Pt will be knowledgeable and compliant with any above noted precautions. Pt will move supine<>sit indep. Pt will move sit<>stand indep. Pt will ambulate 200 feet using walker indep. Pt will negotiate steps with rail using both hand on rail with supervision and caregiver to take walker up or down the steps for him. Plan: Patient to be seen 1x physical therapy to include Physical Therapy Evaluation, Therapeutic exercisesand Therapeutic functional activities. Patient agrees to the plan as stated. Equipment needs: Rolling walker. Activity plan w/nursing assist (discussed with nursing staff): OOB and amb as juanito indep with walker if disconnnected from lines Discharge Recommendations: Patient would benefit from continued therapeutic interventions 2-3 times a week as provided in a home environment to progress toward functional goals. Physical Therapist recommends: Occupational Therapy consult Total treatment time: 46 minutes Total timed treatment: 15 minutes JOAQUIN LOONEY PT Pager: [phone] Plan of Care - Nichol Hoffman RN - 07/14/2011 10:11 PM EDT Problem: Pressure Ulcer Risk (Using Jeremy Scale) (Adult, Obstetric) Intervention: Pressure Ulcer Risk (Using Jeremy Scale): Related Risk Factors Patients skin noted to be intact at this time and free of pressure ulcers. Patient able to independently turn themselves every 2 hours. RN will monitor patients skin. Problem: Hip Replacement, Total (Adult) Intervention: Hip Replacement Positioning Patient POD 0 . Patient ambulating with a stand by assist and a walker . Patient aware of daily exercises. Problem: Pain, Acute (Adult, Obstetric) Intervention: Acute Pain: Related Risk Factors Patient tolerating a dilaudid CHIPPER FEEDER . Patient states pain is 3 /10. Patient aware to alert RN if pain is not being controlled with current pain medication. RN will monitor patient. Discharge Summary - Allan Powers III, MD - 07/14/2011 3:06 PM EDT Department of Orthopaedic Medicine - Discharge Summary Patient Name: Yaw Cadena Patient Age: 60 y.o. Birthdate: 1950 Admit date: 07/14/2011 Discharge date and time: Attending Physician: Pebbles Vines MD Discharge Diagnoses (Hospital Problems) and Secondary Diagnoses (Chronic Problems): Active Hospital Problems Diagnoses ??? DJD of Left hip s/p L TRINI on 07/13 S/P Left anterior total hip arthroplasty- 07/14/2011 (Dr. Vines) Resolved Hospital Problems Diagnoses Date Resolved Active Non-Hospital Problems Diagnoses ??? Hip pain, bilateral Priority: Medium ??? GERD (gastroesophageal reflux disease) ??? History of smoking ??? Keratouveitis ??? Anemia ??? History of hemorrhagic colitis ??? Exercise-induced asthma ??? Nasal polyp ??? S/P nasal polypectomy ??? Osteoarthritis ??? Bilateral shoulder pain ??? Rheumatoid arthritis Operations: 07/14/2011- Left anterior total hip arthroplasty Surgeons: PEBBLES VINES MD - Primary ALLAN POWERS III, MD - Resident-Emg Technician History of Presentation: Yaw Cadena is a 60 y.o. male who was admitted electively through the same day surgery program for left anterior total hip arthroplasty. A 60 y.o. year-old male who presents for preoperative appointment today. I had a long discussion with the patient regarding the risks and benefits of total hip arthroplasty. We talked about, infection, blood clot, pulmonary embolus, bleeding, nerve or blood vessel injury which may lead to numbness or paralysis, need for further surgery, fracture, leg length discrepancy, blood clots, implant failure, blood transfusion, and the complications of anesthesia up to and including . I used total hip implants to demonstrate for them how we perform the procedure and all of their questions were answered. I did review the history and physical today which says the patient is cleared for surgery and has no specific recommendations for further testing. I reviewed the labs and there were no issues with those. Informed consent was signed in the clinic today. Hospital Course: The post operative course was per the total hip arthroplasty pathway. DVT prophylaxis was: Aspirin 325 mg BID x 6 weeks. Patient began rehab on POD#1 for full weight bearing of left leg- no dislocation precautions needed. Al was removed on POD#0 and the patient was voiding without difficulty. Patient did not] have a bowel movement before discharge but was passing flatus and takingPO without difficulty. By POD#1 the patient was medically stable and was cleared for safe discharge to home per PT. Important Studies and Lab Data: Labs: Lab Results Component Value Date WBC 9.4 07/15/2011 HGB 9.7* 07/15/2011 HCT 28.9* 07/15/2011 MCV 84.0 07/15/2011 Discharge Conditions/Prognosis: Stable, awake, and alert. Mobilizing with walker/crutches, pain controlled on oral medications. Patient Vitals in the past 8 hrs: BP Temp Pulse Resp SpO2 07/15/11 1109 117/73 mmHg 36.7 ??C (98.1 ??F) 72 18 95 % 07/15/11 0700 - - 81 18 96 % Discharge to: Home with VNA Discharge Medications: Current Discharge Medication List New Meds Dose Details bisacodyl (DULCOLAX) 5 mg EC tablet 10 mg Take 2 tablets by mouth 2 times daily as needed for Constipation. Qty: 30 tablet Refills: 2 aspirin 325 mg tablet 325 mg Take 1 tablet by mouth 2 times daily for 42 days. Qty: 60 tablet Refills: 1 acetaminophen (TYLENOL) 500 mg tablet 1,000 mg Take 2 tablets by mouth every 8 hours. Qty: 30 tablet Refills: OXYcodone (ROXICODONE) 5 mg immediate release tablet 5 mg Take 1 tablet by mouth every 4 hours as needed for Pain (mild pain). Qty: 100 tablet Refills: 0 senna-docusate (PERICOLACE) 8.6-50 mg per tablet 1-4 tablets Take 1-4 tablets by mouth 2 times daily. Qty: 60 tablet Refills: 1 Continued medications, unchanged Dose Details fluticasone (FLOVENT) 110 mcg/Actuation inhaler 1 puff Inhale 1 puff into the lungs daily. Qty: Refills: GOLIMUMAB (SIMPONI SUBQ) Inject subcutaneously every 30 days. Qty: Refills: omeprazole (PRILOSEC) 20 mg capsule 20mg, PO, Once daily Qty: Refills: Medications STOPPED Dose IBUPROFEN/DIPHENHYDRAMINE (ADVIL PM ORAL) naproxen sodium (ALEVE) 220 mg tablet 220 mg Updated Allergies/ADRs: Allergies Allergen Reactions ??? Enbrel (Etanercept) Other (See Comments) Inflammation of eye ??? Unable To Find (Unclassified Drug) Rash Gold injection Instructions Given to Patient at Discharge: Provider Instructions DISCHARGE INSTRUCTIONS AND FOLLOWUP APPOINTMENTS: Activity: You can fully weight bear as tolerated on your left leg using a walker or crutches at all times for balance and protection. Wear the ISHAN hose bilaterally to your lower legs until you are seenin followup. You should remove these at least once per day to inspect your skin. Anti-coagulation follow up: You have been discharged on enteric coated Aspirin to prevent blood clots. You should take Aspirin 325 mg twice daily x 6 weeks- STOP on August 25, unless you are told otherwise by Dr. Vines. Take each dose with food to help prevent stomach irritation. Diet: Resume a regular diet as tolerated but increase your intake of fluids and fiber while you are on narcotics to prevent constipation. Drink plenty of fluids to stay hydrated. Increase the amount ofprotein in your diet to promote healing. Driving: NO driving until you are cleared to do so by Dr. Vines. You should NOT drive while you are on narcotic pain meds as these can affect your judgement and reaction times. Contact your surgeon with any questions. Medications: 1. The pain medication you are on can cause constipation so increase your intake of fluids and fiberwhile you are on them. The stool softener, Sennakot, that has been prescribed can also be taken to facilite a bowel movement. You can take an pgoh-ywh-ffvjdja medication, miralax if needed. 2. If you need a renewal on your narcotic pain medication, you need to give the Orthopedic clinic enough time to process your request. This can take up to three days, so plan accordingly. 3. The charts below will let you know of any medication changes that might have occured during your hospital stay. 4. As your pain improves, decrease your dose of pain medication and space your doses further apart. Wound: 1. You do not have any external sutures or stan in place. Your sutures are internal and will be absorbed over time. 2. May shower if safe standing or with a shower seat, but use the tegaderm or other waterproof dressing to cover the incision. DO NOT submerge the wound. Remove the tegaderm after the shower and replace with a new dry dressing. After 10 days, if there is no drainage from the incision, may shower without a dressing on. 3. Change your dressing daily with a dry sterile dressing for 1 week. After that leave the incision open to air. 4. Call your orthopedic surgeon- Dr. Vines (#[phone]) with any fever, chills, sweats, redness or drainage from the wound. Misc: Remember that ICE and elevation are very important after surgery to help decrease swelling andcontrol pain. Use ICE for 20-30 minutes at a time and keep your leg elevated as much as possible. Follow up Appointments: X-rays in Radiology 3T prior to follow up appointment: August 11 at 11:45 AM. Follow up appointment with Dr. Vines in Orthopedics 3C: August 11 at 12:45 PM. Future Appointments and Orders Future Appointments: Provider: Department: Dept Phone: Center: 08/12/2011 12:45 PM Pebbles Vines MD [facility] [phone] None Joint Appt Health Question Three C Orth[facility] [phone] None Future Orders Please Complete By Expires Referral to Home Health [[id number] CPT(R)] Process Instructions: Scheduling Instructions: Comments: DOCUMENTATION FOR VNA SERVICES (INCLUDING THOSE PATIENTS WITH MEDICARE COVERAGE REQUIRING HOME VNA SERVICES AND/OR HOSPICE SERVICES) Yaw C Cadena Discharge to own home: [phone] [facility] [id number] (work) Cook Chili's Name: self and In discussion with the attending physician, it is certified that this patient is under their care and that they, or a nurse practitioner, clinical nurse specialist or physician's it administrative assistant who is working directly with them, had a face to face encounter that meets the physician face to face encounter re quirements with this patient on 07/15/2011 The encounter with the patient was in whole, or in part, for the following medical condition, which is the primary reason for home health care services: L TRINI anterior In discussion with the provider, it is certified that, based on their findings, the following services are medically necessary for home health services. To provide the following care/treatments with the clinical findings supporting the need for servicesas follows: Home Health Agency: [facility] [email or web address]. PHONE: [phone] FAX: [phone] Home care orders for Total Hip Replacements: Anterior approach (RN +/or PT) Pt will be on ASA; therefore there are no blood draws. SQ sutures; therefore there is NO REMOVAL of sutures to be done PT: Continue PT rehab for balance, endurance, joint mobility, ROM, Strength, Total Hip Arthroplasty exercise and restriction protocol All VNA agencies which cover the area of patient's residence have been reviewed, either verbally or in writing, and patient/family have chosen the home health care agency as noted for home services. Questions: Responses: [facility] post discharge [id number] [facility] What services are requested Physical Therapy Start date Responsible MD post discharge contact info PCP Walker standard [[id number] Custom] Process Instructions: Scheduling Instructions: Comments: Questions: Responses: Vendor Name/Contact information: [facility] from [facility] Provider Contact Information: Primary Care Provider: KITTY NUÑEZ MD [phone] Hospital Attending: Pebbles Vines MD Department of Orthopaedic Surgery For questions regarding this document or issues relating to this hospitalization on the Medical Service, please contact your inpatient physician through the [facility] Sliver Lapper . Issues after hours and on weekends will be handled by the Hospitalist staff on-call. Signed: ALLAN POWERS III, MD 07/15/2011 Op Note - Pebbles Vines MD - 07/14/2011 9:21 AM EDT Surgery Start Time: 803 Surgery Stop Time: 912 Date: July 14, 2011 Surgeon: Pebbles Vines MD Drum Filler: Huber Powers MD Anesthesia: Spinal Pre-operative diagnosis: Left hip RA Post-operative diagnosis: Same, plus mild-moderate osteopenia Surgical Procedure Performed: Injection left hip with 10 cc marcaine 0.25% with epi, into skin and subcutaneous tissues (CPT code 79219) Left total hip arthroplasty, anterior Hueter approach with [place] table (CPT code 17926) Left hip intraoperative radiologic examination (CPT code 10057) Components Used: Rob Accolade 2 stem, size 5, 127 degrees Tritanium cup, 58 mm, cluster 36 mm ID, neutral poly 36-2.5 mm Biolox head Bearing surface: ceramic on poly Estimated Blood Loss: 450 cc Complications: None apparent Weightbearing: Full weightbearing as tolerated Anticoagulation: ASA x 1 month We will use ASA for DVT prophylaxis, with the rationale that clinical evidence suggests that Coumadin has a higher risk of post-surgical bleeding, and that a surgical site bleed would significantly compromise this patient's recovery from the surgery, as well as potentially compromising further joint function. The patient gives no history of active cancer, clotting disorder, or previous DVT or PE. Special orders: No dislocation precautions, no abduction pillow. Please use SCDs, have TEDs on both legs Technique: Patient was taken to the operating room and a spinal anesthetic was induced. According to AAOS recommendations, prophylactic antibiotics were administered within one hour of incision time. A timeout was performed. Patient was positioned supine on the [place] table, both feet and ankles were padded and then carefully placed in the traction boots. The perineal post was also padded with gelfoam. The patient was then prepped and draped in the usual sterile manner using chlorhexidine scrub, alcohol and finally DuraPrep. Hip Exposure and capsulotomy: We marked out the incision beginning about 1.5 cm lateral of the anterior superior iliac spine, proceeding distally about 10 cm, diverging at about a 20?? angle away laterally from the axis of the femur. Incision was made through skin, the subcutaneous tensor fascia otis fascia was identified and split in line. The anterior extent of this fascia was held into Janet clamps. Using blunt dissection, we mobilized the tensor fascia muscle, reflected it posteriorly, and retracted it with a Glenn retractor. We were able to identify the perforating leashes of vessels at the base of the wound deep to the floor of the TF fascia, these were carefully coagulated. This allowed us t hen to proceed deeper and to reflect the inferior extent of the TFL fascia anteriorly. This exposed the anterior hip capsule, adherent portions of the reflected head of the rectus femoris were then mobilized medially using a Bullock elevator. A Cobra retractor was placed after palpation of the greater tro chanter, the first retractor was placed superior over the femoral neck, a second elevator was placedinferiorly beneath the femoral neck. Blunt finger dissection along the medial aspect of the femur was used to identify the interval. A sharp Hohmann retractor was then placed anteriorly, and the interval between the reflected and long heads of rectus femoris. We then incised the fascia above the reflected head, used a Bullock to from the capsule, and placed an anterior retractor on the anterior acetabular rim. We the performed a straight capsulotomy using a Bovie cautery, parallel to the femoral neck, the second limb was made perpendicular. The inferior cobra retractor was now placed intra-ar ticular, again one above and one below the femoral neck. Medial dissection continued distally to thelevel of the lesser trochanter. The superior capsula was excised and the second cobra was now moved intracapsular, just above the femoral neck. Dislocation and femoral neck cut: The femoral neck was cut with a reciprocating saw. A corkscrew on power was then inserted into the femoral head. Three cranks of gross traction were placed on the operated leg, with 60 degrees external rotation, and this allowed distraction of the head from the socket. It also allowed easy removal of the femoral head. Acetabular exposure and preparation: Sharp curved retractors were placed at the 9 o'clock and 4 o'clock position of the acetabulum. The femur was translated lateral and posterior to the acetabulum. This allowed excellent acetabular exposure, the labrum was then resected and reaming began at 53 mm. Abundant amounts of pulvinar were excised, some tissue was sent for stat gram stain simply because of the abundance and appearance of the material. The gram stain was negative. We proceeded incrementally up to 57 mm at which time we had circumferential bleeding bone. An acetabular component was placed andfound to have excellent rim fit. No screws were placed. The component was then checked under fluoroscopic control, aiming for a lateral abduction of about 40??, and anteversion of about 20??. A liner was placed and impacted according to property appraiser's instructions. Any impinging osteophytes were removed. The socket was then thoroughly irrigated. Attention then turned to the femur. Femoral exposure: After removal of acetabular retractors, the traction was released and the femur was externally rotated to about 100??. The lateral capsule was resected, the posterior quadrant of the femur was also released, allowing forward mobilization of the femur. A Proctor retractor was then placed beneath the greater trochanter. A lateral and superior force was applied. This allowed the greater trochanter to disengage from the posterior column of the acetabulum and then to elevate the femur anteriorly. While holding the femur in this position, the positioning arm of the operated leg was dropped to full extension and maximal allowable adduction. No HANA hook was used. The femur was then heldelevated, a femoral elevator was placed under the calcar and this was used to displace the femur superiorly and laterally. At the same time, the it administrative assistant leaned against the thigh to optimize femoral adduction. At this point, special attention was turned to the soft tissues laterally to the resected fe moral neck. A rongeur was used to remove any remnant of the femoral neck and we then proceeded to use a Bovie to reflect circumferentially the soft tissues around the resected neck. Finally, all remaining tissues in the piriformis fossa were resected using cautery, giving us a clear view of the entireresected neck footprint, as well as the piriformis fossa and the medialmost aspect of the greater trochanter. Femoral preparation: The flexible T-handle and then the first broach was used to enter the femoral metaphysis in line with the posterior femoral cortex, at about 10?? of anteversion. The broach was used to enlarge the femoral opening, then broaching continued, applying a force against the greater trochanter to ascertain that the broach remained has fully lateral as possible with every pass. We proceeded with broaching incrementally until a size 5 was fully seated. We then used the calcar planer to resect any remaining calcar that extended proximal to the stem's final resting position. A trial neck and standard femoral head were placed, the Proctor retractor was disengaged and fully relaxed. The operated hip was then brought back into neutral position by bringing the leg out of adduction and extension. After neutral position was reestablished, about 90?? of external rotation were placed on the operated leg followed by 2 cranks of gross traction. The acetabulum was irrigated and cleared of all debris, the hip was then internally rotated to 30?? internal rotation. This allowed easy reduction of the hip. Full rotational range of motion was tested, confirming that there was no impingement of the femoral neck against the acetabular component either anteriorly or posteriorly. Fluoroscopic imaging was used to confirm proper offset and leg length as well as femoral broach position. At this point, 2 cranks of gross traction were placed on the operated leg, again the hip was externally rotated to about 90?? external rotation allowing easy dislocation. All traction was released, and the proximal femur was elevated and pulled laterally. The position of adduction and hip extension was reestablished bymoving the positioning arm on the operated leg and then externally rotating the femur to about 90??.Again, the femur was lateralized and lifted, the Proctor retractor was then engaged to support this position. All trial implants were removed, the femoral canal was gently irrigated, the actual femoralimplant was then inserted with gentle taps from a mallet, and the femoral head was then impacted on the clean trunion. Again, the proximal femur was lowered, the Proctor retractor was removed and the leg was brought back to a neutral position, 2 cranks of traction along with 30?? of external rotation were followed by internal rotation to 20?? and release of traction which allowed reduction of the hipjoint. Closure: After thorough irrigation, the tensor fascia otis muscle was allowed to come back to its anatomic position and irrigated, and a running Vicryl #0 suture was used to close the fascia. Fat was closed with inverted Vicryl zero, more superficially with Vicryl 2-0 and then Monocryl and Dermabond were used to close skin, and a dry sterile dressing were applied. All counts were correct. Patient wascarefully removed from the traction boots and transferred back to the hospital bed. No abduction pillow was placed. The patient returned to the recovery room in stable condition. Implant Information: Implant Name Type Inv. Item Serial No. Fluorescent Lighting Model Maker Lot No. LRB No. Used Action SHELL,ACTBR,CLSTR HLE,F,58MM ([id number]) (AUTOREQ) - [id number] IMPLANTS SHELL,ACTBR,CLSTR HLE,F,58MM ([id number]) (AUTOREQ) Ensequence - [id number] Left 1 Implanted INSERT,TRIDENT,0,DEGREE,36MM ([id number]) (AUTOREQ) - [id number] IMPLANTS INSERT,TRIDENT,0,DEGREE,36MM ([id number]) (AUTOREQ) Ensequence - [id number] Left 1 Implanted ACCOLADE II 127 DEGREE NECK ANGLE HIP STEM, SIZE 5, 35MM, 108MM LNTH, V40 [id number] Left 1 Implanted HEAD,FEM,CER,BLX,V40,36MM,-2.5 ([id number]) (AUTOREQ) - [id number] IMPLANTS HEAD,FEM,CER,BLX,V40,36MM,-2.5 ([id number]) (AUTOREQ) Ensequence - [id number] Left 1 Implanted OR Attestation - Pebbles Vines MD - 07/14/2011 9:21 AM EDT Attestation: Case Date: 07/14/2011 I was present and I participated during the entire procedure (does not need to include opening and closing). PEBBLES VINES MD 07/14/2011 Miscellaneous - Provider, Scanning - 07/14/2011 6:42 AM EDT documented in this encounter Plan of Treatment Pending Results Name Type Priority Associated Diagnoses Date/Ti me XR Fluoro OR c-arm Imaging Routine 2 9:03 AM EDT storage only Scheduled Orders Name Type Priority Associated Diagnoses Order S chedule XR Fluoro OR c-arm Imaging Routine Once PRN (for Radiant storage only use) for 1 Occu rrences starting 2011 until 07/14/2011 documented as of this encounter Procedures Procedure Name Priority Date/Time Associated Comments Diagnosis IMPLANTABLE DEVICES 07/16/2011 1:24 PM Re sults for this SCAN EDT procedure are i n the results section. DIFFERENTIAL, Routine 07/15/2011 4:29 AM Results for this AUTOMATED EDT procedure are i n the results section. CBC (WITH DIFF) Routine 07/15/2011 4:29 AM Result s for this EDT procedure are i n the results section. BASIC METABOLIC PANEL Routine 07/15/2011 4:29 AM Results for this (NON-FASTING) EDT procedure are in the results section. XR PELVIS Routine 07/14/2011 10:28 Results for this AM EDT procedure are i n the results section. SURGICAL PATHOLOGY Routine 07/14/2011 9:13 AM Res ults for this REPORT EDT procedure are i n the results section. SPECIMEN TO PATHOLOGY Routine 07/14/2011 8:30 AM Results for this EDT procedure are i n the results section. ANAEROBIC CULTURE STAT 07/14/2011 8:23 AM Resu lts for this EDT procedure are i n the results section. BODY FLUID CULTURE, STAT 07/14/2011 8:23 AM Re sults for this AEROBIC EDT procedure are i n the results section. BODY FLUID CULTURE, STAT 07/14/2011 8:11 AM AEROBIC & ANAEROBIC EDT MODIFIER TRITANIUM 07/14/2011 7:13 AM oa ACETABULUM CUP EDT ROB MODIFIER ACCOLADE 07/14/2011 7:13 AM oa FEMORAL STEM ROB EDT TOTAL HIP 07/14/2011 7:13 AM oa ARTHROPLASTY, EDT ANTERIOR APPROACH (WRVU 20.72) documented in this encounter Results SCAN DOC: IMPLANTABLE DEVICES (07/16/2011 1:24 PM EDT) Narrative 07/16/2011 1:24 PM EDT Procedure Note Provider, Scanning - 07/16/2011 1:24 PM EDT Scanning Provider MEDIA MGR SCAN EXT ORDR/RSLT DIFFERENTIAL, AUTOMATED (07/15/2011 4:29 AM EDT) athologist Signature Neutrophils % 64.6 34.0 - CERNER 71.0 % MILLENNIUM Neutr Abs (ANC) 6.10 1.50 - CERNER 6.30 MILLENNIUM x10(3)/mcL Lymphocytes % 24.7 19.0 - CERNER 53.0 % MILLENNIUM Lymphocytes Abs 2.3 1.0 - 3.6 CERNER x10(3)/mcL MILLENNIUM Monocytes % 8.2 4.0 - 13.0 CERNER % MILLENNIUM Monocyte Abs 0.8 0.2 - 1.0 CERNER x10(3)/mcL MILLENNIUM Eosinophils % 2.2 0.0 - 7.0 CERNER % MILLENNIUM Eosinophils Abs 0.2 0.0 - 0.5 CERNER x10(3)/mcL MILLENNIUM Basophils % 0.2 0.0 - 2.0 CERNER % MILLENNIUM Basophils Abs 0.0 0.0 - 0.2 CERNER x10(3)/mcL MILLENNIUM Immature Gran % 0.10 0.00 - CERNER 0.66 % MILLENNIUM Comment: Immature granulocytes(IG's)percentage an d absolute count will include metamyelocytes, myelocytes, and promyelo cytes. Blood smears from CBCs yielding IG's will be scanned manually for concor dance. If this scan disagrees with the automated IG or if promyelocytes are not ed, a manual differential will be performed. Katy Gran Abs 0.01 0.00 - 0.05 x10(3)/mcL CER NER MILLENNIUM Specimen Anatomical Collection Method Collection Time Receive d Time (Source) Location / / Volume Laterality Blood specimen 07/15/2011 4:29 AM 012 4:56 (specimen) EDT AM EDT Pebbles Vines MD HEMATOLOGY ORDERABLES Performing Organization Address City/State/[place] [address] CERNER MILLENNIUM (ABNORMAL) Basic Metabolic Panel (non-fasting) (07/15/2011 4:29 AM EDT) P athologist Signature Glucose Lvl 110 60 - 199 CERNER mg/dL MILLENNIUM Comment: Diabetes: >=200 mg/dL plus symp toms BUN 9 (L) 10 - 20 mg/dL CERNER MILLENNIU M Creatinine 0.74 (L) 0.80 - 1.50 mg/dL CERNER MILL ENNIUM Sodium 134 (L) 135 - 145 mmol/L CERNER RICHARDSON NIUM Potassium 4.0 3.5 - 5.0 mmol/L CERNER RICHARDSON NIUM Comment: Please note: ??Patients with WBC >100,00 0 may have falsely elevated Potassium levels. ??For accurate Potassium quantif ication in these patients send serum separator tube (gold top) for subsequent determinations. ??Contact the Clinical Chemistry Laboratory if there are any qu estions. Chloride 102 98 - 107 mmol/L CERNER MILLENN IUM CO2 26 22 - 31 mmol/L CERNER MILLENNI UM Anion Gap 6 5 - 15 mmol/L CERNER MILLENNIU M Calcium 7.6 (L) 8.5 - 10.5 mg/dL CERNER RICHARDSON NIUM Estimated GFR >60 >=60 CERNER MILLENNIU M Comment: The National Kidney Disease Education Pr ogram (NKDEP) has recommended all laboratories report estimated GFR (eGFR) along with plasma creatinine measurements to assist you with recognit ion of early kidney disease. Caveats: ??Plasma creatinine should be a t steady-state (unchanged within the past week). For patient s multiply eGFR by 1.2. The MDRD equation was developed using patients be tween the ages of 18 and 70 years. ?? The MDRD equation has not been validated for patients < 18 years of age and should not be used to assess renal function in the pediatric population. ??The MDRD eGFR equation will also overestimate the true GFR of patients above the age of 70. ??This overestimation is variable bu t increases with age. At present, NKDEP does NOT recommend usi ng the MDRD equation for drug dosing purposes and pharmacists should continue to use their current dosing methods. In addition, numerical eGFR values great er than 60 ml/min/1.73 square meters should be treated as > 60, and not an ex act number due to greater inaccuracies at these higher values. Per NKDEP, they classify normal renal function as any GFR >60ml/min/1.73 square meters; chronic kidney disease wh en GFR <60, and renal failure when GFR <15. ??This calculation may not be valid for patients with atypical muscle mass (very lean or obese), acute renal failur e, and in patients with diabetic kidney disease. References: http://nkdep.nih.gov/resources/NKDEP_Sug [email or web address].pdf [email or web address] Gary K, Kacey NA, Cisco AK, Roberto TS, Damien AD, Trudy AMY. Relative performance of the MDRD and CKD-EPI equa tions for estimating glomerular filtration rate among patients with vari ed clinical presentations. Clin J Am Soc Nephrol;6:1963-72. Specimen Anatomical Collection Method Collection Time Receive d Time (Source) Location / / Volume Laterality Blood specimen 07/15/2011 4:29 AM 012 4:56 (specimen) EDT AM EDT Resulting Agency Comment Spec In Lab Pebbles Vines MD CHEMISTRY ORDERABLES Performing Organization Address City/State/[place] [address] CERNER MILLENNIUM (ABNORMAL) CBC (with Diff) (07/15/2011 4:29 AM EDT) P athologist Signature WBC 9.4 4.0 - 10.0 CERNER x10(3)/mcL MILLENNIUM RBC 3.44 (L) 4.63 - CERNER 6.08 MILLENNIUM x10(6)/mcL Hemoglobin 9.7 (L) 13.7 - CERNER 17.5 gm/dL MILLENNIUM Hematocrit 28.9 (L) 40.0 - CERNER 51.0 % MILLENNIUM MCV 84.0 79.0 - CERNER 92.0 fL MILLENNIUM MCH 28.2 25.6 - CERNER 32.2 pg MILLENNIUM MCHC 33.6 32.0 - CERNER 36.5 gm/dL MILLENNIUM Platelets 141 (L) 145 - 370 CERNER x10(3)/mcL MILLENNIUM RDWSD 44.4 35.0 - CERNER 46.0 fL MILLENNIUM RDWCV 14.4 10.9 - CERNER 14.4 % MILLENNIUM MPV 10.7 9.0 - 12.0 [facility]NER fL MILLENNIUM Specimen Anatomical Collection Method Collection Time Receive d Time (Source) Location / / Volume Laterality Blood specimen 07/15/2011 4:29 AM 012 4:56 (specimen) EDT AM EDT Resulting Agency Comment Spec In Lab Pebbles Vines MD HEMATOLOGY ORDERABLES Performing Organization Address City/State/[place] [address] CERNER MILLENNIUM XR pelvis 1 or 2 views (07/14/2011 10:28 AM EDT) Anatomical Region Laterality Modality Pelvis N/A Radiographic Imaging Specimen (Source) Anatomical Collection Method Collection Time Re ceived Time Location / / Volume Laterality 07/14/2011 10:28 AM EDT Narrative 07/14/2011 10:54 AM EDT Examination Pelvis. Clinical History Status post hip arthroplasty. Comparison 05/18/2011. Technique AP view of the pelvis including both hip s as well as lateral view of the left hip. Findings Immediate postoperative these immediate postoperative images demonstrated new left hip arthroplasty, which appears wel l-seated, with no immediate postoperative complication. ??No change in appearance of the right hip. Procedure Note Enedina Jordan MD - 07/14/2011Formatt ing of this note might be different from the original. Examination Pelvis. Clinical History Status post hip arthroplasty. Comparison 05/18/2011. Technique AP view of the pelvis including both hip s as well as lateral view of the left hip. Findings Immediate postoperative these immediate postoperative images demonstrated new left hip arthroplasty, which appears wel l-seated, with no immediate postoperative complication. No change in appearance of the right hip. Pebbles Vines MD IMG DX ORDERABLES SURGICAL PATHOLOGY REPORT (07/14/2011 9:13 AM EDT) Component Value Ref Test Analysis Performed At [facility] Method Time Signature [facility] ? Provider: ?? PEBBLES VINES ? Pt. Name: ? ? YAW CADENA ? Acc #: ?[id number] ?Pt. MRN: ?[id number] ? Col Date: ?? 2 ? /Sex: ?1950,(60 years),Male ? Rec Date: ?? 07/14/2011 ? LOC: ?3WST ? SURGICAL PATHOLOGY ? ---Pathologic Diagnosis--- ? Articular bone and soft tissue showing osteoarthritis , ? femoral head, left. ?Gross surgical pathology examination. ? CR-0 ? 07/15/11 ? AJE ? 07/15/11 Verified by: ? Brad GOMES, Glenna Mondragon. ? Pathologist ? (Electronic Si gnature) ? The attending pathologist whose signature appears o n this report has ? reviewed all diagnostic slides and has edited the joaquin ss and/or ? microscopic portion of the report in rendering the fi nal pathologic ? diagnosis. ? ---Gross Description--- ? Labeled/Fixative: ? OA left femoral head, fresh. ? Quantity/Size: ?One femoral head, 4.7 x 4.7 x 3.9 cm. ? Tissue Description: ?? Femoral head. ?Margin: ?Smooth, firm, bony surg ical margin. ?Articular surface: Granular, siddiqui-pink. ?Eburnation: ?Not appreciated. ?Osteophytes: ? Present. ?Cut surface: ? Reveals firm, siddiqui-yellow m arrow. ?Subchondral Sclerosis: ??Present. ?Subchondral Cysts: ?Present. ?Other: ? Also submitted is a separate portion of femoral neck, ? approximately 3.2 x 3.0 x 1.3 cm, without lesions ? grossly. ? Sections/Processing: ??No sections are submitted. ??a je/PPS ? ---Clinical Information--- ? Specimen Submitted: ? A - Left femoral head ? Clinical History/Diagnosis: ? OA Specimen (Source) Anatomical Collection Method Collection Time Re ceived Time Location / / Volume Laterality 07/14/2011 9:13 AM EDT Pebbles Vines MD PATHOLOGY/CYTOLOGY ORDERABLE S Performing Organization Address City/[facility]/ZIP Code Phon e Number [address] CEREmpathy CoIUM Specimen to Pathology (surgical or derm) (07/14/2011 8:30 AM EDT) Specimen Anatomical Collection Method Collection Time Receive d Time (Source) Location / / Volume Laterality AP Specimen 07/14/2011 8:30 AM 201 2 8:30 EDT AM EDT Narrative CERNER MILLENNIUM - 07/14/2011 8:30 AM E DT Specimen requisition ordered. ??Separate Pathology report to follow Pebbles Vines MD PATHOLOGY/CYTOLOGY ORDERABLE S Performing Organization Address City/[facility]/ZIP [place] [address] CERNER MILLENNIUM ANAEROBIC CULTURE (07/14/2011 8:23 AM EDT) [facility] gist Method Time Signature Anaerobic CERNER Culture ? Patient Name: YAW CADENA ?? Ord ered By: PEBBLES VINES ? MR#: [id number] ?LOC: ??3WST ? /Sex: ??1950 (60 years), ? Male ? PROCEDURE: Anaerobic Culture ?SOURCE: Other ? COLLECTED: 07/14/2011 08:23 ?FREE TEXT SOURCE: OR 12 ? STARTED: 07/14/2011 08:23 ? AMENDED REPORT ? Amended Final Report ? Verified:07/18/2011 12:10 ? No anaerobic organisms isolated ? FINAL REPORT ? Final Report ? Verified:07/17/2011 11:12 ? No anaerobic organisms isolated ? PRELIMINARY REPORT ? Preliminary Report ? Verified:07/15/2011 12:26 ? No anaerobic organisms isolated to date ? Specimen Anatomical Collection Method Collection Time Receive d Time (Source) Location / / Volume Laterality Specimen of 07/14/2011 8:23 AM 2 8:23 unknown material EDT AM EDT (specimen) Comment: OR 12 Resulting Agency Comment Spec In Lab Pebbles Vines MD MICROBIOLOGY - GENERAL ORDER SHABNAM Performing Organization Address City/State/ZIP [place] [address] PRATIK BYRNE BODY FLUID CULTURE (07/14/2011 8:23 AM EDT) Component Value Ref Test Analysis Performed At [facility] gist Range Method Time Signature Body Fluid CERNER Culture ? Patient Name: YAW CADNEA ?? Ord ered By: PEBBLES VINES [facility] ? MR#: [id number] ?LOC: ??3WST ? /Sex: ??1950 (60 years), ? Male ? PROCEDURE: Body Fluid Culture ?SOURCE: Other ? COLLECTED: 07/14/2011 08:23 ?FREE TEXT SOURCE: OR 12 ? STARTED: 07/14/2011 08:23 ? STAINS / PREPARATIONS ? Gram Stain Report ? Verified:07/14/2011 08:42 ? Few White Blood Cells seen ? No microorganisms seen. ? Results called to and read back by OR 12 ??07/14/2011 08:42:55 ? FINAL REPORT ? Final Report ? Verified:07/18/2011 08:19 ? No growth ? PRELIMINARY REPORT ? Preliminary Report ? Verified:07/15/2011 07:16 ? No growth to date. ? Specimen Anatomical Collection Method Collection Time Receive d Time (Source) Location / / Volume Laterality Specimen of 07/14/2011 8:23 AM 2 8:23 unknown material EDT AM EDT (specimen) Comment: OR 12 Resulting Agency Comment Spec In Lab Pebbles Vines MD MICROBIOLOGY - GENERAL ORDER SHABNAM Performing Organization Address City/State/ZIP Code Phon e Number [place] [id number] [facility] documented in this encounter Visit Diagnoses Diagnosis DJD of Left hip s/p L TRINI on 07/13 Osteoarthrosis, unspecified whether gene ralized or localized, pelvic region and thigh Hip pain, bilateral Pain in joint, pelvic region and thigh documented in this encounter Administered Medications Inactive Administered Medications - up to 3 most recent administrations Medication Order MAR Action Action Date Dose Rate Site acetaminophen (TYLENOL) tablet Given 07/15/2011 2:00 PM EDT 1,00 0 mg 1,000 mg 1,000 mg, Oral, EVERY 8 HOURS SCHEDULED, First dose on Riya 07/14/11 at 0945, Until Discontinued, Maximum dose of acetaminophen is 4000 mg from all sources in 24 hours., Routine Given 07/15/2011 8:10 AM EDT 1,000 mg Given 07/14/2011 9:14 PM EDT 1,000 mg acetaminophen (TYLENOL) tablet 650 mg Given 07/14/2011 6:55 AM EDT 650 mg 650 mg, Oral, ONCE, 1 dose, On Riya 07/14/11 at 0700, Administer on arrival in Same Day Program, Day of Surgery (Day of Procedure), Routine aspirin tablet 325 mg Given 07/15/2011 8:11 AM EDT 325 mg 325 mg, Oral, 2 TIMES DAILY, First dose on Riya 07/14/11 at 0945, Until Discontinued, Routine Given 07/14/2011 4:37 PM EDT 325 mg ceFAZolin (ANCEF) 1g in dextrose New Bag 07/15/2011 7:45 AM ED T 1,000 mg 100 mL/hr 5% 50mL 1,000 mg (1 g), Intravenous, EVERY 8 HOURS, 3 doses, First dose on Riya 07/14/11 at 0945, Last dose on Mon07/15/11 at 0145, Administer over 30 Minutes, For 3 doses postoperatively. Adjust to 8 hours from intraoperative dose., Indication for (Active or Suspected): Prophylaxis New Bag 07/15/2011 12:45 AM EDT 1,000 mg 100 mL/hr New Bag 07/14/2011 3:24 PM EDT 1,000 mg 100 mL/hr ceFAZolin (ANCEF) 2g in dextrose 5% 100m L Given 07/14/2011 7:15 AM EDT 2 g 2 g, Intravenous, ONCE, 1 dose, On Riya 07/14/11 at 0700, Administer over 30 Minutes, To be administered upon arrival to the OR within one hour prior to incision., Day of Surgery (Day of Procedure), Indication for (Active or Suspected): Prophylaxis celecoxib (celeBREX) capsule 200 mg Given 07/14/2011 6:55 AM EDT 200 mg 200 mg, Oral, ONCE, 1 dose, On Riya 07/14/11 at 0700, Administer on arrival to Same Day Program, Day of Surgery (Day of Procedure), Routine famotidine (PEPCID) tablet 20 mg Given 07/15/2011 8:11 AM EDT 20 mg 20 mg, Oral, 2 TIMES DAILY, First dose on Riya 07/14/11 at 2100, Until Discontinued, Routine Given 07/14/2011 9:14 PM EDT 20 mg granisetron (KYTRIL) injection 1 mg Given 07/14/2011 12:00 PM EDT 1 mg 1 mg, Intravenous, ONCE, 1 dose, On Riya 07/14/11 at 0930, PACU Recovery, Routine HYDROmorphone (DILAUDID) 1 mg/mL Rate/Dose Verify 07/15/2011 7:00 A M EDT mL/hr CHIPPER FEEDER 30 mL Intravenous, CHIPPER FEEDER ONLY, Starting on Riya 07/14/11 at 0945, Until Mon07/15/11 at 0707 New Syringe/Cartridge 07/14/2011 9:45 AM EDT mL/hr lactated ringers Rate/Dose Verify 07/14/2011 1:36 PM EDT 1,000 mLs 1 00 mL/hr infusion 1,000 mL 1,000 mL, at 100 mL/hr, Intravenous, CONTINUOUS, Starting on Riya 07/14/11 at 0730, Until Riya 07/14/11 at 1326, Day of Surgery (Day of Procedure) lactated ringers Rate/Dose Verify 07/14/2011 9:30 AM EDT 1,000 mLs 1 00 mL/hr infusion 1,000 mL 1,000 mL, at 100 mL/hr, Intravenous, CONTINUOUS, Starting on Riya 07/14/11 at 0930, Until Riya 07/14/11 at 1316, PACU Recovery lactated ringers Rate/Dose Verify 07/15/2011 7:00 AM EDT 1,000 mLs 1 00 mL/hr infusion 1,000 mL 1,000 mL, at 100 mL/hr, Intravenous, CONTINUOUS, Starting on Riya 07/14/11 at 0945, Until Mon07/15/11 at 1809 New Bag 07/15/2011 6:32 AM EDT 1,000 mLs 100 mL/hr New Bag 07/14/2011 8:26 PM EDT 1,000 mLs 100 mL/hr multivitamin with minerals (THERA-M) tablet Given 06/21 8:12 AM EDT 1 tablet 1 tablet 1 tablet, Oral, DAILY, First dose on Mon07/15/11 at 0900, Until Discontinued, Routine OXYcodone (ROXICODONE) immediate release Given 07/15/2011 3:54 P M EDT 10 mg tablet 10 mg 10 mg, Oral, EVERY 4 HOURS PRN, Starting on Riya 07/14/11 at 0924, Until Mon07/15/11 at 1809, Pain, moderate pain, For Moderate pain. Do not exceed 15 mg in 4 hours. If pain not relieved, call provider., Routine Given 07/15/2011 8:49 AM EDT 10 mg senna-docusate (PERICOLACE) 8.6-50 mg per Given 2011 8:13 AM EDT 2 tablets tablet 1-4 tablet 1-4 tablet, Oral, 2 TIMES DAILY, First dose on Mon07/14/11 at 0945, Until Discontinued, Start with 1 tablet or liquid equivalent orally twice daily and titrate up to achieve: 1. One bowel movement at least every 48 hours, AND 2. Without straining, Routine Given 07/14/2011 9:15 PM EDT 2 tablets sodium chloride 0.9 % flush 5 mL Given 07/15/2011 9:45 AM EDT 5 mLs 5 mL, Intravenous, EVERY 12 HOURS, First dose on Mon07/14/11 at 0945, Until Discontinued Given 07/14/2011 9:07 PM EDT 5 mLs Given 07/14/2011 9:45 AM EDT 5 mLs documented in this encounter Active and Recently Administered Medications Times are shown in EDT. Scheduled Medication Order 07/13/2011 07/14/2011 07/15/2011 acetaminophen (TYLENOL) tablet 1,000 mg 0945 (Not Given - Provider: Latanya Mancia RN - Reason: See comment - Comment: not yet taking P.O.)1400 (Given - Provider: Latanya Mancia RN)2114 (Given - Provider: Nichol Hoffman, FELICIA) 0600 (Hold - Provider: Nichol Hoffman RN - Reason: Patient/family refused - Comment: pt would like to wait until after breakfast)0810 (Given - Provider: Sheba Davis, FELICIA)1400 (Given - Provider: Sheba Davis, FELICIA) 1,000 mg, Oral, EVERY 8 HOURS SCHEDULED, First dose on Riya 07/14/11 at 0945, Until Discontinued, Maximum dose of acetaminophen is 4000 mg from all sources in 24 hours., Routine acetaminophen (TYLENOL) tablet 650 mg (COMPLETED) 0655 (Given - Provider: Kelly Orlando RN) 650 mg, Oral, ONCE, 1 dose, Riya 07/14/11 at 0700, Administer on arrival in Same Day Program, Day of Surgery (Day of Procedure), Routine aspirin tablet 325 mg 0945 (Not Given - Provider: Latanya Mancia RN - Reason: See comment)1637 (Given - Provider: Fannie Epstein RN) 0811 (Given - Provider: Sheba Davis, FELICIA) 325 mg, Oral, 2 TIMES DAILY, First dose on Riya 07/14/11 at 0945, Until Discontinued, Routine ceFAZolin (ANCEF) 1g in dextrose 5% 50mL (COMPLETED) 1524 (New Bag - Provider: Fannie Epstein RN) 0045 (New Bag - Provider: Nichol lees RN)0745 (New Bag - Provider: Sheba Davis, FELICIA) 1 g = 1,000 mg, Intravenous, EVERY 8 CORRINE RS, 3 doses, First dose on Riya 07/14/11 at 0945, Last dose on Mon07/15/11 at 0145, for 30 Minutes, For 3 doses postoperatively. Adjust to 8 hours from intraoperative dose. ceFAZolin (ANCEF) 2g in dextrose 5% 100mL (COMPLETED) 714 (Given - Provider: Tolu Coon CRNA) 2 g, Intravenous, ONCE, 1 dose, Riya 07/13 at 0700, for 30 Minutes, To be administered upon arrival to the OR within one hour prior to incision., Day of Surgery (Day of Procedure) celecoxib (celeBREX) capsule 200 mg (COMPLETED) 654 (Given - Provider: Kelly Orlando RN) 200 mg, Oral, ONCE, 1 dose, Riya 07/14/11 at 0700, Administer on arrival to Same Day Program, Day of Surgery (Day of Procedure), Routine famotidine (PEPCID) tablet 20 mg (CANCELED) 944 (Not Given - Provider: Latanya Mancia RN - Reason: See comment - Comment: not yet taking P.O.)2113 (Given - Provider: Nichol Hoffman RN) 810 (Given - Provider: Sheba stafford RN) 20 mg, Oral, 2 TIMES DAILY, First dose o n Riya 07/14/11 at 2100, Until Discontinued, Routine granisetron (KYTRIL) injection 1 mg (COMPLETED) 929 (Not Given - Provider: Fannie Epstein RN - Reason: See comment - Comment: Nurse documented incorrectly. See next administration)1200 (Given - Provider: Latanya Mancia RN) 1 mg, Intravenous, ONCE, 1 dose, Riya 07/14/11 at 0930, PACU Recov riley, Routine multivitamin with minerals (THERA-M) tablet 1 tablet (CANCEL ED) 45 (Not Given - Provider: Latanya Mancia RN - Reason: See comment - Comment: pt not yet taking P.O.) 811 (Given - Provider: Sheba stafford RN) 1 tablet, Oral, DAILY, First dose on Mon07/15/11 at 0900, Until Discontinued, Routine senna-docusate (PERICOLACE) 8.6-50 mg per tablet 1-4 tablet 45 (Not Given - Provider: Latanya Mancia RN - Reason: See comment - Comment: pt not yet taking P.O.)2114 (Given - Provider: Nichol Hoffman, FELICIA) 0813 (Given - Provider: Sheba Davis, FELICIA) 1-4 tablet, Oral, 2 TIMES DAILY, First d ose on Riya 07/14/11 at 0945, Until Discontinued, Start with 1 tablet or liquid equivalent orally twice daily and titrate up to achieve: 1. One bowel movement at le ast every 48 hours, AND 2. Without straining, Routine sodium chloride 0.9 % flush 5 mL (CANCELED) 0945 (Given - Provider: Latanya Mancia RN)2107 (Given - Provider: Nichol Hoffman RN) 0945 (Given - Provider: Sheba Davis, FELICIA) 5 mL, Intravenous, EVERY 12 HOURS, First dose on Riya 07/14/11 at 0945, Until Discontinued, Routine Continuous Medication Order 07/13/2011 07/14/2011 07/15/2011 HYDROmorphone (DILAUDID) 1 mg/mL CHIPPER FEEDER 30 mL (CANCELED) 0945 (New Syringe/Cartridge - Provider: Latanya Mancia RN) 0700 (Rate/Dose Verify - Provider: Sheba Davis, FELICIA)0900 (Stopped - Provider: Sheba Davis, FELICIA) Intravenous, CHIPPER FEEDER ONLY, Starting Riya 07/14/11 at 0945, Until F ri 07/15/11 at 0707 lactated ringers infusion 1,000 mL (CANCELED) 1336 (Rate/Dose Verify - Provider: Fannie Epstein RN) 1,000 mL, at 100 mL/hr, Intravenous, CON TINUOUS, Starting Riya 07/14/11 at 0730, Until Riya 07/14/11 at 1326, Day of Surgery (Day of Procedure) lactated ringers infusion 1,000 mL (CANCELED) 0930 (Rate/Dose Verify - Provider: Latanya Mancia RN) 1,000 mL, at 100 mL/hr, Intravenous, CON TINUOUS, Starting Riya 07/14/11 at 0930, Until Riya 07/14/11 at 1316, PACU Recovery lactated ringers infusion 1,000 mL (CANCELED) 0945 (New Bag - Provider: Latanya Mancia RN)202 (New Bag - Provider: Nichol Hoffman, FELICIA) 0632 (New Bag - Provider: Nichol Hoffman RN)0700 (Rate/Dose Verify - Provider: Sheba Davis RN)0900 (Stopped - Provider: Sheba Davis RN) 1,000 mL, at 100 mL/hr, Intravenous, CON TINUOUS, Starting Riya 07/14/11 at 0945, Until Mon07/15/11 at 1809 PRN Medication Order 07/13/2011 07/14/2011 07/15/2011 bisacodyl (DULCOLAX) EC tablet 10 mg 10 mg, Oral, 2 TIMES DAILY PRN, Starting Riya 07/14/11 at 0924, Until Mon07/15/11 at 1809, Constipation, Administer if needed per patient's routine or if no bowel movement within 48 hours, Routine OXYcodone (ROXICODONE) immediate release tablet 10 mg (CANCELED) 0849 (Given - Provider: Sheba Davis RN)1554 (Given - Provider: Sheba Davis RN) 10 mg, Oral, EVERY 4 HOURS PRN, Starting Riya 07/14/11 at 0924, Until Mon07/15/11 at 1809, Pain, moderate pain, For Moderate pain. Do not exceed 15 mg in 4 hours. If pain not relieved, call provider., Routine OXYcodone (ROXICODONE) immediate release tablet 5 mg 0849 (See Alternative - Provider: Sheba Davis RN)1554 (See Alternative - Provider: Sheba Davis RN) 5 mg, Oral, EVERY 4 HOURS PRN, Starting Riya 07/14/11 at 0924, Until Mon07/15/11 at 1809, Pain, mild pain, For Mild pain. Do not exceed 15 mg in 4 hours. If pain not relieved, call provider, Routine documented in this encounter Care Teams Anesthesiology Teacher Relationship Specialty Start Date End Date Kitty Nuñez MD PCP - General 05/18/11 03/23/[address] [place] [address] [address] [place] [address] documented as of this encounter
--- OUTSIDE RECORDS SUMMARY | 2021-09-03 02:11 | XMS_ITS | Encounter Summary ---
:1950 [place] [address] Care Team Providers Name Role Phone Jorge Rosario MD Primary Care Provider Reason for Visit Reason Comments Left Shoulder Pain Encounter Details Date Type Department Care Team Description 07/26/2012 Office Visit Orthopaedics at [facility] Jorge Arango MD [facility] [place] [address] Rheumatoid arthritis [facility] Katerin Son PA [facility] [place] [address] (Primary Dx) [place] [address] Social History Tobacco Use Types Packs/Day [...] Sign Reading Time Taken Comments Blood Pressure 141/77 07/26/2012 3:23 PM EDT Pulse 57 07/26/2012 3:23 PM EDT Temperature - - Respiratory Rate - - Oxygen Saturation - - Inhaled Oxygen Concentration - - Weight 79.4 kg (175 lb) 07/26/2012 3:23 PM EDT Height 172.7 cm (5' 8) 07/26/2012 3:23 PM EDT Body Mass Index 26.61 07/26/2012 3:23 PM EDT documented in this encounter Progress Notes Katerin Son PA - 07/26/2012 6:45 PM EDT PATIENT NAME: Yaw Cadena AGE: 61 y.o. MR#: [id number] DATE OF VISIT: 07/26/2012 DATE OF INJURY/ONSET: Chronic STAFF: Dr. Arango CHIEF COMPLAINT: Left shoulder pain HISTORY OF PRESENT ILLNESS: Mr. Cadena is a 61 y.o. male who comes into clinic today for evaluation of the left shoulder. He was referred to [facility] Ortho by Sirisha Puckett. He was first evaluated by Dr. Arango in 2009. He has a history of rheumatoid arthritis which she is taking Simponi for currently. He was found to have erosive changes on his last shoulder films consistent with his known diagnosis of rheumatoid arthritis. He underwent glenohumeral cortisone injections which did provide some improvement in his discomfort. He presents today with worsening left shoulder pain. He states that his last glenohumeral injection did not provide adequate relief. He is significantly limited range of motion and would like to discuss moving forward with shoulder replacement. He has had an MRI of the shoulder from back in 2009 which did show that the rotator cuff was intact at that time. Medications and Allergies were reviewed in eD-H PAST MEDICAL HX: Past Medical History Diagnosis Date ??? Osteoarthritis ??? Rheumatoid arthritis ??? Nasal polyp ??? S/P nasal polypectomy ??? Exercise-induced asthma ??? GERD (gastroesophageal reflux disease) 07/14/2011 ??? History of smoking 07/14/2011 ??? 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 Anemia 07/14/2011 ??? History of hemorrhagic colitis 07/14/2011 PAST SURGICAL HX: Past Surgical History Procedure Date ??? Wrist surgery ??? Total hip arthroplasty 07/14/2011 @TOTAL HIP ARTHROPLASTY, ANTERIOR APPROACH performed by PEBBLES WILSON at [facility] MAIN OR SOCIAL HX: Social History Occupational History ??? Not on file. Social History Main Topics ??? Smoking status: Former Smoker -- 0.5 packs/day Types: Cigarettes Quit date: 05/17/1973 ??? Smokeless tobacco: Never Used ??? Alcohol Use: Yes 2-4 drinks per week ??? Drug Use: No ??? 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 Cadena is a 61 y.o. male who is alert and oriented. He appears in no acute discomfort and is resting comfortably in the exam room. Palpation: Diffuse tenderness with palpable and audible crepitus ROM: Forward Flexion: 40?? active Abduction: 70?? active External Rotation: 20?? passive Internal Rotation: Reaches to back pocket Strength: 5/5 internal and external rotation. Difficult to assess forward flexion and empty can do to limited range of motion, but he is able to provide some resistance Neurovascular: Normal motor function of the radial, median, ulnar, axillary and musculocutaneous nerves. Normal sensation along radial, median, ulnar, axillary, and lateral antebrachial cutaneous nervedistributions. Good hand perfusion. RADIOLOGICAL STUDIES: X-rays from today show severe arthritic change at the glenohumeral joint. Humeral head is markedly deformed with extensive erosions present. Glenohumeral joint space is no longer present. There has been progressive change when compared to his previous films. ASSESSMENT: Left shoulder glenohumeral rheumatoid arthritis PLAN: Mr. Cadena and I discussed his radiologic findings and physical exam findings. Dr. Arango also evaluated and spoke with the patient at today's visit. He is surely a candidate for shoulder replacement at this point based on his symptoms and x-ray findings. We would like to repeat an MRI of the left shoulder for further evaluation of his rotator cuff. We discussed that surgical options available are dependent upon whether or not the rotator cuff is intact. He is planning on going on vacationin [place] this summer and would like to potentially have surgery in November. He will follow up in clinic after he has had the MRI for further discussion of surgical treatment. The patient understands to contact us if they have any other questions or concerns. documented in this encounter Plan of Treatment Not on filedocumented as of this encounter Visit Diagnoses Diagnosis Rheumatoid arthritis(714.0) - Primary Rheumatoid arthritis documented in this encounter Care Teams Drug Safety Scientist Relationship Specialty Start Date End Date Jorge Rosario MD PCP - General 05/18/11 03/23/[address] [place] [address] [address] [place] [address] documented as of this encounter
--- OUTSIDE RECORDS SUMMARY | 2021-09-03 02:11 | XMS_ITS | Encounter Summary ---
:1950 Author Organization [facility] Address [address] [place] [address] Care Team Providers Name Role Phone Giuseppe Quintanilla MD Primary Care Provider Unavailable Encounter Details Date Type Department Care Team Description 06/14/2016 Results Only [facility] Sirisha Puckett MD [phone] [place], [place] [address]B [address] [place], [place] [phone] (Wo rk) Social History Tobacco Use Types Packs/Day Years Used Date Never Assessed Sex Assigned at Date Recorded Not on file documented as of this encounter Plan of Treatment Upcoming Encounters Date Type Specialty Care Team Description 09/16/2021 Nurse Only Infusion Therapy 09/30/2021 Nurse Only Infusion Therapy 03/07/2022 Telemedicine Rheumatology Sirisha Puckett MD [address] [place] [address] [place], [place] [phone] (Wo rk) 07/12/2022 Office Visit Dermatology Lian Bai MD [address] [facility], [facility] [address] [place], [place] [address] (Wo rk) documented as of this encounter Procedures Procedure Name Priority Date/Time Associated Diagnosis Comme nts CYTOGENETICS Routine 06/14/2016 0:00 EDT Results for this procedure are i n the results section . FLOW CYTOMETRY Routine 06/14/2016 0:00 EDT Result s for this procedure are i n the results section . documented in this encounter Results CYTOGENETICS (06/14/2016 0:00 EDT) Pathology CYTOGENETICS REPORT [facility] MED[facility] Report: CENTER Reports generated via electronic interface contain inna ginal data; LABORATORY however they are lacking the format of the original re port. SERVICES Caution should be taken when reading/interpreting unfo rmatted reports. Name: ? YAW GARCIA ? Accession #: ? [id number] : ? 1950 (Age: 65) ??M ?Collect Date: ? 06/14 Location: ? [facility] ? Receive Date : ? 06/15/2016 Provider: ? SIRISHA PUCKETT MD Copy to: ?KAILEE SHEETS MD ? INTERPRETATION: ? 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 FISH is negative for deletion of 13q, 11q, and 1 7p, trisomy 12, and CCND1/IGH fusion. ? The presence of an extra IGH signal is of uncertain si gnificance. ? Document reviewed and electronically signed by: ? VI SHEETS MD ? 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 SPECIMEN: Peripheral Blood ?? TEST PERFORMED: CLL FISH panel: [id number](13q1 4.3), 13q34, D12Z3(12q10), JENNIFER(11q22), TP53(17p13), and CCND1/IGH fusion ??Probe Vendor: [employer] ? REPORT: 13q-x1 ([id number]) ? (cut-off 6.5%) ? normal 13q-x2(L83P976a2,95k92t8) ? (cut-off 2.0%) ? n ormal +12cen (M08U0r0) ?(cut-off 5.0%) ? no rmal 11q- (ATMx1) ? (cut-off 6.0%) ? normal 17p-(TP53x1) ? (cut-off 6.5%) ? normal t(11;14) CCND1/IGH fusion ? (cut-off 0.5%) ? A BNORMAL ?? KARYOTYPE: nuc rishi(BUNT4Q8,IGHX3)[58/20 0],(JENNIFER,TP53)x2[200],(D12Z3,D84Q792,13q34)x2[200] ?? COMMENT: This test was developed and its performance cal [facility] determined by [facility] as required b y the CLIA'88 regulations. ??It has not been cleared or approved for specific use s by the U.S. FDA. The FDA has determined that such clearance or approval is not necessary. This test is used for clinical purposes. It should not be regarded as investigational or resea [facility]. ? End of Report Specimen Performing Organization Address City/State/ZIP Code Phon e Number [facility] [address] [place] [address] SERVICES FLOW CYTOMETRY (06/14/2016 0:00 EDT) Pathology FLOW CYTOMETRY REPORT [facility] Report: CENTER Reports generated via electronic interface contain inna ginal data; LABORATORY however they are lacking the format of the original re port. SERVICES Caution should be taken when reading/interpreting unfo rmatted reports. Name: ? YAW GARCIA ? Accession #: ? [id number] : ? 1950 (Age: 65) ??M ?Collect Date: ? 06/14 00:00 Location: ? [facility] ? Receiv e Date: ? 06/15/2016 09:05 Provider: ?SIRISHA PUCKETT MD Copy to: ? FINAL IMMUNOPHENOTYPIC INTERPRETATION: ? Peripheral blood, flow cytometric analysis: -CD5+ B-cell lymphoproliferative disorder. ??See comme nt. ? COMMENT: The results of flow cytometr y are those of involvement by a lymphoproliferative disorder of CD5+ B-cell lineage without light chain ex pression. 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 ?? Correlation of these findings with morph ologic and clinical data is essential. CLL FISH is in progress and will be reported separatel y. ? Document reviewed and electronically signed by: ? VI SHEETS MD Report Date: ??06/15/2016 16:26 By the signature above, the attending physician certif ies that he/she has personally conducted an evaluation of the described sp ecimen and rendered or confirmed the above diagnosis. CLINICAL HISTORY: The patient is a 65-year-old man with lymphocytosis. DESCRIPTION: The specimen consists of per ipheral blood that has been prepared using ammonium chloride lysing agent. ??Gating is performed usi ng CD45 fluorescence and side scatter. ??Cellular viability (assessed by propidium i odide exclusion) is excellent (98%) among cells with CD45 and side scatter properties typical of lymphocytes and excellent (9 7%) among CD45+ events overall. ??Expression of the following antigens is tested: CD2, CD3, CD4, CD5, CD7, CD8, CD10, CD11c, CD14, CD16, CD19, CD20, CD22, CD23, CD38, CD45, CD56, CD57, FMC-7, HLA-DR, kappa, lambda, CD11b, CD13, CD33, CD34, and CD117. There is a clonal population of B-lymphocytes accounti ng for 40% of the lymphocytes. ??The cells comprising this population are positive for CD5(dim), CD19, CD23(dim), CD22(dim), HLA-DR and they are negative for ??CD10, FMC7, CD38 and surface light chain expression. The remaining lymphoid cells are T-lymphocytes (CD2+CD3+CD5+CD7+) with CD4+ and CD8+ subsets represented. ??The remaining lymphocytes are non-clonal B-lymphocytes (CD19+CD20+) and NK-cells (CD2+CD3-CD16+ CD56+). ??Non-clonal B-cells are few in number but appear polytypic. ? This test was developed and its performance cal acteristics determined by the Department of Pathology and Laboratory M edicine, [place], [place]. ??It has not bee n cleared or approved by the U.S. Food and Drug Administration. ??F DA does not require this test to go through premarket FDA review. ??This test is u sed for clinical purposes. ??It should not be regarded as investigational or for research. ??This laboratory is certified under the Clinical Laboratory Improvement Amendmen ts (CLIA) as qualified to perform high complexity clinical laboratory testing. End of Report ?? Specimen Performing Organization Address City/State/ZIP Code Phon e Number [facility] [address] [place] [address] SERVICES documented in this encounter Visit Diagnoses Not on filedocumented in this encounter Care Teams Cyber Security Instructor Relationship Specialty Start Date End Date Giuseppe Quintanilla MD PCP - General 01/02/15 01/23/19 documented as of this encounter
--- OUTSIDE RECORDS SUMMARY | 2021-09-03 02:11 | XMS_ITS | Encounter Summary ---
:1950 Author Organization [facility] Address [address] [place] [address] Care Team Providers Name Role Phone Giuseppe Quintanilla MD Primary Care Provider Unavailable Jorge Rosario MD Primary Care Provider Unavailable Cathy Mota NP Primary Care Provider Encounter Details Date Type Department Care Team Description 07/29/2004 Before PRISM Converted [facility] JeramieDemario lopez, Visit ([place]) Hand & Upper Extremity MD Program - [address] [place], [facility] [address] [phone] Social History Tobacco Use Types Packs/Day Years Used Date Never Assessed Sex Assigned at Date Recorded Not on file documented as of this encounter Plan of Treatment Upcoming Encounters Date Type Specialty Care Team Description 09/16/2021 Nurse Only Infusion Therapy 09/30/2021 Nurse Only Infusion Therapy 03/07/2022 Telemedicine Rheumatology [facility]uckett [facility] [address] [facility] [address] [place] [address] (Wo rk) 07/12/2022 Office Visit Dermatology Lian Bai MD [address] [facility], [facility], [address] [place], [place] [address] (Wo rk) documented as of this encounter Procedures Procedure Name Priority Date/Time Associated Diagnosis Comme nts WRIST 2 VIEWS Routine 07/29/2004 9:41 EDT Results for this procedure are i n the results section . documented in this encounter Results WRIST 2 VIEWS (07/29/2004 9:41 EDT) Anatomical Region Laterality Modality Other Specimen Narrative [facility] - 10/20/2008 10 :37 EDT DOS 07/16/04 RT WRIST FUSION ASSESS HEALING/ALIGNMENT WRIST 2 VIEWS FINDINGS: Two views of the wrist show posterior harper rdware for fusion. Distal ulna appears to be resected. Hardware an d appearance of wrist and surgical sites appear unchanged from int raoperative films of 07/16/04. /[facility] Procedure Note Rohit Pressley MD - 10/20/2008 DOS 07/16/04 RT WRIST FUSION ASSESS HEALING/ALIGNMENT WRIST 2 VIEWS FINDINGS: Two views of the wrist show posterior harper rdware for fusion. Distal ulna appears to be resected. Hardware an d appearance of wrist and surgical sites appear unchanged from int raoperative films of 07/16/04. /[facility] Performing Organization Address City/State/ZIP Code Phon e Number [facility] [address] [facility], [facility] [address] [facility] [address] [place], [place] [address] documented in this encounter Visit Diagnoses Not on filedocumented in this encounter Care Teams Experimental Preflight Mechanic Relationship Specialty Start Date End Date Giuseppe Quintanilla MD PCP - General 01/02/15 01/23/19 Jorge Rosario MD PCP - General 01/24/19 02/26/20 Cathy Mota NP PCP - General 02/27/[address] [place] [address] documented as of this encounter
--- OUTSIDE RECORDS SUMMARY | 2021-09-03 02:11 | XMS_ITS | Encounter Summary ---
:1950 Author Organization [facility] [place] [address] Care Team Providers Name Role Phone Jorge Rosario MD Primary Care Provider Reason for Visit Reason Comments Follow Up Surgery feels good but a little weak with some movements Encounter Details Date Type Department Care Team Description 08/07/2017 Office Visit Orthopaedics at [facility] Sneha Fountain, History of total left [facility] [employer] hip [place] [address] CENTER [phone] ORTHOPAEDIC SURGERY [place] [address] Social History Tobacco Use Types Packs/Day Years [...] Sign Reading Time Taken Comments Blood Pressure 140/81 08/07/2017 1:11 PM EDT Pulse 53 08/07/2017 1:11 PM EDT Temperature - - Respiratory Rate - - Oxygen Saturation - - Inhaled Oxygen Concentration - - Weight 82.6 kg (182 lb) 08/07/2017 1:11 PM EDT pt repor tim Height 172.7 cm (5' 8) 08/07/2017 1:11 PM EDT pt repor tim Body Mass Index 27.67 08/07/2017 1:11 PM EDT documented in this encounter Progress Notes Sneha Fountain, [employer] - 08/07/2017 1:00 PM EDT Arthroplasty/Orthopaedic History: 1. LEFT hip TRINI. DOS: 07/14/2011. Dr. Vines Chief Complaint: Routine rotary f/u for above. HPI: Yaw Cadena is a very pleasant 66 y.o. 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 There is no pain. He does describe a slight weakness in the hip flexors with SLR that does not interfere with his lifestyle more of a subjective sensation that he knows the hip is there. No groin pain or mechanical complaints. Denies interval falls, injuries or infections. No numbness or tingling in the thigh. No back pain or radiculopathy. Nonight sweats. No fevers, chills, nausea, vomiting, or symptoms of infection. Yaw has been ambulating with no assistive device and remains active. No heavy impact sports or activities. He has been taking oral antibiotics with dental work. Other than mild left anterior knee pain, his health has beenstable otherwise. He does use Immune Modulator medication for RA. Patient's medications, allergies, past medical, surgical, social and family histories were reviewed and updated as appropriate. ROS: Denies: fever, chills, night sweats, nausea, or vomiting There were no vitals taken for this visit. Physical Exam: Well-appearing male in no acute distress. Alert and Oriented x 3 and answers all questions appropriately. The incision is reportedly well healed, with no signs of infection. Hip Exam: Left. SLR is objective strong with no subtle weakness noted. EHL/FHL 5/5. Negative nerve root tension sign. Leg Length: Longer leg: equal Limb Length discrepancy: 0cm Motion: Flexion contracture: 0 Total degrees of Flexion: 130 Total degrees of Abduction: 30 Total degrees of Ext Rotation: 30 Total degrees of Internal Rotation: 15 Gait Abnormality: Normal Pulses Palpable: Left PT: Yes Left DP: Yes Motor/Sensory: Left Distal Motor: Normal Distal Sensory: Normal Hip Abductors: 5 Trendelenburg test: negative X-RAYS: Multiple radiographic views were obtained at my request and reviewed with the patient. X-rays show a well-placed prosthesis with no evidence of fracture, subsidence, loosening, or periprosthetic complication. Questionnaire Responses: [facility] Surgical Postop Visit 08/05/2015 PROMIS-10 General Health Very Good PROMIS-10 Quality of Life Very Good PROMIS-10 Physical Health Very Good PROMIS-10 Mental Health Good PROMIS-10 Social Activity Good PROMIS-10 Everyday Activities Completely PROMIS-10 Pain 0 -No Pain PROMIS-10 Fatigue Mild PROMIS-10 Social Roles Very Good PROMIS-10 Anxious or Depressed Sometimes PROMIS PHYSICAL HEALTH SCORE 57.7 PROMIS MENTAL HEALTH SCORE 45.8 Gone to ER since knee surgery No Admitted to hospital since recent ortho surgery Yes [facility] Date of admission 01/01/2013 Discharge date 01/02/2013 Reason you went to hospital shoulder replacement Additional surgery on same body part No Satisfaction with Treatment - Choose Same Treatment Again - Orthopeadics [facility] Response 07/18/2012 ASES VAS-LEFT 7 ASES ADL-LEFT ARM 4 ASES LEFT ARM 21.66 No flowsheet data found. ASSESSMENT/PLAN: Mr. Cadena is a 66 y.o. year old male status post left total hip replacement. Hecontinues to do well post op for above surgery. Activity precautions to prevent premature implant failure and joint specific exercises reviewed. We will see him back in 3-4 years for repeat examination. X-rays will be needed at that time. Patient may return to normal activities as his pain and function allow. I see no evidence of weakness in the hip flexors or SLR if this changes in quality or character RTC sooner. Finally, he is going to discuss mild anterior knee pain with his automatic edger this week for his routine follow up appointment. He his Assurance Manager feels that the pain is more of a mechanical issue rather than inflammatory, we are happy to see him in the interim of his next appointment. Pt agrees, questions solicited/answered, will return as scheduled and as needed for concerns or questions. Pt understands they may also call us prn for above. We discussed the appropriate precautions surrounding dental prophylaxis; according to the AAOS Appropriate Use Criteria we do recommend antibiotic use prior to dental procedures for Rand to immune modulator medication for RA. Recommended antibiotic: Amoxacillin 2000 mg one hour before any dental work. If Yaw has any changes in health status we recommend he contact our office prior to dental procedures for updated recommendations We also discussed maintaining good foot care and giving prompt attention to any source of infection throughout the body including foot ulcers and urinary tract infections. All questions were answered. Signed: SNEHA FOUNTAIN APRN 08/07/2017 documented in this encounter Plan of Treatment Not on filedocumented as of this encounter Visit Diagnoses Diagnosis History of total left hip replacement documented in this encounter Care Teams 3D Artist Relationship Specialty Start Date End Date Jorge Rosario MD PCP - General 05/18/11 03/23/[address] [place] [address] documented as of this encounter
--- OUTSIDE RECORDS SUMMARY | 2021-09-03 02:11 | XMS_ITS | Encounter Summary ---
:1950 Author Organization [facility] [place] [address] Care Team Providers Name Role Phone Jorge Rosario MD Primary Care Provider Encounter Details Date Type Department Care Team Description 08/15/2019 Hospital [place] [address] Social History Tobacco Use Types Packs/Day [...] Priority Date/Time Associated Diagnosis Comme nts COVID-19 PCR Routine 08/15/2019 3:10 PM Results f or this EDT procedure are i n the results section . documented in this encounter Results COVID-19 PCR (08/15/2019 3:10 PM EDT) [facility] Method Time Signature SARS-CoV-2 Not Detected Not Detected [facility] Comment: This result should be interpreted in com bination with the clinical observations, patient history and epidem iological information. For testing of asymptomatic individuals, assay performa nce characteristics and clinical utility have not been evaluated. Testing for SARS-CoV-2 (Severe acute respiratory syndrome coronavirus 2, form erly known as 2019 novel coronavirus or 2019-nCoV) to aid in the diagnosis of CO VID-19 is performed using the Aptima SARS Co-V-2 Assay on the [employer] as authorized by the FDA issued Emergency Use Authorization ( EUA). This assay is intended for In-vitro Diagnostic (IVD) use with nasop haryngeal swabs collected from individuals meeting the CDC criteria for testing. The assay is performed based on the instructions for use and addition al guidance provided by the FDA. Testing is performed in the Microbiology Laboratory within the Department of Pathology and Laboratory Medicine at [facility], certified under the Clinical Laboratory Improvement Amendments of 1988 (CLIA), 42 U.S.C. section 263a, to perform high- complexity tests. Assay performance has been verified according to clinical labo ratory regulatory requirements. Test results are provided above. A resul t of Not Detected indicates that the viral RNA target is not present but does not preclude SARS-CoV-2 infection. False negative results may occur if a sp ecimen is improperly collected, transported or handled; if amplification inhibitors are present; or if inadequate numbers of viral particles ar e present in the specimen. A result of Detected suggests a current or recent infection and the patient is presumed to be infected. Positive and negative pr edictive values for this test are highly dependent on disease prevalence. A result of Invalid indicates the inability to conclusively determine the presence or absence of SARS-CoV-2 RNA in the sample which can be due to a vari ety of factors. ??Collection of a new sample for repeat testing is recommended in the case of an invalid result. CDC COVID-19 criteria for testing on hum an specimens and clinical management guidance information are available at e CDC Coronavirus Disease 2019 (COVID-19) webpage under Information fo r Healthcare Professionals (https://www.cdc.gov/coronavirus/2019-nc ov/hcp/index.html). SARS-Cov-2 RNA Source [facility] Swab [facility] Specimen (Source) Anatomical Collection Method Collection Time Re ceived Time Location / / Volume Laterality Nasopharyngeal swab Other / Unknown 08/15/2019 3:10 (specimen) PM EDT 11:19 PM EDT Resulting Agency Comment Spec In Lab Manjinder Yan DO MICROBIOLOGY - GENERAL AALIYAH HENDERSON Performing Organization Address City/State/[place] [address] documented in this encounter Visit Diagnoses Not on filedocumented in this encounter Care Teams Stretch Press Operator Relationship Specialty Start Date End Date Jorge Rosario MD PCP - General 05/18/11 03/23/[address] [place] [address] documented as of this encounter
--- OUTSIDE RECORDS SUMMARY | 2021-09-03 02:11 | XMS_ITS | Encounter Summary ---
:1950 Author Organization [facility] Address [address] [place] [address] Care Team Providers Name Role Phone Unavailable Primary Care Provider Unavailable Encounter Details Date Type Department Care Team Description 09/28/2005 Before PRISM Converted [facility] Maple conversion [address] [facility] [address] [place], [place] [id number] [place] [phone] Social History Tobacco Use Types Packs/Day Years Used Date Never Assessed Sex Assigned at Date Recorded Not on file documented as of this encounter Progress Notes Rigoberto, Conv Java Groovy Developer - 02/13/2009 0602 EST DIVISION OF RHEUMATOLOGY PROGRESS/FOLLOWUP NOTE - 09/28/2005 SUBJECTIVE: The patient is 54-year-old gentleman with seropositive rheumatoid arthritis. He was lastseen on 08/03/[address] Riley and Italo. At that time, he was still having difficulty with his rheumatoid arthritis despite being on the Humira starting in 05/2005. He had been off prednisone and noticed significant decreased energy and recurrence of pain and swelling in the left wrist and a few ofthe MCPs of both hands. At that time, we started him on sulfasalazine, and he iscurrently on 1 gram twice a day and tolerating it well. We also restarted his prednisone at 10 mg a day for a week and then decreased it to 5 mg a day until he followed up with us today. Today, the patient reports feeling well and the best he has felt lisandro long time. He also is just finishing up two weeks of vacation. He has no morning stiffness. His only complaint today is some dizziness with a little bit of lightheadedness when he either goes from a sitting to standing position or attimes lying in bed and looking up at the ceiling. He says these symptoms were very severe 3-4 weeks ago and have not been that bad over the last week. He denies any nausea, vision change or headache with these symptoms. They usually last for only a few seconds. He hadan eye exam about a year ago and is due for another. He also notes today that his blood pressure is a lot lower than it typically is (see physical examination section). Additional review of systems including a 10 point review is all negative and documented in his medical record. CURRENT MEDICATIONS: 1. Sulfasalazine 500 mg two tablets in the morning, two tablets in the evening. 2. Humira 40 mg subcutaneous every other week. 3. Prednisone 5 mg daily. 4. Omeprazole 20 mg daily. 5. Ambien HS as needed. 6. Calcium, vitamin D and multivitamins daily. 7. Hydrocodone as needed. He has not used much at all. PHYSICAL EXAMINATION: The patient appears pleasant and is in no acute distress. Today, he denies pain which is a significant improvement. Weight is 191 pounds which is up from 187 1/2 pounds at the last visit. Blood pressure is 104/60. His last blood pressures on several visits have been about 138/80s. His pulse is 88, respirations are 14. I retested his pulse while he was sitting, and it was 75 bpm.I then had him stand for about one minute, and his pulse was 90 bpm. HEENT: Sclerae are clear and nooral ulcers. Neck: No cervical or supraclavicular lymphadenopathy. Chest: Lungs are clear to auscultation bilaterally. Heart: Regular rate and rhythm without murmur. Extremities: Full, virtually painless range of motion at the joints of the upper and lower extremities which is a significant improvement in the shoulders. No soft tissue swelling in any of the joints of the upper or lower extremities including the small joints of the hands, wrists, and feet. The right wrist is fused. 5/5 strength in all large muscle groups. Labs from 09/07/2005 show a white count of 13.3, hemoglobin of 13.8, platelets of 266, AST of 23, ALT of 36, creatinine of 0.8, albumin of 3.8 and alkaline phosphatase of 68. ASSESSMENT: Seropositive rheumatoid arthritis with significant improvement in his disease activity since starting the sulfasalazine and being on a low dose of prednisone. At this point, it is not totally clear whether the improvement is from the addition of the sulfasalazine or from the prednisone. Time will certainly tell as we taper his prednisone with a goal to stop it altogether. The dizziness and lightheadedness appear to be consistent with benign positional vertigo; however, he certainly has alower blood pressure today here as well as some orthostasis in the rise of 15 beats per minute in his pulse going from sitting to standing. This could be a withdrawal effect from coming off of the prednisone given that he has been on high doses since 04/2005. We will monitor this closely. The patient also knows what to look for including lightheadedness with standing, significant fatigue and nausea. PLAN: 1. Continue with Humira and sulfasalazine at current doses. 2. Decrease prednisone by 1 mg every four weeks to taper off. 3. Continue to check labs every two months. Next labs are due in October. 4. Follow up in four months. Patient was seen with Dr. Sherif Riley. I saw and examined the patient with Dr.Teresa Puckett. I agree with the HPI, exam findings and the planof care as outlined above. I have documented any additions/changes in the body of the note. Signed by Sherif Riley MD 10/05/2005 18:55 Reviewed by Sirisha Puckett MD 10/05/2005 13:04 Lia Willis MDSheldon M Cooper, MD Dictated by: Sirisha Puckett MD Sherif Riley MD - Sirisha Puckett MD P - O16 Job ID: [id number] Document ID: [id number] cc: Giuseppe Quintanilla MD documented in this encounter Plan of Treatment Upcoming Encounters Date Type Specialty Care Team Description 09/16/2021 Nurse Only Infusion Therapy 09/30/2021 Nurse Only Infusion Therapy 03/07/2022 Telemedicine Rheumatology Sirisha Puckett MD [address] [facility] [address] [place], [place] [phone] (Wo rk) 07/12/2022 Office Visit Dermatology Lian Bai MD 111 [facility], [facility] 5 [place], [place] [phone] (Wo rk) documented as of this encounter Visit Diagnoses Not on filedocumented in this encounter
--- OUTSIDE RECORDS SUMMARY | 2021-09-03 02:11 | XMS_ITS | Encounter Summary ---
:1950 Author Organization [facility] Address [address] [place] [address] Care Team Providers Name Role Phone Unavailable Primary Care Provider Unavailable Encounter Details Date Type Department Care Team Description 08/30/2004 Hospital Encounter [facility] - Kenneth Bobo, Maldonado LAMA [id number] [place] [address] [place] [phone] (Wo rk) Social History Tobacco Use Types Packs/Day Years Used Date Never Assessed Sex Assigned at Date Recorded Not on file documented as of this encounter Plan of Treatment Upcoming Encounters Date Type Specialty Care Team Description 09/16/2021 Nurse Only Infusion Therapy 09/30/2021 Nurse Only Infusion Therapy 03/07/2022 Telemedicine Rheumatology Sirisha Puckett MD [address] [facility] [address] [place] [phone] (Wo rk) 07/12/2022 Office Visit Dermatology Lian Bai MD 111 [facility], [facility] 5 [place], [place] [phone] (Wo rk) documented as of this encounter Procedures Procedure Name Priority Date/Time Associated Diagnosis Comme nts WRIST 2 VIEWS 11/01/2004 10:59 EDT Result s for this procedure are i n the results section . documented in this encounter Results WRIST 2 VIEWS (11/01/2004 10:59 EDT) Anatomical Region Laterality Modality Other Specimen Narrative [facility] - 09/19/2008 0: 25 EDT S/P RT WRIST FUSION DOS 07/16/04 ASSESS HEALING AND ALIGNMENT TWO VIEWS RIGHT WRIST 11/01/04 COMPARISON: right wrist 08/30/04 CLINICAL HISTORY: status post right wris t fusion, assess healing and alignment. FINDINGS: Plate and screws aid in the fu khloe of the radius and multiple carpal bones. 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 Overall, there is no change in hardware or bony alignment. D 11/03/04 T 11/04/04 /jl I have personally reviewed the images an d the above interpretation and agree with the findings. Procedure Note Haim Merino MD / Rohit Pressley M D - 09/19/2008 S/P RT WRIST FUSION DOS 07/16/04 ASSESS HEALING AND ALIGNMENT TWO VIEWS RIGHT WRIST 11/01/04 COMPARISON: right wrist 08/30/04 CLINICAL HISTORY: status post right wris t fusion, assess healing and alignment. FINDINGS: Plate and screws aid in the fu khloe of the radius and multiple carpal bones. 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 Overall, there is no change in hardware or bony alignment. D 11/03/04 T 11/04/04 /jl I have personally reviewed the images an d the above interpretation and agree with the findings. Performing Organization Address City/State/ZIP Code Phon e Number [facility] 111 [facility] [address] [address] [facility] [address] [place], [place] [address] documented in this encounter Visit Diagnoses Not on filedocumented in this encounter
--- OUTSIDE RECORDS SUMMARY | 2021-09-03 02:11 | XMS_ITS | Encounter Summary ---
:1950 Author Organization [facility] Address [address] [place] [address] Care Team Providers Name Role Phone Unavailable Primary Care Provider Unavailable Encounter Details Date Type Department Care Team Description 06/01/2005 Hospital Encounter [facility] Sirisha Puckett MD [address] [facility] [id number] [place] [phone] (Wo rk) Social History Tobacco Use Types [...] Therapy 03/07/2022 Telemedicine Rheumatology Sirisha Puckett MD [address] [place] [address] [address] [facility] [address] [place] [phone] (Wo rk) 07/12/2022 Office Visit Dermatology Lian Bai MD 111 [facility], [address] [place], [place] [phone] (Wo rk) documented as of this encounter Visit Diagnoses Not on filedocumented in this encounter
--- OUTSIDE RECORDS SUMMARY | 2021-09-03 02:11 | XMS_ITS | Encounter Summary ---
:1950 Author Organization [facility] Address [address] [place] [address] Care Team Providers Name Role Phone Unavailable Primary Care Provider Unavailable Encounter Details Date Type Department Care Team Description 02/01/2006 Before PRISM Converted [facility] - Sirisha Puckett MD Visit ([facility]) Maple conversion [address] [facility] [address] [place], [place] [phone] [place] [phone] Social History Tobacco Use Types Packs/Day Years Used Date Never Assessed Sex Assigned at Date Recorded Not on file documented as of this encounter Progress Notes Rigoberto, Conv Correctional Case Manager - 02/13/20092001 EST DIVISION OF RHEUMATOLOGY PROGRESS/FOLLOWUP NOTE - 02/01/2006 SUBJECTIVE: Yaw Cadena is a 55-year-old gentleman with seropositive rheumatoid arthritis. He was last seen in rheumatology in September 2005. The patient has been doing well with regards to his arthritis. He had been experiencing an upper respiratory infection and called the office about a week ago. We instructed him to hold his dose of Humira until he had seen Dr. Quintanilla. He did not need to goon antibiotics and has been feeling better. Since holding Humira, he noticed that his left wrist started to swell and has mild pain. His remaining joints are asymptomatic. He has no morning stiffness. REVIEW OF SYSTEMS: A 10-point review was done with the patient and documented in his medical record.In addition to the upper respiratory infection, he still requires omeprazole for intermittent heartburn. His remaining review is all negative. MEDICATIONS: 1. Humira 40 mg every 2 weeks. 2. Sulfasalazine 500 mg 2 tablets twice daily. 3. Glucosamine daily. 4. Omeprazole 20 mg daily. PHYSICAL EXAMINATION: The patient is in no acute distress. He denies pain. Weight 193 pounds, blood pressure 120/76, pulse 80, respirations 12. HEENT: Sclerae clear, moist mucous membranes, no oral ulcers. Neck: No cervical or supraclavicular lymphadenopathy. Chest: Lungs are clear to auscultation bila terally. Cardiovascular: Regular rate and rhythm without murmur. Joint exam: Full, painless range of motion of the large joints of the upper and lower extremities except for at the left wrist where he has pain with flexion and extension. The right wrist is fused. Hehas soft tissue swelling and tenderness in the left wrist as well but no other joints with any soft tissue swelling or tenderness. Labs from 01/30/2006 show white count of 11.3, hemoglobin 14.3, platelets 263,000, normal differential, creatinine 0.8, albumin 4, alkaline phosphatase 84, AST 33 and ALT 42. ASSESSMENT: Rheumatoid arthritis with continued improvement on the sulfasalazine and Humira. He has not required prednisone for several months, and we do believe that he has benefited with the additionof the sulfasalazine. He might be having a minor flare since holding his Humira, but he can resume that since he is feeling better and does not have any sign of infection. PLAN: 1. Continue with Humira and sulfasalazine at the current doses. At Mr. Cadena's request, we will change the Humira to an Autoinjector pen and he will have education on how to use that today. 2. Continue to check labs every 2 months. 3. Follow up in 6 months, or sooner if needed. saw and examined the patient with Dr. Sirisha Puckett. I agree with the HPI, exam findings and the plan of care outlined above. I have documented any additions/changes in the body of the note. Signed by Sherif Riley MD 02/07/2006 22:07 Reviewed by Sirisha Puckett MD 02/07/2006 17:03 RTLia Mcnamara MDSheldon M Cooper, MD Dictated by: Sirisha Puckett MD Sherif Riley MD - MD Italo P - O1 Job ID: [id number] Document ID: [id number] cc: Giuseppe Quintanilla MD documented in this encounter Plan of Treatment Upcoming Encounters Date Type Specialty Care Team Description 09/16/2021 Nurse Only Infusion Therapy 09/30/2021 Nurse Only Infusion Therapy 03/07/2022 Telemedicine Rheumatology Sirisha Puckett MD [address] [place] [address] [phone] (Wo rk) 07/12/2022 Office Visit Dermatology Lian Bai MD 111 [facility], [address] [place], [place] [phone] (Wo rk) documented as of this encounter Visit Diagnoses Not on filedocumented in this encounter
--- OUTSIDE RECORDS SUMMARY | 2021-09-03 02:11 | XMS_ITS | Encounter Summary ---
:[address] [facility] Address [address] [place] [address] Care Team Providers Name Role Phone Unavailable Primary Care Provider Unavailable Encounter Details Date Type Department Care Team Description 05/04/2005 Hospital Encounter [facility] - Jamie Puckett MD [address] [facility] [address] [place] [address] [facility] Sherif Riley MD [address] [place] [address] [address] [place], [place] [id number] Social History Tobacco Use Types Packs/Day Years [...] MD [address] [facility] [address] [place] [address] (Wo rk) 07/12/2022 Office Visit Dermatology Lian Bai MD [address] [facility], [address] [place], [place] [phone] (Wo rk) documented as of this encounter Procedures Procedure Name Priority Date/Time Associated Comments Diagnosis PELVIS 1 OR 2 VIEWS 05/04/2005 17:54 Resu lts for this EST procedure are i n the results section. HAND 2 VIEWS 05/04/2005 17:54 Results for this EST procedure are i n the results section. HAND 2 VIEWS 05/04/2005 17:54 Results for this EST procedure are i n the results section. CHEST PA AND LATERAL 05/04/2005 17:54 Res ults for this EST procedure are i n the results section. SHOULDER 2 OR MORE 05/04/2005 17:53 Resul ts for this VIEWS EST procedure are i n the results section. SHOULDER 2 OR MORE 05/04/2005 17:53 Resul ts for this VIEWS EST procedure are i n the results section. FOOT AP+LAT 05/04/2005 17:53 Results for this EST procedure are i n the results section. FOOT AP+LAT 05/04/2005 17:53 Results for this EST procedure are i n the results section. CCP ANTIBODIES Routine 05/04/2005 17:36 Results f or this EST procedure are i n the results section. SED RATE Routine 05/04/2005 17:36 Results for this EST procedure are i n the results section. COMPREHENSIVE Routine 05/04/2005 17:36 Results fo r this METABOLIC PANEL (CMP) EST proced ure are in the results section. documented in this encounter Results HAND 2 VIEWS (05/04/2005 17:54 EST) Anatomical Region Laterality Modality Other Specimen Narrative [facility] - 09/06/2008 10 :32 EDT history of Rheumatoid artheritis starting TNF -2 medication new hip/knee/shoulder pain BILATERAL HANDS: 05/04/2005 CLINICAL HISTORY: Rheumatoid arthritis, starting new joel tment. COMPARISON EXAMINATIONS: Right wrist examination from 11/01/2004 . LEFT HAND FINDINGS: A single view of the left hand shows ra diocarpal and radioulnar joint space narrowing. ??I suspect erosi ons involving the carpal bones. ??There may be an early erosion i nvolving the head of the 5th metacarpal. ??No subluxation is seen. ?? There is periarticular osteopenia involving the MCP joints. RIGHT HAND FINDINGS: A single view shows plate and screw fix ation extending from the 3rd metacarpal to the radius. ??Compared to the last examination, there may be slight increased sclerosis sugges ting progression of fusion. There is resection of the distal ulna. E rosive changes are seen involving the carpometacarpal joints and also involving the metacarpal heads of the 2nd through 5th digits. ??There is no subluxation. ??There is periarticular os teopenia and there is interphalangeal joint space narrowing di stally. I do not detect a significant interval c hange in the appearance on the right side compared to 11/01/2004. /ils Addendum Begins This report has been addended for [employer] with another accession #, for billing purposes. The text has no t been altered. Addendum Ends Procedure Note Maye Baltazar MD - 09/06/2008 history of Rheumatoid artheritis starti ng TNF -2 medication new hip/knee/shoulder pain BILATERAL HANDS: 05/04/2005 CLINICAL HISTORY: Rheumatoid arthritis, starting new joel tment. COMPARISON EXAMINATIONS: Right wrist examination from 11/01/2004 . LEFT HAND FINDINGS: A single view of the left hand shows ra diocarpal and radioulnar joint space narrowing. I suspect erosion s involving the carpal bones. There may be an early erosion inv olving the head of the 5th metacarpal. No subluxation is seen. Ther e is periarticular osteopenia involving the MCP joints. RIGHT HAND FINDINGS: A single view shows plate and screw fix ation extending from the 3rd metacarpal to the radius. Compared to th e last examination, there may be slight increased sclerosis sugges ting progression of fusion. There is resection of the distal ulna. E rosive changes are seen involving the carpometacarpal joints and also involving the metacarpal heads of the 2nd through 5th digits. There is no subluxation. There is periarticular oste openia and there is interphalangeal joint space narrowing di stally. I do not detect a significant interval c hange in the appearance on the right side compared to 11/01/2004. /tn Addendum Begins This report has been addended for associ ation with another accession #, for billing purposes. The text has no t been altered. Addendum Ends Performing Organization Address City/State/ZIP Code Phon e Number [facility] [address] [facility] [address] [facility] [address] [place], [place] [address] HAND 2 VIEWS (05/04/2005 17:54 EST) Anatomical Region Laterality Modality Other Specimen Narrative [facility] - 09/06/2008 10 :32 EDT history of Rheumatoid artheritis starting TNF -2 medication new hip/knee/shoulder pain BILATERAL HANDS: 05/04/2005 CLINICAL HISTORY: Rheumatoid arthritis, starting new jole tment. COMPARISON EXAMINATIONS: Right wrist examination from 11/01/2004 . LEFT HAND FINDINGS: A single view of the left hand shows ra diocarpal and radioulnar joint space narrowing. ??I suspect erosi ons involving the carpal bones. ??There may be an early erosion i nvolving the head of the 5th metacarpal. ??No subluxation is seen. ?? There is periarticular osteopenia involving the MCP joints. RIGHT HAND FINDINGS: A single view shows plate and screw fix ation extending from the 3rd metacarpal to the radius. ??Compared to the last examination, there may be slight increased sclerosis sugges ting progression of fusion. There is resection of the distal ulna. E rosive changes are seen involving the carpometacarpal joints and also involving the metacarpal heads of the 2nd through 5th digits. ??There is no subluxation. ??There is periarticular os teopenia and there is interphalangeal joint space narrowing di maximilianoy. I do not detect a significant interval c hange in the appearance on the right side compared to 11/01/2004. /tns Addendum Begins This report has been addended for associ ation with another accession #, for billing purposes. The text has no t been altered. Addendum Ends Procedure Note Maye Baltazar MD - 09/06/2008 history of Rheumatoid artheritis starti ng TNF -2 medication new hip/knee/shoulder pain BILATERAL HANDS: 05/04/2005 CLINICAL HISTORY: Rheumatoid arthritis, starting new joel tment. COMPARISON EXAMINATIONS: Right wrist examination from 11/01/2004 . LEFT HAND FINDINGS: A single view of the left hand shows ra diocarpal and radioulnar joint space narrowing. I suspect erosion s involving the carpal bones. There may be an early erosion inv olving the head of the 5th metacarpal. No subluxation is seen. Ther e is periarticular osteopenia involving the MCP joints. RIGHT HAND FINDINGS: A single view shows plate and screw fix ation extending from the 3rd metacarpal to the radius. Compared to e last examination, there may be slight increased sclerosis sugges ting progression of fusion. There is resection of the distal ulna. E rosive changes are seen involving the carpometacarpal joints and also involving the metacarpal heads of the 2nd through 5th digits. There is no subluxation. There is periarticular oste openia and there is interphalangeal joint space narrowing di stally. I do not detect a significant interval c hange in the appearance on the right side compared to 11/01/2004. /formerly [facility] Addendum Begins This report has been addended for associ ation with another accession #, for billing purposes. The text has no t been altered. Addendum Ends Performing Organization Address City/State/ZIP Code Phon e Number [facility] [address] [facility] [address] [address] [facility] [address] [place], [place] [address] CHEST PA AND LATERAL (05/04/2005 17:54 EST) Anatomical Region Laterality Modality Other Specimen Narrative [facility] - 09/06/2008 10 :32 EDT history of Rheumatoid artheritis starting TNF -2 medication new hip/knee/shoulder pain 2 views of the Chest were obtained. Clinical Indication: history of Rheumato id artheritis starting TNF -2 medication new hip/knee/shoulder pain FINDINGS: The soft tissues and bony stru ctures are normal except for degenerative disease in the spine.. ??Th e heart is normal in size and configuration. ??The lungs are clear. ?? The mediastinal and hilar contours are normal. ??No pleural abnormality is seen . ??The visualized portion of the upper abdomen is normal. IMPRESSION: Normal frontal and lateral c hest radiographs. Procedure Note Addison Godoy MD - 09/06/2008 history of Rheumatoid artheritis starti ng TNF -2 medication new hip/knee/shoulder pain 2 views of the Chest were obtained. Clinical Indication: history of Rheumato id artheritis starting TNF -2 medication new hip/knee/shoulder pain FINDINGS: The soft tissues and bony stru ctures are normal except for degenerative disease in the spine.. The heart is normal in size and configuration. The lungs are clear. The mediastinal and hilar contours are normal. No pleural abnormality is seen. The visualized portion of the upper abdomen is normal. IMPRESSION: Normal frontal and lateral c hest radiographs. Performing Organization Address [facility] Phon e Number [facility] [address] [facility] [place] [address] [facility] [address] [place], [place] [address] PELVIS 1 OR 2 VIEWS (05/04/2005 17:54 EST) Anatomical Region Laterality Modality Other Specimen Narrative [facility] - 09/06/2008 10 :32 EDT history of Rheumatoid artheritis starting TNF -2 medication new hip/knee/shoulder pain PELVIS 05/04/05 CLINICAL HISTORY: ??rheumatoid arthritis , starting TNF medication, new hip pain. FINDINGS: A single view of the pelvis sh ows medial joint space narrowing of both hips. No definite eros ions are identified. There is no focal bony lesion. There are no signi ficant bony proliferative changes. Mild osteopenia is noted. D 05/05/05 T 05/06/05 /jenni Procedure Note Maye Baltazar MD - 09/06/2008 history of Rheumatoid artheritis starti ng TNF -2 medication new hip/knee/shoulder pain PELVIS 05/04/05 CLINICAL HISTORY: rheumatoid arthritis, starting TNF medication, new hip pain. FINDINGS: A single view of the pelvis sh ows medial joint space narrowing of both hips. No definite eros ions are identified. There is no focal bony lesion. There are no signi ficant bony proliferative changes. Mild osteopenia is noted. D 05/05/05 T 05/06/05 /jenni Performing Organization Address [facility] Phon e Number [facility] [address] [facility] [address] [facility] [address] [place], [place] [address] FOOT AP+LAT (05/04/2005 17:53 EST) Anatomical Region Laterality Modality Other Specimen Narrative [facility] - 09/06/2008 10 :32 EDT history of Rheumatoid artheritis starting TNF -2 medication new hip/knee/shoulder pain BILATERAL FEET 05/04/05 CLINICAL HISTORY: Rheumatoid arthritis. Starting TNF-2 me dication with new pain. LEFT FOOT FINDINGS: Two views are received. ??Erosive ross es are seen involving the heads of the 2nd, 3rd, 4th and 5th metat arsals. There are also early erosive changes involving the proximal p halanges of the 2nd through 4th toes. ??I suspect early subluxation involving the 3rd and 4th toes at the MTP joints. ??There is mild inter phalangeal joint space narrowing. ??Periarticular osteopenia is noted. There is no other abnormality. RIGHT FOOT FINDINGS: Two views demonstrate erosions involvin g the metatarsal heads of the 2nd through 5th toes with severe erosion s involving the 5th metatarsal head. ??There is no evidence of subluxation. ??Periarticular osteopenia is noted. ??Interphalangeal j oint space narrowing is present, but there are no other abnormal ities seen. IMPRESSION: Findings consistent with rheumatoid art hritis predominantly involving the MTP joints as described ab ove, right worse than left. D: ??05/05/05 T: ??05/06/05 /jv Procedure Note Maye Baltazar MD - 09/06/2008 history of Rheumatoid artheritis starti ng TNF -2 medication new hip/knee/shoulder pain BILATERAL FEET 05/04/05 CLINICAL HISTORY: Rheumatoid arthritis. Starting TNF-2 me dication with new pain. LEFT FOOT FINDINGS: Two views are received. Erosive changes are seen involving the heads of the 2nd, 3rd, 4th and 5th metat arsals. There are also early erosive changes involving the proximal p halanges of the 2nd through 4th toes. I suspect early subluxation in volving the 3rd and 4th toes at the MTP joints. There is mild interph alangeal joint space narrowing. Periarticular osteopenia is n oted. There is no other abnormality. RIGHT FOOT FINDINGS: Two views demonstrate erosions involvin g the metatarsal heads of the 2nd through 5th toes with severe erosion s involving the 5th metatarsal head. There is no evidence of subluxation. Periarticular osteopenia is noted. Interphalangeal nidhi nt space narrowing is present, but there are no other abnormal ities seen. IMPRESSION: Findings consistent with rheumatoid art hritis predominantly involving the MTP joints as described ab ove, right worse than left. /jv Performing Organization Address City/State/ZIP Code Phon e Number [facility] [address] [facility] [address] [facility] [address] [place], [place] [address] FOOT AP+LAT (05/04/2005 17:53 EST) Anatomical Region Laterality Modality Other Specimen Narrative [facility] - 09/06/2008 10 :32 EDT history of Rheumatoid artheritis starting TNF -2 medication new hip/knee/shoulder pain BILATERAL FEET 05/04/05 CLINICAL HISTORY: Rheumatoid arthritis. Starting TNF-2 me dication with new pain. LEFT FOOT FINDINGS: Two views are received. ??Erosive ross es are seen involving the heads of the 2nd, 3rd, 4th and 5th metat arsals. There are also early erosive changes involving the proximal p halanges of the 2nd through 4th toes. ??I suspect early subluxation involving the 3rd and 4th toes at the MTP joints. ??There is mild inter phalangeal joint space narrowing. ??Periarticular osteopenia is noted. There is no other abnormality. RIGHT FOOT FINDINGS: Two views demonstrate erosions involvin g the metatarsal heads of the 2nd through 5th toes with severe erosion s involving the 5th metatarsal head. ??There is no evidence of subluxation. ??Periarticular osteopenia is noted. ??Interphalangeal j oint space narrowing is present, but there are no other abnormal ities seen. IMPRESSION: Findings consistent with rheumatoid art hritis predominantly involving the MTP joints as described ab ove, right worse than left. D: ??05/05/05 T: ??05/06/05 /jv Procedure Note Maye Baltazar MD - 09/06/2008 history of Rheumatoid artheritis starti ng TNF -2 medication new hip/knee/shoulder pain BILATERAL FEET 05/04/05 CLINICAL HISTORY: Rheumatoid arthritis. Starting TNF-2 me dication with new pain. LEFT FOOT FINDINGS: Two views are received. Erosive changes are seen involving the heads of the 2nd, 3rd, 4th and 5th metat arsals. There are also early erosive changes involving the proximal p halanges of the 2nd through 4th toes. I suspect early subluxation in volving the 3rd and 4th toes at the MTP joints. There is mild interph alangeal joint space narrowing. Periarticular osteopenia is n oted. There is no other abnormality. RIGHT FOOT FINDINGS: Two views demonstrate erosions involvin g the metatarsal heads of the 2nd through 5th toes with severe erosion s involving the 5th metatarsal head. There is no evidence of subluxation. Periarticular osteopenia is noted. Interphalangeal nidhi nt space narrowing is present, but there are no other abnormal ities seen. IMPRESSION: Findings consistent with rheumatoid art hritis predominantly involving the MTP joints as described ab ove, right worse than left. /kacy Performing Organization Address City/State/ZIP Code Phon e Number [facility] [address] [facility] [address] [facility] [address] [place], [place] [address] SHOULDER 2 OR MORE VIEWS (05/04/2005 17:53 EST) Anatomical Region Laterality Modality Other Specimen Narrative [facility] - 09/06/2008 10 :32 EDT history of Rheumatoid artheritis starting TNF -2 medication new hip/knee/shoulder pain BILATERAL SHOULDERS: 05/04/05. CLINICAL HISTORY: Rheumatoid arthritis, starting TNF-2 medication with new shoulder pain. FINDINGS: ??Two views of each shoulder a re received. There is mild glenohumeral joint space narrowing bilat erally. ??There is slight superior subluxation of the right laury l head which could represent underlying rotator cuff tear. ??Mild ero sive changes are seen involving the left humeral head. This co uld be consistent with rheumatoid arthritis. The bones are mild ly osteopenic. No focal bony lesion is seen. Incidental note is made of old healed rib fractures involving at least two right upper ribs. D: ??05/05/05 T: ??05/06/05 /latosha. Procedure Note Maye Baltazar MD - 09/06/2008 history of Rheumatoid artheritis starti ng TNF -2 medication new hip/knee/shoulder pain BILATERAL SHOULDERS: 05/04/05. CLINICAL HISTORY: Rheumatoid arthritis, starting TNF-2 medication with new shoulder pain. FINDINGS: Two views of each shoulder are received. There is mild glenohumeral joint space narrowing bilat erally. There is slight superior subluxation of the right laury l head which could represent underlying rotator cuff tear. Mild erosi ve changes are seen involving the left humeral head. This co uld be consistent with rheumatoid arthritis. The bones are mild ly osteopenic. No focal bony lesion is seen. Incidental note is made of old healed rib fractures involving at least two right upper ribs. /lds. Performing Organization Address City/State/ZIP Code Phon e Number [facility] [address] [facility] [address] [address] [facility] [address] [place], [place] [address] SHOULDER 2 OR MORE VIEWS (05/04/2005 17:53 EST) Anatomical Region Laterality Modality Other Specimen Narrative [facility] - 09/06/2008 10 :32 EDT history of Rheumatoid artheritis starting TNF -2 medication new hip/knee/shoulder pain BILATERAL SHOULDERS: 05/04/05. CLINICAL HISTORY: Rheumatoid arthritis, starting TNF-2 medication with new shoulder pain. FINDINGS: ??Two views of each shoulder a re received. There is mild glenohumeral joint space narrowing bilat erally. ??There is slight superior subluxation of the right laury l head which could represent underlying rotator cuff tear. ??Mild ero sive changes are seen involving the left humeral head. This co uld be consistent with rheumatoid arthritis. The bones are mild ly osteopenic. No focal bony lesion is seen. Incidental note is made of old healed rib fractures involving at least two right upper ribs. D: ??05/05/05 T: ??05/06/05 /lds. Procedure Note Maye Baltazar MD - 09/06/2008 history of Rheumatoid artheritis starti ng TNF -2 medication new hip/knee/shoulder pain BILATERAL SHOULDERS: 05/04/05. CLINICAL HISTORY: Rheumatoid arthritis, starting TNF-2 medication with new shoulder pain. FINDINGS: Two views of each shoulder are received. There is mild glenohumeral joint space narrowing bilat erally. There is slight superior subluxation of the right laury l head which could represent underlying rotator cuff tear. Mild erosi ve changes are seen involving the left humeral head. This co uld be consistent with rheumatoid arthritis. The bones are mild ly osteopenic. No focal bony lesion is seen. Incidental note is made of old healed rib fractures involving at least two right upper ribs. /[facility]. Performing Organization Address City/State/ZIP Code Phon e Number [facility] [address] [facility] [id number] [facility] [address] [place], [place] [address] (ABNORMAL) SED. RATE:KELVIN (05/04/2005 17:36 EST) Sed. Rate 26 (H) 0 - 20 mm/hr [facility] Kelvin Comment: Note: Sample greater than 4 hrs old (but less than 12 hrs) when tested. If refrigerated, sample is stable when tested within 12 hours of collection. Specimen Performing Organization Address City/State/ZIP Code Phon e Number [facility] [address] [place] [address] SERVICES [facility] [address] [place] [address] (ABNORMAL) COMPREHENSIVE METABOLIC PANEL (05/04/2005 17:36 EST) Pathologist [facility] nature Potassium 4.4 3.5 - 5.0 mEq/L [facility] Sodium 138 136 - 145 mEq/L [facility] Chloride 102 96 - 110 mEq/L [facility] CO2 27 24 - 32 mEq/L [facility] Total Alkaline 169 (H) 38 - 126 U/L [facility] Phosphatase Bilirubin, Total <0.5 0.2 - 1.3 mg/dl [facility] AST 43 15 - 46 U/L [facility] ALT 86 (H) 21 - 72 U/L [facility] Albumin 3.9 3.4 - 4.9 g/dl [facility] Total Protein 7.3 6.5 - 8.3 g/dl [facility] Creatinine 0.8 0.7 - 1.5 mg/dl [facility] BUN 23 10 - 26 mg/dl [facility] Calcium 8.9 8.5 - 10.[address] [facility] mg/dl Calculated Calcium 9.4 8.5 - 10.[address] [facility] mg/dl Glucose, Serum 116 (H) 70 - 110 mg/dl [facility] Fasting? No [facility] Albumin/Globulin Ratio 1.[address] [facility] Specimen Performing Organization Address City/State/ZIP Code Phon e Number [facility] [address] [place] [address] [facility] [address] [place] [address] CCP ANTIBODIES (05/04/2005 17:36 EST) Pathologist Sig nature CCP Antibodies >100.0Unit: U/mL(Note) [facility] -- EXPECTED VALUES -- ? (Ref Range) < or =5.0 ? Test Performed by: ? [facility] ? [address], [place] [address] ? Slip Box Changer: Diana Kurtz M.D. ? Specimen Performing Organization Address City/State/ZIP Code Phon e Number [facility] [address] [place] [address] [facility] [address] [place] [address] documented in this encounter Visit Diagnoses Not on filedocumented in this encounter
--- OUTSIDE RECORDS SUMMARY | 2021-09-03 02:11 | XMS_ITS | Encounter Summary ---
:1950 Author Organization [facility] [place] [address] Care Team Providers Name Role Phone Jorge Rosario MD Primary Care Provider Encounter Details Date Type Department Care Team Description 07/26/2012 Hospital Encounter XRay at [facility] Shoulder pain, left [address] [place] [address] [place] [phone] Social History Tobacco Use Types Packs/Day [...] Priority Date/Time Associated Diagnosis Comme nts XR SHOULDER Routine 07/26/2012 2:22 PM Shoulder pain, left Re sults for this EDT procedure are i n the results section . documented in this encounter Results XR shoulder (07/26/2012 2:22 PM EDT) Anatomical Region Laterality Modality Shoulder N/A Radiographic Imaging Specimen (Source) Anatomical Collection Method Collection Time Re ceived Time Location / / Volume Laterality 07/26/2012 2:22 PM EDT Narrative 07/26/2012 4:36 PM EDT Examination SHOULDER COMPLETE/LEFT Clinical History shoulder pain Comparison November 2009. Technique 4 views Findings Markedly deformed left humeral head with large erosions that have progressed since 2009. ??The osteoarthropathy of th e glenoid humeral joint has also progressed with near complete loss of corine int space. ??No periarticular calcifications. ??The left AC joint liberty ins normal. Impression ? 1. Progression of inflammatory ar thropathy with increased size and number of erosions. ? 2. 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 Procedure Note Elsi Recio MD - 07/26/2012Formatt ing of this note might be different from the original. Examination SHOULDER COMPLETE/LEFT Clinical History shoulder pain Comparison November 2009. Technique 4 views Findings Markedly deformed left humeral head with large erosions that have progressed since 2009. The osteoarthropathy of the glenoid humeral joint has also progressed with near complete loss of corine int space. No periarticular calcifications. The left AC joint remain s normal. Impression 1. Progression of inflammatory arthropa thy with increased size and number of erosions. 2. severe left glenoid humeral joint os teoarthropathy, worse than last exam. Jorge Arango MD IMG DX ORDERABLES documented in this encounter Visit Diagnoses Diagnosis Shoulder pain, left Pain in joint, shoulder region documented in this encounter Care Teams Woodwind Reeds Cutter Relationship Specialty Start Date End Date Jorge Rosario MD PCP - General 05/18/11 03/23/[address] [place] [address] documented as of this encounter
--- OUTSIDE RECORDS SUMMARY | 2021-09-03 02:11 | XMS_ITS | Encounter Summary ---
:1950 Author Organization [facility] Address [address] [place] [address] Care Team Providers Name Role Phone Unavailable Primary Care Provider Unavailable Encounter Details Date Type Department Care Team Description 07/16/2004 Hospital Encounter [facility] Kenneth Bobo , Perioperative Services - [address] [address] [place] [id number] Social History Tobacco Use Types Packs/Day Years Used Date Never Assessed Sex Assigned at Date Recorded Not on file documented as of this encounter Discharge Disposition Disposition Code Departure Means Destination Home or Self Care documented in this encounter Plan of Treatment Upcoming Encounters Date Type Specialty Care Team Description 09/16/2021 Nurse Only Infusion Therapy 09/30/2021 Nurse Only Infusion Therapy 03/07/2022 Telemedicine Rheumatology Sirisha Puckett MD [address] [place] [address] (Wo rk) 07/12/2022 Office Visit Dermatology Lian Bai MD [address] [facility], [facility] [address] [place] [address] (Wo rk) documented as of this encounter Procedures Procedure Name Priority Date/Time Associated Diagnosis Comme nts WRIST 3 OR MORE Routine 07/16/2004 10:50 Results for this VIEWS EDT procedure are i n the results section. documented in this encounter Results WRIST 3 OR MORE VIEWS (07/16/2004 10:50 EDT) Anatomical Region Laterality Modality Other Specimen Narrative [facility] - 10/17/2008 15 :56 EDT s/p ORIF arthritis right wrist check position of hardware RIGHT WRIST 07/16/04 CLINICAL HISTORY: ORIF, arthritis. FINDINGS: Three intraoperative spot film s show plate and screw fixation of the right wrist with the claudio te extending from the distal radius to the 3rd metacarpal. Fine bony detail is obscured. D 07/16/04 T 07/20/04 /jenni Procedure Note Maye Baltazar MD - 10/17/2008 s/p ORIF arthritis right wrist check position of hardware RIGHT WRIST 07/16/04 CLINICAL HISTORY: ORIF, arthritis. FINDINGS: Three intraoperative spot film s show plate and screw fixation of the right wrist with the claudio te extending from the distal radius to the 3rd metacarpal. Fine bony detail is obscured. D 07/16/04 T 07/20/04 /jenni Performing Organization Address City/State/ZIP Code Phon e Number [facility] [address] [facility] [address] [address] [facility] [address] [place], [place] [address] documented in this encounter Visit Diagnoses Not on filedocumented in this encounter
--- OUTSIDE RECORDS SUMMARY | 2021-09-03 02:11 | XMS_ITS | Encounter Summary ---
:1950 Author Organization [facility] [place] [address] Care Team Providers Name Role Phone Jorge Rosario MD Primary Care Provider Reason for Visit Reason Comments Aftercare Of Tjr Left TRINI DOS 2011 Encounter Details Date Type Department Care Team Description 08/05/2015 Office Visit Orthopaedics at [facility] Sneha Fountain, H/O total hip [facility] SUPERVISOR LIME arthroplasty, [place] [address] [address] [phone] ORTHOPAEDIC SURGERY [place] [address] Social History Tobacco Use Types Packs/Day Years [...] Sign Reading Time Taken Comments Blood Pressure 133/78 08/05/2015 1:51 PM EDT Pulse 58 08/05/2015 1:51 PM EDT Temperature - - Respiratory Rate - - Oxygen Saturation - - Inhaled Oxygen Concentration - - Weight 81.6 kg (180 lb) 08/05/2015 1:51 PM EDT Height 172.7 cm (5' 8) 08/05/2015 1:51 PM EDT Body Mass Index 27.37 08/05/2015 1:51 PM EDT documented in this encounter Progress Notes Sneha Fountain, SUPERVISOR LIME - 08/05/2015 2:11 PM EDT Arthroplasty/Orthopaedic History: 1. LEFT hip TRINI. DR. Vines. Chief Complaint: Routine rotary appointment for LEFT hip TRINI. HPI: Yaw Cadena is a very pleasant 64 y.o. year-old male who presents for a routine rotary appointment for above. He is now approximately 4 years follow-up of the above procedure. The patient has been doing well and his pain is markedly improved over preoperative status. No fevers, chills, nausea, vomiting, or symptoms of infection. Yaw has been ambulating with no assistive device and essentially independent with all ADL's. He is not taking narcotic pain medicine. No interval falls, injuries or infections. No numbness or tingling distal to his surgical incision. He is up to date with dental work and antibiotic prophylaxis. His health has been stable otherwise and he is here for a routine rotary appointment. Patient's medications, allergies, past medical, surgical, social and family histories were reviewed and updated as appropriate. ROS: Denies fever, chills, nausea, vomiting, vision change, shortness of breath, chest pain, vision changes, headaches, bowel or bladder problem, ear, nose, sinus problem, neuro or psychiatric, or endocrine disorder not addressed above. Physical Exam: Vitals: 08/05/15 1351 BP: 133/78 Pulse: 58 Weight: 81.6 kg (180 lb) Height: 172.7 cm (5' 8) Body mass index is 27.37 kg/(m^2). Well-appearing male in no acute distress. Alert and Oriented x 3 and answers all questions appropriately. The incision is well healed, with no signs of infection. Hip Exam: Left Leg Length: Longer leg: left Limb Length discrepancy: a few mm's short on the right Motion: Flexion contracture: 0 Total degrees of Flexion: 120 Total degrees of Abduction: 30 Total degrees of Ext Rotation: 35 Total degrees of Internal Rotation: 20 Gait Abnormality: Normal Pulses Palpable: Left PT: Yes Left DP: Yes Motor/Sensory: Left Distal Motor: Normal Distal Sensory: Normal Hip Abductors: 5 Trendelenburg test: negative X-RAYS: Multiple radiographic views were obtained at my request and reviewed with the patient. X-rays show a well-placed prosthesis with no evidence of fracture, subsidence, loosening, or periprosthetic complication. Questionnaire Responses: [facility] Surgical Postop Visit 08/05/2015 PROMIS-10 General Health [...] hospital since recent ortho surgery Yes [facility] and [facility] Date of admission 01/01/2013 Discharge date 01/02/2013 Reason you went to hospital shoulder replacement Additional surgery on same body part No Orthopeadics [facility] Response 08/05/2015 HOOS-PS Scores 0 ASES VAS-LEFT - ASES ADL-LEFT ARM - ASES LEFT ARM - No flowsheet data found. ASSESSMENT/PLAN: Mr. Cadena is a 64 y.o. year old male who is now approximately 4 weeks post-op and doing well. Continue weightbearing as tolerated and working on range of motion, and we will see him back in 2 years for repeat examination. X-rays will be needed at that time. Patient may return to normal activities as his pain and function allow. We discussed the appropriate precautions surrounding dental prophylaxis. I stressed that he should call the office for a prescription prior to any dental work for the lifetime of the joint replacement.We also discussed maintaining good foot care and giving prompt attention to any source of infection throughout the body including foot ulcers and urinary tract infections. All questions were answered. Signed: SNEHA FOUNTAIN APRN 08/05/2015 documented in this encounter Plan of Treatment Not on filedocumented as of this encounter Visit Diagnoses Diagnosis H/O total hip arthroplasty, left documented in this encounter Care Teams Supervisor Twisting Department Relationship Specialty Start Date End Date Jorge Rosario MD PCP - General 05/18/11 03/23/[address] [place] [address] documented as of this encounter
--- OUTSIDE RECORDS SUMMARY | 2021-09-03 02:11 | XMS_ITS | Encounter Summary ---
:1950 Author Organization [facility] [place] [address] Care Team Providers Name Role Phone Jorge Rosario MD Primary Care Provider Encounter Details Date Type Department Care Team Description 08/05/2015 Hospital Encounter XRay at [facility] Willard Damon History of total hip [address] [facility] [address] Jennifer MD arthroplasty, left [facility] [phone] [place] [phone] [place] [address] Social History Tobacco Use Types Packs/Day Years [...] Associated Diagnosis Comme nts XR PELVIS AND LAT Routine 08/05/2015 1:12 PM History of total hip Results for this HIP LEFT EDT arthroplasty, left procedure are in the results section. documented in this encounter Results XR Pelvis & Hip Left (Generic) (08/05/2015 1:12 PM EDT) Anatomical Region Laterality Modality Pelvis, Hip Left Digital Radiography Specimen (Source) Anatomical Location Collection Method / Collectio n Time Received Time / Laterality Volume Narrative 08/05/2015 3:20 PM EDT EXAMINATION: XR PELVIS AND LATERAL HIP LEFT CLINICAL HISTORY: L TRINI CHECK TECHNIQUE: ? COMPARISON: None FINDINGS: Left A left total hip arthroplasty is present . Alignment: The prosthesis is unchanged i n alignment. Complication: There is no evidence of lo osening or fracture. Right Unchanged right hip osteophytes and supe rior lateral hip joint space narrowing. Soft tissues: Normal Impression Unchanged and Uncomplicated left Total ? ?hip arthroplasty Procedure Note Elsi Recio MD - 08/05/2015Formatt ing of this note might be different from the original. EXAMINATION: XR PELVIS AND LATERAL HIP L EFT CLINICAL HISTORY: L TRINI CHECK TECHNIQUE: COMPARISON: None FINDINGS: Left A left total hip arthroplasty is present . Alignment: The prosthesis is unchanged i n alignment. Complication: There is no evidence of lo osening or fracture. Right Unchanged right hip osteophytes and supe rior lateral hip joint space narrowing. Soft tissues: Normal Impression Unchanged and Uncomplicated left Total h ip arthroplasty Willard Damon MD IMG DX ORDERABLES documented in this encounter Visit Diagnoses Diagnosis History of total hip arthroplasty, left documented in this encounter Care Teams Fare Collector Relationship Specialty Start Date End Date Jorge Rosario MD PCP - General 05/18/11 03/23/[address] [place] [address] documented as of this encounter
--- OUTSIDE RECORDS SUMMARY | 2021-09-03 02:11 | XMS_ITS | Encounter Summary ---
:1950 Author Organization [facility] [place] [address] Care Team Providers Name Role Phone Jorge Rosario MD Primary Care Provider Reason for Visit Reason Onset Date Comments Annual Exam 05/16/2013 Encounter Details Date Type Department Care Team Description 05/16/2013 Telephone Orth[place]edics [place] [facility] [place] Vines MD Annual Exam [facility] [place] [address] [address] [phone] [place] [address] (Wo rk) Social History Tobacco Use Types [...] this encounter Miscellaneous Notes Telephone Encounter - Anusha Anna - 05/20/2013 9:15 AM EDT Patient Scheduled Telephone Encounter - Anusha Anna - 05/16/2013 11:59 AM EDT I have called and left a message for patient to call and schedule their reminder appointment. documented in this encounter Plan of Treatment Not on filedocumented as of this encounter Visit Diagnoses Not on filedocumented in this encounter Care Teams Funeral Assistant Relationship Specialty Start Date End Date Jorge Rosario MD PCP - General 05/18/11 03/23/[address] [place] [address] [address] [place] [address] documented as of this encounter
--- OUTSIDE RECORDS SUMMARY | 2021-09-03 02:11 | XMS_ITS | Encounter Summary ---
:1950 Author Organization [facility] [place] [address] Care Team Providers Name Role Phone Jorge Rosario MD Primary Care Provider Encounter Details Date Type Department Care Team Description 08/07/2017 Hospital Encounter XRay at [facility] Sneha Fountain History of total [address] Juan APRN left hip replacement [facility] [address] [place] [phone] [place] [address] Social History Tobacco Use Types Packs/Day Years [...] Associated Diagnosis Comme nts XR PELVIS AND HIP 2 Routine 08/07/2017 11:52 AM History of tot al Results for this VIEWS LEFT EDT left hip replacement procedu re are in the results section. documented in this encounter Results XR Pelvis w AP & Lat Hip Left (08/07/2017 11:52 AM EDT) Anatomical Region Laterality Modality Pelvis, Hip Left Digital Radiography Specimen (Source) Anatomical Location Collection Method / Collectio n Time Received Time / Laterality Volume Impressions 08/07/2017 1:56 PM EDT Left TRINI without evidence of complication. Narrative 08/07/2017 1:56 PM EDT EXAMINATION: XR PELVIS W AP AND LAT HIP LEFT CLINICAL HISTORY: Status post left total hip arthroplasty TECHNIQUE: Frontal radiograph the pelvis and fronta l and frog-leg lateral radiographs of the left hip were obtained COMPARISON: Pelvic and left hip radiographs ranging from 01/29/2010 through 08/05/2015 FINDINGS: There is a left total hip arthroplasty. No periprosthetic fracture. No evidence of hardware loosening. No periprosthetic lucency. No dislocation. At the right hip, there is no discrete o steoarthropathy characterized by marginal osteophytes at the acetabulum a nd femoral head-neck junction, with gross preservation of the right hip join t space. The sacrum is partly obscured by overlyi ng bowel gas and stool. Procedure Note Sarina Hurt MD - 08/07/2017Formatting o f this note might be different from the original. EXAMINATION: XR PELVIS W AP AND LAT HIP LEFT CLINICAL HISTORY: Status post left total hip arthroplasty TECHNIQUE: Frontal radiograph the pelvis and fronta l and frog-leg lateral radiographs of the left hip were obtained COMPARISON: Pelvic and left hip radiographs ranging from 01/29/2010 through 08/05/2015 FINDINGS: There is a left total hip arthroplasty. No periprosthetic fracture. No evidence of hardware loosening. No periprosthetic lucency. No dislocation. At the right hip, there is no discrete o steoarthropathy characterized by marginal osteophytes at the acetabulum a nd femoral head-neck junction, with gross preservation of the right hip join t space. The sacrum is partly obscured by overlyi ng bowel gas and stool. IMPRESSION Left TRINI without evidence of complicatio n. Sneha Fountain APRN IMG DX ORDERABLES documented in this encounter Visit Diagnoses Diagnosis History of total left hip replacement documented in this encounter Care Teams Weeder Relationship Specialty Start Date End Date Jorge Rosario MD PCP - General 05/18/11 03/23/[address] [place] [address] documented as of this encounter
--- OUTSIDE RECORDS SUMMARY | 2021-09-03 02:11 | XMS_ITS | Clinical Summary ---
:1950 [place] [address] Care Team Providers Name Role Phone Cathy Mota APRN Primary Care Provider [phone] Allergies Active Allergy Reactions Severity Noted Date Comments Adalimumab 03/24/2021 Animal Dander 03/24/2021 Etanercept Other (See Comments) 06/17/2011 Inflamm ation of eye Other reaction( s): uveitis Gold Sodium Thiomalate 03/24/2021 House Dust 03/24/2021 Methotrexate 10/08/2018 Other reaction( s): Liver enzymes a bnormal Other reaction( s): increased LFTs Unclassified Drug Rash 06/17/2011 Gold injec tion Medications Medication Sig Dispensed Refills Start Date End Date Status GOLIMUMAB (SIMPONI Inject subcutaneously 0 Active SUBQ) every 30 days. fluticasone Inhale 1 puff into 0 Active (FLOVENT) 110 the lungs daily. mcg/Actuation inhaler UNABLE TO FIND Medical marijuana 0 Active brimonidine 0 08/03/2015 Active (ALPHAGAN) 0.2 % Drops RESTASIS 0.05 % 0 07/02/2015 Act amairani Dropperette naproxen (EC 0 07/04/2015 Active NAPROSYN) 500 mg Tablet, Delayed Release (E.C.) ranitidine (ZANTAC) 0 07/30/2015 Active 150 mg Tablet timolol (TIMOPTIC) INSTILL 1 DROP INTO 3 06/22/2017 Active 0.25 % Drops BOTH EYES TWO TIMES A DAY lisinopril TAKE ONE TABLET BY 4 05/23/2017 Active (PRINIVIL;ZESTRIL) MOUTH EVERY DAY 10 mg Tablet dorzolamide dorzolamide 2 % eye drops 0 05/08/2020 Active (Trusopt) 2 % Drops INSTILL 1 DROP INTO AFFECTE D EYE(S) BY OPHTHALMIC ROUTE 2 TIMES PER DAY Ketorolac PLACE 1 DROP INTO THE 0 12/23/2020 Active Tromethamine RIGHT EYE 4 TIMES A (Acular LS) 0.4 % DAY Drops MARIJUANA INHL minimal effective 0 Active amount inhaled as directed multivitamin with TAKE ONE CAP/TAB BY 0 05/08/2020 Active minerals MOUTH EVERY DAY (One-A-Day) Tablet Iron-Vitamin C Daily. 0 Activ e 100-250 mg Tablet melatonin 1 mg Take by mouth. 0 Active Tablet omeprazole TAKE ONE CAPSULE BY 0 01/27/2021 Active (PriLOSEC) 20 mg MOUTH EVERY DAY Capsule, Delayed Release(E.C.) riTUXimab (Rituxan) rituximab 10 mg/mL concentrate,intravenous 0 Active 10 mg/mL 10 mg intravenously every 6 months Concentrate Active Problems Problem Noted Date Glaucoma 03/24/2021 Rheumatoid arthritis 03/24/2021 Long-term use of immunosuppressant medication 06/06/19 20 Chronic lymphocytic leukemia 01/22/2019 Essential hypertension 01/22/2019 H/O total hip arthroplasty left 07-14-11 07/14/2011 Overview: S/P Left anterior total hip arthroplasty - 07/14/2011 (Dr. 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5 ??C (97.7 ??F) 08/17/2011 1:32 PM EDT Respiratory Rate 18 07/15/2011 11:09 AM EDT Oxygen Saturation 95% 07/15/2011 11:09 AM EDT Inhaled Oxygen Concentration - - Weight 84.3 kg (185 lb 14.4 oz) 03/24/2021 1:31 PM EST Height 172.7 cm (5' 8) 03/24/2021 1:31 PM EST Body Mass Index 28.27 03/24/2021 1:31 PM EST Plan of Treatment Health Maintenance Due Date Last Done Comments Covid-19 Vaccine (#1) 12/01/1955 Hepatitis C Screening 1968 Lipid Screening 1968 Tdap adult 1969 Zoster vaccine (1 of 2) 1969 Colonoscopy 12/01/1995 Pneumoccocal Vaccine: 65+ (2 - PCV) 02/20/1999 02/20/1998 Tetanus vaccine 02/21/2008 02/20/1998 Diabetes Screening (HgbA1C or 07/14/2014 07/15/2011, 2011, Glucose) 06/17/2011 AAA Screen 12/01/2015 Influenza (Flu) vaccine (1 of 1 - 10/21/2021 Influenza standard series) Medical Devices Implanted Type Area [place] [employer] Device Shelf Model / Identifier Expiration Serial / Date Lot Head,Fem,Cer,Blx,V40,36mm,-2.5 ([id number]) ([employer]) - [id number] I MPLANTS Left: DO NOT USE 04/19/2016 [id number] / Implanted: Qty: 1 on 07/14/2011 at [facility] Hip [place] / [facility] - [id number] [place] Ii 127 Degree Neck Angle Hip Stem, Size 5, 35mm, 10 8mm Lnth, V40 Left: 06/19/2016 [id number] / Implanted: Qty: 1 on 07/14/[address] [facility] Hip / [id number] Insurance Payer Benefit Plan / Subscriber ID Effective Phone Address T ype Group Dates MEDICARE MEDICARE PART [id number] 2015-Pres [phone] [place] [place] [address] [employer] [place] [place] [id number] 2018-Prese [phone] [address] [place] [address] [place] [address] Advance Directives Documents on File Type Date Recorded Patient Carroting Machine Offbearer Explanati on Advance Directives and Living 07/14/2011 7:18 AM Will Latest Code Status on File Code Status Date Activated Date Inactivated Comments Full Code 07/14/2011 9:26 AM 07/15/2011 6:40 PM Care Teams Dipping Machine Operator Relationship Specialty Start Date End Date Cathy Mota APRN PCP - General Family Medicine 03/24/[address] [place], [place] [id number]
--- OUTSIDE RECORDS SUMMARY | 2021-09-03 02:11 | XMS_ITS | Encounter Summary ---
:1950 [address] [facility] [place] [address] Care Team Providers Name Role Phone Cathy Mota APRN Primary Care Provider [phone] Encounter Details Date Type Department Care Team Description 03/24/2021 Hospital Encounter XRay at [facility] Sneha Fountain History of total 1 [facility] [address] Juan APRN left hip replacement [facility] [id number] [place] [phone] [place] [address] Social History Tobacco Use Types Packs/Day Years [...] Dispensed Refills Start Date End Date dorzolamide (Trusopt) 2 dorzolamide 2 % eye drops 0 05/08/2020 % Drops INSTILL 1 DROP INTO AFFECTE D EYE(S) BY OPHTHALMIC ROUTE 2 TIMES PER DAY MARIJUANA INHL minimal effective amount 0 inhaled as directed multivitamin with TAKE ONE CAP/TAB BY 0 1 minerals (One-A-Day) MOUTH EVERY DAY Tablet Iron-Vitamin C 100-250 Daily. 0 mg Tablet melatonin 1 mg Tablet Take by mouth. 0 omeprazole (PriLOSEC) TAKE ONE CAPSULE BY 0 01/27 20 mg Capsule, Delayed MOUTH EVERY DAY Release(E.C.) riTUXimab (Rituxan) 10 rituximab 10 mg/mL concentrate,intravenous 0 mg/mL Concentrate 10 mg intravenously every 6 months timolol (TIMOPTIC) 0.25 INSTILL 1 DROP INTO BOTH 3 06/22/2017 % Drops EYES TWO TIMES A DAY lisinopril TAKE ONE TABLET BY MOUTH 4 05/23/2017 (PRINIVIL;ZESTRIL) 10 EVERY DAY mg Tablet UNABLE TO FIND Medical marijuana 0 GOLIMUMAB (SIMPONI Inject subcutaneously 0 SUBQ) every [address]. [address] 1 DROP INTO THE 0 (Acular LS) 0.4 % Drops RIGHT EYE 4 TIMES A DAY brimonidine (ALPHAGAN) 0 08/03/2015 0.2 % Drops RESTASIS 0.05 % 0 07/02/2015 Dropperette naproxen (EC NAPROSYN) 0 07/04/2015 500 mg Tablet, Delayed Release (E.C.) ranitidine (ZANTAC) 150 0 07/30/2015 mg Tablet fluticasone (FLOVENT) Inhale 1 puff into the 0 110 mcg/Actuation lungs daily. inhaler documented as of this encounter Plan of Treatment Not on filedocumented as of this encounter Procedures Procedure Name Priority Date/Time Associated Diagnosis Comme nts XR PELVIS AND HIP 2 Routine 03/24/2021 11:12 AM History of tot al Results for this VIEWS LEFT EST left hip replacement procedu re are in the results section. documented in this encounter Results XR Pelvis and Hip [...] who have questions please contact the health behavioral health care coordinator that requested your imaging first. ? Electronically signed by: Diamante Lang MD, [facility] ([phone]), at 03/24/2021 11:44 AM Narrative 03/24/2021 11:44 [...] ho have questions please contact the health behavioral health care coordinator that requested your imaging first. Electronically signed by: Diamante Lang MD, [facility] ([phone]), at 03/24/2021 11:44 AM Sneha Fountain APRN IMG DX ORDERABLES documented in this encounter Visit Diagnoses Diagnosis History of total left hip replacement documented in this encounter Care Teams Cook Fishing Vessel Relationship Specialty Start Date End Date Cathy Mota APRN PCP - General Family Medicine 03/24/[address] [place] [address] documented as of this encounter
--- OUTSIDE RECORDS SUMMARY | 2021-09-03 02:11 | XMS_ITS | Encounter Summary ---
:1950 Author Organization [place] [address] Care Team Providers Name Role Phone Jorge Rosario MD Primary Care Provider Encounter Details Date Type Department Care Team Description 07/03/2012 Orders Only Orthopaedics at [facility] Jorge Arango, Shoulder pain, left [facility] (Primary Dx) [place] [address] [address] [address] [phone] ORTHOPAEDIC SURGERY [place], [place] [address] Social History Tobacco Use Types Packs/Day Years [...] filedocumented as of this encounter Results XR shoulder (07/26/2012 2:22 [...] encounter Visit Diagnoses Diagnosis Shoulder pain, left - Primary Pain in joint, shoulder region Shoulder pain, left Pain in joint, shoulder region documented in this encounter Care Teams Cycle Specialist Relationship Specialty Start Date End Date Jorge Rosario MD PCP - General 05/18/11 03/23/[address] [place] [address] documented as of this encounter
--- OUTSIDE RECORDS SUMMARY | 2021-09-03 02:12 | XMS_ITS | Encounter Summary ---
:1950 Author Organization [facility] Address [facility] [place] [address] Care Team Providers Name Role Phone Jorge Rosario MD Primary Care Provider Reason for Visit Reason Comments Bilateral Hip Pain Encounter Details Date Type Department Care Team Description 05/18/2011 Office Visit Orthopaedics at [facility] Mark Vines, Primary osteoarthritis [facility] of left hip (Primary Dx) [address] [place] [address] [address] [phone] [place] [address] Social History Tobacco Use Types Packs/Day Years Used Date Former Smoker Cigarettes 0.5 Quit: 05/17/18 74 Sex Assigned at Date Recorded Not on file documented as of this encounter Last Filed Vital Signs Vital Sign Reading Time Taken Comments Blood Pressure 138/90 05/18/2011 2:43 PM EDT Pulse - - Temperature - - Respiratory Rate - - Oxygen Saturation - - Inhaled Oxygen Concentration - - Weight 84.1 kg (185 lb 8 oz) 05/18/2011 2:43 PM EDT Height 172.7 cm (5' 8) 05/18/2011 2:43 PM EDT Body Mass Index 28.21 05/18/2011 2:43 PM EDT documented in this encounter Progress Notes Chandan Solitario MD - 05/18/2011 4:12 PM EDT ORTHOPEDIC CLINIC NOTE We are seeing this patient at the request of Jorge Abraham, PCP. HISTORY OF PRESENT ILLNESS: Mr. Cadena is a pleasant 60-year-old male with a longstanding left hip pain of approximately five years. It has progressively gotten worse to the point where he can no longer do activities such as skiing, biking, hiking, or skating. He is interested in pursuing left total hip arthroplasty and has questions today. He is status post two joint injections with cortisone, which gave him minimal relief, and he has tried multiple courses of ibuprofen and NSAIDs with minimal relief as well. PAST MEDICAL HISTORY: Rheumatoid arthritis, left hip osteoarthritis, bilateral shoulder pain, bilateral wrist pain, and status post right wrist fusion. ALLERGIES: NONE. MEDICATIONS: Updated in eD-H. REVIEW OF SYSTEMS: Otherwise negative. PHYSICAL EXAMINATION: He is in no acute distress. Left Lower Extremity: Sensation is intact distally with normal pulses. He has pain with log roll anteriorly in the groin. He is able to flex to 90 degrees and extend fully. He also has some pain with axial loading. He has 5/5 strength throughout the extremity. He has no notable limb length discrepancy or knee effusion. IMAGING: AP of the pelvis and lateral hip demonstrates significant joint space loss superiorly over the weightbearing dome. This is consistent with osteoarthritis. There is also a large subchondral cyst seen in the acetabulum. ASSESSMENT AND PLAN: Yaw Cadena is 60-year-old male with severe left hip osteoarthritis. Given his advanced disease, pursuing arthroplasty is a reasonable options since he has failed conservative management. We have offered this to him, and he desires to attend the joint class and view the shared decision making videos. We stressed the pure electivity of his operation and when he feels ready to pursue it, he will get back in contact with us. All questions were answered in respect to anterior versus posterior approach as well as varying surfaces. This patient was seen with Dr. Vines. I have made the following determinations: Hip Exam: Left Prior surgery on this joint:No Keen Hip Score: Less than 30 degrees of fixed flexion: No Less than 10 degrees of fixed adduction: No Less than 10 degrees of fixed int rotation in extension: No Limb Length discrepancy: 0cm Motion: Total degrees of Flexion: 90 Total degrees of Abduction: 30 Total degrees of Ext Rotation: 30 Total degrees of Adduction: 10 Gait Abnormality: Normal Radiographic evidence of joint damage: [0= normal; 1=minimal ; 2= some osteophytes , some narrowing ; 3= moderate osteophytes, significant narrowing, mild deformity; 4= large osteophytes, marked narrowing, obvious deformity]: 4= large ostophytes, marked narrowing, obvious deformity Skin Integrity: Normal Pulses Palpable: Right PT: Yes Right DP: Yes Motor/Sensory: Left Distal Motor: Normal Distal Sensory: Normal Hip Abductors: 5 documented in this encounter Plan of Treatment Not on filedocumented as of this encounter Visit Diagnoses Diagnosis Primary osteoarthritis of left hip - [facility] Primary localized osteoarthrosis, pelvic region and thigh documented in this encounter Care Teams City Planning Aide Relationship Specialty Start Date End Date Jorge Rosario MD PCP - General 05/18/11 03/23/21 [facility] [address] [place] [address] documented as of this encounter
--- OUTSIDE RECORDS SUMMARY | 2021-09-03 02:12 | XMS_ITS | Encounter Summary ---
:1950 Author Organization [facility] [place] [address] Care Team Providers Name Role Phone Giuseppe Quintanilla MD Primary Care Provider Encounter Details Date Type Department Care Team Description 02/08/2010 Hospital Encounter Neurology at [facility] Mark Vines MD [address] [place] [address] [address] [phone] [place] [id number] (Wo rk) Social History Tobacco Use Types Packs/Day Years Used Date Never Assessed Sex Assigned at Date Recorded Not on file documented as of this encounter Plan of Treatment Not on filedocumented as of this encounter Visit Diagnoses Not on filedocumented in this encounter Care Teams Energy Technician Relationship Specialty Start Date End Date Giuseppe Quintanilla MD PCP - General 01/12/10 05/17/11 [address] [place] [address] documented as of this encounter
--- OUTSIDE RECORDS SUMMARY | 2021-09-03 02:12 | XMS_ITS | Encounter Summary ---
:1950 [place] [address] Care Team Providers Name Role Phone Giuseppe Quintanilla MD Primary Care Provider Encounter Details Date Type Department Care Team Description 04/08/2010 Follow-Up Orthopaedics at [facility] Jorge Arango MD [facility] [place] [address] ORTHOPAEDIC SURGERY [phone] [place] [id number] (Wo rk) Social History Tobacco Use Types Packs/Day Years Used Date Never Assessed Sex Assigned at Date Recorded Not on file documented as of this encounter Plan of Treatment Not on filedocumented as of this encounter Visit Diagnoses Not on filedocumented in this encounter Care Teams Retirement Plan Specialist Relationship Specialty Start Date End Date Giuseppe Quintanilla MD PCP - General 01/12/10 05/17/11 [address] [place] [address] documented as of this encounter
--- OUTSIDE RECORDS SUMMARY | 2021-09-03 02:12 | XMS_ITS | Encounter Summary ---
:1950 Author Organization [facility] [place] [address] Care Team Providers Name Role Phone Jorge Rosario MD Primary Care Provider Encounter Details Date Type Department Care Team Description 06/17/2011 Hospital Encounter Laboratory Pebbles Vines DJD ([facility] MD joint disease) of [address] [place], [place] [address] [address] [place], [place] [phone] [id number] Social History Tobacco Use Types Packs/Day Years Used Date Former Smoker Cigarettes 0.5 Quit: 05/17/18 74 Alcohol Use Standard Drinks/Week Comments Yes 0 [...] mg mouth 2 times daily. per tablet IBUPROFEN/DIPHENHYDRAM Take by mouth nightly 0 07/15/2011 INE (ADVIL PM ORAL) as needed. naproxen sodium Take 220 mg by mouth 0 07/15/2011 (ALEVE) 220 mg tablet every morning. omeprazole (PRILOSEC) 20mg, PO, Once daily 0 03/2307/26/2012 20 mg capsule documented as of this encounter Plan of Treatment Not on filedocumented as of this encounter Procedures Procedure Name Priority Date/Time Associated Comments Diagnosis URINE CULTURE Routine 06/17/2011 11:55 DJD (degenerative Resul ts for this AM EDT joint disease) of procedure are in hip the results section. DIFFERENTIAL, Routine 06/17/2011 11:45 Results fo r this AUTOMATED AM EDT procedure are i n the results section. ABO/RH TYPING Routine 06/17/2011 11:45 DJD (degenerative Resul ts for this AM EDT joint disease) of procedure are in hip the results section. SEDIMENTATION RATE Routine 06/17/2011 11:45 DJD (degenerative Results for this AM EDT joint disease) of procedure are in hip the results section. PROTHROMBIN TIME Routine 06/17/2011 11:45 DJD (degenerative Re sults for this AM EDT joint disease) of procedure are in hip the results section. CBC (WITH DIFF) Routine 06/17/2011 11:45 DJD (degenerative Res ults for this AM EDT joint disease) of procedure are in hip the results section. ANTIBODY SCREEN Routine 06/17/2011 11:45 DJD (degenerative Res ults for this AM EDT joint disease) of procedure are in hip the results section. CRP, CARDIAC RISK (HS Routine 06/17/2011 11:45 DJD (degenerati ve Results for this CRP) AM EDT joint disease) of procedure are in hip the results section. PROTEIN, TOTAL Routine 06/17/2011 11:45 DJD (degenerative Resu lts for this AM EDT joint disease) of procedure are in hip the results section. HEMOGLOBIN A1C Routine 06/17/2011 11:45 DJD (degenerative Resu lts for this AM EDT joint disease) of procedure are in hip the results section. ALBUMIN LEVEL Routine 06/17/2011 11:45 DJD (degenerative Resul ts for this AM EDT joint disease) of procedure are in hip the results section. BASIC METABOLIC PANEL Routine 06/17/2011 11:45 DJD (degenerati ve Results for this (NON-FASTING) AM EDT joint disease) of procedure are in hip the results section. TYPE AND SCREEN, SDP Routine 06/17/2011 11:18 DJD (degenerativ e (FUTURE SURGERY, [facility] AM EDT joint disease) of SAME DAY PROGRAM ONLY) hip documented in this encounter Results Urine culture Clean Catch Urine (06/17/2011 11:55 AM EDT) [facility] Method Time Signature Urine Culture CERNER ? Patient Name: YAW GARCIA ?? Ordered By: PEBBLES ROSS [facility] ? MR#: [id number] ?LOC: ??4V ? /Sex: ??1950 (60 years), ? Male ? PROCEDURE: Urine Culture ?SOURCE: U CC ? COLLECTED: 06/17/2011 11:55 ? STARTED: 06/17/2011 12:28 ? FINAL REPORT ? Final Report ? Verified:06/18/2011 07:42 ? No growth (Less than 1,000 cfu/ml). ? Specimen (Source) Anatomical Collection Method Collection Time Re ceived Time Location / / Volume Laterality Urine specimen 06/17/2011 11:55 2 obtained by clean AM EDT 12:28 PM E DT catch procedure (specimen) Resulting Agency Comment Spec In Lab Pebbles Vines MD MICROBIOLOGY - GENERAL ORDER SHABNAM Performing Organization Address City/State/[place] [address] CERNER MILLENNIUM (ABNORMAL) DIFFERENTIAL, AUTOMATED (06/17/2011 11:45 AM EDT) [facility] gist Method Time Signature Neutrophils % 55.2 34.0 - CERNER 71.0 % MILLENNIUM Neutr Abs (ANC) 7.45 (H) 1.50 - CERNER 6.30 MILLENNIUM x10(3)/mc L Lymphocytes % 35.9 19.0 - CERNER 53.0 % MILLENNIUM Lymphocytes Abs 4.8 (H) 1.0 - 3.6 CERNER x10(3)/mc MILLENNIUM L Monocytes % 5.3 4.0 - CERNER 13.0 % MILLENNIUM Monocyte Abs 0.7 0.2 - 1.0 CERNER x10(3)/mc MILLENNIUM L Eosinophils % 2.8 0.0 - 7.0 CERNER % MILLENNIUM Eosinophils Abs 0.4 0.0 - 0.5 CERNER x10(3)/mc MILLENNIUM L Basophils % 0.4 0.0 - 2.0 CERNER % MILLENNIUM Basophils Abs 0.1 0.0 - 0.2 CERNER x10(3)/mc MILLENNIUM L Immature Gran % 0.40 0.00 - CERNER 0.66 % MILLENNIUM Comment: Immature granulocytes(IG's)percentage an d absolute count will include metamyelocytes, myelocytes, and promyelo cytes. Blood smears from CBCs yielding IG's will be scanned manually for concor dance. If this scan disagrees with the automated IG or if promyelocytes are not ed, a manual differential will be performed. Katy Gran Abs 0.05 0.00 - 0.05 x10(3)/mcL [facility] Specimen Anatomical Collection Method Collection Time Receive d Time (Source) Location / / Volume Laterality Blood specimen 06/17/2011 11:45 2 (specimen) AM EDT 12:05 PM EDT Pebbles Vines MD HEMATOLOGY ORDERABLES Performing Organization Address City/[facility]/ZIP Code Phon e Number [address] [facility] ANTIBODY SCREEN (06/17/2011 11:45 AM EDT) Analysis Performed At Patho logist Time Signature Ab Screen Negative [facility] Expires at [id number] [facility] [address] on: [facility] Specimen Anatomical Collection Method Collection Time Receive d Time (Source) Location / / Volume Laterality Blood specimen 06/17/2011 11:45 2 (specimen) AM EDT 11:48 AM EDT Resulting Agency Comment Spec In Lab Pebbles Vines MD BLOOD BANK ORDERABLES Performing Organization Address City/[facility]/ZIP Code Phon e Number [address] [facility] ABO/RH TYPING (06/17/2011 11:45 AM EDT) P athologist Signature ABORh Type O Pos [facility] Specimen Anatomical Collection Method Collection Time Receive d Time (Source) Location / / Volume Laterality Blood specimen 06/17/2011 11:45 2 (specimen) AM EDT 11:48 AM EDT Resulting Agency Comment Spec In Lab Pebbles Vines MD BLOOD BANK ORDERABLES Performing Organization Address City/[facility]/ZIP Code Phon e Number [address] [facility] Hemoglobin A1c (06/17/2011 11:45 AM EDT) P athologist Signature Hemoglobin A1C 5.2 4.3 - 6.1 CERNER % MILLENNIUM Est Avg Gluc 103 mg/dL CERNER MILLENNIUM Comment: eAG equivalents for HbA1c percentages: HbA1c(%) ?eAG(mg/dL) 6.0 ?126 6.5 ?140 7.0 ?154 7.5 ?169 8.0 ?183 8.5 ?197 9.0 ?212 9.5 ?226 10.0 ? 240 Limitations: The eAG calculation has not been validated on women, individuals below 18 years old and above 70 years old, and individuals with hemoglobinopathies. Additional resources are available on city hospital ADA website: ??http://professional.diabetes.org/gluc osecalculator.aspx Reference: Cassius ALY, Anitra J, Betty R, et al. ??Tr anslating the A1C assay into estimated average glucose values. ??Diabetes Care 2008:31(8):1026-8410. Specimen Anatomical Collection Method Collection Time Receive d Time (Source) Location / / Volume Laterality Blood specimen 06/17/2011 11:45 2 (specimen) AM EDT 12:05 PM EDT Resulting Agency Comment Spec In Lab Pebbles Vines MD CHEMISTRY ORDERABLES Performing Organization Address City/State/[place] [address] CERNER MILLENNIUM Protein, total (06/17/2011 11:45 AM EDT) P athologist Signature Total Protein 7.2 6.4 - 8.3 CERNER gm/dL MILLENNIUM Specimen Anatomical Collection Method Collection Time Receive d Time (Source) Location / / Volume Laterality Blood specimen 06/17/2011 11:45 2 (specimen) AM EDT 12:05 PM EDT Resulting Agency Comment Spec In Lab Pebbles Vines MD CHEMISTRY ORDERABLES Performing Organization Address City/[facility]/ZIP [facility] [place] [address] CERNER MILLENNIUM Albumin Level (06/17/2011 11:45 AM EDT) P athologist Signature Albumin 3.9 3.2 - 5.2 CERNER gm/dL MILLENNIUM Specimen Anatomical Collection Method Collection Time Receive d Time (Source) Location / / Volume Laterality Blood specimen 06/17/2011 11:45 2 (specimen) AM EDT 12:05 PM EDT Resulting Agency Comment Spec In Lab Pebbles Vines MD CHEMISTRY ORDERABLES Performing Organization Address City/[facility] [place] [address] CERNER MILLENNIUM High Sensitivity CRP (06/17/2011 11:45 AM EDT) athologist Signature CRP High Sens 9.8 mg/L CERNER MILLENNIUM Comment: Interpretations: 1) For cardiac risk assessment, two valu es (fasting or nonfasting sample acceptable) taken at least 2 weeks apart , should be averaged to provide a more reliable estimate of marker level. ??Thi s laboratory uses the recommendations from the AHA/CDC Scientific Statement fo r interpretations of future risks of cardiovascular events: ? <1.0 mg/L: low risk 1.0 - 3.0 mg/L: moderate risk >3.0 mg/L: high risk groups for future c ardiovascular events 2) The general reference range of appare ntly healthy individuals using this test is <5.0 mg/L (derived from the test package insert) A few words of caution: For cardiac asse ssment, when a value >10 mg/L is encountered, there should be a search fo r an acute inflammatory condition or infection (in patients with acute inflam mation, the concentration can increase to >500 mg/L). ??The >10 mg/L should be discarded if such a situation exists, since the risk for coronary heart diseas e cannot be provided, and a repeat specimen, taken at least two weeks after resolution of the acute inflammatory condition, may allow for appraisal of co ronary risk information. Please note that significantly decreased CRP values may be obtained from samples taken from patients who have bee n treated with carboxypenicillins. References: 1. Antonette HERNANDEZ et. al. ??AHA/CDC Scientif ic Statement: Markers of Inflammation and Cardiovascular Disease. ??Circulatio n 2003; 107:499-511 2. Ridker PM. ??Clinical applications of C-reactive protein for cardiovascular disease detection and prevention. ??Circ ulation 2003; 107:363-369 Specimen Anatomical Collection Method Collection Time Receive d Time (Source) Location / / Volume Laterality Blood specimen 06/17/2011 11:45 2 (specimen) AM EDT 12:05 PM EDT Resulting Agency Comment Spec In Lab Pebbles Vines MD CHEMISTRY ORDERABLES Performing Organization Address City/[facility]/ZIP [place] [address] CERNER MILLENNIUM (ABNORMAL) Sedimentation rate (06/17/2011 11:45 AM EDT) P athologist Signature Sed Rate 31 (H) 0 - 15 CERNER mm/hr MILLENNIUM Specimen Anatomical Collection Method Collection Time Receive d Time (Source) Location / / Volume Laterality Blood specimen 06/17/2011 11:45 2 (specimen) AM EDT 12:05 PM EDT Resulting Agency Comment Spec In Lab Pebbles Vines MD HEMATOLOGY ORDERABLES Performing Organization Address City/[facility]/ZIP [facility] [place] [address] CERNER MILLENNIUM Prothrombin Time (06/17/2011 11:45 AM EDT) P athologist Signature PT 14.3 11.9 - 14.7 CERNER sec MILLENNIUM Comment: [facility] Transfusion Committee Guidelines: I NR less than 2.0, PTT less than OR equal to 43.5 seconds, or Fibrinogen gre ater than or equal to 100 mg/dl indicate adequate procoagulant activity for hemostasis in patients without underlying bleeding disorders. INR 1.1 0.9 - 1.1 CERNER MILLENNIUM Specimen Anatomical Collection Method Collection Time Receive d Time (Source) Location / / Volume Laterality Blood specimen 06/17/2011 11:45 2 (specimen) AM EDT 12:05 PM EDT Resulting Agency Comment Spec In Lab Pebbles Vines MD HEMATOLOGY ORDERABLES Performing Organization Address City/State/ZIP Code Phon e Number [place] [phone] CERNER MILLENNIUM Basic Metabolic Panel (non-fasting) (06/17/2011 11:45 AM EDT) P athologist Signature Glucose Lvl 81 60 - 199 CERNER mg/dL MILLENNIUM Comment: Diabetes: >=200 mg/dL plus symp toms BUN 13 10 - 20 mg/dL CERNER MILLENNIU M Creatinine 0.80 0.80 - 1.50 mg/dL CERNER MILL ENNIUM Sodium 138 135 - 145 mmol/L CERNER RICHARDSON NIUM Potassium 3.9 3.5 - 5.0 mmol/L CERNER RICHARDSON NIUM Comment: Please note: ??Patients with WBC >100,00 0 may have falsely elevated Potassium levels. ??For accurate Potassium quantif ication in these patients send serum separator tube (gold top) for subsequent determinations. ??Contact the Clinical Chemistry Laboratory if there are any qu estions. Chloride 104 98 - 107 mmol/L CERNER MILLENN IUM CO2 25 22 - 31 mmol/L CERNER MILLENNI UM Anion Gap 9 5 - 15 mmol/L CERNER MILLENNIU M Calcium 9.0 8.5 - 10.5 mg/dL CERNER RICHARDSON NIUM [...] Location / / Volume Laterality Blood specimen 06/17/2011 11:45 2 (specimen) AM EDT 12:05 PM EDT Resulting Agency Comment Spec In Lab Pebbles Vines MD CHEMISTRY ORDERABLES Performing Organization Address City/State/ZIP Code Phon e Number [place] [phone] PRATIK SMITAENNIUM (ABNORMAL) CBC (with Diff) (06/17/2011 11:45 AM EDT) P athologist Signature WBC 13.5 (H) 4.0 - 10.0 CERNER x10(3)/mcL MILLENNIUM RBC 4.46 (L) 4.63 - CERNER 6.08 MILLENNIUM x10(6)/mcL Hemoglobin 12.7 (L) 13.7 - CERNER 17.5 gm/dL MILLENNIUM Hematocrit 37.7 (L) 40.0 - CERNER 51.0 % MILLENNIUM MCV 84.5 79.0 - CERNER 92.0 fL MILLENNIUM MCH 28.5 25.6 - CERNER 32.2 pg MILLENNIUM MCHC 33.7 32.0 - CERNER 36.5 gm/dL MILLENNIUM Platelets 312 145 - 370 CERNER x10(3)/mcL MILLENNIUM RDWSD 43.4 35.0 - CERNER 46.0 fL MILLENNIUM RDWCV 14.1 10.9 - CERNER 14.4 % MILLENNIUM MPV 9.7 9.0 - 12.0 CERNER fL MILLENNIUM Specimen Anatomical Collection Method Collection Time Receive d Time (Source) Location / / Volume Laterality Blood specimen 06/17/2011 11:45 2 (specimen) AM EDT 12:05 PM EDT Resulting Agency Comment Spec In Lab Pebbles Vines MD HEMATOLOGY ORDERABLES Performing Organization Address City/State/ZIP [place] [address] [facility] documented in this encounter Visit Diagnoses Diagnosis DJD (degenerative joint disease) of hip Osteoarthrosis, unspecified whether gene ralized or localized, pelvic region and thigh documented in this encounter Care Teams Oven Laborer Relationship Specialty Start Date End Date Jorge Rosario MD PCP - General 05/18/11 03/23/[address] [place] [address] documented as of this encounter
--- OUTSIDE RECORDS SUMMARY | 2021-09-03 02:12 | XMS_ITS | Encounter Summary ---
:1950 [place] [address] Care Team Providers Name Role Phone Jorge Rosario MD Primary Care Provider Encounter Details Date Type Department Care Team Description 07/14/2011 Anesthesia Event Main Operating Room Gisele Lam MD [facility] [place] [address] [facility] [place] [place] [facility] [address] [place] [address] Anesthesia Record Procedure Summary Procedure Name Responsible Anesthesia Start Anesthesia Stop Time Anesthesiologist Time TOTAL HIP Gisele Maldonado MD 07/14/11 0715 07/14/11 0928 ARTHROPLASTY, ANTERIOR APPROACH (WRVU 20.72) (Left Hip) Events Date Time Event Comment 07/14/2011 0715 Start 0710 1128 Stop No medications on file. Agents No agents on file. Blood No blood administrations on file. Lines, Drains, and Airways Type Details Placement Removal Incision 07/14/11; hip 07/14/11 0000 by Veronique Hobson RN PIV 07/14/11; 0707; 07/15/11; 07/14/11 0707 by Richard chris, 07/15/11 1623 by 1623 FELICIA Osuna Ginn y R, RN PIV 07/14/11; 0746; 07/15/11; 07/14/11 0746 by Latosha calvo, 07/15/11 1623 by 1623 GRETA Dickey Ginn y R, RN documented in this encounter Social History Tobacco [...] on file documented as of this encounter OR Notes Anesthesia Postprocedure Evaluation - Gisele Maldonado MD - 07/14/2011 11:58 AM EDT Patient: Yaw Cadena Procedure(s) Performed: Procedure(s): @TOTAL HIP ARTHROPLASTY, ANTERIOR APPROACH MODIFIER ACCOLADE FEMORAL STEM ROB MODIFIER TRITANIUM ACETABULUM CUP ROB Patient location: PACU Post-op pain: Adequate analgesia, spinal resolving, bending knees Post-op nausea: no nausea or vomiting Last Vitals: Filed Vitals: 07/14/11 1130 BP: 153/76 Pulse: 45 Temp: Resp: Post-op cardiovascular and respiratory status: is stable Level of consciousness: awake, alert and oriented Complications: no apparent complications and tolerated the procedure well Fluid Status: normal Anesthesia Procedure Notes - Gisele Maldonado MD - 07/14/2011 9:17 AM EDT Associated Order(s): ANE BLOCK 2; ANE BLOCK 2 Procedure Primary Type: Spinal The patient was greeted; the risks and benefits were reviewed. The anesthetic consent was obtained. The medical history and chart were reviewed. The timeout was performed. Start time: 07/14/2011 7:30 AM End time: 07/14/2011 7:35 AM Patient Prep Position: Sitting Prep: chlorhexidine Injection technique: single-shot Skin Anesthetic Lidocaine 1% 3 ml Procedure Technique Level of needle insertion: L3-L4 Needle approach: midline Needle insertion depth: 3 cm Needle Type: [facility] Gauge: 25 Needle length: 5 cm Number of attempts: 1 Intrathecal Injection The patient received the following medication/s as an intrathecal injection: Bupivacaine 0.75% w dextrose Events/Notes Events: None Performed by jarrell Anesthesia Preprocedure Evaluation - Gisele Maldonado MD - 07/13/2011 10:22 PM EDT Anesthesia Evaluation Patient summary reviewed and Nursing notes reviewed No hx of anesthetic complications Airway Mallampati: I TM distance: >3 FB Neck ROM: full Dental - normal exam Pulmonary (+) asthma (exercise induced), Cardiovascular - negative ROS (-) CHF Neuro/Psych GI/Hepatic/Renal Endo/Other (+) arthritis, Comments: Rheumatoid arthritis Abdominal Anesthesia Plan ASA 2 Spinal Anesthetic plan and risks discussed with patient and spouse. Plan discussed with CONSTRUCTION CHECKER. documented in this encounter Miscellaneous Notes Addendum Note - Nicky Reed - 07/15/2011 10:14 AM EDT Addendum created 07/15/11 1014 by Nicky Reed Modules edited:Anesthesia Events, Anesthesia Responsible Staff documented in this encounter Plan of Treatment Not on filedocumented as of this encounter Visit Diagnoses Not on filedocumented in this encounter Care Teams Washerette Machine Operator Relationship Specialty Start Date End Date Jorge Rosario MD PCP - General 05/18/11 03/23/[address] [place] [address] documented as of this encounter
--- OUTSIDE RECORDS SUMMARY | 2021-09-03 02:12 | XMS_ITS | Encounter Summary ---
:1950 [place] [address] Care Team Providers Name Role Phone Jorge Rosario MD Primary Care Provider Encounter Details Date Type Department Care Team Description 06/17/2011 [facility] [place] [address] Social History Tobacco Use Types Packs/Day [...] on filedocumented in this encounter Care Teams Box Coverer Hand Relationship Specialty Start Date End Date Jorge Rosario MD PCP - General 05/18/11 03/23/[address] [facility] [place] [address] documented as of this encounter
--- OUTSIDE RECORDS SUMMARY | 2021-09-03 02:12 | XMS_ITS | Encounter Summary ---
:1950 Author Organization [facility] [place] [address] Care Team Providers Name Role Phone Jorge Rosario MD Primary Care Provider Encounter Details Date Type Department Care Team Description 05/18/2011 Hospital Encounter XRay at [facility] Bilateral hip pain [address] [facility] [place] [phone] Social History Tobacco Use Types Packs/Day Years Used Date Former Smoker Cigarettes 0.5 Quit: 05/17/18 74 Sex Assigned at Date Recorded Not on file documented as of this encounter Medications at Time of Discharge Medication Sig Dispensed Refills Start Date End Date GOLIMUMAB (SIMPONI Inject subcutaneously 0 SUBQ) every 30 days. omeprazole (PRILOSEC) 20mg, PO, Once daily 0 03/2307/26/2012 20 mg capsule documented as of this encounter Plan of Treatment Not on filedocumented as of this encounter Procedures Procedure Name Priority Date/Time Associated Diagnosis Comme nts XR PELVIS AP AND 2 Routine 05/18/2011 2:00 PM Pain in joint, R esults for this VIEWS BOTH HIPS EDT pelvic region and procedu re are in thigh the results section. documented in this encounter Results XR PELVIS AP AND 2 VIEWS BOTH HIPS (05/18/2011 2:00 PM EDT) Anatomical Region Laterality Modality Pelvis, Hip N/A Radiographic Imaging Specimen (Source) Anatomical Collection Method Collection Time Re ceived Time Location / / Volume Laterality 05/18/2011 2:00 PM EDT Narrative 05/18/2011 4:12 PM EDT SINGLE AP PELVIS AND TWO VIEWS OF EACH HIP, 05/18/11: CLINICAL INDICATION: ??Bilateral hip ost eoarthritis and pain. COMPARISON: ??Study compared to prior hi p radiographs, 01/29/10. TECHNIQUE: ??Single AP view of the pelvi s and AP and lateral views of each hip were obtained. FINDINGS: There is bilateral hip arthrop athy characterized by joint margin osteophytes, subchondral sclerosis and j oint space narrowing superolaterally. ?? This is more severe in the left hip wher e there is a near cgkz-ph-vhdy appearance to the superior aspect of the joint space with question slight flattening of the contour of the humeral head. ??The degree of arthropathy in the left appears to have progressed sinc e the 2009 exam. ?? The sacroiliac joints and pubic symphysi s are unremarkable. ??There is no discrete fracture or dislocation. Remain colleen of osseous pelvis is intact. IMPRESSIONS: 1. ??Severe left hip arthropathy, which appears to have progressed since the 2009 exam. ??There is a more mild-to-mod erate degree of arthropaty in the right hip that is very similar to the prior ex am. Procedure Note Luca Luna DO - 05/18/2011Form atting of this note might be different from the original. SINGLE AP PELVIS AND TWO VIEWS OF EACH H IP, 05/18/11: CLINICAL INDICATION: Bilateral hip osteo arthritis and pain. COMPARISON: Study compared to prior hip radiographs, 01/29/10. TECHNIQUE: Single AP view of the pelvis and AP and lateral views of each hip were obtained. FINDINGS: There is bilateral hip arthrop athy characterized by joint margin osteophytes, subchondral sclerosis and j oint space narrowing superolaterally. This is more severe in the left hip wher e there is a near rcdz-tr-htkj appearance to the superior aspect of the joint space with question slight flattening of the contour of the humeral head. The degree of arthropathy in the left appears to have progressed sinc e the 2009 exam. The sacroiliac joints and pubic symphysi s are unremarkable. There is no discrete fracture or dislocation. Remain colleen of osseous pelvis is intact. IMPRESSIONS: 1. Severe left hip arthropathy, which ap pears to have progressed since the 2009 exam. There is a more goqx-yd-znxvi ate degree of arthropaty in the right hip that is very similar to the prior ex am. Mark Vines MD IMG DX ORDERABLES documented in this encounter Visit Diagnoses Diagnosis Bilateral hip pain Pain in joint, pelvic region and thigh documented in this encounter Care Teams Mechanical Apprentice Relationship Specialty Start Date End Date Jorge Rosario MD PCP - General 05/18/11 03/23/[address] [place] [address] documented as of this encounter
--- OUTSIDE RECORDS SUMMARY | 2021-09-03 02:12 | XMS_ITS | Encounter Summary ---
:1950 Author Organization [facility] [place] [address] Care Team Providers Name Role Phone Jorge Rosario MD Primary Care Provider Reason for Referral Physical Therapy (Routine) - Complete - Patient Will Schedule External Appt Specialty Diagnoses / Procedures Referred By Contact Refer red To Contact Physical Therapy Diagnoses S/P hip replacement Mark Vines MD [address] [place] [address] Referral ID Status Reason Start Expiration Visits Visits Date Date Requested Authorized [id number] Complete - Evaluate and 07/01/2011 12/28/2011 1 1 Patient Will Treat Schedule External Appt Encounter Details Date Type Department Care Team Description 07/01/2011 Orders Only [place] [facility] [place]ines, S/P hip replacement [facility] Roberta mclaughlin MD (Primary Dx) [place] [address] [address] [phone] [place] [address] Social History Tobacco Use Types Packs/Day Years [...] S chedule REFERRAL TO Outpatient Referral Routine S/P hip replacement O rdered: PHYSICAL THERAPY 07/01/2011 documented as of this encounter Visit Diagnoses Diagnosis S/P hip replacement - Primary Hip joint replacement by other means documented in this encounter Care Teams Nanotechnology Engineering Technologist Relationship Specialty Start Date End Date Jorge Rosario MD PCP - General 05/18/11 03/23/[address] [place] [address] documented as of this encounter
--- OUTSIDE RECORDS SUMMARY | 2021-09-03 02:12 | XMS_ITS | Encounter Summary ---
:1950 Author Organization [facility] [place] [address] Care Team Providers Name Role Phone Jorge Rosario MD Primary Care Provider Encounter Details Date Type Department Care Team Description 06/17/2011 Hospital Encounter XRay at [facility] [address] SMITH [address] [place] [address] Mark Dykes MD [address] [place] [address] [place] [address] Social History Tobacco Use Types Packs/Day [...] on filedocumented in this encounter Care Teams Loader Operator Supervisor Relationship Specialty Start Date End Date Jorge Rosario MD PCP - General 05/18/11 03/23/[address] [place] [address] documented as of this encounter
--- OUTSIDE RECORDS SUMMARY | 2021-09-03 02:12 | XMS_ITS | Encounter Summary ---
:1950 [place] [address] Care Team Providers Name Role Phone Jorge Rosario MD Primary Care Provider Encounter Details Date Type Department Care Team Description 06/17/2011 Clinical Support [place] [facility] [facility] [place] (degenerative joint [facility] disease) [place] [address] Social History Tobacco Use Types Packs/Day [...] Taken Comments Blood Pressure - - Pulse 65 06/17/2011 11:03 AM EDT Temperature - - Respiratory Rate - - Oxygen Saturation 98% 06/17/2011 11:03 AM EDT Inhaled Oxygen Concentration - - Weight 85.3 kg (188 lb) 06/17/2011 11:03 AM EDT Height 172.7 cm (5' 8) 06/17/2011 11:03 AM EDT Body Mass Index 28.59 06/17/2011 11:03 AM EDT documented in this encounter Progress Notes Lorna Sauceda RN - 06/17/2011 11:28 AM EDT PAT Questionnaire reviewed with patient while in Pre Admission Testing. Patient states was a plannedovernight stay, not an unplanned overnight. Also lung problem is that has asthma that is well controlled. Pre-operative folder reviewed with patient. Patient expresses good understanding of all information reviewed. Labwork and EKG performed while in Pre-Admission Testing. Sent to radiology for chest x-ray. To go to Total Joint therapy class at 1400 today. documented in this encounter Plan of Treatment Not on filedocumented as of this encounter Procedures Procedure Name Priority Date/Time Associated Diagnosis Comme nts XR CHEST PA AND Routine 06/17/2011 3:47 PM DJD (degenerative R esults for this LATERAL EDT joint disease) of procedure are in hip the results section. EKG 12-LEAD Routine 06/17/2011 11:33 AM DJD (degenerative Res ults for this EDT joint disease) of procedure are in hip the results section. documented in this encounter Results XR chest routine PA & lateral (06/17/2011 3:47 PM EDT) Anatomical Region Laterality Modality Chest N/A Radiographic Imaging Specimen (Source) Anatomical Collection Method Collection Time Re ceived Time Location / / Volume Laterality 06/17/2011 3:47 PM EDT Impressions 06/19/2011 9:05 AM EDT IMPRESSION: ?? No active cardiopulmonary pathology. Narrative 06/19/2011 9:05 AM EDT TWO-VIEW CHEST: ?? INDICATION: ??Preoperative. ?? TECHNIQUE: ??PA and lateral views of the chest. ?? COMPARISON: ??No priors for comparison. ?? FINDINGS: ??The lungs appear clear. ??Th e heart, mediastinum, bonny, pulmonary vessels, and pleura are within normal li mits. ??Right lateral rib deformities are consistent with old healed fractures . ?? Procedure Note Enedina Jordan MD - 06/19/2011Formatt ing of this note might be different from the original. TWO-VIEW CHEST: INDICATION: Preoperative. TECHNIQUE: PA and lateral views of the c hest. COMPARISON: No priors for comparison. FINDINGS: The lungs appear clear. The he art, mediastinum, bonny, pulmonary vessels, and pleura are within normal li mits. Right lateral rib deformities are consistent with old healed fractures . IMPRESSION IMPRESSION: No active cardiopulmonary pathology. Authorizing Provider Result Lona Vines MD IMG DX ORDERABLES EKG 12 Lead (06/17/2011 11:33 AM EDT) Component Value Ref Range Test Analysis Performed Pathologis t Method Time At Signature Ventricular rate 57 BPM MUSE SYSTEM Atrial Rate 57 BPM MUSE SYSTEM P-R Interval 154 ms MUSE SYSTEM QRS Duration 92 ms MUSE SYSTEM Q-T Interval 404 ms MUSE SYSTEM QTC Calculated 393 ms MUSE SYSTEM (Bezet) Calculated P [place] -2 degrees MUSE SYSTEM Calculated R [place] -4 degrees MUSE SYSTEM Calculated T [place] 25 degrees MUSE SYSTEM INTERPRETATION Sinus bradycardia MUSE SY STEM Otherwise normal ECG No previous ECGs available Confirmed by MD Haile Robert ([id number]) on 06/17/2011 8:45:06 PM Specimen Anatomical Collection Method Collection Time Receive d Time (Source) Location / / Volume Laterality 06/17/2011 11:33 06/17/2011 8:45 AM EDT PM EDT Authorizing Provider Result Lona Vines MD ECG ORDERABLES Performing Organization Address City/State/ZIP Code Phon e Number MUSE SYSTEM documented in this encounter Visit Diagnoses Diagnosis DJD (degenerative joint disease) of hip Osteoarthrosis, unspecified whether gene ralized or localized, pelvic region and thigh documented in this encounter Care Teams Flour Inspector Relationship Specialty Start Date End Date Jorge Rosario MD PCP - General 05/18/11 03/23/[address] [place] [address] documented as of this encounter
--- OUTSIDE RECORDS SUMMARY | 2021-09-03 02:12 | XMS_ITS | Encounter Summary ---
:1950 Author Organization [facility] [place] [address] Care Team Providers Name Role Phone Kitty Nuñez MD Primary Care Provider Encounter Details Date Type Department Care Team Description 07/14/2011 Surgery Main Operating Room Pebbles Bowling MD TOTAL HIP ARTHROPLASTY, [place] [address] [address] Day ANTE RIOR APPROACH ([facility] [address] [place] [address] [place] [address] [phone] Social History Tobacco Use Types Packs/Day Years [...] Sign Reading Time Taken Comments Blood Pressure 117/73 07/15/2011 11:09 AM EDT Pulse 72 07/15/2011 11:09 AM EDT Temperature 36.7 ??C (98.1 ??F) 07/15/2011 11:09 AM EDT Respiratory Rate 18 07/15/2011 11:09 AM [...] a bowel movement. You can take an dupj-trd-scnsekx medication, miralax if needed. 2. If you [...] 4. Call your orthopedic surgeon- Dr. Vines (#[phone]) with any fever, chills, sweats, redness or [...] Jay Greer - 07/15/2011 12:53 PM EDT Sales Representative Health Insurance Encounter Note Patient Name: Yaw Cadena : [id number] MR#: [id number] Admit Date: 07/14/2011 6:09 AM Hospital Day 1 day Narrative:Visited to introduce and assess acceptance of Sales Representative Health Insurance services. Pt was sitting on chairwatching TV. Assessment:Patient coping positively with stresses of illness/hospitalization at this time. Pt ws ingood spirit and very welcoming. Intervention and Outcome:Pt has good family support and living with family. Sales Representative Health Insurance services accepted. Conversation to build trusting relationship. [...] to home. We discussed VNA services thru [place] for home PT. Pt will discharge on ASA. Pt requests FWW and agrees to securing thru [facility]. Pt is and available to transport but she works and will only be available for assist limited time. Pt has 2 grown dtrs who will be home with pt. Pt has few steps with rail at entry. Will complete VNA referral and secure FWW anticipate d/c later today. Allan Powers III, MD - 07/15/2011 7:07 [...] a 3 out of 10. Pt using FOLDED TOWEL MACHINE OPERATOR appropriately. Dressing to left hip is clean, [...] documented in this encounter Procedure Notes Provider, Scanning - 07/16/2011 1:24 PM EDTAssociated Order(s): SCAN DOC: IMPLANTABLE DEVICES; SCAN DOC: IMPLANTABLE DEVICES documented in this encounter Miscellaneous Notes Miscellaneous - Provider, Scanning - 07/16/2011 12:20 PM EDT Plan of [...] appropriately for ambulation. Initial Assessments - Nicky Carmona, OT - 07/15/2011 11:40 AM EDT Occupational [...] minutes Total timed interventions: 0 minutes Pager: [phone] NICKY CARMONA OT 07/15/2011 Occupational Therapy Rehabilitation [...] 90s Most recent Hgb value: 9.7 Pain: 06/29 with mobility Functional Mobility: Supine->sit indep with [...] treatment: 15 minutes JOAQUIN LOONEY PT Pager: [phone] Plan of Care - Nichol Hoffman RN [...] Related Risk Factors Patient tolerating a dilaudid FOLDED TOWEL MACHINE OPERATOR . Patient states pain is 3 /10. [...] - Primary ALLAN POWERS III, MD - Resident-Souvenir Assembler History of Presentation: Yaw Cadena is a [...] a bowel movement. You can take an tzot-xxq-nqyarpj medication, miralax if needed. 2. If you [...] 4. Call your orthopedic surgeon- Dr. Vines (#[phone]) with any fever, chills, sweats, redness or [...] 12:45 PM Pebbles Vines MD [facility] [phone] None Joint Appt Health Question Three C Ortho [facility] [phone] None Future Orders Please Complete By Expires Referral to Home Health [SIA1639 CPT(R)] Process Instructions: Scheduling Instructions: Comments: DOCUMENTATION FOR VNA SERVICES (INCLUDING THOSE PATIENTS WITH MEDICARE COVERAGE REQUIRING HOME VNA SERVICES AND/OR HOSPICE SERVICES) Yaw Cadena Discharge to own home: [phone] [facility] [phone] (work) Life Advisor's Name: self and In discussion with the attending physician, it is certified that this patient is under their care and that they, or a nurse practitioner, clinical nurse specialist or physician's lens assistant who is working directly with them, [...] need for servicesas follows: Home Health Agency: [facility]. PHONE: [phone] FAX: [phone] Home care orders for Total Hip Replacements: [...] Questions: Responses: Agency name and contact information [facility] Patient location post discharge [id number] [facility] What services are requested Physical Therapy Start date Responsible MD post discharge contact info PCP Walker standard [[id number] Custom] Process Instructions: Scheduling Instructions: Comments: Questions: Responses: Vendor Name/Contact information: [facility] from [facility] Provider Contact Information: Primary Care Provider: KITTY NUÑEZ MD [phone] Hospital Attending: Pebbles Vines MD Department of Orthopaedic Surgery For questions regarding this document or issues relating to this hospitalization on the Medical Service, please contact your inpatient physician through the [facility] Junior Programmer . Issues after hours and on weekends will be handled by the Hospitalist staff on-call. Signed: ALLAN POWERS III, MD 07/15/2011 Op Note - Pebbles Vines MD - 07/14/2011 9:21 AM EDT Surgery Start Time: 803 Surgery Stop Time: 912 Date: July 14, 2011 Surgeon: Pebbles Vines MD Manager Of Planning: Huber Powers MD Anesthesia: Spinal Pre-operative diagnosis: Left hip RA Post-operative diagnosis: Same, plus mild-moderate osteopenia Surgical Procedure Performed: Injection left hip with 10 cc marcaine 0.25% with epi, into skin and subcutaneous tissues (CPT code 53351) Left total hip arthroplasty, anterior Hueter approach with [place] table (CPT code 99410) Left hip intraoperative radiologic examination (CPT code 24383) Components Used: Rob Accolade 2 stem, size [...] performed. Patient was positioned supine on the [place] table, both feet and ankles were padded [...] liner was placed and impacted according to customer support coordinator's instructions. Any impinging osteophytes were removed. The [...] and laterally. At the same time, the lens assistant leaned against the thigh to optimize [...] Implant Name Type Inv. Item Serial No. Hot Metal Car Operator Lot No. LRB No. Used Action SHELL,ACTBR,CLSTR HLE,F,58MM ([id number]) (AUTOREQ) - [id number] IMPLANTS SHELL,ACTBR,CLSTR HLE,F,58MM ([id number]) (AUTOREQ) [employer] - 6109 [id number] Left 1 Implanted INSERT,TRIDENT,0,DEGREE,36MM ([id number]) (AUTOREQ) - [id number] IMPLANTS INSERT,TRIDENT,0,DEGREE,36MM ([id number]) (AUTOREQ) [employer] - 6109 [id number] Left 1 Implanted ACCOLADE II 127 DEGREE NECK ANGLE HIP STEM, SIZE 5, 35MM, 108MM LNTH, V40 [id number] Left 1 Implanted HEAD,FEM,CER,BLX,V40,36MM,-2.5 ([id number]) (AUTOREQ) - [id number] IMPLANTS HEAD,FEM,CER,BLX,V40,36MM,-2.5 ([id number]) (AUTOREQ) [employer] - [id number] Left 1 Implanted OR Attestation - Pebbles [...] Organization Address City/State/[place] [address] CERNER MILLENNIUM (ABNORMAL) Basic Metabolic Panel (non-fasting) (07/15/2011 4:29 AM EDT) athologist Signature Glucose Lvl 110 60 - [...] Organization Address City/State/ZIP Code Phon e Number [place] [phone] CERNER MILLENNIUM (ABNORMAL) CBC [...] % MILLENNIUM MPV 10.7 9.0 - 12.0 CERNER fL MILLENNIUM Specimen Anatomical Collection Method Collection Time Receive d Time (Source) Location / / Volume Laterality Blood specimen 07/15/2011 4:29 AM 012 4:56 (specimen) EDT AM EDT Resulting Agency Comment Spec In Lab Pebbles Vines MD HEMATOLOGY ORDERABLES Performing Organization Address City/State/ZIP Code Phon e Number [place] [phone] CERNER MILLENNIUM XR pelvis [...] Component Value Ref Test Analysis Performed At [facility] Method Time Signature Surgical [facility] Pathology ? [facility] Report ? Provider: ?? PEBBLES VINES ? Pt. Name: ? ? YAW CADENA ? Acc #: ?[id number] ?Pt. MRN: ?[id number] ? Col Date: ?? 2 ? /Sex: ?1950,(60 years),Male ? Rec Date: ?? 07/14/2011 ? LOC: ?3WST ? SURGICAL PATHOLOGY ? ---Pathologic Diagnosis--- ? Articular bone and soft tissue showing osteoarthritis , ? femoral head, left. ?Gross surgical pathology examination. ? CR-0 ? 07/15/11 ? AJE ? 07/15/11 Verified by: ? Glenna Salinas DO. ? Pathologist ? (Electronic Si gnature) ? [...] MD PATHOLOGY/CYTOLOGY ORDERABLE S Performing Organization Address City/[facility] Phon e Number [address] PRATIK LARESIUM Specimen to Pathology (surgical or derm) (07/14/2011 8:30 AM EDT) Specimen Anatomical Collection Method Collection Time Receive d Time (Source) Location / / Volume Laterality AP Specimen 07/14/2011 8:30 AM 2 8:30 EDT AM EDT Narrative CERNER MILLENNIUM - 07/14/2011 8:30 AM E DT Specimen requisition ordered. ??Separate Pathology report to follow Pebbles Vines MD PATHOLOGY/CYTOLOGY ORDERABLE S Performing Organization Address City/[facility]/ZIP [facility] [place] [address] CERNER MILLENNIUM ANAEROBIC CULTURE (07/14/2011 8:23 AM EDT) [facility] Method Time Signature Anaerobic CERNER Culture ? Patient Name: YAW CADENA ?? Ord ered By: PEBBLES VINES ? MR#: [id number] ?LOC: ??3WST ? /Sex: ??1950 (60 years), [...] Organization Address City/State/ZIP Code Phon e Number [facility] PRATIK BYRNE BODY FLUID CULTURE (07/14/2011 8:23 AM EDT) Component Value Ref Test Analysis Performed At [facility] Range Method Time Signature Body Fluid CERNER Culture ? Patient Name: YAW CADENA ?? Ord ered By: PEBBLES VINES [facility] ? MR#: [id number] ?LOC: ??3WST ? /Sex: ??1950 (60 years), [...] Organization Address City/State/ZIP Code Phon e Number [place] [phone] [facility] documented in this encounter Visit Diagnoses Not on filedocumented in this encounter Active and Recently Administered Medications Times are shown in EDT. Scheduled Medication Order 07/13/2011 07/14/2011 07/15/2011 acetaminophen (TYLENOL) tablet 1,000 mg 0945 (Not Given - Provider: Latanya Mancia RN - Reason: See comment - Comment: not yet taking P.O.)1400 (Given - Provider: Latanya Mancia RN)2114 (Given - Provider: Nichol Hoffman RN) 0600 (Hold - Provider: Nichol Hoffman RN - Reason: Patient/family refused - Comment: pt would like to wait until after breakfast)0810 (Given - Provider: Sheba Davis RN)1400 (Given - Provider: Sheba Davis RN) 1,000 mg, Oral, EVERY 8 HOURS SCHEDULED, First dose on Riya 07/13/12 at 0945, Until Discontinued, Maximum dose of acetaminophen is 4000 mg from all sources in 24 hours., Routine acetaminophen (TYLENOL) tablet 650 mg (COMPLETED) 0655 (Given - Provider: Kelly Orlando RN) 650 mg, Oral, ONCE, 1 dose, Riya 07/13/12 at 0700, Administer on arrival in Same Day Program, Day of Surgery (Day of Procedure), Routine aspirin tablet 325 mg 0945 (Not Given - Provider: Latanya Mancia RN - Reason: See comment)1637 (Given - Provider: Fannie Epstein RN) 0811 (Given - Provider: Sheba Davis, FELICIA) 325 mg, Oral, 2 TIMES DAILY, First dose on Riya 07/13/12 at 0945, Until Discontinued, Routine ceFAZolin (ANCEF) 1g in dextrose 5% 50mL (COMPLETED) 1524 (New Bag - Provider: Fannie Epstein RN) 0045 (New Bag - Provider: Nichol lees RN)0745 (New Bag - Provider: Sheba Davis RN) 1 g = 1,000 mg, Intravenous, EVERY [...] P.O.)2113 (Given - Provider: Nichol Hoffman RN) 0811 (Given - Provider: Sheba stafford RN) 20 mg, Oral, 2 TIMES DAILY, First dose o n Riya 07/14/11 at 2100, Until Discontinued, Routine granisetron (KYTRIL) injection 1 mg (COMPLETED) 0930 (Not Given - Provider: Fannie Epstein RN [...] - Comment: pt not yet taking P.O.) 0812 (Given - Provider: Sheba stafford RN) 1 tablet, Oral, DAILY, First dose on Mon07/15/11 at 0900, Until Discontinued, Routine senna-docusate (PERICOLACE) 8.6-50 mg per tablet 1-4 tablet 0945 (Not Given - Provider: Latanya Mancia RN - Reason: See comment - Comment: pt not yet taking P.O.)2114 (Given - Provider: Nichol Hoffman RN) 08 (Given - Provider: Sheba Davis RN) 1-4 tablet, Oral, 2 TIMES DAILY, First d ose on Riya 07/14/11 at 0945, Until Discontinued, Start with 1 tablet or liquid equivalent orally twice daily and titrate up to achieve: 1. One bowel movement at ast every 48 hours, AND 2. Without straining, Routine sodium chloride 0.9 % flush 5 mL (CANCELED) 0945 (Given - Provider: Latanya Mancia RN)2106 (Given - Provider: Nichol Hoffman RN) 0945 (Given - Provider: Sheba Davis RN) 5 mL, Intravenous, EVERY 12 HOURS, First dose on Riya 07/14/11 at 0945, Until Discontinued, Routine Continuous Medication Order 07/13/2011 07/14/2011 07/15/2011 HYDROmorphone (DILAUDID) 1 mg/mL FOLDED TOWEL MACHINE OPERATOR 30 mL (CANCELED) 0945 (New Syringe/Cartridge - Provider: Latanya Mancia RN) 0700 (Rate/Dose Verify - Provider: Sheba Davis RN)0900 (Stopped - Provider: Sheba Davis RN) Intravenous, FOLDED TOWEL MACHINE OPERATOR ONLY, Starting Riya 07/14/11 at 0945, Until [...] 0945 (New Bag - Provider: Latanya Mancia RN)2026 (New Bag - Provider: Nichol Hoffman, RN) 0632 (New Bag - Provider: Nichol Hoffman, RN)0700 (Rate/Dose Verify - Provider: Sheba Davis RN)0900 (Stopped - Provider: Sheba Davis, RN) 1,000 mL, at 100 mL/hr, Intravenous, [...] PRN, Starting Riya 07/14/11 at 0924, Until 07/15/11 at 1809, Pain, moderate pain, For Moderate [...] Routine documented in this encounter Care Teams Floor Grinder Relationship Specialty Start Date End Date Kitty Nuñez MD PCP - General 05/18/11 03/23/21 [address] [place] [address] documented as of this encounter
--- OUTSIDE RECORDS SUMMARY | 2021-09-03 02:12 | XMS_ITS | Encounter Summary ---
:1950 Author Organization [facility] Address [facility] [address] [place] [address] Care Team Providers Name Role Phone Jorge Rosario MD Primary Care Provider Reason for Visit Reason Comments Left Hip Pain Encounter Details Date Type Department Care Team Description 07/01/2011 Office Visit Orthopaedics at [facility] [place] Mark Vines DJD ([facility] MD joint disease) of hip [address] Janet Baxter (Primary Dx) [place] [address] [phone] [place] [address] Social History Tobacco Use Types Packs/Day Years [...] Sign Reading Time Taken Comments Blood Pressure 148/90 07/01/2011 9:07 AM EDT Pulse 72 07/01/2011 9:07 AM EDT Temperature - - Respiratory Rate - - Oxygen Saturation - - Inhaled Oxygen Concentration - - Weight 84.1 kg (185 lb 4.8 oz) 07/01/2011 9:07 AM EDT Height 172.7 cm (5' 8) 07/01/2011 9:07 AM EDT Body Mass Index 28.17 07/01/2011 9:07 AM EDT documented in this encounter Progress Notes Mark Vines MD - 07/01/2011 9:32 AM EDT This note is recorded by Sneha Melissa RN acting as a scribe for Mark Vines MD. PREOPERATIVE VISIT HISTORY OF PRESENT ILLNESS: Very pleasant 60 y.o. year-old male with severe osteoarthritis of the hip. I have seen the patient previously and the plan is for left total hip arthroplasty. Please refer to my previous note for the full history. The patient reports that the pain has not changed and has actually gotten a bit worse. He reviewed the shared decision making video and is confident in the decision to go forward with total joint arthroplasty. REVIEW OF SYSTEMS: Denies recent chills or fevers, all other systems are negative. PHYSICAL EXAMINATION: Looks well, has some difficulty getting from the chair to the bed. While supine the left leg is short by perhaps 6 or 7 mm. Left hip flexion 85, internal rotation -5, external rotation 30, abduction 30. Distal neurologic and vascular examination is unremarkable. Respirations are n onlabored, head and neck exam is unremarkable with equal pupils size is from left to right.. The remainder of the exam is as previously documented in my note and is unchanged. LABORATORY DATA: Hgb: 12.7 Platelets: 312 INR: 1.1 type and screen done. ASSESSMENT/PLAN: A 60 y.o. year-old male who presents [...] I reviewed the labs and there were noissues with those. Informed consent was signed in the clinic today. We discussed DNR status and the patient is a full code. We will plan to use aspirin for six weeks postoperatively for DVT prophylaxis. I discussed with them the possible discharge scenarios including going home versus needing to go toa rehab facility. We will make that determination after seeing how well mobilization is progressing. Attending Note. I have seen the patient, I have reviewed the care plan as described, and I agree (with any changes or additions outlined below). Talked at length about options, I believe he has exhausted nonoperative treatment options and he would like to go forth with a left total hip arthroplasty. We talked about benefits and risks. We talkedabout bearing options. We will proceed with a ceramic on polyethylene after discussion of these. We will use ASA for DVT prophylaxis, with the rationale that clinical evidence suggests that Coumadin has a higher risk of post-surgical bleeding, and that a surgical site bleed would significantly compromise this patient's recovery from the surgery, as well as potentially compromising further joint function. The patient gives no history of active cancer, clotting disorder, or previous DVT or PE. We willproceed with total hip arthroplasty, we will use an anterior approach and we spent some time talkingabout the specifics of this. The postoperative recovery, and coagulation, and anesthesia options were discussed, questions answered. The patient understands benefits of arthroplasty as diminution of pain and improvement in motor function. Also understands risks and consequences associated with the surgery including infection, blood clots, fracture, dislocation, leg length inequality, stiffness, reoperation, possibility of ongoing limp, nerve or blood vessel injury which can lead to numbness or loss of movement, reoperation the future, implant failure, and the risk of anesthesia including . Mark Vines MD documented in this encounter Plan of Treatment Not on filedocumented as of this encounter Visit Diagnoses Diagnosis DJD (degenerative joint disease) of hip - Primary Osteoarthrosis, unspecified whether gene ralized or localized, pelvic region and thigh documented in this encounter Care Teams Division Leader Relationship Specialty Start Date End Date Jorge Rosario MD PCP - General 05/18/11 03/23/[address] [place] [address] [address] [facility] [address] [place] [address] documented as of this encounter
--- OUTSIDE RECORDS SUMMARY | 2021-09-03 02:12 | XMS_ITS | Encounter Summary ---
:1950 [place] [address] Care Team Providers Name Role Phone Giuseppe Quintanilla MD Primary Care Provider Encounter Details Date Type Department Care Team Description 01/29/2010 Procedure visit [place] [address] Social History Tobacco Use Types Packs/Day Years Used Date Never Assessed Sex Assigned at Date Recorded Not on file documented as of this encounter Plan of Treatment Not on filedocumented as of this encounter Visit Diagnoses Not on filedocumented in this encounter Care Teams Environmental Field Office Manager Relationship Specialty Start Date End Date Giuseppe Quintanilla MD PCP - General 01/12/10 05/17/11 [address] [place] [address] documented as of this encounter
--- OUTSIDE RECORDS SUMMARY | 2021-09-03 02:12 | XMS_ITS | Encounter Summary ---
:1950 Author Organization [facility] [place] [address] Care Team Providers Name Role Phone Jorge Rosario MD Primary Care Provider Encounter Details Date Type Department Care Team Description 05/19/2011 Orders [place] [facility] [place] Vines MD [facility] [address] [facility] [place] [address] [address] [phone] [place] [id number] (Wo rk) Social History Tobacco Use Types Packs/Day Years Used Date Former Smoker Cigarettes 0.5 Quit: 05/17/18 74 Sex Assigned at Date Recorded Not on file documented as of this encounter Plan of Treatment Not on filedocumented as of this encounter Visit Diagnoses Not on filedocumented in this encounter Care Teams Department Of Mathematics Chair Relationship Specialty Start Date End Date Jorge Rosario MD PCP - General 05/18/11 03/23/[address] [place] [address] documented as of this encounter
--- OUTSIDE RECORDS SUMMARY | 2021-09-03 02:12 | XMS_ITS | Encounter Summary ---
:1950 Author Organization [facility] [place] [place] [address] Care Team Providers Name Role Phone Jorge Rosario MD Primary Care Provider Encounter Details Date Type Department Care Team Description 05/30/2011 Orders Only Orthopaedics at [facility] [place] Pebbles Vines DJD ([facility] Roberta mclaughlin MD joint disease) [place] [address] [address] Janet Baxter (Primary Dx) [phone] [place] [address] Social History Tobacco Use Types Packs/Day Years Used Date Former Smoker Cigarettes 0.5 Quit: 05/17/18 74 Sex Assigned at Date Recorded Not on file documented as of this encounter Plan of Treatment Not on filedocumented as of this encounter Procedures Procedure Name Priority Date/Time Associated Diagnosis Comme nts TOTAL HIP ARTHROPLASTY, Routine 05/30/2011 11:02 AM EDT ANTERIOR APPROACH documented in this encounter Results XR chest [...] . IMPRESSION IMPRESSION: No active cardiopulmonary pathology. Pebbles Vines MD IMG DX ORDERABLES Urine culture Clean Catch Urine (06/17/2011 11:55 AM EDT) [facility] Method Time Signature Urine Culture CERNER ? Patient Name: YAW GARCIA ?? Ordered By: PEBBLES ROSS [facility] ? MR#: [id number] ?LOC: ??4V ? /Sex: ??1950 (60 years), [...] Organization Address City/State/[place] [address] CERNER MILLENNIUM Hemoglobin A1c (06/17/2011 11:45 AM EDT) athologist Signature Hemoglobin A1C 5.2 4.3 - [...] with hemoglobinopathies. Additional resources are available on ADA website: ??http://professional.diabetes.org/gluc osecalculator.aspx Reference: Cassius ALY, Anitra J, Betty R, et al. ??Tr anslating the A1C assay into estimated average glucose values. ??Diabetes Care 2008:31(8):5213-6980. Specimen Anatomical Collection Method Collection Time Receive d Time (Source) Location / / Volume Laterality Blood specimen 06/17/2011 11:45 2 (specimen) AM EDT 12:05 PM EDT Resulting Agency Comment Spec In Lab Authorizing Provider Result Lona Vines MD CHEMISTRY ORDERABLES Performing Organization Address City/[facility]/ZIP [facility] [place] Number [address] CERNER MILLENNIUM Protein, total (06/17/2011 11:45 AM EDT) P athologist Signature Total Protein 7.2 6.4 - 8.3 CERNER gm/dL MILLENNIUM Specimen Anatomical Collection Method Collection Time Receive d Time (Source) Location / / Volume Laterality Blood specimen 06/17/2011 11:45 2 (specimen) AM EDT 12:05 PM EDT Resulting Agency Comment Spec In Lab Authorizing Provider Result Lona Vines MD CHEMISTRY ORDERABLES Performing Organization Address City/[facility] Code Phon e Number [address] CERNER MILLENNIUM Albumin Level (06/17/2011 11:45 AM EDT) P athologist Signature Albumin 3.9 3.2 - 5.2 CERNER gm/dL MILLENNIUM Specimen Anatomical Collection Method Collection Time Receive d Time (Source) Location / / Volume Laterality Blood specimen 06/17/2011 11:45 2 (specimen) AM EDT 12:05 PM EDT Resulting Agency Comment Spec In Lab Authorizing Provider Result Lona Vines MD CHEMISTRY ORDERABLES Performing Organization Address City/[facility] Phon e Number [address] CERNER MILLENNIUM High Sensitivity CRP (06/17/2011 11:45 AM EDT) P athologist Signature CRP High Sens 9.8 mg/L [...] Cardiovascular Disease. ??Circulatio n 2003; 107:499-511 2. Russ PM. ??Clinical applications of C-reactive protein for cardiovascular disease detection and prevention. ??Circ ulation 2003; 107:363-369 Specimen Anatomical Collection Method Collection Time Receive d Time (Source) Location / / Volume Laterality Blood specimen 06/17/2011 11:45 2 (specimen) AM EDT 12:05 PM EDT Resulting Agency Comment Spec In Lab Pebbles Vines MD CHEMISTRY ORDERABLES Performing Organization Address City/State/[place] [address] CERNER MILLENNIUM (ABNORMAL) Sedimentation rate (06/17/2011 11:45 AM EDT) P athologist Signature Sed Rate 31 (H) 0 - 15 CERNER mm/hr MILLENNIUM Specimen Anatomical Collection Method Collection Time Receive d Time (Source) Location / / Volume Laterality Blood specimen 06/17/2011 11:45 2 (specimen) AM EDT 12:05 PM EDT Resulting Agency Comment Spec In Lab Authorizing Provider Result Lona Vines MD HEMATOLOGY ORDERABLES Performing Organization Address City/[facility]/[place]IP [facility] [place] Number [address] CERNER MILLENNIUM Prothrombin Time (06/17/2011 11:45 AM EDT) P athologist Signature PT 14.3 11.9 - 14.7 CERNER sec MILLENNIUM Comment: [facility] Transfusion Committee Guidelines: I NR less than [...] EDT Resulting Agency Comment Spec In Lab Authorizing Provider Result Lona Vines MD HEMATOLOGY ORDERABLES Performing Organization Address City/[facility]/ZIP Code Phon e Number [address] CERNER MILLENNIUM Basic Metabolic Panel (non-fasting) (06/17/2011 11:45 AM EDT) P athologist Signature Glucose Lvl 81 60 - 199 CERNER mg/dL [facility] Comment: Diabetes: >=200 mg/dL plus symp toms [...] Anion Gap 9 5 - 15 mmol/L PRATIK MILLENNIU M Calcium 9.0 8.5 - 10.5 mg/dL CERNER RICHARDSON NIUM Estimated GFR >60 >=60 PRATIK LARESIU M Comment: The National Kidney Disease Education [...] disease. References: http://nkdep.nih.gov/resources/NKDEP_Sug gestn4Labs_0606_508.pdf http://www.kidney.org/professionals/kls/ pdf/faq_gfr.pdf Gary Willoughby, Kacey NA, Cisco [place], Roberto TS, Damien [...] Vines MD CHEMISTRY ORDERABLES Performing Organization Address City/[facility] [place] [address] [facility] MILL[facility] (ABNORMAL) CBC (with Diff) (06/17/2011 11:45 AM [...] EDT Resulting Agency Comment Spec In Lab Authorizing Provider Result Lona Vines MD HEMATOLOGY ORDERABLES Performing Organization Address City/[facility]/ZIP [facility] [place] [address] [facility] EKG 12 Lead (06/17/2011 11:33 AM EDT) Component Value Ref Range Test Analysis Performed Pathologis t Method Time At Signature Ventricular rate 57 BPM MUSE SYSTEM Atrial Rate 57 BPM MUSE SYSTEM P-R Interval 154 ms MUSE SYSTEM QRS Duration 92 ms MUSE SYSTEM Q-T Interval 404 ms MUSE SYSTEM QTC Calculated 393 ms MUSE SYSTEM (Bezet) Calculated P [place] -2 degrees MUSE SYSTEM Calculated R [place] -4 degrees MUSE SYSTEM Calculated T [place] 25 degrees MUSE SYSTEM INTERPRETATION Sinus bradycardia MUSE SY STEM Otherwise normal ECG No previous ECGs available Confirmed by MD Haile Robert ([id number]) on 06/17/2011 8:45:06 PM Specimen Anatomical Collection Method Collection Time Receive d Time (Source) Location / / Volume Laterality 06/17/2011 11:33 06/17/2011 8:45 AM EDT PM EDT Pebbles Vines MD ECG ORDERABLES Performing Organization Address City/State/ZIP Code Phon e Number MUSE SYSTEM documented in this encounter Visit Diagnoses Diagnosis DJD (degenerative joint disease) of hip - Primary Osteoarthrosis, unspecified whether gene ralized or localized, pelvic region and thigh DJD (degenerative joint disease) of hip Osteoarthrosis, unspecified whether gene ralized or localized, pelvic region and thigh documented in this encounter Care Teams Baseball Coach Relationship Specialty Start Date End Date Jorge Rosario MD PCP - General 05/18/11 03/23/[address] [place] [address] documented as of this encounter
--- OUTSIDE RECORDS SUMMARY | 2021-09-03 02:12 | XMS_ITS | Encounter Summary ---
:1950 Author Organization [facility] [place] [address] Care Team Providers Name Role Phone Giuseppe Quintanilla MD Primary Care Provider Encounter Details Date Type Department Care Team Description 01/29/2010 [place] [facility] [place] Vines MD [facility] [address] [facility] [place] [address] [address] [address] [phone] [place], [place] [address] (Wo rk) Social History Tobacco Use Types Packs/Day Years Used Date Never Assessed Sex Assigned at Date Recorded Not on file documented as of this encounter Plan of Treatment Not on filedocumented as of this encounter Visit Diagnoses Not on filedocumented in this encounter Care Teams Pipe And Boiler Covers Supervisor Relationship Specialty Start Date End Date Giuseppe Quintanilla MD PCP - General 01/12/10 05/17/11 [address] [place] [address] documented as of this encounter
--- OUTSIDE RECORDS SUMMARY | 2021-09-03 02:12 | XMS_ITS | Encounter Summary ---
:1950 [place] [address] Care Team Providers Name Role Phone Jorge Rosario MD Primary Care Provider Encounter Details Date Type Department Care Team Description 07/06/2011 External Results Orthopaedics at [facility] [place] [address] Social History Tobacco Use Types Packs/Day [...] on filedocumented in this encounter Care Teams Dry House Worker Relationship Specialty Start Date End Date Jorge Rosario MD PCP - General 05/18/11 03/23/[address] [place] [address] documented as of this encounter
[2021-09-03 09:00] LABS: Abs Immature Grans 0.05 10^3/uL (0.0-0.06); Absolute Basophil Count 0.02 10^3/uL (0.0-0.2); Absolute Eosinophil Count 0.21 10^3/uL (0.0-0.7); Absolute Lymphocyte Count 1.99 10^3/uL (1.2-3.4); Absolute Monocyte Count 1.36 10^3/uL (0.1-0.8); Basophils % 0.3; Eosinophils % 3.3; HGB 13.5 g/dL (13.5-17.5); Immature Grans % 0.8; Lymphocytes % 31.4; MCH 29.7 pg (27.0-33.0); MCHC 33.8 % (32.0-36.0); MCV 88 fL (80-95); MPV 11.4 fL (8.0-11.0); Monocytes % 21.5; Neutrophils % 42.7; Platelet Count 224 10^3/uL (130-400); RBC 4.54 10^6/uL (4.36-5.78); RDW 15.6 % (11.8-14.1); RDW-SD 50.4 fL; WBC 6.33 10^3/uL (4.4-10.8)
[2021-09-03 09:39] LABS: ALT 27 U/L (16-63); AST 23 U/L (15-37); Albumin 3.6 g/dL (3.4-5.0); Alkaline Phosphatase 59 U/L (46-116); Anion Gap 6.9 mmol/L (3-11); BUN 15 mg/dL (7-18); Bilirubin, Total 0.6 mg/dL (0.2-1.0); C-Reactive Protein 0.28 mg/dL (0.0-0.3); CO2 29.1 mmol/L (21.0-32.0); CREATININE 0.8 mg/dL (0.70-1.30); Calcium 8.7 mg/dL (8.5-10.1); Chloride 105 mmol/L (98-107); Glucose 85 mg/dL (74-106); Potassium 4.3 mmol/L (3.5-5.1); Sodium 141 mmol/L (136-145); Total Protein 6.7 g/dL (6.4-8.2)
== END 2021-09-03 02:06 | disposition home or self-care (01) ==
LOC: LBO 02:05
PROVIDERS: PCP Nurse Practitioner; Visit Provider Internal Medicine Rheumatology
DX: M05.79 Rheumatoid arthritis with rheumatoid factor of multiple sites without organ or systems involvement (principal); Z79.899 Other long term (current) drug therapy
CPT/HCPCS: 36415; 80053; 85025; 86140

== ENCOUNTER → 2021-11-30 11:24 | Outpatient (CLI) | payer MEDICARE, BC, SELFPAY ==
--- NOTE | 2021-11-30 11:42 | DI.RAD_ITS ---
Exam(s) XR CHEST 2V PA LATERAL EXAM: XR CHEST 2V PA LATERAL CLINICAL HISTORY: cough,covid, u07.1 TECHNIQUE: 2D digital imaging was performed of the chest. Two images were obtained. PA and lateral views were obtained. COMPARISON: CR XR ribs LT PA chest 3V from 10/14/2018 FINDINGS: MEDIASTINUM: Normal. HEART: Normal. PULMONARY VASCULATURE: Normal. LUNGS: Clear. PLEURAL SPACE: No pleural effusion or pneumothorax. BONE:Within normal limits for the patient's age. There again seen findings of left shoulder replacem ent. OTHER FINDINGS:Normal. IMPRESSION: No acute pulmonary findings. DATA REPOSITORY: RADIATION DOSE DELIVERED:
== END ==
PROVIDERS: PCP Nurse Practitioner; Visit Provider Physician Assistant
DX: U07.1 COVID-19 (principal); R05.8 Other specified cough
CPT/HCPCS: 71046

== ENCOUNTER 2021-12-15 02:54 | Outpatient (RCR) | payer MEDICARE, BC, SELFPAY | END 2021-12-20 23:59 | disposition home or self-care (01) | LOC: INF 02:54 | PROVIDERS: PCP Nurse Practitioner; Visit Provider Nurse Practitioner Acute Care | DX: Z29.8 Encounter for other specified prophylactic measures (principal) | CPT/HCPCS: 96372; Q0221 ==

== ENCOUNTER 2022-03-09 02:52 | Outpatient (CLI) | payer MEDICARE, BC, SELFPAY ==
[2022-03-09 11:41] LABS: Abs Immature Grans 0.03 10^3/uL (0.0-0.06); Absolute Basophil Count 0.01 10^3/uL (0.0-0.2); Absolute Eosinophil Count 0.06 10^3/uL (0.0-0.7); Absolute Lymphocyte Count 2.29 10^3/uL (1.2-3.4); Basophils % 0.2; Eosinophils % 1.1; HCT 38.3 % (40.0-50.0); HGB 12.7 g/dL (13.5-17.5); Immature Grans % 0.6; Lymphocytes % 43.3; MCH 28.9 pg (27.0-33.0); MCHC 33.2 % (32.0-36.0); MCV 87 fL (80-95); MPV 10.4 fL (8.0-11.0); Monocytes % 20.8; Platelet Count 313 10^3/uL (130-400); RBC 4.39 10^6/uL (4.36-5.78); RDW 15.6 % (11.8-14.1); RDW-SD 49.6 fL; WBC 5.29 10^3/uL (4.4-10.8)
[2022-03-09 12:06] LABS: ALT 28 U/L (16-63); AST 31 U/L (15-37); Albumin 3.7 g/dL (3.4-5.0); Alkaline Phosphatase 78 U/L (46-116); Anion Gap -0.3 mmol/L (3-11); BUN 14 mg/dL (7-18); Bilirubin, Total 0.6 mg/dL (0.2-1.0); C-Reactive Protein 0.22 mg/dL (0.0-0.3); CO2 30.3 mmol/L (21.0-32.0); CREATININE 0.9 mg/dL (0.70-1.30); Calcium 8.9 mg/dL (8.5-10.1); Chloride 104 mmol/L (98-107); Estimated GFR 91.31 (mL/min/1.73m2); Glucose 74 mg/dL (74-106); Potassium 3.9 mmol/L (3.5-5.1); Sodium 134 mmol/L (136-145)
== END 2022-03-09 02:53 | disposition home or self-care (01) ==
PROVIDERS: PCP Nurse Practitioner Family; Visit Provider Internal Medicine Rheumatology
DX: M05.79 Rheumatoid arthritis with rheumatoid factor of multiple sites without organ or systems involvement (principal); Z79.899 Other long term (current) drug therapy
CPT/HCPCS: 36415; 80053; 85025; 86140

== ENCOUNTER 2022-05-19 12:42 | Emergency (ER) | payer MEDICARE, BC, SELFPAY ==
[2022-05-19] VITALS (17 sets, daily range): BP systolic 148–171; BP diastolic 73–82; PULSE 52–67; RESP 15–18; TEMP 36.6; O2SAT 96–98
--- NOTE | 2022-05-19 12:45 | DI.US_ITS ---
Exam(s) US LOWER EXTREMITY VENOUS RT EXAM: US LOWER EXTREMITY VENOUS RT CLINICAL HISTORY: hx CLL, calf pain, concern for DVT. TECHNIQUE: Lower extremity venous ultrasound performed using grayscale, color-flow, and spectral Do ppler analysis. COMPARISON: No exams were available for comparison FINDINGS: The common femoral and femoral veins demonstrate normal compressibility, augmentation, and color Dop pler.There is mildly echogenic non occlusive thrombus in the distal popliteal vein extending into the for proximal posterior tibial veins measuring approximately 7 cm in length. No saphenous vein throm bosis or other superficial venous thrombosis is seen. No hematoma or Keene's cyst is seen. IMPRESSION: Deep venous thrombosis in distal popliteal vein and prox posterior tibial vein.. DATA REPOSITORY:
[2022-05-19] MEDS: Acetaminophen 325 MG TAB 650 MG PO (13:05)
--- NOTE | 2022-05-19 13:06 | W.ED.GENAD ---
Discharge Plan Disposition Patient Disposition: Home Discharge Details Clinical Impression: DVT (deep venous thrombosis) Primary Care Provider: Nancy Duckworth ED Provider: Jakob Sánchez Home Meds and New Rx's Prescriptions: New Zander DVT-PE Treat 30D Start 5 mg (74 tabs) tablets,dose pack See Rx Instructions .ROUTE .COMPLEX Qty: 74 0RF Rx Instructions: orally per package directions No Action timolol 0.25 % drops 1 drp OP BID dorzolamide 2 % drops 1 drp OP BID elderberry fruit-honey 0.7-3 gram/7.5 mL liquid 30 ml PO DAILY melatonin 5 mg capsule 5 mg PO HS PRN ferrous sulfate [Feosol] 325 mg (65 mg iron) tablet 325 mg PO DAILY Shingrix (PF) 50 mcg/0.5 mL suspension for reconstitution 0.5 ml IM ONCE Qty: 1 0RF Rx Instructions: as a single dose benzonatate 100 mg capsule 100 mg PO TID PRN (Reason: cough) Qty: 14 0RF albuterol sulfate [Proventil HFA] 90 mcg/actuation HFA aerosol inhaler 2 puff inhalation Q6H PRN (Reason: shortness of breath or wheezing) Qty: 8.5 0RF Shingrix (PF) 50 mcg/0.5 mL suspension for reconstitution 0.5 ml IM ONCE Qty: 1 1RF Rx Instructions: as a single dose melatonin 3 mg capsule 5 mg PO HS PRN Centrum Silver 1 EACH tablet 1 ea PO DAILY medical marijuana Inhalation 0RF epigallocatechin gallate(bulk) [green tea extract] 1,000 GM powder 1,000 gm Miscellaneous PRN Rituxan 10 MG/1 ML concentrate 10 mg IV every 6 months protein powder See Rx Instructions PO .COMPLEX PRN Patient Comments: 450 g PO PRN; Rx Instructions: 450 g PO PRN; lisinopril 10 mg tablet 10 mg PO DAILY Qty: 90 4RF omeprazole 20 mg capsule,delayed release(DR/EC) 20 mg PO DAILY Qty: 90 4RF amoxicillin-pot clavulanate 875-125 mg tablet 875 tab PO 1XD Patient Comments: TAKE 1 TABLET BY MOUTH EVERY 12 HOURS Discharge Instructions Instructions: Deep Vein Thrombosis (ED) Additional Instructions: Please follow-up with your primary care physician and/or your credit reference clerk/oncologist as you will need further assessment of your blood clot and refill of your blood thinner medication in the coming weeks. Please return to the emergency department for any worsening symptoms Medical Decision Making 71-year-old male history of CLL on recurrent infusions presents with right calf discomfort over the past 3 days as well as intermittent tingling of left upper extremity mainly in his forearm and hand. Normal-appearing extremities no appreciable edema or trauma, warm well perfused extremities sensate and mobile with full range of motion and full strength. Point tenderness along posterior calf right lower extremity without palpable cord. Given history of CLL must consider DVT in the lower extremity however much more likely muscle strain from increased physical activity. Low suspicion for upper extremity DVT. Low suspicion for intracranial process such as CVA or bleed, low suspicion for arterial dissection or occlusion given normal pulses. No evidence of infection. Will obtain screening ultrasound right lower extremity to assess for DVT. Otherwise patient will follow-up with primary care physician 14: 39 evidence of DVT the right popliteal and tibial vein nonocclusive. Basic labs to assess kidney function and baseline PT/INR are normal. Patient be started on Eliquis. Patient will follow-up with his primary credit reference clerk/oncologist and/or primary care physician. Given home care instructions and return precautions HPI General Date/Time Provider Initiated Documentation: 05/19/22 12:42. HPI Narrative: 71-year-old male history of CLL presents with right calf discomfort as well as left hand tingling over the last 2 to 3 days intermittent in nature. Patient recently began increasing his physical activity by walking. Denies history of thromboembolic disease. Receives an infusion for his CLL last infusion last month. Denies night sweats weight loss or other symptoms of malignancy Related Data Home Medications Medication Instructions Recorded Confirmed femwyavh-[id number] acid 0.4 1 ea PO DAILY 01/06/14 02/17/22 mg-lycopene 300 mcg-lutein 250 mcg tablet (Centrum Silver) epigallocatechin gallate(bulk) 1,000 gm miscellaneous PRN 05/05/16 05/19/22 (green tea extract powder) rituximab 10 mg/mL 10 mg IV every 6 months 09/08/16 02/17/22 concentrate,intravenous (Rituxan) protein See Rx Instructions PO .COMPLEX PRN 06/21/18 05/19/22 dorzolamide 2 % eye drops 1 drp ophthalmic (eye) BID 06/26/19 05/19/22 timolol 0.25 % eye drops 1 drp ophthalmic (eye) BID 06/26/19 05/19/22 elderberry fruit 0.7 gram-honey 3 30 ml PO DAILY 03/20/20 02/17/22 gram/7.5 mL oral liquid varicella-zoster glycoE vacc-AS01B 0.5 ml IM ONCE #1 ea 01/08/21 05/19/22 adj(PF) 50 mcg/0.5 mL IM susp, kit (Shingrix (PF)) ferrous sulfate 325 mg (65 mg 325 mg PO DAILY 07/27/21 05/19/22 iron) tablet (Feosol) melatonin 3 mg capsule 5 mg PO HS PRN 07/27/21 02/17/22 melatonin 5 mg capsule 5 mg PO HS PRN 07/27/21 05/19/22 varicella-zoster glycoE vacc-AS01B 0.5 ml IM ONCE #1 ea 07/27/21 05/19/22 adj(PF) 50 mcg/0.5 mL IM susp, kit (Shingrix (PF)) albuterol sulfate 90 mcg/actuation 2 puff inhalation Q6H PRN 11/29/21 02/17/22 aerosol inhaler (Proventil HFA) shortness of breath or wheezing #8.5 grams benzonatate 100 mg capsule 100 mg PO TID PRN cough #14 caps 11/29/21 05/19/22 lisinopril 10 mg tablet 10 mg PO DAILY #90 tab-caps 12/16/21 05/19/22 omeprazole 20 mg capsule,delayed 20 mg PO DAILY #90 tab-caps 05/09/22 05/19/22 release amoxicillin 875 mg-potassium 875 tab PO 1XD 05/19/22 05/19/22 clavulanate 125 mg tablet apixaban 5 mg (74 tabs) tablets in See Rx Instructions PO .COMPLEX 05/19/22 a dose pack (Eliquis DVT-PE Treat #74 dose pk 30D Start) Previous Rx's Medication Instructions Recorded varicella-zoster glycoE vacc-AS01B 0.5 ml IM ONCE #1 ea 01/08/21 adj(PF) 50 mcg/0.5 mL IM susp, kit (Shingrix (PF)) varicella-zoster glycoE vacc-AS01B 0.5 ml IM ONCE #1 ea 07/27/21 adj(PF) 50 mcg/0.5 mL IM susp, kit (Shingrix (PF)) albuterol sulfate 90 mcg/actuation 2 puff inhalation Q6H PRN 11/29/21 aerosol inhaler (Proventil HFA) shortness of breath or wheezing #8.5 grams benzonatate 100 mg capsule 100 mg PO TID PRN cough #14 caps 11/29/21 lisinopril 10 mg tablet 10 mg PO DAILY #90 tab-caps 12/16/21 omeprazole 20 mg capsule,delayed 20 mg PO DAILY #90 tab-caps 05/09/22 release apixaban 5 mg (74 tabs) tablets in See Rx Instructions PO .COMPLEX 05/19/22 a dose pack ([employer] DVT-PE Treat #74 dose pk 30D Start) Allergies Allergy/AdvReac Type Severity Reaction Status Date / Time gold sodium thiomalate Allergy Intermediate Skin Rash Verified 02/17/22 10:10 cat dander Allergy Verified 02/17/22 10:10 adalimumab [From Humira] AdvReac Intermediate non-effecti Verified 02/17/22 10:10 ve etanercept [From Enbrel] AdvReac Intermediate Verified 02/17/22 10:10 methotrexate AdvReac Intermediate Verified 02/17/22 10:10 DUST Allergy Unknown Uncoded 02/17/22 10:10 General Stated Complaint: Vascular BERTA: 3 Review of Systems Narrative: Review of Systems Constitutional: negative Eyes: negative ENT: negative Cardiovascular: negative Respiratory: negative Gastrointestinal: negative : negative Musculoskeletal: Leg pain Skin: negative Neurologic: negative Psych: negative PFSH All Active Problems (Updated 05/19/22 @ 14:41 by Jakob Sánchez MD) DVT (deep venous thrombosis) (Chronic) COVID-19 (Acute) Onset-11/20/21 FUlly vaccinated, 2 boosters Neuralgia and neuritis, unspecified (Acute) CLL (chronic lymphocytic leukemia) (Acute) diagnosed 2018, was seeing oncology at [facility], now followed by rheumatology In remission on Rituxan Glaucoma (Chronic) Sees Dr Charles Esophageal reflux (Chronic) 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 Paternal Grandfather , age 78 Alcohol abuse Maternal Grandmother , age 99 No problems noted. Paternal Grandmother , age 68 Skin cancer Son Asthma Daughter Depression Family History RA (rheumatoid arthritis) Social History Smoking/Tobacco Use Status: Former Tobacco Use tobacco type: cigarettes, pipe, cigars and smokeless tobacco Quit Date: 02/20/73 Tobacco: How many years used: 5 Smokeless tobacco user: chewing tobacco Second Hand Exposure: Yes Smoking risk assessment performed?: Yes Alcohol Intake: current Alcohol Intake frequency: a few times a week Alcohol type: beer and hard liquor Drug use: Daily Substance use type: marijuana Counseling given: Yes Caregiver/Support person: No Household members: spouse Housing: house Communication Needs: None Do you need help understanding health information?: Never Pets and animals: Yes Pets and animals: dog(s) Sexually active: No Do you think of yourself as: straight/heterosexual Current gender identity: male What is your relationship status?: How often do you talk on the phone with friends or family?: three or more times per week How often do you get together with friends or relatives?: twice per week How often do you attend rastafari or baptism services?: decline to answer Do you belong to any clubs or organized social groups?: no Panel score (0-1 are the most socially isolated patients): 2 What type of physical activity do you participate in: weight lifting and running Duration: 30-45 minutes/day Frequency: 3-4 times per week Kaye/Mu-Ism: None Special kaye needs: No Seatbelt use: always Helmet use: Yes Helmet use: always Drive intox 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 lumber driver: No Do you feel safe at home: Yes Do you feel safe in your relationship?: Yes Exam Narrative Exam Narrative: Physical Examination General: alert, awake, cooperative, resting comfortably, no acute distress HEENT: normocephalic, atraumatic; PERRL, EOM intact, conjunctiva normal; no nasal discharge; moist mucous membranes, oral and pharyngeal mucosa normal, tolerating secretions Neck: supple, trachea midline; full ROM Chest: normal to inspection Respiratory: normal respiratory effort, speaking in full sentences, clear to auscultation, no wheezing, rales or rhonchi Cardiac: regular rate, regular rhythm, S1S2 intact, no murmurs rubs or gallops GI: abdomen soft, non-tender, non-distended; no palpable mass or hepatosplenomegaly Skin: no lesions, rashes or trauma appreciated Neuro: AAOx3, normal speech, moving all extremities; motor and sensation all extremities intact Extremities: Mild tenderness along posterior calf right lower extremity, no appreciable edema induration erythema or deformity, no palpable cords; no swelling to left upper extremity Psych: Appropriate mood and affect Course Vital Signs Vital signs: Vital Signs Temperature 36.6 C 05/19/22 12:43 Pulse 67 05/19/22 12:43 Respiratory Rate 18 05/19/22 12:43 Blood Pressure 171/82 H 05/19/22 12:43 Pulse Oximetry 98 05/19/22 12:43 Temperature 36.6 C 05/19/22 12:43 Temperature Source Oral 05/19/22 12:43 Pulse 67 05/19/22 12:43 Respiratory Rate 18 05/19/22 12:43 Blood Pressure 171/82 H 05/19/22 12:43 Pulse Oximetry 98 05/19/22 12:43 Oxygen Delivery Method Room Air 05/19/22 12:43 Oxygen Flow Rate 0 05/19/22 12:43 Pain Level 8 05/19/22 12:43
[2022-05-19 13:51] LABS: Abs Immature Grans 0.09 10^3/uL (0.0-0.06); Absolute Basophil Count 0.02 10^3/uL (0.0-0.2); Absolute Eosinophil Count 0.07 10^3/uL (0.0-0.7); Absolute Lymphocyte Count 2.18 10^3/uL (1.2-3.4); Absolute Monocyte Count 2.09 10^3/uL (0.1-0.8); Absolute Neutrophil Count 3.57 10^3/uL (1.2-6.7); Basophils % 0.2; Eosinophils % 0.9; HCT 38.1 % (40.0-50.0); HGB 12.9 g/dL (13.5-17.5); Immature Grans % 1.1; Lymphocytes % 27.2; MCH 29.1 pg (27.0-33.0); MCHC 33.9 % (32.0-36.0); MCV 86 fL (80-95); MPV 10.9 fL (8.0-11.0); Monocytes % 26.1; Neutrophils % 44.5; Platelet Count 173 10^3/uL (130-400); RBC 4.44 10^6/uL (4.36-5.78); RDW 16.1 % (11.8-14.1); RDW-SD 50.7 fL; WBC 8.02 10^3/uL (4.4-10.8)
[2022-05-19 14:06] LABS: ALT 32 U/L (16-63); AST 28 U/L (15-37); Albumin 3.6 g/dL (3.4-5.0); Alkaline Phosphatase 76 U/L (46-116); Anion Gap 4.7 mmol/L (3-11); BUN 13 mg/dL (7-18); Bilirubin, Total 0.5 mg/dL (0.2-1.0); CO2 30.3 mmol/L (21.0-32.0); CREATININE 0.8 mg/dL (0.70-1.30); Calcium 8.6 mg/dL (8.5-10.1); Chloride 104 mmol/L (98-107); Estimated GFR 94.62 (mL/min/1.73m2); Glucose 157 mg/dL (74-106); Potassium 3.9 mmol/L (3.5-5.1); Sodium 139 mmol/L (136-145); Total Protein 6.5 g/dL (6.4-8.2)
[2022-05-19 14:08] LABS: Diff Comment Diff Reviewed
[2022-05-19 14:09] LABS: RBC Morphology Normal
[2022-05-19 14:26] LABS: PTT Activated 29.9 sec (21.5-31.9); Prothrombin Time 10.6 sec (9.3-11.0)
== END 2022-05-19 15:03 | disposition home or self-care (01) ==
PROVIDERS: Emergency Provider Emergency Medicine; PCP Nurse Practitioner Family
DX: I82.431 Acute embolism and thrombosis of right popliteal vein (principal); I82.441 Acute embolism and thrombosis of right tibial vein; J45.909 Unspecified asthma, uncomplicated
CPT/HCPCS: 80053; 99284; 85025; 85610; 85730; 93971; 99283

== ENCOUNTER 2022-07-06 01:46 | Outpatient (CLI) | payer MEDICARE, BC, SELFPAY ==
--- NOTE | 2022-07-06 | DI.RAD_ITS ---
Exam(s) XR CERVICAL SPINE COMP 4-5V EXAM: XR CERVICAL SPINE COMP 4-5V CLINICAL HISTORY: CHRONIC NECK PAIN,M54.2,STIFFNESS LT SHOULDER,M25.612,S/P PT. TECHNIQUE: 2D digital imaging was performed. COMPARISON: No exams were available for comparison FINDINGS: BONES: No fracture or destructive lesion. Vertebral bodies are unremarkable. Shoulder prosthesis. DISKS: Moderate narrowing of the C5-6 disc space and small endplate osteophytes. Mild right neural f oraminal narrowing. The remaining intervertebral disc spaces are maintained. ALIGNMENT: Cervical spinal alignment is within normal limits. The odontoid and atlantoaxial articulat ions are normal. SOFT TISSUE: Normal. The lung apices are clear. IMPRESSION: Degenerative disc changes at C5-6 cause mild right neural foraminal narrowing. DATA REPOSITORY: RADIATION DOSE DELIVERED:
== END 2022-07-06 02:06 ==
LOC: DI 01:47
PROVIDERS: Visit Provider Nurse Practitioner Family
DX: M50.322 Other cervical disc degeneration at C5-C6 level (principal)
CPT/HCPCS: 72050

== ENCOUNTER 2022-09-08 13:46 | Outpatient (CLI) | payer MEDICARE, BC, SELFPAY ==
[2022-09-08 12:51] LABS: Abs Immature Grans 0.09 10^3/uL (0.0-0.06); Absolute Basophil Count 0.02 10^3/uL (0.0-0.2); Absolute Eosinophil Count 0.11 10^3/uL (0.0-0.7); Absolute Lymphocyte Count 2.34 10^3/uL (1.2-3.4); Absolute Monocyte Count 1.92 10^3/uL (0.1-0.8); Absolute Neutrophil Count 5.06 10^3/uL (1.2-6.7); Basophils % 0.2; Eosinophils % 1.2; HCT 40.7 % (40.0-50.0); HGB 13.4 g/dL (13.5-17.5); Immature Grans % 0.9; Lymphocytes % 24.5; MCH 28.8 pg (27.0-33.0); MCHC 32.9 % (32.0-36.0); MCV 87 fL (80-95); MPV 11.3 fL (8.0-11.0); Monocytes % 20.1; Neutrophils % 53.1; Platelet Count 268 10^3/uL (130-400); RBC 4.66 10^6/uL (4.36-5.78); RDW 15.8 % (11.8-14.1); RDW-SD 50.8 fL; WBC 9.54 10^3/uL (4.4-10.8)
[2022-09-08 13:03] LABS: ALT 32 U/L (16-63); AST 30 U/L (15-37); Albumin 3.8 g/dL (3.4-5.0); Alkaline Phosphatase 81 U/L (46-116); Anion Gap 7.2 mmol/L (3-11); BUN 13 mg/dL (7-18); Bilirubin, Total 0.5 mg/dL (0.2-1.0); CO2 26.8 mmol/L (21.0-32.0); CREATININE 0.8 mg/dL (0.70-1.30); Calcium 8.6 mg/dL (8.5-10.1); Chloride 106 mmol/L (98-107); Estimated GFR 94.62 (mL/min/1.73m2); Glucose 85 mg/dL (74-106); Potassium 4.2 mmol/L (3.5-5.1); Sodium 140 mmol/L (136-145); Total Protein 6.8 g/dL (6.4-8.2)
[2022-09-08 13:38] LABS: Diff Comment Diff Reviewed
[2022-09-08 13:40] LABS: RBC Morphology Normal
[2022-09-13 13:58] LABS: C-Reactive Protein 0.11 mg/dL (0.0-0.3)
== END 2022-09-08 13:47 | disposition home or self-care (01) ==
LOC: LBO 13:47
PROVIDERS: Visit Provider Internal Medicine Rheumatology
DX: M05.79 Rheumatoid arthritis with rheumatoid factor of multiple sites without organ or systems involvement (principal); Z79.899 Other long term (current) drug therapy
CPT/HCPCS: 80053; 85025; 86140

== ENCOUNTER → 2022-11-22 00:26 | Outpatient (CLI) | payer MEDICARE, BC, SELFPAY ==
--- NOTE | 2022-11-22 | DI.US_ITS ---
Exam(s) US EXTREMITY VENOUS BI EXAM: US EXTREMITY VENOUS BI CLINICAL HISTORY: REPEAT,F/U DVT,NEW BASELINE,NOW OFF ANTICOAGULATION,I82.463. TECHNIQUE: Bilateral lower extremity venous ultrasound performed using grayscale, color-flow, and sp ectral Doppler analysis. COMPARISON: No exams were available for comparison FINDINGS: The bilateral common femoral, femoral and popliteal veins demonstrate normal compressibility, augment ation, and color Doppler. The posterior tibial veins and peroneal veins are patent. The greater saph enous vein is free of thrombus. IMPRESSION: Right: Negative for DVT Left: Negative for DVT DATA REPOSITORY:
== END ==
PROVIDERS: Visit Provider Nurse Practitioner Family
DX: I82.463 Acute embolism and thrombosis of calf muscular vein, bilateral (principal)
CPT/HCPCS: 93970

== ENCOUNTER 2022-12-26 12:01 | Outpatient (REF) | payer MEDICARE, BC, SELFPAY ==
[2022-12-26 15:32] LABS: Abs Immature Grans 0.14 10^3/uL (0.0-0.06); Absolute Basophil Count 0.02 10^3/uL (0.0-0.2); Absolute Eosinophil Count 0.09 10^3/uL (0.0-0.7); Absolute Lymphocyte Count 1.78 10^3/uL (1.2-3.4); Absolute Monocyte Count 1.18 10^3/uL (0.1-0.8); Absolute Neutrophil Count 2.65 10^3/uL (1.2-6.7); Basophils % 0.3; Eosinophils % 1.5; HCT 40.7 % (40.0-50.0); HGB 13.5 g/dL (13.5-17.5); Immature Grans % 2.4; Lymphocytes % 30.4; MCHC 33.2 % (32.0-36.0); MCV 87 fL (80-95); MPV 12.5 fL (8.0-11.0); Monocytes % 20.1; Neutrophils % 45.3; Platelet Count 227 10^3/uL (130-400); RBC 4.66 10^6/uL (4.36-5.78); RDW 15.7 % (11.8-14.1); RDW-SD 49.8 fL; WBC 5.86 10^3/uL (4.4-10.8)
[2022-12-26 16:02] LABS: ALT 25 U/L (16-63); AST 28 U/L (15-37); Albumin 3.9 g/dL (3.4-5.0); Alkaline Phosphatase 75 U/L (46-116); BUN 11 mg/dL (7-18); Bilirubin, Total 0.6 mg/dL (0.2-1.0); CREATININE 0.8 mg/dL (0.70-1.30); Calcium 8.8 mg/dL (8.5-10.1); Calculated LDL 106 mg/dL (<100); Chloride 106 mmol/L (98-107); Cholesterol 197 mg/dL (<200); Estimated GFR 94.03 (mL/min/1.73m2); Glucose 82 mg/dL (74-106); HDL Cholesterol 76 mg/dL (40-60); Potassium 4.3 mmol/L (3.5-5.1); Sodium 142 mmol/L (136-145); TSH (W/Ref FT4) 1.76 uIU/mL (0.36-3.74); Total Protein 6.9 g/dL (6.4-8.2); Triglyceride 77 mg/dL (<150)
[2022-12-27 09:36] LABS: Hepatitis C Ab w Rflx HCV PCR Negative (Negative)
[2022-12-27 09:52] LABS: HIV-1/2 Ag & Ab Screen Negative (Negative)
[2022-12-27 10:35] LABS: Lyme Ab w Rflx to Lyme Confirm Negative (Negative)
== END 2022-12-26 12:02 | disposition home or self-care (01) ==
LOC: NCHCN 12:01
PROVIDERS: PCP Nurse Practitioner Family; Visit Provider Nurse Practitioner Family
DX: R53.83 Other fatigue (principal); W57.XXXA Bitten or stung by nonvenomous insect and other nonvenomous arthropods, initial encounter
CPT/HCPCS: 80053; 80061; 86803; 87389; 84443; 85025; 86618

== ENCOUNTER 2023-01-02 04:16 | Outpatient (CLI) | payer MEDICARE, BC, SELFPAY ==
[2023-01-02 12:55] LABS: C-Reactive Protein 0.22 mg/dL (0.0-0.3)
== END 2023-01-02 04:17 | disposition home or self-care (01) ==
LOC: LOS 04:16
PROVIDERS: PCP Nurse Practitioner Family; Visit Provider Internal Medicine Rheumatology
DX: M05.79 Rheumatoid arthritis with rheumatoid factor of multiple sites without organ or systems involvement (principal); Z79.899 Other long term (current) drug therapy
CPT/HCPCS: 36415; 86140

== ENCOUNTER 2023-03-07 04:58 | Outpatient (CLI) | payer MEDICARE, BC, SELFPAY ==
[2023-03-07 13:51] LABS: C-Reactive Protein 0.26 mg/dL (0.0-0.3)
[2023-03-08 09:54] LABS: ALT 29 U/L (16-63); AST 31 U/L (15-37); Albumin 4.2 g/dL (3.4-5.0); Alkaline Phosphatase 64 U/L (46-116); Anion Gap 9.4 mmol/L (3-11); BUN 18 mg/dL (7-18); Bilirubin, Total 0.5 mg/dL (0.2-1.0); CO2 26.6 mmol/L (21.0-32.0); CREATININE 0.8 mg/dL (0.70-1.30); Calcium 8.9 mg/dL (8.5-10.1); Chloride 105 mmol/L (98-107); Estimated GFR 94.03 (mL/min/1.73m2); Glucose 83 mg/dL (74-106); Potassium 4.2 mmol/L (3.5-5.1); Sodium 141 mmol/L (136-145); Total Protein 7.3 g/dL (6.4-8.2)
== END 2023-03-07 04:59 | disposition home or self-care (01) ==
LOC: LBO 04:58
PROVIDERS: PCP Nurse Practitioner Family; Visit Provider Internal Medicine Rheumatology
DX: M05.79 Rheumatoid arthritis with rheumatoid factor of multiple sites without organ or systems involvement (principal); Z79.899 Other long term (current) drug therapy
CPT/HCPCS: 36415; 80053; 86140

== ENCOUNTER → 2023-06-24 13:31 | Outpatient (CLI) | payer MEDICARE, BC, SELFPAY ==
--- NOTE | 2023-06-24 | DI.RAD_ITS ---
Exam(s) XR CHEST 2V PA LATERAL EXAM: XR CHEST 2V PA LATERAL CLINICAL HISTORY: cough x 2months r/o infiltrate or lesion TECHNIQUE: 2D digital imaging was performed. Two views. COMPARISON: CR XR CHEST 2V PA LATERAL from 11/30/2021 FINDINGS: HEART: Normal size. Aorta: Not dilated. PULMONARY VASCULATURE: Normal. LUNGS: Clear. PLEURAL SPACE: No pleural effusion or pneumothorax. BONE:Left shoulder prosthesis. Degenerative changes in the thoracic spine and right shoulder. Soft tissues: Unremarkable. IMPRESSION: No acute abnormality. DATA REPOSITORY: RADIATION DOSE DELIVERED:
--- NOTE | 2023-06-24 14:34 | DI.VRAD_ITS ---
PROCEDURE INFORMATION: Exam: XR Chest Exam date and time: 06/24/2023 1:40 PM Age: 72 years old Clinical indication: Other: Cough x 2months R/O infiltrate or lesion TECHNIQUE: Imaging protocol: Radiologic exam of the chest. Views: 2 views. COMPARISON: CR XR CHEST 2V PA LATERAL 11/30/2021 11:35 AM FINDINGS: Lungs: Unremarkable. No consolidation. Pleural spaces: Unremarkable. No pleural effusion. No pneumothorax. Heart/Mediastinum: Unremarkable. No cardiomegaly. Bones/joints: Mild degenerative disease of bilateral acromioclavicular joints. Left shoulder arthroplasties. IMPRESSION: No acute cardiopulmonary process. Dictated and Authenticated by: Kishor Torres MD. Ordering:TREY Salazar MD
== END ==
PROVIDERS: PCP Nurse Practitioner Family; Visit Provider Physician Assistant
DX: R05.3 Chronic cough (principal)
CPT/HCPCS: 71046

== ENCOUNTER 2023-08-30 01:56 | Outpatient (CLI) | payer MEDICARE, BC, SELFPAY ==
[2023-08-30 12:38] LABS: ALT 34 U/L (16-63); AST 23 U/L (15-37); Albumin 3.5 g/dL (3.4-5.0); Alkaline Phosphatase 84 U/L (46-116); Anion Gap 7.9 mmol/L (3-11); BUN 10 mg/dL (7-18); Bilirubin, Total 0.55 mg/dL (0.2-1.0); C-Reactive Protein 2.22 mg/dL (<or=0.5); CO2 26.1 mmol/L (21.0-32.0); CREATININE 0.7 mg/dL (0.70-1.30); Calcium 8.8 mg/dL (8.5-10.1); Chloride 105 mmol/L (98-107); Glucose 85 mg/dL (74-106); Potassium 4.1 mmol/L (3.5-5.1); Sodium 139 mmol/L (136-145)
== END 2023-08-30 01:57 | disposition home or self-care (01) ==
LOC: LOS 01:58
PROVIDERS: PCP Nurse Practitioner Family; Visit Provider Internal Medicine Rheumatology
DX: M05.79 Rheumatoid arthritis with rheumatoid factor of multiple sites without organ or systems involvement (principal); Z79.899 Other long term (current) drug therapy
CPT/HCPCS: 36415; 80053; 86140

== ENCOUNTER 2023-09-05 04:38 | Outpatient (CLI) | payer MEDICARE, BC, SELFPAY ==
[2023-09-05 14:38] LABS: Abs Immature Grans 0.24 10^3/uL (0.0-0.06); HCT 38.5 % (40.0-50.0); HGB 12.8 g/dL (13.5-17.5); MCH 28.7 pg (27.0-33.0); MCHC 33.2 % (32.0-36.0); MCV 86 fL (80-95); MPV 10.3 fL (8.0-11.0); Platelet Count 284 10^3/uL (130-400); RBC 4.46 10^6/uL (4.36-5.78); RDW 15.5 % (11.8-14.1); RDW-SD 48.9 fL; WBC 11.64 10^3/uL (4.4-10.8)
[2023-09-05 15:24] LABS: ALT 45 U/L (16-63); AST 35 U/L (15-37); Albumin 3.2 g/dL (3.4-5.0); Alkaline Phosphatase 97 U/L (46-116); Anion Gap 11.4 mmol/L (3-11); BUN 13 mg/dL (7-18); Bilirubin, Total 0.45 mg/dL (0.2-1.0); CO2 25.6 mmol/L (21.0-32.0); CREATININE 0.8 mg/dL (0.70-1.30); Calcium 8.8 mg/dL (8.5-10.1); Chloride 104 mmol/L (98-107); Estimated GFR 94.03 (mL/min/1.73m2); Glucose 103 mg/dL (74-106); Potassium 4.1 mmol/L (3.5-5.1); Sodium 141 mmol/L (136-145); Total Protein 6.9 g/dL (6.4-8.2)
[2023-09-05 15:31] LABS: Absolute Eosinophil Count 0.23 10^3/uL (0.0-0.7); Absolute Lymphocyte Count 3.03 10^3/uL (1.2-3.4); Absolute Monocyte Count 1.98 10^3/uL (0.1-0.8); Atypical Lymphocytes % 11 %; Bands % 0 %
[2023-09-05 15:33] LABS: Diff Comment Manual Differential; RBC Morphology Normal
== END 2023-09-05 04:39 | disposition home or self-care (01) ==
LOC: LBO 04:38
PROVIDERS: PCP Nurse Practitioner Family; Visit Provider Internal Medicine Rheumatology
DX: Z79.899 Other long term (current) drug therapy (principal)
CPT/HCPCS: 36415; 80053; 85025

== ENCOUNTER 2023-10-06 12:36 | Outpatient (CLI) | payer MEDICARE, BC, SELFPAY ==
--- NOTE | 2023-10-06 14:13 | DI.RAD_ITS ---
Exam(s) XR CHEST 2V PA LATERAL EXAM: XR CHEST 2V PA LATERAL CLINICAL HISTORY: Ongoing cough after COVID in pt with RA, R05.2-subacute cough TECHNIQUE: 2D digital imaging was performed of the chest. Two images were obtained. PA and lateral views were obtained. COMPARISON: CR,XR XR CHEST 2V PA LATERAL from 06/24/2023 FINDINGS: MEDIASTINUM: Normal. HEART: Normal. PULMONARY VASCULATURE: Normal. LUNGS: There is a small infiltrate seen in the left lower lobe medially. PLEURAL SPACE: No pleural effusion or pneumothorax. BONE:Within normal limits for the patient's age. OTHER FINDINGS:Normal. IMPRESSION: Left lower lobe infiltrate. DATA REPOSITORY: RADIATION DOSE DELIVERED:
== END 2023-10-06 12:56 ==
LOC: DI 12:36
PROVIDERS: PCP Nurse Practitioner Family; Visit Provider Internal Medicine Rheumatology
DX: R91.8 Other nonspecific abnormal finding of lung field (principal)
CPT/HCPCS: 71046

== ENCOUNTER 2023-10-28 12:07 | Outpatient (REF) | payer MEDICARE, BC, SELFPAY ==
--- NOTE | 2023-10-28 | DI.RAD_ITS ---
Exam(s) XR CHEST 2V PA LATERAL EXAM: XR CHEST 2V PA LATERAL CLINICAL HISTORY: R05.9 COUGH TECHNIQUE: 2D digital imaging was performed of the chest. Three images were obtained. PA and later al views were obtained. COMPARISON: CR XR CHEST 2V PA LATERAL from 10/06/2023 FINDINGS: MEDIASTINUM: Normal. HEART: Normal. PULMONARY VASCULATURE: Normal. LUNGS: There is a new infiltrate in the posterior aspect of the left upper lobe. The right lung is c lear. PLEURAL SPACE: No pleural effusion or pneumothorax. BONE:Within normal limits for the patient's age. The patient has a left shoulder replacement. OTHER FINDINGS:Normal. IMPRESSION: Infiltrate in the posterior aspect of the left upper lobe suspicious for pneumonia. DATA REPOSITORY: RADIATION DOSE DELIVERED:
--- NOTE | 2023-10-28 13:23 | DI.VRAD_ITS ---
PROCEDURE INFORMATION: Exam: XR Chest Exam date and time: 10/28/2023 12:44 PM Age: 72 years old Clinical indication: Cough TECHNIQUE: Imaging protocol: Radiologic exam of the chest. Views: 2 views. COMPARISON: CR XR CHEST 2V PA LATERAL 10/06/2023 2:08 PM FINDINGS: Lungs: Hazy left upper lobe infiltrate. Pleural spaces: Unremarkable. No pleural effusion. No pneumothorax. Heart/Mediastinum: Unremarkable. No cardiomegaly. Bones/joints: Left shoulder replacement. IMPRESSION: Hazy left upper lobe infiltrate. Dictated and Authenticated by: Matthew Cunningham MD. Ordering:DAR RAMIREZ MD
== END 2023-10-28 12:27 ==
LOC: DI 12:07
PROVIDERS: PCP Nurse Practitioner Family; Visit Provider Nurse Practitioner Family
DX: R07.9 Chest pain, unspecified (principal)
CPT/HCPCS: 71046

== ENCOUNTER 2023-10-30 14:27 | Outpatient (CLI) | payer MEDICARE, BC, SELFPAY ==
[2023-10-30 14:46] LABS: Abs Immature Grans 0.37 10^3/uL (0.0-0.06); Absolute Basophil Count 0.03 10^3/uL (0.0-0.2); Absolute Monocyte Count 6.14 10^3/uL (0.1-0.8); Absolute Neutrophil Count 5.36 10^3/uL (1.2-6.7); Basophils % 0.2 %; Eosinophils % 2.4 %; HCT 37.3 % (40.0-50.0); HGB 12.7 g/dL (13.5-17.5); Immature Grans % 2.6 %; Lymphocytes % 15.2 %; MCH 28.7 pg (27.0-33.0); MCV 84 fL (80-95); MPV 11.1 fL (8.0-11.0); Monocytes % 42.5 %; Neutrophils % 37.1 %; Platelet Count 284 10^3/uL (130-400); RBC 4.43 10^6/uL (4.36-5.78); RDW 15.4 % (11.8-14.1); RDW-SD 46.8 fL; WBC 14.44 10^3/uL (4.4-10.8)
[2023-10-30 14:50] LABS: Absolute Eosinophil Count 0.35 10^3/uL (0.0-0.7); Absolute Lymphocyte Count 2.19 10^3/uL (1.2-3.4)
[2023-10-30 15:12] LABS: Diff Comment Diff Reviewed; RBC Morphology Normal
[2023-10-30 15:55] LABS: ALT 95 U/L (16-63); AST 95 U/L (15-37); Albumin 2.8 g/dL (3.4-5.0); Alkaline Phosphatase 328 U/L (46-116); BUN 14 mg/dL (7-18); Bilirubin, Total 0.57 mg/dL (0.2-1.0); CREATININE 0.8 mg/dL (0.70-1.30); Calcium 9.1 mg/dL (8.5-10.1); Chloride 95 mmol/L (98-107); Estimated GFR 94.03 (mL/min/1.73m2); Glucose 109 mg/dL (74-106); Potassium 3.8 mmol/L (3.5-5.1); Sodium 129 mmol/L (136-145); Total Protein 7.1 g/dL (6.4-8.2)
== END 2023-10-30 14:28 | disposition home or self-care (01) ==
LOC: LBO 14:33
PROVIDERS: PCP Nurse Practitioner Family; Visit Provider Nurse Practitioner Family
DX: R50.9 Fever, unspecified (principal)
CPT/HCPCS: 36415; 80053; 85025

== ENCOUNTER 2023-10-31 12:49 | Outpatient (CLI) | payer MEDICARE, BC, SELFPAY ==
[2023-10-31 12:23] LABS: Abs Immature Grans 0.34 10^3/uL (0.0-0.06); Absolute Basophil Count 0.03 10^3/uL (0.0-0.2); Absolute Eosinophil Count 0.27 10^3/uL (0.0-0.7); Absolute Lymphocyte Count 1.55 10^3/uL (1.2-3.4); Absolute Monocyte Count 6.65 10^3/uL (0.1-0.8); Absolute Neutrophil Count 5.14 10^3/uL (1.2-6.7); Basophils % 0.2 %; Eosinophils % 1.9 %; HCT 36.2 % (40.0-50.0); HGB 12.4 g/dL (13.5-17.5); Immature Grans % 2.4 %; Lymphocytes % 11.1 %; MCH 28.1 pg (27.0-33.0); MCHC 34.3 % (32.0-36.0); MCV 82 fL (80-95); MPV 10.6 fL (8.0-11.0); Monocytes % 47.6 %; Neutrophils % 36.8 %; Platelet Count 262 10^3/uL (130-400); RBC 4.41 10^6/uL (4.36-5.78); RDW 15.1 % (11.8-14.1); RDW-SD 45.2 fL; WBC 13.98 10^3/uL (4.4-10.8)
[2023-10-31 12:36] LABS: Diff Comment Diff Reviewed; RBC Morphology Normal
[2023-10-31 13:19] LABS: ALT 92 U/L (16-63); AST 72 U/L (15-37); Albumin 2.7 g/dL (3.4-5.0); Alkaline Phosphatase 313 U/L (46-116); Anion Gap 10.6 mmol/L (3-11); BUN 13 mg/dL (7-18); Bilirubin, Total 0.62 mg/dL (0.2-1.0); CO2 25.4 mmol/L (21.0-32.0); CREATININE 0.8 mg/dL (0.70-1.30); Calcium 8.7 mg/dL (8.5-10.1); Chloride 97 mmol/L (98-107); Estimated GFR 94.03 (mL/min/1.73m2); Glucose 96 mg/dL (74-106); Potassium 3.8 mmol/L (3.5-5.1); Sodium 133 mmol/L (136-145); Total Protein 6.9 g/dL (6.4-8.2)
[2023-11-01 09:27] LABS: IgA 209 mg/dL (85-499); IgG 575 mg/dL (610-1616); IgM 48 mg/dL (35-242)
== END 2023-10-31 12:50 | disposition home or self-care (01) ==
PROVIDERS: PCP Nurse Practitioner Family; Visit Provider Internal Medicine Rheumatology
DX: M05.79 Rheumatoid arthritis with rheumatoid factor of multiple sites without organ or systems involvement (principal); M06.9 Rheumatoid arthritis, unspecified; Z79.899 Other long term (current) drug therapy
CPT/HCPCS: 36415; 80053; 82784; 85025

== ENCOUNTER 2023-11-02 09:07 | Inpatient (IN) | payer MEDICARE, BC, SELFPAY ==
[2023-11-02] VITALS (52 sets, daily range): BP systolic 138–205; BP diastolic 60–95; PULSE 68–107; RESP 2–31; TEMP 36–40.2; O2SAT 92–97
--- NOTE | 2023-11-02 | DI.CT_ITS ---
Exam(s) CT CHEST WO EXAM: CT CHEST WO CLINICAL HISTORY: Worsening left upper lobe infiltrate TECHNIQUE: Imaging Protocol: Axial computed tomography images with coronal and sagittal reformatted images were created and reviewed CONTRAST MATERIAL: Intravenous: Omnipaque 350 Contrast volume:structured data ml. COMPARISON: CT CHEST FOR PULMONARY EMBOLUS from 05/22/2009 CR XR PORTABLE CHEST AP from 11/02/2023 FINDINGS: Exam mildly limited by motion. Pulmonary parenchyma: Large airspace opacities involving the majority of the left upper lobe consiste nt with pneumonia. Smaller infiltrates are noted in the left lower lobe. The right lung appears [place] ar. No dominant measurable mass. Tracheobronchial tree: No bronchiectasis or mucous plugging. Mediastinum and Mer: No dominant adenopathy or fluid collection. Small hiatal hernia. Pleura: No effusion. No pneumothorax. Heart: The heart is mildly dilated. Mild coronary artery calcifications are seen. Aorta: Thoracic aorta non-dilated. Mild atherosclerotic changes. Pulmonary arteries: No gross evidence of emboli. Upper abdomen: No acute findings. Bones: Scoliosis anddegenerative changes in the spine. Left shoulder prosthesis. Soft tissues: Unremarkable. IMPRESSION: Extensive left upper lobe pneumonia. Smaller infiltrate in left lower lobe. RADIATION DOSE DELIVERED: 235.15mGy.cm Total DLP DATA REPOSITORY: All CT scans at this facility are submitted to the National Radiology Data Registry (NRDR) Dose Index Registry (DIR) with the [employer] ([employer]). RADIATION OPTIMIZATION: All CT scans at this facility use at least one of these dose optimization te chniques: automated exposure control; mA and/or kV adjustment per patient size (includes targeted exa ms where dose is matched to clinical indication); or iterative reconstruction.
--- NOTE | 2023-11-02 09:39 | DI.RAD_ITS ---
Exam(s) XR PORTABLE CHEST AP EXAM: XR PORTABLE CHEST AP CLINICAL HISTORY: fever TECHNIQUE: 2D digital imaging was performed. COMPARISON: CR,XR XR CHEST 2V PA LATERAL from 10/28/2023 FINDINGS: LUNGS: Increasing size and density of previously noted left upper lobe infiltrate. No new area of in filtrate seen. No pleural abnormality seen. HEART: Normal size. AORTA: Normal diameter. BONES: Left shoulder prosthesis. Severe degenerative changes of the right shoulder. Soft tissues: Unremarkable. IMPRESSION: Increased size and extent of left upper lobe pneumonia. DATA REPOSITORY: RADIATION DOSE DELIVERED:
[2023-11-02 09:52] LABS: HCT 38.4 % (40.0-50.0); HGB 12.8 g/dL (13.5-17.5); MCH 28.3 pg (27.0-33.0); MCHC 33.3 % (32.0-36.0); MCV 85 fL (80-95); MPV 10.4 fL (8.0-11.0); Platelet Count 252 10^3/uL (130-400); RBC 4.52 10^6/uL (4.36-5.78); RDW 15.2 % (11.8-14.1); RDW-SD 46.8 fL; WBC 13.45 10^3/uL (4.4-10.8)
[2023-11-02 09:54] LABS: Lactate 1.4 mmol/L (0.6-1.4)
[2023-11-02 10:19] LABS: ALT 104 U/L (16-63); AST 76 U/L (15-37); Albumin 2.8 g/dL (3.4-5.0); Alkaline Phosphatase 372 U/L (46-116); Anion Gap 7.1 mmol/L (3-11); BUN 10 mg/dL (7-18); Bilirubin, Total 0.79 mg/dL (0.2-1.0); CO2 30.9 mmol/L (21.0-32.0); CREATININE 0.8 mg/dL (0.70-1.30); Calcium 8.9 mg/dL (8.5-10.1); Chloride 97 mmol/L (98-107); Estimated GFR 94.03 (mL/min/1.73m2); Glucose 112 mg/dL (74-106); Magnesium 1.9 mg/dL (1.8-2.4); Potassium 3.8 mmol/L (3.5-5.1); Sodium 135 mmol/L (136-145); Total Protein 7.3 g/dL (6.4-8.2); Troponin I 6 ng/L (<or=76)
[2023-11-02 10:47] LABS: Absolute Lymphocyte Count 2.02 10^3/uL (1.2-3.4); Absolute Monocyte Count 5.11 10^3/uL (0.1-0.8); Absolute Neutrophil Count 5.92 10^3/uL (1.2-6.7); Atypical Lymphocytes % 1 %; Bands % 3 %; Diff Comment Manual Differential; RBC Morphology Normal
[2023-11-02 10:52] LABS: Procalcitonin 0.2 ng/mL
--- NOTE | 2023-11-02 11:03 | W.ED.GENAD ---
Discharge Plan Disposition Patient Disposition: Admit to [facility] Condition: Stable Discharge Details Clinical Impression: Pneumonia, Fever, Abnormal transaminases Primary Care Provider: CAITLIN GRANT ED Provider: Floyd Jordan Home Meds and New Rx's Prescriptions: No Action ferrous sulfate [Feosol] 325 mg (65 mg iron) tablet 325 mg PO DAILY albuterol sulfate [Proventil HFA] 90 mcg/actuation HFA aerosol inhaler 2 puff inhalation Q6H PRN (Reason: shortness of breath or wheezing) Qty: 8.5 0RF apixaban 5 mg tablet 5 mg PO BID 30 Days Qty: 60 1RF medical marijuana Inhalation 0RF epigallocatechin gallate(bulk) [green tea extract] 1,000 GM powder 1,000 gm Miscellaneous PRN Rituxan 10 MG/1 ML concentrate 10 mg IV every 6 months protein powder See Rx Instructions PO .COMPLEX PRN Patient Comments: 450 g PO PRN; Rx Instructions: 450 g PO PRN; lisinopril 10 mg tablet 10 mg PO DAILY Qty: 90 4RF omeprazole 20 mg capsule,delayed release(DR/EC) 20 mg PO DAILY Qty: 90 4RF montelukast 10 mg tablet 10 mg PO DAILY PRN amoxicillin-pot clavulanate 875-125 mg tablet 875 tab PO 1XD Patient Comments: TAKE 1 TABLET BY MOUTH EVERY 12 HOURS dorzolamide-timolol 22.3-6.8 mg/mL drops 1 drp ophthalmic (eye) BID Patient Comments: INSTILL 1 DROP IN EACH EYE TWO TIMES A DAY HPI General Date/Time Provider Initiated Documentation: 11/02/23 09:10. Limitations to Documentation: no limitations. Information obtained by: patient. HPI Narrative: 72-year-old gentleman with past medical history of CLL, rheumatoid arthritis on immune modulator, hypertension presents for reevaluation of persistent fever. Patient was diagnosed with influenza on October 23. He took Tamiflu. His symptoms did not improve and on Monday, October 27 he was reevaluated at urgent care. X-ray at that time was concerning for pneumonia. He was started on antibiotics. He reports that he has been taking 2 antibiotics and has not missed any doses. He reports that he is still having persistent fever. Reports that he is measuring his temperature and his temperature ranges from 10 1-1 03. He still has a cough, but no significant shortness of breath. Denies any sore throat, chest pain, abdominal pain, vomiting or diarrhea. Related Data Home Medications ?Medication ?Instructions ?Recorded ?Confirmed epigallocatechin gallate(bulk) 1,000 gm miscellaneous PRN 05/05/16 11/02/23 (green tea extract powder) rituximab 10 mg/mL 10 mg IV every 6 months 09/08/16 11/02/23 concentrate,intravenous (Rituxan) protein See Rx Instructions PO .COMPLEX PRN 06/21/18 11/02/23 ferrous sulfate 325 mg (65 mg 325 mg PO DAILY 07/27/21 11/02/23 iron) tablet (Feosol) albuterol sulfate 90 mcg/actuation 2 puff inhalation Q6H PRN 11/29/21 11/02/23 aerosol inhaler (Proventil HFA) shortness of breath or wheezing #8.5 grams lisinopril 10 mg tablet 10 mg PO DAILY #90 tab-caps 12/16/21 11/02/23 omeprazole 20 mg capsule,delayed 20 mg PO DAILY #90 tab-caps 05/09/22 11/02/23 release amoxicillin 875 mg-potassium 875 tab PO 1XD 05/19/22 11/02/23 clavulanate 125 mg tablet apixaban 5 mg tablet 5 mg PO BID 30 days #60 tabs 05/23/22 11/02/23 montelukast 10 mg tablet 10 mg PO DAILY PRN 09/06/23 11/02/23 dorzolamide 22.3 mg-timolol 6.8 1 drp ophthalmic (eye) BID 11/02/23 11/02/23 mg/mL eye drops Previous Rx's ?Medication ?Instructions ?Recorded albuterol sulfate 90 mcg/actuation 2 puff inhalation Q6H PRN 11/29/21 aerosol inhaler (Proventil HFA) shortness of breath or wheezing #8.5 grams lisinopril 10 mg tablet 10 mg PO DAILY #90 tab-caps 12/16/21 omeprazole 20 mg capsule,delayed 20 mg PO DAILY #90 tab-caps 05/09/22 release apixaban 5 mg tablet 5 mg PO BID 30 days #60 tabs 05/23/22 Allergies Allergy/AdvReac Type Severity Reaction Status Date / Time gold sodium thiomalate Allergy Intermediate Skin Rash Verified 11/02/23 09:15 cat dander Allergy Other (See Verified 11/02/23 09:15 Comment) adalimumab (From Humira) AdvReac Intermediate non-effecti Verified 11/02/23 09:15 ve etanercept (From Enbrel) AdvReac Intermediate Unknown Verified 11/02/23 09:15 methotrexate AdvReac Intermediate Unknown Verified 11/02/23 09:15 DUST Allergy Unknown Other (See Uncoded 11/02/23 09:15 Comment) General Stated Complaint: Fever BERTA: 3 Exam Narrative Exam Narrative: Review of Systems: All systems reviewed & are unremarkable except as noted in HPI and below Well-developed, no acute distress Afebrile NCAT PERRL, normal conjunctiva RRR no murmur Unlabored respiratory effort, no tachypnea, no increased work of breathing. Speaking in full and complete sentences. No hypoxia Coarse breath sounds that are diminished on the left side Nondistended abdomen , soft nontender Extremities w/o edema No rashes or lesions. no focal neurologic deficits Course Vital Signs Vital signs: Vital Signs Temperature 37.7 C H 11/02/23 09:12 Pulse 107 H 11/02/23 09:12 Respiratory Rate 20 11/02/23 09:12 Blood Pressure 205/95 H 11/02/23 09:12 Pulse Oximetry 95 11/02/23 09:12 Temperature 37.7 C H 11/02/23 09:12 Temperature Source Temporal Artery Scan 11/02/23 09:12 Pulse 107 H 11/02/23 09:12 Pulse 89 11/02/23 10:10 Respiratory Rate 23 11/02/23 10:00 Respiratory Effort Normal, Non-Labored 11/02/23 10:56 Blood Pressure 205/95 H 11/02/23 09:12 Blood Pressure Position Sitting 11/02/23 09:12 Pulse Oximetry 93 11/02/23 10:10 Oxygen Delivery Method Room Air 11/02/23 09:12 Oxygen Flow Rate 0 11/02/23 09:12 Pain Level 3 11/02/23 09:12 Lab/Test Results Lab/Test Results: 11/02/23 10:25 Blood Blood Culture - Pending 11/02/23 09:45 Blood Blood Culture - Pending Laboratory Tests Range/Units 11/02/23 11/02/23 11/02/23 08:45 10:15 12:15 WBC (4.4-10.8) 10^3/uL 13.45 H RBC (4.36-5.78) 10^6/uL 4.52 Hgb (13.5-17.5) g/dL 12.8 L Hct (40.0-50.0) % 38.4 L MCV (80-95) fL 85 MCH (27.0-33.0) pg 28.3 MCHC (32.0-36.0) % 33.3 RDW (11.8-14.1) % 15.2 H Plt Count (130-400) 10^3/uL 252 MPV (8.0-11.0) fL 10.4 Immature Gran % % 0.0 Neutrophils % % 41.0 Band Neutrophils % % 3 Lymphocytes % % 14.0 Atypical Lymphs % % 1 Monocytes % % 38.0 Eosinophils % % 3.0 Basophils % % 0.0 Nucleated RBC % (0.0-0.3) % 0.0 Absolute Neutrophils (1.2-6.7) 10^3/uL 5.92 Absolute Lymphocytes (1.2-3.4) 10^3/uL 2.02 Absolute Monocytes (0.1-0.8) 10^3/uL 5.11 H Absolute Eosinophils (0.0-0.7) 10^3/uL 0.40 Absolute Basophils (0.0-0.2) 10^3/uL 0.00 RBC Morphology Normal VBG Lactate (0.6-1.4) mmol/L 1.4 Sodium (136-145) mmol/L 135 L Potassium (3.5-5.1) mmol/L 3.8 Chloride (98-107) mmol/L 97 L Carbon Dioxide (21.0-32.0) mmol/L 30.9 Anion Gap (3-11) mmol/L 7.1 BUN (7-18) mg/dL 10 Creatinine (0.70-1.30) mg/dL 0.8 Est GFR (CKD-EPI 2020) (mL/min/1.73m2) 94.03 Glucose (74-106) mg/dL 112 H Calcium (8.5-10.1) mg/dL 8.9 Magnesium (1.8-2.4) mg/dL 1.9 Total Bilirubin (0.2-1.0) mg/dL 0.79 AST (15-37) U/L 76 H ALT (16-63) U/L 104 H Alkaline Phosphatase (46-116) U/L 372 H Troponin I (<or=76) ng/L 6 Cancelled Cancelled Total Protein (6.4-8.2) g/dL 7.3 Albumin (3.4-5.0) g/dL 2.8 L Procalcitonin ng/mL 0.2 Medical Decision Making Emergent evaluation of fever and an immune compromised patient. Currently on antibiotics treating pneumonia. I do not have record of the urgent care visit so I do not know what antibiotics he is on, and I do not have access to the chest x-ray from that visit. Currently the patient does have abnormal breath sounds on the left. He does not have any concerning signs of respiratory failure at this time. Given his medical comorbidities and persistent symptoms over the last few weeks, will check labs, culture. Chest x-ray. 1100 Lab work reviewed, the patient does have a leukocytosis of 13.4. No significant anemia. He does have some elevation in his LFTs which seems to be mild but new for the month of October. His lactic acid and procalcitonin are at the upper limit of normal. I did repeat viral testing today to confirm no additional viral illness diagnoses. Chest x-ray was obtained and independently reviewed by me, he does have significant change in the left lung melchor with opacification in the left upper lobe. Given his findings, medical comorbidities and ongoing fever, though he does not have significant signs of sepsis, I we will treat the patient with IV antibiotics vancomycin and Zosyn. Given his failed response to outpatient oral antibiotics he will require admission. 1330 discussed with hospitalist, accepted for admission. 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 for this Essential hypertension (Chronic 05/19/16) Rheumatoid arthritis (Chronic) Medical History Insect bite Stiffness of left shoulder joint Presence of shoulder joint prosthesis Chronic cough Fatigue Scoliosis deformity of spine GERD without esophagitis Neck pain Seasonal allergic rhinitis Acute upper respiratory infection Acute sinusitis Thromboembolism of vein Essential hypertension Scleritis Cannabis use disorder Chronic lymphoid leukemia in remission Cataract removed 2021 L>R History of nasal polyp Asthma (04/12/12) exertional- used to use an inhaler 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 SPENCE Family History Mother , 34 Stroke Father , 48 Substance abuse Alcohol abuse Sister Substance abuse Depression Asthma Maternal Grandfather , 76 No problems noted. Paternal Grandfather , age 78 Alcohol abuse Maternal Grandmother , age 99 No problems noted. Paternal Grandmother , age 68 Skin cancer Son Asthma Daughter Depression Family History RA (rheumatoid arthritis) Social History Smoking/Tobacco Use Status: Former Tobacco Use tobacco type: cigarettes, pipe, cigars and smokeless tobacco Quit Date: 02/20/73 Tobacco: How many years used: 5 Smokeless tobacco user: chewing tobacco Second Hand Exposure: Yes Smoking risk assessment performed?: Yes Alcohol Intake: current Alcohol Intake frequency: a few times a week Alcohol type: beer and hard liquor Drug use: Daily Substance use type: marijuana Counseling given: Yes Caregiver/Support person: No Household members: spouse Housing: house Communication Needs: None Do you need help understanding health information?: Never Pets and animals: Yes Pets and animals: dog(s) Sexually active: No Do you think of yourself as: straight/heterosexual Current gender identity: male What is your relationship status?: How often do you talk on the phone with friends or family?: three or more times per week How often do you get together with friends or relatives?: twice per week How often do you attend zoroastrian or mandaeism services?: decline to answer Do you belong to any clubs or organized social groups?: no Panel score (0-1 are the most socially isolated patients): 2 What type of physical activity do you participate in: weight lifting and running Duration: 30-45 minutes/day Frequency: 3-4 times per week Kaye/Hoahaoism: None Special kaye needs: No Seatbelt use: always Helmet use: Yes Helmet use: always Drive intox 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 superintendent drivers: No Do you feel safe at home: Yes Do you feel safe in your relationship?: Yes
[2023-11-02] MEDS: PIPERACILLIN/TAZO 4.5 GM in Normal Saline 100 ML IVPB (11:05)
[2023-11-02] MEDS: VANCOMYCIN/WATER (PEG) 1.5 GM/300 ML BAG IVPB (11:47)
[2023-11-02 11:57] LABS: COVID-19 PCR Negative (Negative); Influenza A PCR Negative (Negative); Influenza B PCR Negative (Negative); RSV PCR Negative (Negative)
[2023-11-02 11:58] LABS: Source Nasopharynx
--- NOTE | 2023-11-02 12:45 | NUR.NOTE ---
patient provided with meal tray Nursing Note:
[2023-11-02 12:56] LABS: Bilirubin Negative (Negative); Blood Negative (Negative); Clarity Clear (Clear); Glucose Negative (Negative); Ketones Negative (Negative); Leukocyte Esterase Negative (Negative); Nitrite Negative (Negative)
[2023-11-02 13:03] LABS: Bacteria Negative HPF (Negative); C & S Indicated? C&S Done As Ordered; Casts 0-2 Hyaline LPF (Negative); Crystals Negative HPF (Negative); Epithelial Cells Rare HPF (Negative); Mucus Negative (Negative); Other Cells Rare Renal (Negative); RBC 0-2 HPF (0-2); WBC 0-2 HPF (0-5)
--- NOTE | 2023-11-02 13:44 | W.PM.HP.N ---
Date of service: 11/02/23 Time of Service: 15:15 Assessment and Plan Assessment and plan (1) Sepsis: Status: Acute Assessment and plan: WBC 13.4, HR 92, RR 27 with pneumonia as the probable source of infection- Initially on Vanc and Zosyn Still on Vancomycin MRSA swab Start cefepime d/t risk of MDRO - recent antibiotic use Start doxycycline IV Sputum culture Urine legionella & strep PRN acetaminophen PRN ibuprofen Mucinex Vibra pep IS Scheduled nebs (2) Pneumonia: Status: Acute Assessment and plan: As above Worsening left upper lung infiltrate per XR- Chest CT ordered (3) Fever: Status: Acute Assessment and plan: As above in point 1 and 2 History of tick and mosquito bites, headache, fever and transaminitis Hepatitis panel Tick and blood-borne pathogen panel No thrombocytopenia or lymphocytopenia seen (4) Abnormal transaminases: Status: Acute Assessment and plan: Will continue to monitor As above (5) CLL (chronic lymphocytic leukemia): Status: Acute Assessment and plan: Continue OPT management (6) Esophageal reflux: Status: Chronic Assessment and plan: on omeprozole (7) Essential hypertension: Status: Chronic Assessment and plan: No longer takes lisinopril Discussed with Dr. Cardenas History of Present Illness History of Present Illness Chief Complaint: Persistent fever Narrative: This 73-year-old male patient with a past medical history of CLL, rheumatoid arthritis on Rituxan ,DVT in 2022, hypertension presented to the ED today for evaluation of persistent fever. The patient was diagnosed with influenza on October 23, treated with Tamiflu with lack of symptoms from improvement in seeking care at urgent care on October 27 with x-ray showing concerns for pneumonia. The patient was started on antibiotics and seemed to have been taking Augmentin. Patient reported a second antibiotic but could not remember the name. The patient reporting persistent fever ranging from 10 1-103. Patient reported cough without persistent shortness of breath. In the ED vital signs were stable the patient did not require any oxygen supplementation. The patient denied sore throat, nasal congestion, chest pain, abdominal pain, nausea,vomiting, diarrhea or dysuria. Workup in the ED was significant for WBC 13.45, AST 76, ALT 104, ALK 372. Patient was negative for COVID, RSV and influenza. Chest x-ray showed increased size and extent of the left upper lobe pneumonia when compared to imaging obtained on 10/28/2023. In the ED the patient was treated with IV vancomycin and Zosyn. The hospitalist was consulted and patient admitted to the medical surgical floor for evaluation and management of for persistent fever, worsening pneumonia. When seen in the room the patient was febrile, reported nausea and headache starting 2 to 3 days ago. The patient denied dizziness, unsteady gait, chest pain, vomiting, diarrhea or dysuria. The patient reported having had DVT with probable COVID etiology for which he was treated with apixaban with successful results. The patient denied any cardiac history or past surgery;left shoulder prosthesis reported on x-ray report. The patient confirmed that he would like resuscitation thus is a full code. 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) on rituxan for this Essential hypertension (Chronic 05/19/16) Rheumatoid arthritis (Chronic) Medical History Insect bite Stiffness of left shoulder joint Presence of shoulder joint prosthesis Chronic cough Fatigue Scoliosis deformity of spine GERD without esophagitis Neck pain Seasonal allergic rhinitis Acute upper respiratory infection Acute sinusitis Thromboembolism of vein Essential hypertension Scleritis Cannabis use disorder Chronic lymphoid leukemia in remission Cataract removed 2021 L>R History of nasal polyp Asthma (04/12/12) exertional- used to use an inhaler 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 SPENCE Family History Mother , 34 Stroke Father , 48 Substance abuse Alcohol abuse Sister Substance abuse Depression Asthma Maternal Grandfather , 76 No problems noted. Paternal Grandfather , age 78 Alcohol abuse Maternal Grandmother , age 99 No problems noted. Paternal Grandmother , age 68 Skin cancer Son Asthma Daughter Depression Family History RA (rheumatoid arthritis) Social History Smoking/Tobacco Use Status: Former Tobacco Use tobacco type: cigarettes, pipe, cigars and smokeless tobacco Quit Date: 02/20/73 Tobacco: How many years used: 5 Smokeless tobacco user: chewing tobacco Second Hand Exposure: Yes Smoking risk assessment performed?: Yes Alcohol Intake: current Alcohol Intake frequency: a few times a week Alcohol type: beer and hard liquor Drug use: Daily Substance use type: marijuana Counseling given: Yes Caregiver/Support person: No Household members: spouse Housing: house Communication Needs: None Do you need help understanding health information?: Never Pets and animals: Yes Pets and animals: dog(s) Sexually active: No Do you think of yourself as: straight/heterosexual Current gender identity: male What is your relationship status?: How often do you talk on the phone with friends or family?: three or more times per week How often do you get together with friends or relatives?: twice per week How often do you attend restorationist or christianity services?: decline to answer Do you belong to any clubs or organized social groups?: no Panel score (0-1 are the most socially isolated patients): 2 What type of physical activity do you participate in: weight lifting and running Duration: 30-45 minutes/day Frequency: 3-4 times per week Kaye/Bahai: None Special kaye needs: No Seatbelt use: always Helmet use: Yes Helmet use: always Drive intox 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 Do you feel safe at home: Yes Do you feel safe in your relationship?: Yes Meds Allergies and Home Medications Allergies Allergy/AdvReac Type Severity Reaction Status Date / Time gold sodium thiomalate Allergy Intermediate Skin Rash Verified 11/02/23 09:15 cat dander Allergy Other (See Verified 11/02/23 09:15 Comment) adalimumab (From Humira) AdvReac Intermediate non-effecti Verified 11/02/23 09:15 ve etanercept (From Enbrel) AdvReac Intermediate Unknown Verified 11/02/23 09:15 methotrexate AdvReac Intermediate Unknown Verified 11/02/23 09:15 DUST Allergy Unknown Other (See Uncoded 11/02/23 09:15 Comment) Home Medications ?Medication ?Instructions ?Recorded ?Confirmed ?Type Medical Marijuana 06/03/14 08/17/18 Clinic epigallocatechin gallate(bulk) 1,000 gm miscellaneous PRN 05/05/16 11/02/23 History (green tea extract powder) rituximab 10 mg/mL 10 mg IV every 6 months 09/08/16 11/02/23 History concentrate,intravenous (Rituxan) protein See Rx Instructions PO .COMPLEX PRN 06/21/18 11/02/23 History ferrous sulfate 325 mg (65 mg 325 mg PO DAILY 07/27/21 11/02/23 History iron) tablet (Feosol) albuterol sulfate 90 mcg/actuation 2 puff inhalation Q6H PRN 11/29/21 11/02/23 Rx aerosol inhaler (Proventil HFA) shortness of breath or wheezing #8.5 grams lisinopril 10 mg tablet 10 mg PO DAILY #90 tab-caps 12/16/21 11/02/23 Rx omeprazole 20 mg capsule,delayed 20 mg PO DAILY #90 tab-caps 05/09/22 11/02/23 Rx release amoxicillin 875 mg-potassium 875 tab PO 1XD 05/19/22 11/02/23 History clavulanate 125 mg tablet apixaban 5 mg tablet 5 mg PO BID 30 days #60 tabs 05/23/22 11/02/23 Rx montelukast 10 mg tablet 10 mg PO DAILY PRN 09/06/23 11/02/23 History dorzolamide 22.3 mg-timolol 6.8 1 drp ophthalmic (eye) BID 11/02/23 11/02/23 History mg/mL eye drops Exam Narrative Exam Narrative: Constitutional The patient in bed without acute distress HENMT: Head is atraumatic, normocephalic, no lymphadenopathy. Facial structures with normal appearance Eyes: Well aligned, intact ROM Neck: Normal ROM, no meningeal signs Neuro:alert and oriented X4 , non-focal Chest:Chest is symmetrical and normal appearance Resp: Unlabored breathing, Coarse crackles left upper lung, exp wheezing Cardio: regular rhythm, S1, S2, no murmur, capillary refill<3 sec., bilateral radial and dorsalis pedis pulses are positive, palpable GI: Abdomen is not distended, soft and non tender, bowel sounds are present : Negative Costovertebral angle tenderness Back/spine/Pelvis: No back tenderness, normal alignment Integumentary: No skin lesions or rash seen Extremities: strength 5/5 to bilateral lower and upper extremities Psych: RASS 0, congruent mood and normal affect. Results Labs 11/02/23 08:45 11/02/23 08:45 Labs: Laboratory Results - last 24 hr 11/02/23 11/02/23 11/02/23 08:45 10:15 11:15 WBC 13.45 H RBC 4.52 Hgb 12.8 L Hct 38.4 L MCV 85 MCH 28.3 MCHC 33.3 RDW 15.2 H Plt Count 252 MPV 10.4 Immature Gran % 0.0 Neutrophils % 41.0 Band Neutrophils % 3 Lymphocytes % 14.0 Atypical Lymphs % 1 Monocytes % 38.0 Eosinophils % 3.0 Basophils % 0.0 Nucleated RBC % 0.0 Absolute Neutrophils 5.92 Absolute Lymphocytes 2.02 Absolute Monocytes 5.11 H Absolute Eosinophils 0.40 Absolute Basophils 0.00 RBC Morphology Normal VBG Lactate 1.4 Sodium 135 L Potassium 3.8 Chloride 97 L Carbon Dioxide 30.9 Anion Gap 7.1 BUN 10 Creatinine 0.8 Est GFR (CKD-EPI 2020) 94.03 Glucose 112 H Calcium 8.9 Magnesium 1.9 Total Bilirubin 0.79 AST 76 H ALT 104 H Alkaline Phosphatase 372 H Troponin I 6 Cancelled Total Protein 7.3 Albumin 2.8 L Procalcitonin 0.2 Urine Color Urine Clarity Urine pH Ur Specific [place] Urine Protein Urine Ketones Urine Blood Urine Nitrite Urine Bilirubin Urine Urobilinogen Ur Leukocyte Esterase Urine RBC Urine WBC Ur Epithelial Cells Urine Crystals Urine Bacteria Urine Casts Urine Mucus Urine Other Ur Culture Indicated? Urine Glucose COVID-19 Source Nasopharynx SARS-CoV-2 (PCR) Negative Influenza Type A (PCR) Negative Influenza Type B (PCR) Negative RSV (PCR) Negative 11/02/23 11/02/23 12:15 12:40 WBC RBC Hgb Hct MCV MCH MCHC RDW Plt Count MPV Immature Gran % Neutrophils % Band Neutrophils % Lymphocytes % Atypical Lymphs % Monocytes % Eosinophils % Basophils % Nucleated RBC % Absolute Neutrophils Absolute Lymphocytes Absolute Monocytes Absolute Eosinophils Absolute Basophils RBC Morphology VBG Lactate Sodium Potassium Chloride Carbon Dioxide Anion Gap BUN Creatinine Est GFR (CKD-EPI 2020) Glucose Calcium Magnesium Total Bilirubin AST ALT Alkaline Phosphatase Troponin I Cancelled Total Protein Albumin Procalcitonin Urine Color Yellow Urine Clarity Clear Urine pH 8.0 Ur Specific [place] 1.020 Urine Protein 30 H Urine Ketones Negative Urine Blood Negative Urine Nitrite Negative Urine Bilirubin Negative Urine Urobilinogen 1.0 H Ur Leukocyte Esterase Negative Urine RBC 0-2 Urine WBC 0-2 Ur Epithelial Cells Rare Urine Crystals Negative Urine Bacteria Negative Urine Casts 0-2 Hyaline Urine Mucus Negative Urine Other Rare Renal Ur Culture Indicated? C&S Done As Ordered Urine Glucose Negative COVID-19 Source SARS-CoV-2 (PCR) Influenza Type A (PCR) Influenza Type B (PCR) RSV (PCR) Last Vital Signs Temp 37.3 C 11/02/23 10:57 Pulse 87 11/02/23 13:39 Resp 20 11/02/23 13:39 BP 152/73 H 11/02/23 13:39 Pulse Ox 94 11/02/23 13:39 Time Spent Time spent with Patient: >75 minutes Time was spent: preparing to see the patient(eg.review tests), obtaining and/or reviewing separately otained hiistory, ordering medications,tests, procedures, referring, communicating with other health home health caregiver, indepentently interpreting results, counseling the patient and care coordination
[2023-11-02] MEDS: Albuterol/Ipratropium 3 ML UPD VIAL UPD ×2 (16:50→21:35)
--- NOTE | 2023-11-02 17:05 | NUR.NOTE ---
Nursing Note: Received report from Maru DUARTE in ED. Pt arrived to unit at 1531. Pt oriented to room and call bee. Bed locked in lowest position. 1705: Ekta BERRY made aware of pts temp, ordering tylenol.
[2023-11-02] MEDS: CEFEPIME 2 GM in Normal Saline 100 ML IVPB (18:00)
[2023-11-02] MEDS: Acetaminophen 500 MG TAB 1000 MG PO (18:32)
--- NOTE | 2023-11-02 18:32 | NUR.NOTE ---
Nursing Note: 183: Ekta ORACLE ADF CONSULTANT in room aware of pts fever. Tylenol PO given per orders. Will CTM.
[2023-11-02] MEDS: Ibuprofen 800 MG TAB PO (20:07)
[2023-11-02] MEDS: Normal Saline Flush 10 ML SYR IVP ×2 (20:07→21:35)
[2023-11-02] MEDS: guaiFENesin 600 MG TABCR PO (20:07)
--- NOTE | 2023-11-02 20:16 | W.PC.ACHO ---
Registration Status: Primary Language: Preferred Language: ED Information & Data Chief Complaint Fever 11/02/23 11:03 Triage Note seen at walk in clinic on 11/02/23 09:12 monday, dx w/influenza & pneumonia. Put on Tamiflu and 2 different antibiotics. Continues w/coughing, weakness, chills, fevers. taking tylenol/advil at home which has lowered the fever , last night was 102. Finished one antibiotic & tamiflu, has one more antibiotic ordered x 3 more days. Medical / Surgical History (Last Reviewed 11/02/23 @ 11:06 by Floyd Jordan MD) Insect bite Stiffness of left shoulder joint Presence of shoulder joint prosthesis Chronic cough Fatigue Scoliosis deformity of spine GERD without esophagitis Neck pain Seasonal allergic rhinitis Acute upper respiratory infection Acute sinusitis Thromboembolism of vein Essential hypertension Scleritis Cannabis use disorder Chronic lymphoid leukemia in remission Cataract History of nasal polyp Asthma (04/12/12) Transient global amnesia (01/30/16) (Last Reviewed 11/02/23 @ 11:06 by Floyd Jordan MD) Status post fusion of wrist Total replacement of hip (07/14/11) TOTAL LEFT SHOULDER PROCEDURES DOUBLE HERNIA REPAIR Most Recent Vital Signs Temperature 37.0 C 11/02/23 19:10 Temperature Source Tympanic 11/02/23 19:10 Pulse 85 11/02/23 19:10 Pulse Rhythm Regular 11/02/23 16:23 Pulse 90 11/02/23 15:10 Respiratory Rate 18 11/02/23 19:10 Respiratory Effort Normal 11/02/23 16:23 Respiratory Depth Normal 11/02/23 16:23 Blood Pressure 141/84 H 11/02/23 19:10 Blood Pressure Mean 102 11/02/23 15:01 Blood Pressure Position Sitting 11/02/23 09:12 Pulse Oximetry 93 11/02/23 19:10 Oxygen Delivery Method Room Air 11/02/23 19:10 Oxygen Flow Rate 0 11/02/23 19:10 Pain Level 0 11/02/23 19:10 Comment headache 3/10 11/02/23 16:08 Allergies gold sodium thiomalate Allergy (Intermediate, Verified 11/02/23 09:15) Skin Rash cat dander Allergy (Verified 11/02/23 09:15) Other (See Comment) adalimumab (From Humira) Adverse Reaction (Intermediate, Verified 11/02/23 09:15) non-effective ran its course etanercept (From Enbrel) Adverse Reaction (Intermediate, Verified 11/02/23 09:15) Unknown methotrexate Adverse Reaction (Intermediate, Verified 11/02/23 09:15) Unknown DUST Allergy (Unknown, Uncoded 11/02/23 09:15) Other (See Comment) Active Medications Generic Name Dose Route Start Last Admin Trade Name Freq PRN Reason Stop Dose Admin Acetaminophen 1,000 mg 11/02/23 17:34 11/02/23 18:32 Acetaminophen 500 Mg Tab PO 1,000 mg Q8H PRN PRN Administration Albuterol/Ipratropium 3 ml 11/02/23 16:00 11/02/23 16:50 Albuterol/Ipratropium 3 Ml Upd Vial UPD 3 ml Q6H HERLINDA Administration Cefepime HCl 2 gm/ Sodium 100 mls @ 200 mls/hr 11/02/23 18:00 11/02/23 18:00 Chloride IVPB 200 mls/hr Q8H HERLINDA Administration IV IV Catheter Type [Left Forearm Peripheral IV ] IV Catheter Type [Right Saline Lock Antecubital] IV Catheter Gauge [Left 20 Forearm] IV Catheter Gauge [Right 18 Antecubital] Diet Orders Category Date Time Status Heart Healthy Eating [DIET] Nutrition 11/02/23 Lunch Active Diagnostics 11/02/23 11/02/23 11/02/23 Range/Units 19:10 12:40 12:15 WBC (4.4-10.8) 10^3/uL RBC (4.36-5.78) 10^6/uL Hgb (13.5-17.5) g/dL Hct (40.0-50.0) % MCV (80-95) fL MCH (27.0-33.0) pg MCHC (32.0-36.0) % RDW (11.8-14.1) % Plt Count (130-400) 10^3/uL MPV (8.0-11.0) fL Immature Gran % % Neutrophils % % Band Neutrophils % % Lymphocytes % % Atypical Lymphs % % Monocytes % % Eosinophils % % Basophils % % Nucleated RBC % (0.0-0.3) % Absolute Neutrophils (1.2-6.7) 10^3/uL Absolute Lymphocytes (1.2-3.4) 10^3/uL Absolute Monocytes (0.1-0.8) 10^3/uL Absolute Eosinophils (0.0-0.7) 10^3/uL Absolute Basophils (0.0-0.2) 10^3/uL RBC Morphology VBG Lactate (0.6-1.4) mmol/L Sodium (136-145) mmol/L Potassium (3.5-5.1) mmol/L Chloride (98-107) mmol/L Carbon Dioxide (21.0-32.0) mmol/L Anion Gap (3-11) mmol/L BUN (7-18) mg/dL Creatinine (0.70-1.30) mg/dL Est GFR (CKD-EPI 2020) (mL/min/1.73m2) Glucose (74-106) mg/dL Calcium (8.5-10.1) mg/dL Magnesium (1.8-2.4) mg/dL Total Bilirubin (0.2-1.0) mg/dL AST (15-37) U/L ALT (16-63) U/L Alkaline Phosphatase (46-116) U/L Troponin I Cancelled (<or=76) ng/L Total Protein (6.4-8.2) g/dL Albumin (3.4-5.0) g/dL Procalcitonin ng/mL Urine Color Yellow (Yellow) Urine Clarity Clear (Clear) Urine pH 8.0 (5-8) Ur Specific [place] 1.020 (1.005-1.025) Urine Protein 30 H (Neg-Trace) mg/dL Urine Ketones Negative (Negative) mg/dL Urine Blood Negative (Negative) Urine Nitrite Negative (Negative) Urine Bilirubin Negative (Negative) Urine Urobilinogen 1.0 H (Up to 0.2) mg/dL Ur Leukocyte Esterase Negative (Negative) Urine RBC 0-2 (0-2) HPF Urine WBC 0-2 (0-5) HPF Ur Epithelial Cells Rare (Negative) HPF Urine Crystals Negative (Negative) HPF Urine Bacteria Negative (Negative) HPF Urine Casts 0-2 Hyaline (Negative) LPF Urine Mucus Negative (Negative) Urine Other Rare Renal (Negative) Ur Culture Indicated? C&S Done As Ordered Urine Glucose Negative (Negative) mg/dL COVID-19 Source SARS-CoV-2 (PCR) (Negative) Influenza Type A (PCR) (Negative) Influenza Type B (PCR) (Negative) Urine Legionella Ag Pending RSV (PCR) (Negative) 11/02/23 11/02/23 11/02/23 Range/Units 11:15 10:15 08:45 WBC 13.45 H (4.4-10.8) 10^3/uL RBC 4.52 (4.36-5.78) 10^6/uL Hgb 12.8 L (13.5-17.5) g/dL Hct 38.4 L (40.0-50.0) % MCV 85 (80-95) fL MCH 28.3 (27.0-33.0) pg MCHC 33.3 (32.0-36.0) % RDW 15.2 H (11.8-14.1) % Plt Count 252 (130-400) 10^3/uL MPV 10.4 (8.0-11.0) fL Immature Gran % 0.0 % Neutrophils % 41.0 % Band Neutrophils % 3 % Lymphocytes % 14.0 % Atypical Lymphs % 1 % Monocytes % 38.0 % Eosinophils % 3.0 % Basophils % 0.0 % Nucleated RBC % 0.0 (0.0-0.3) % Absolute Neutrophils 5.92 (1.2-6.7) 10^3/uL Absolute Lymphocytes 2.02 (1.2-3.4) 10^3/uL Absolute Monocytes 5.11 H (0.1-0.8) 10^3/uL Absolute Eosinophils 0.40 (0.0-0.7) 10^3/uL Absolute Basophils 0.00 (0.0-0.2) 10^3/uL RBC Morphology Normal VBG Lactate 1.4 (0.6-1.4) mmol/L Sodium 135 L (136-145) mmol/L Potassium 3.8 (3.5-5.1) mmol/L Chloride 97 L (98-107) mmol/L Carbon Dioxide 30.9 (21.0-32.0) mmol/L Anion Gap 7.1 (3-11) mmol/L BUN 10 (7-18) mg/dL Creatinine 0.8 (0.70-1.30) mg/dL Est GFR (CKD-EPI 2020) 94.03 (mL/min/1.73m2) Glucose 112 H (74-106) mg/dL Calcium 8.9 (8.5-10.1) mg/dL Magnesium 1.9 (1.8-2.4) mg/dL Total Bilirubin 0.79 (0.2-1.0) mg/dL AST 76 H (15-37) U/L ALT 104 H (16-63) U/L Alkaline Phosphatase 372 H (46-116) U/L Troponin I Cancelled 6 (<or=76) ng/L Total Protein 7.3 (6.4-8.2) g/dL Albumin 2.8 L (3.4-5.0) g/dL Procalcitonin 0.2 ng/mL Urine Color (Yellow) Urine Clarity (Clear) Urine pH (5-8) Ur Specific [place] (1.005-1.025) Urine Protein (Neg-Trace) mg/dL Urine Ketones (Negative) mg/dL Urine Blood (Negative) Urine Nitrite (Negative) Urine Bilirubin (Negative) Urine Urobilinogen (Up to 0.2) mg/dL Ur Leukocyte Esterase (Negative) Urine RBC (0-2) HPF Urine WBC (0-5) HPF Ur Epithelial Cells (Negative) HPF Urine Crystals (Negative) HPF Urine Bacteria (Negative) HPF Urine Casts (Negative) LPF Urine Mucus (Negative) Urine Other (Negative) Ur Culture Indicated? Urine Glucose (Negative) mg/dL COVID-19 Source Nasopharynx SARS-CoV-2 (PCR) Negative (Negative) Influenza Type A (PCR) Negative (Negative) Influenza Type B (PCR) Negative (Negative) Urine Legionella Ag RSV (PCR) Negative (Negative) 11/02/23 12:40 Urine Culture - Pending Urine - Clean Catch 11/02/23 10:25 Blood Culture - Pending Blood 11/02/23 09:45 Blood Culture - Pending Blood Intake and Output - 24 Hour Total 11/02/23 09:07 thru 11/02/23 16:23 Intake Total 410 Balance 410 Weight 81.102 kg Intake: IV 410 Falls Risk Assessment History of Falls No History 11/02/23 16:23 Contributing Factors No Factors 11/02/23 16:23 Ambulatory Aids Independent 11/02/23 16:23 Tubes/Lines W/no contributing factors 11/02/23 16:23 Gait Evaluation No gait disturbance 11/02/23 16:23 Fall Total Score 10 11/02/23 16:23 Level of Risk Standard/Low Risk 11/02/23 16:23 Problems (Last Reviewed 11/02/23 @ 11:06 by Floyd Jordan MD) Sepsis (Acute) Abnormal transaminases (Acute) Fever (Acute) Pneumonia (Acute) CLL (chronic lymphocytic leukemia) (Acute) Esophageal reflux (Chronic) Essential hypertension (Chronic 05/19/16) Notes 11/02/23 18:32 (created 11/02/23 20:11) Nursing Notes by Rhonda Collado Nursing Note: 1832: Ekta BRUSH OPERATOR in room aware of pts fever. Tylenol PO given per orders. Will CTM. Initialized on 11/02/23 20:11 - END OF NOTE 11/02/23 17:05 (created 11/02/23 20:07) Nursing Notes by Rhonda Collado Nursing Note: Received report from Maru DUARTE in ED. Pt arrived to unit at 1531. Pt oriented to room and call bee. Bed locked in lowest position. 1705: Ekta BRUSH OPERATOR made aware of pts temp, ordering tylenol. Initialized on 11/02/23 20:07 - END OF NOTE 11/02/23 12:45 Nursing Notes by Xenia Foss patient provided with meal tray Nursing Note: Initialized on 11/02/23 12:45 - END OF NOTE v v v v v v v v v Sending and/or Receiving Nurses: Please use comment section below to note any information pertinent to the patient hand-off not included above. Information / Comments: 72 yo Male, full code, admitted for fever. Recent flu + 9 days ago with no resolve of sx from Tamiflu and advil/tylenol at home. Worsening CXR. Sats dropping when pt lying down. Currently A&Ox4, on RA, ambulates independently. #20 to LFA, on vanc and zosyn. Report received from: Maru DUARTE
[2023-11-02] MEDS: Enoxaparin 40 MG/0.4 ML SYR SC (21:35)
[2023-11-02] MEDS: DOXYCYCLINE 100 MG in Normal Saline 100 ML IVPB (21:35)
--- NOTE | 2023-11-02 21:48 | DI.VRAD_ITS ---
PROCEDURE INFORMATION: Exam: CT Chest Without Contrast; Diagnostic Exam date and time: 11/02/2023 8:40 PM Age: 72 years old Clinical indication: Other: Worsening left upper lobe infiltrate TECHNIQUE: Imaging protocol: Diagnostic computed tomography of the chest without contrast. 3D rendering (Not supervised by radiologist): MIP and/or 3D reconstructed images were created by the technologist. COMPARISON: CR XR PORTABLE CHEST AP 11/02/2023 9:37 AM FINDINGS: Tubes, catheters and devices: Left shoulder prosthesis in place. Lungs: Significant diffuse ground-glass and alveolar infiltrate occupies much of the left upper lobe. Similar-appearing more mild infiltrate noted left lower lobe. Right lung appears largely clear. Pleural spaces: Unremarkable. No pneumothorax. No pleural effusion. Heart: Unremarkable. No cardiomegaly. No pericardial effusion. Coronary arteries: Mild scattered coronary artery calcifications. Lymph nodes: Unremarkable. No enlarged lymph nodes. Vasculature: Unremarkable. No aortic aneurysm. Diaphragm: Small sliding-type hiatal hernia. Bones/joints: Moderate dextroscoliosis of the thoracic spine. Mild degenerative changes throughout the thoracic spine. No vertebral body compression or acute fracture. Soft tissues: Unremarkable. IMPRESSION: Left upper and lower lobe pneumonia Dictated and Authenticated by: Edinson Rivera MD. Ordering:ADITYA Dash MD
[2023-11-03] VITALS (13 sets, daily range): BP systolic 137–160; BP diastolic 78–85; PULSE 66–103; RESP 2–24; TEMP 36.4–38.5; O2SAT 93–98
[2023-11-03] MEDS: VANCOMYCIN/WATER (PEG) 1 GM/200 ML BAG IV (00:37)
[2023-11-03 00:57] LABS: MRSA PCR Negative (Negative)
[2023-11-03] MEDS: CEFEPIME 2 GM in Normal Saline 100 ML IVPB ×3 (02:20→18:11)
[2023-11-03] MEDS: Albuterol/Ipratropium 3 ML UPD VIAL UPD ×4 (05:00→22:04)
[2023-11-03 07:10] LABS: Abs Immature Grans 0.67 10^3/uL (0.0-0.06); HCT 33.4 % (40.0-50.0); HGB 11.4 g/dL (13.5-17.5); MCH 28.4 pg (27.0-33.0); MCHC 34.1 % (32.0-36.0); MCV 83 fL (80-95); MPV 10.1 fL (8.0-11.0); Platelet Count 231 10^3/uL (130-400); RBC 4.02 10^6/uL (4.36-5.78); RDW 15.1 % (11.8-14.1); RDW-SD 45.4 fL; WBC 12.19 10^3/uL (4.4-10.8)
[2023-11-03 07:26] LABS: Anion Gap 9.4 mmol/L (3-11); BUN 11 mg/dL (7-18); CO2 26.6 mmol/L (21.0-32.0); CREATININE 0.6 mg/dL (0.70-1.30); Calcium 8.7 mg/dL (8.5-10.1); Chloride 103 mmol/L (98-107); Estimated GFR 102.56 (mL/min/1.73m2); Glucose 81 mg/dL (74-106); Potassium 3.4 mmol/L (3.5-5.1); Sodium 139 mmol/L (136-145)
[2023-11-03 07:30] LABS: ALT 71 U/L (16-63); AST 50 U/L (15-37); Albumin 2.3 g/dL (3.4-5.0); Alkaline Phosphatase 335 U/L (46-116); Bilirubin, Direct 0.2 mg/dL (0.0-0.2); Bilirubin, Total 0.65 mg/dL (0.2-1.0); Total Protein 6.4 g/dL (6.4-8.2); Vancomycin, Random 14.1 ug/mL
[2023-11-03 07:47] LABS: Absolute Eosinophil Count 0.12 10^3/uL (0.0-0.7); Absolute Lymphocyte Count 2.32 10^3/uL (1.2-3.4); Absolute Monocyte Count 4.51 10^3/uL (0.1-0.8); Absolute Neutrophil Count 4.63 10^3/uL (1.2-6.7); Diff Comment Manual Differential; Metamyelocytes % 2; Myelocytes % 3
[2023-11-03 07:48] LABS: RBC Morphology Normal
[2023-11-03] MEDS: Lactobacillus Acidophilus CAP 1 CAP PO ×3 (08:02→20:49)
[2023-11-03] MEDS: guaiFENesin 600 MG TABCR PO ×2 (08:02→13:57)
[2023-11-03] MEDS: Ferrous Sulfate 325 MG TAB PO (08:03)
[2023-11-03] MEDS: Omeprazole 20 MG CAPCR PO (08:03)
[2023-11-03] MEDS: Normal Saline Flush 10 ML SYR IVP (08:27)
[2023-11-03] MEDS: DOXYCYCLINE 100 MG in Normal Saline 100 ML IVPB ×2 (09:04→20:50)
--- NOTE | 2023-11-03 09:23 | PGE_ITS ---
Date of Service Date of service: 11/03/23 Time of Service: :23 Assessment and Plan Assessment and plan (1) Sepsis: Status: Acute Assessment and plan: WBC 12.19, HR 90s, RR 22 Continue Vancomycin, cefepime and doxy MRSA swab pending Sputum cx pending Urine legionella & strep pending PRN acetaminophen PRN ibuprofen Mucinex davide Benzonatate prn Vibra pep IS Scheduled nebs (2) Pneumonia: Status: Acute Assessment and plan: As above Worsening left upper lung infiltrate (3) Fever: Status: Acute Assessment and plan: Hepatiis and Tick and blood-borne pathogen panel pending No thrombocytopenia or lymphocytopenia seen (4) Abnormal transaminases: Status: Acute Assessment and plan: Will continue to monitor As above (5) CLL (chronic lymphocytic leukemia): Status: Acute Assessment and plan: Continue OPT management (6) Esophageal reflux: Status: Chronic Assessment and plan: on omeprozole (7) Essential hypertension: Status: Chronic Assessment and plan: No longer takes lisinopril Discussed with Dr. Cardenas Subjective Subjective Patient reports: no new complaints, voiding w/o difficulty, bowel movement and fever; denies blood in stool, nausea or shortness of breath Interval history since last seen: Alert, oriented, in room sitting in chair, no acute distress with adult daughter at side Exam Narrative Exam Narrative: Constitutional The patient sitting in chair without acute distress, appears younger than stated age HENMT: Head is atraumatic, normocephalic, no lymphadenopathy. Facial structures with normal appearance Eyes: Well aligned, intact ROM Neck: Normal ROM, no meningeal signs Neuro:alert and oriented X4 , non-focal Chest:Chest is symmetrical and normal appearance Resp: Unlabored breathing, Coarse crackles left upper lung, exp wheezing Cardio: regular rhythm, S1, S2, no murmur, capillary refill<3 sec., bilateral radial and dorsalis pedis pulses are positive, palpable GI: Abdomen is not distended, soft and non tender, bowel sounds are present : Negative Costovertebral angle tenderness Back/spine/Pelvis: No back tenderness, normal alignment Integumentary: No skin lesions or rash seen Extremities: strength 5/5 to bilateral lower and upper extremities Psych: RASS 0, congruent mood and normal affect. Objective Last Vital Signs Temp 36.5 C 11/03/23 07:15 Pulse 68 11/03/23 07:15 Resp 14 11/03/23 07:15 BP 142/78 H 11/03/23 07:15 Pulse Ox 94 11/03/23 07:15 Laboratory Results - last 24 hr 11/02/23 11/02/23 11/02/23 08:45 10:15 11:15 WBC 13.45 H RBC 4.52 Hgb 12.8 L Hct 38.4 L MCV 85 MCH 28.3 MCHC 33.3 RDW 15.2 H Plt Count 252 MPV 10.4 Immature Gran % 0.0 Neutrophils % 41.0 Band Neutrophils % 3 Lymphocytes % 14.0 Atypical Lymphs % 1 Monocytes % 38.0 Eosinophils % 3.0 Basophils % 0.0 Metamyelocytes % Myelocytes % Nucleated RBC % 0.0 Absolute Neutrophils 5.92 Absolute Lymphocytes 2.02 Absolute Monocytes 5.11 H Absolute Eosinophils 0.40 Absolute Basophils 0.00 RBC Morphology Normal VBG Lactate 1.4 Sodium 135 L Potassium 3.8 Chloride 97 L Carbon Dioxide 30.9 Anion Gap 7.1 BUN 10 Creatinine 0.8 Est GFR (CKD-EPI 2020) 94.03 Glucose 112 H Calcium 8.9 Magnesium 1.9 Total Bilirubin 0.79 Conjugated Bilirubin AST 76 H ALT 104 H Alkaline Phosphatase 372 H Troponin I 6 Cancelled Total Protein 7.3 Albumin 2.8 L Procalcitonin 0.2 Urine Color Urine Clarity Urine pH Ur Specific [place] Urine Protein Urine Ketones Urine Blood Urine Nitrite Urine Bilirubin Urine Urobilinogen Ur Leukocyte Esterase Urine RBC Urine WBC Ur Epithelial Cells Urine Crystals Urine Bacteria Urine Casts Urine Mucus Urine Other Ur Culture Indicated? Urine Glucose Random Vancomycin COVID-19 Source Nasopharynx SARS-CoV-2 (PCR) Negative Influenza Type A (PCR) Negative Influenza Type B (PCR) Negative RSV (PCR) Negative MRSA (TEM-PCR) 11/02/23 11/02/23 11/02/23 12:15 12:40 22:18 WBC RBC Hgb Hct MCV MCH MCHC RDW Plt Count MPV Immature Gran % Neutrophils % Band Neutrophils % Lymphocytes % Atypical Lymphs % Monocytes % Eosinophils % Basophils % Metamyelocytes % Myelocytes % Nucleated RBC % Absolute Neutrophils Absolute Lymphocytes Absolute Monocytes Absolute Eosinophils Absolute Basophils RBC Morphology VBG Lactate Sodium Potassium Chloride Carbon Dioxide Anion Gap BUN Creatinine Est GFR (CKD-EPI 2020) Glucose Calcium Magnesium Total Bilirubin Conjugated Bilirubin AST ALT Alkaline Phosphatase Troponin I Cancelled Total Protein Albumin Procalcitonin Urine Color Yellow Urine Clarity Clear Urine pH 8.0 Ur Specific [place] 1.020 Urine Protein 30 H Urine Ketones Negative Urine Blood Negative Urine Nitrite Negative Urine Bilirubin Negative Urine Urobilinogen 1.0 H Ur Leukocyte Esterase Negative Urine RBC 0-2 Urine WBC 0-2 Ur Epithelial Cells Rare Urine Crystals Negative Urine Bacteria Negative Urine Casts 0-2 Hyaline Urine Mucus Negative Urine Other Rare Renal Ur Culture Indicated? C&S Done As Ordered Urine Glucose Negative Random Vancomycin COVID-19 Source SARS-CoV-2 (PCR) Influenza Type A (PCR) Influenza Type B (PCR) RSV (PCR) MRSA (TEM-PCR) Negative 11/03/23 06:15 WBC 12.19 H RBC 4.02 L Hgb 11.4 L Hct 33.4 L MCV 83 MCH 28.4 MCHC 34.1 RDW 15.1 H Plt Count 231 MPV 10.1 Immature Gran % 0.0 Neutrophils % 38.0 Band Neutrophils % Lymphocytes % 19.0 Atypical Lymphs % Monocytes % 37.0 Eosinophils % 1.0 Basophils % 0.0 Metamyelocytes % 2 Myelocytes % 3 Nucleated RBC % 0.0 Absolute Neutrophils 4.63 Absolute Lymphocytes 2.32 Absolute Monocytes 4.51 H Absolute Eosinophils 0.12 Absolute Basophils 0.00 RBC Morphology Normal VBG Lactate Sodium 139 Potassium 3.4 L Chloride 103 Carbon Dioxide 26.6 Anion Gap 9.4 BUN 11 Creatinine 0.6 L Est GFR (CKD-EPI 2020) 102.56 Glucose 81 Calcium 8.7 Magnesium Total Bilirubin 0.65 Conjugated Bilirubin 0.2 AST 50 H ALT 71 H Alkaline Phosphatase 335 H Troponin I Total Protein 6.4 Albumin 2.3 L Procalcitonin Urine Color Urine Clarity Urine pH Ur Specific [place] Urine Protein Urine Ketones Urine Blood Urine Nitrite Urine Bilirubin Urine Urobilinogen Ur Leukocyte Esterase Urine RBC Urine WBC Ur Epithelial Cells Urine Crystals Urine Bacteria Urine Casts Urine Mucus Urine Other Ur Culture Indicated? Urine Glucose Random Vancomycin 14.1 COVID-19 Source SARS-CoV-2 (PCR) Influenza Type A (PCR) Influenza Type B (PCR) RSV (PCR) MRSA (TEM-PCR) Time Spent with Patient Time Spent with Patient: 35-49 minutes Time was spent: preparing to see the patient(eg.review tests), ordering medications,tests, procedures, referring, communicating with other health urgent care physician assistant, indepentently interpreting results, counseling the patient and care coordination
--- NOTE | 2023-11-03 09:28 | PT.INIE ---
PT Notes Visit Reasons: Sepsis, Pneumonia s/p influenza Inpatient Physical Therapy Evaluation Date: 11/03/2023 Referring Doctor: Ekta Jose PT Orders: PT CONSULT: eval for assistive device Precautions: Standard, IV R UE( forearm) Patient Profile/Admitting Diagnosis: Pt is 72 yo male presented to ED on 11/02/23 with persistent fever , cough, headache and nausea since recent diagnosis of Influenza on 10/24/23. At that time he was treated with Tamiflu however he presented to Urgent Care on 10/28/23 and CxR should potential PNA. He started Antibiotics at that time. In ED , medical workup included CxR: (+) AUDREY Pneumonia and elevated WBC. He started IV Antibiotics and was admitted to Med Surg Unit for further medical management and PT Consult. 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) on rituxan for thisEssential hypertension (Chronic 05/19/16) Rheumatoid arthritis (Chronic) Medical History Insect bite Stiffness of left shoulder joint Presence of shoulder joint prosthesis Chronic cough Fatigue Scoliosis deformity of spine GERD without esophagitis Neck pain Seasonal allergic rhinitis Acute upper respiratory infection Acute sinusitis Thromboembolism of vein Essential hypertension Scleritis Cannabis use disorder Chronic lymphoid leukemia in remission Cataract removed 2021 L>RHistory of nasal polyp Asthma (04/12/12) exertional- used to use an inhalerTransient global amnesia (01/30/16) Seen in ER with episode of transient glogal amnesia Surgical History Status post fusion of wrist Total replacement of hip (07/14/11) leftTOTAL LEFT SHOULDER 2013;[facility]AL OPER[facility] N[facility], 2000 POLYPS FUSED RIGHT WRIST 2004DOUBLE HERNIA REPAIR 2016- DR. SPENCE Social History/Home Situation: Pt resides in 2 story home with 4 steps to enter with rail and 13 steps with rail to his bedroom. He was independent ambulation, driving, ADLs, cooking, and yard work. He reports he has a hill to climb to get to his main entrance. Equipment Owned/DME:none Subjective: Pt reports he feels better than he has in the last week. He denies pain other than at IV site. He reports he is an avid hiker and is looking forward to getting back out to see the foliage. Objective: [] General Observation: pt presents seated at EOB with no SOB no oxygen in place and IV infusing into Right forearm. Pt agreeable to participate in assessment. Mental Status:A+Ox4 Pain:reports dicomfort at iv site R forearm( Nurse aware) Vital Signs: 142/78; 68,RR14 sats 94% pre post 95% ROM: Right Upper Extremity: 5/5 Left Upper Extremity:5/5 Right Lower Extremity: 5/5 Left Lower Extremity: 5/5 Strength: Right Upper Extremity:WNL Left Upper Extremity: WNL Right Lower Extremity: WNL Left Lower Extremity: WNL Sensation: intact Bed Mobility/Transfers: Independent without device Gait: Independent without AD, level surfaces 600 feet reciprocal pattern including turns and door management Stairs 13 with one rail reciprocal Independent Balance: [] Static Sitting: Normal Dynamic Sitting: Normal Static Standing: Normal Dynamic Standing: Normal Special Tests: Tinetti: 26/26 Mobility Limitations Standardized Measure [facility] 6 clicks Basic Mobility Inpatient Short Form: Raw Score: 24 CMS Score: 0% deficit Informed Consent/Education: Patient instructed in purpose of PT consult and plan of care. Assessment: Patient is a 72 year old male referred to physical therapy services for assessment of need for AD with the diagnosis of sepsis. Pt demonstrates ability to perform bed mobility, transfers and ambulation Independently without AD as well as 13 steps with rail modified [place]. He scored 26/26 on Tinetti and 24 on [facility] mobility Inpatient short form indicating no deficits. Skilled PT services are not indicated at this time. Patient is assessed as a [X] Low [id number] complexity based on the following: History: 72 yo male presenting with sepsis requiring IV antibiotics Examination: as stated above Presentation: stable Decision Making: low Goals: NA Plan of Care/Treatment Plan: NA DISCHARGE RECOMMENDATIONS: [] [X] Home with no services [] [] Home with services [specify] [] Home with outpatient PT [] [] SNF for continued rehabilitation [] [] Television Production Clerk Care [] [] SNF versus LTC based on ability to participate and progress [] TREATMENT CODE/TIME: 39598 , 40885 / [id number] Please sign an return this page within 30 days if you agree with the above POC. Thank you! Physician Signature Date [facility]
[2023-11-03 09:49] LABS: Lab Add On Test Done
[2023-11-03 10:13] LABS: Magnesium 1.9 mg/dL (1.8-2.4)
[2023-11-03] MEDS: Potassium Chloride 20 MEQ TABCR 40 MEQ PO (10:20)
--- NOTE | 2023-11-03 10:38 | PDOC.CMIN ---
Date of service: 11/03/23 Time of Service: 10:38 Care Management Initial Assmt Initial Assessment Reason for Hospitalization: sepsis, pneumonia s/p flu Functional Status/Living Situation Patient Presentation: Otilio was admitted yesterday afternoon, through the ER, with persistent fever and cough. He was diagnosed with Influenza on 10/24/23, was treated with Tamiflu, but did not really improve. He presented to Urgent Care on 10/28/23. He was started on antibiotics at that time for presumed pneumonia, but continued with cough and fever. Otilio was sitting up in the bedside chair, talking with his daughter, Kendy, when met with him this morning. He looked well. He was pleasant, and easily engaged. 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 Kenyd is going to present the speech today, in his stead. Otilio is eager to get some answers about the testing that has been done, and he is hoping to go home later today. Otilio's main goal is to be well enough to travel to [place] in 10 days. Town of Residence: [facility] Resides with: Spouse (Hattie) Significant Other/Family: Local (Daughter, Kendy, lives in [facility], and son, Carlito, lives in [place]. ) Natural Supports: and kids are great supports. 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 ) Instrumental Activities of Daily Living (ADLs): Independent Activities/Hobbies/SocialSupport: Otilio enjoys reading, hiking, travelling and spending time with his family. He also volunteer at [facility]. Medications Medication Management: No Issues/Barriers identified (denies any issues) Physical Functioning/Mobility Assistive Device: None. Is very active, an avid hiker. Advance Directives Advance Directives: Do you have an Advance Directive: Y 11/02/23 15:34 AD On File at [facility]: Y 11/02/23 15:34 Date Asked 11/02/23 11/02/23 15:34 AD Date Reviewed 11/02/23 11/02/23 15:34 COLST On File at [facility] COLST Date Scanned Code Status Resuscitation Status Full Code Insurance Coverage/Financial Issues Insurance: Medicare/ [place] State of [place] Financial Issues: denies problems Care Team Visit Care Team Role Provider Type CAITLIN GRANT NP Primary Care Provider NON-[facility] STAFF PHYSICIAN InPatient Jordon Crawley Other Providers OTHER Floyd Jordan MD Emergency Provider [facility] STAFF PHYSICIAN Faizan Cardenas MD Admit Provider [facility] STAFF PHYSICIAN Attending Provider Other: Velia Puckett MD - ice hockey coach Discharge Potential Discharge Needs: PCP F/U Appt Anticipated Barriers to Discharge: None Identified Patient/Family Education Needs: Review discharge instructions, discuss Ask Me Three Transportation: Private vehicle Plan: Anticipate that Otilio will be discharged home with no new services when he is medically cleared. He will follow up with his PCP. He will transport via private vehicle with a family member and continue per the discharge plan of care. PFSH All Active Problems Sepsis (Acute) Abnormal transaminases (Acute) Fever (Acute) Pneumonia (Acute) COVID-19 (Acute) Onset-11/20/21 FUlly vaccinated, 2 boosters Neuralgia and neuritis, unspecified (Acute) CLL (chronic lymphocytic leukemia) (Acute) diagnosed 2018, was seeing oncology at 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) on rituxan for this Essential hypertension (Chronic 05/19/16) Rheumatoid arthritis (Chronic) Medical History Insect bite Stiffness of left shoulder joint Presence of shoulder joint prosthesis Chronic cough Fatigue Scoliosis deformity of spine GERD without esophagitis Neck pain Seasonal allergic rhinitis Acute upper respiratory infection Acute sinusitis Thromboembolism of vein Essential hypertension Scleritis Cannabis use disorder Chronic lymphoid leukemia in remission Cataract removed 2021 L>R History of nasal polyp Asthma (04/12/12) exertional- used to use an inhaler Transient global amnesia (01/30/16) Seen in ER with episode of transient glogal amnesia Surgical History Status post fusion of wrist Total replacement of hip (07/14/11) left TOTAL LEFT SHOULDER 2013;[facility] PROC[facility] 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 SPENCE Family History Mother , 34 Stroke Father , 48 Substance abuse Alcohol abuse Sister Substance abuse Depression Asthma Maternal Grandfather , 76 No problems noted. Paternal Grandfather , age 78 Alcohol abuse Maternal Grandmother , age 99 No problems noted. Paternal Grandmother , age 68 Skin cancer Son Asthma Daughter Depression Family History RA (rheumatoid arthritis) Social History Smoking/Tobacco Use Status: Former Tobacco Use tobacco type: cigarettes, pipe, cigars and smokeless tobacco Quit Date: 02/20/73 Tobacco: How many years used: 5 Smokeless tobacco user: chewing tobacco Second Hand Exposure: Yes Smoking risk assessment performed?: Yes Alcohol Intake: current Alcohol Intake frequency: a few times a week Alcohol type: beer and hard liquor Drug use: Daily Substance use type: marijuana Counseling given: Yes Caregiver/Support person: No Household members: spouse Housing: house Communication Needs: None Do you need help understanding health information?: Never Pets and animals: Yes Pets and animals: dog(s) Sexually active: No Do you think of yourself as: straight/heterosexual Current gender identity: male What is your relationship status?: How often do you talk on the phone with friends or family?: three or more times per week How often do you get together with friends or relatives?: twice per week How often do you attend uatsdin or baptist services?: decline to answer Do you belong to any clubs or organized social groups?: no Panel score (0-1 are the most socially isolated patients): 2 What type of physical activity do you participate in: weight lifting and running Duration: 30-45 minutes/day Frequency: 3-4 times per week Kaye/Mormonism: None Special kaye needs: No Seatbelt use: always Helmet use: Yes Helmet use: always Drive intox 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 rail car driver: No Do you feel safe at home: Yes Do you feel safe in your relationship?: Yes Readmission Within the Past 30 Days Yes or No: No SDOH(Care Management) Screening Will the Patient Participate in the Screening?: Yes Do you worry about having a steady place to live?: no Problems where you live: no known problems In the past 12 months, have you had to go without electric, gas, oil or water in your home?: no Have you or anyone in your house had to go without enough food to eat?: no Has lack of transportation kept you from medical appointments or from doing things needed for daily living?: no Has anyone in your support network made you feel unsafe for any reason?: no
[2023-11-03] MEDS: VANCOMYCIN/WATER (PEG) 1.25 GM/250 ML BAG IV (11:56)
[2023-11-03] MEDS: Benzonatate 200 MG CAP PO ×2 (13:55→20:49)
[2023-11-03] MEDS: Normal Saline 1,000 ML 125 ML IV ×2 (13:58→23:05)
[2023-11-03] MEDS: Acetaminophen 500 MG TAB 1000 MG PO (15:22)
--- NOTE | 2023-11-03 16:46 | CHAPLAIN ---
Otilio was up in a chair, visiting with his daughter, Kendy, when I stopped in. 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 He easily engages in conversation. Otilio was waiting for tests results this morning and said he didn't get much sleep last night. He is hoping to go home today, but said he knows this is where he needs to be for now. I will continue to visit.
--- NOTE | 2023-11-03 19:03 | NUR.NOTE ---
Nursing Note: Patient developed a firm, swollen area on the left forearm at 1700 and notified this nurse of the issue. Area of swelling is distal to previous IV site. A warm compress was applied at 1800 and removed at 1900 during handoff with night nurse. Night nurse is aware and will monitor for further swelling or complications.
[2023-11-03 19:40] LABS: MRSA PCR Negative (Negative)
[2023-11-03] MEDS: guaiFENesin 600 MG TABCR 1200 MG PO (20:48)
[2023-11-03] MEDS: Enoxaparin 40 MG/0.4 ML SYR SC (20:52)
[2023-11-03 23:36] LABS: Legionella Ag Detection Urine Negative (Negative)
[2023-11-04] VITALS (14 sets, daily range): BP systolic 136–172; BP diastolic 70–91; PULSE 77–105; RESP 2–18; TEMP 36.6–38.1; O2SAT 93–96
[2023-11-04] MEDS: VANCOMYCIN/WATER (PEG) 1.25 GM/250 ML BAG IV ×3 (00:15→23:45)
[2023-11-04] MEDS: CEFEPIME 2 GM in Normal Saline 100 ML IVPB ×3 (02:15→18:06)
[2023-11-04] MEDS: Albuterol/Ipratropium 3 ML UPD VIAL UPD ×4 (03:45→21:53)
[2023-11-04 06:33] LABS: HGB 10.8 g/dL (13.5-17.5); MCH 28.3 pg (27.0-33.0); MCHC 33.8 % (32.0-36.0); MCV 84 fL (80-95); MPV 10.1 fL (8.0-11.0); Platelet Count 259 10^3/uL (130-400); RBC 3.82 10^6/uL (4.36-5.78); RDW 15.3 % (11.8-14.1); RDW-SD 46.5 fL
[2023-11-04 06:52] LABS: ALT 75 U/L (16-63); AST 65 U/L (15-37); Albumin 2.1 g/dL (3.4-5.0); Alkaline Phosphatase 354 U/L (46-116); Anion Gap 8.4 mmol/L (3-11); BUN 9 mg/dL (7-18); Bilirubin, Total 0.62 mg/dL (0.2-1.0); CO2 23.6 mmol/L (21.0-32.0); CREATININE 0.7 mg/dL (0.70-1.30); Calcium 8.4 mg/dL (8.5-10.1); Chloride 106 mmol/L (98-107); Glucose 95 mg/dL (74-106); Magnesium 1.6 mg/dL (1.8-2.4); Potassium 3.5 mmol/L (3.5-5.1); Sodium 138 mmol/L (136-145); Total Protein 5.9 g/dL (6.4-8.2)
[2023-11-04 07:01] LABS: Vancomycin, Random 13.9 ug/mL
[2023-11-04] MEDS: Omeprazole 20 MG CAPCR PO (07:38)
[2023-11-04] MEDS: Lactobacillus Acidophilus CAP 1 CAP PO ×3 (07:38→19:47)
[2023-11-04] MEDS: Ferrous Sulfate 325 MG TAB PO (07:38)
[2023-11-04] MEDS: guaiFENesin 600 MG TABCR 1200 MG PO ×2 (07:38→19:47)
[2023-11-04] MEDS: Benzonatate 200 MG CAP PO ×3 (07:38→19:47)
[2023-11-04] MEDS: Normal Saline Flush 10 ML SYR IVP ×2 (07:39→15:54)
[2023-11-04] MEDS: DOXYCYCLINE 100 MG in Normal Saline 100 ML IVPB (07:39)
--- NOTE | 2023-11-04 10:10 | W.PM.PROGNOT ---
Date of Service Date of service: 11/04/23 Time of Service: 10:10 Assessment and Plan Assessment and plan (1) Sepsis: Status: Acute Assessment and plan: WBC 12.19, HR 90s, RR 22 Continue Vancomycin, cefepime and doxy MRSA swab pending Sputum cx pending Urine legionella & strep pending PRN acetaminophen PRN ibuprofen Mucinex davide Benzonatate prn Vibra pep IS Scheduled nebs (2) Pneumonia: Status: Acute Assessment and plan: As above Worsening left upper lung infiltrate (3) Fever: Status: Acute Assessment and plan: Hepatiis and Tick and blood-borne pathogen panel pending No thrombocytopenia or lymphocytopenia seen (4) Abnormal transaminases: Status: Acute Assessment and plan: Will continue to monitor As above (5) CLL (chronic lymphocytic leukemia): Status: Acute Assessment and plan: Continue OPT management (6) Esophageal reflux: Status: Chronic Assessment and plan: on omeprozole (7) Essential hypertension: Status: Chronic Assessment and plan: No longer takes lisinopril Discussed with Dr. Cardenas Subjective Subjective Patient reports: tolerating liquids well, tolerating a regular diet, voiding w/o difficulty and afebrile; denies nausea or shortness of breath Interval history since last seen: still reporting malaise, fatigue and weakness. Exam Const General: cooperative, comfortable and no acute distress Nutritional Appearance: average body habitus Orientation: alert, awake and oriented x3 HENMT Head: normal to inspection, normocephalic and atraumatic Face and sinus: normal facial exam Mouth: oral mucosae normal Eyes General: appearance normal, both eyes and all related structures Chest Chest: normal inspection of the chest Resp Effort & Inspection: normal respiratory effort Auscultation: rhonchi right upper and right lower and no wheezes Cardio Rate: regular rate Rhythm: regular rhythm GI Inspection: normal to inspection Palpation: soft Skin General skin exam: no rashes or lesions noted Neuro General: patient alert, patient awake and patient oriented x3 Extrem General: normal to inspection and full ROM Psych Appearance: grossly normal Mental Status: mental status grossly normal Speech and Movement: speech and movement normal Mood: congruent mood Affect: normal affect Objective Last Vital Signs Temp 36.6 C 11/04/23 07:36 Pulse 87 11/04/23 07:36 Resp 13 11/04/23 07:36 BP 140/70 11/04/23 07:36 Pulse Ox 93 11/04/23 07:36 Laboratory Results - last 24 hr 11/03/23 11/03/23 11/04/23 06:15 18:15 06:00 WBC 14.90 H RBC 3.82 L Hgb 10.8 L Hct 32.0 L MCV 84 MCH 28.3 MCHC 33.8 RDW 15.3 H Plt Count 259 MPV 10.1 Sodium 138 Potassium 3.5 Chloride 106 Carbon Dioxide 23.6 Anion Gap 8.4 BUN 9 Creatinine 0.7 Est GFR (CKD-EPI 2020) 97.90 Glucose 95 Calcium 8.4 L Magnesium 1.9 1.6 L Total Bilirubin 0.62 AST 65 H ALT 75 H Alkaline Phosphatase 354 H Total Protein 5.9 L Albumin 2.1 L Random Vancomycin 13.9 MRSA (TEM-PCR) Negative Time Spent with Patient Time Spent with Patient: 35-49 minutes Time was spent: preparing to see the patient(eg.review tests), obtaining and/or reviewing separately otained hiistory, ordering medications,tests, procedures, indepentently interpreting results and counseling the patient
[2023-11-04] MEDS: Acetaminophen 325 MG TAB 650 MG PO ×2 (10:19→15:54)
[2023-11-04] MEDS: MAGNESIUM SULFATE 2 GM/50 ML BAG IVINF (11:04)
[2023-11-04] MEDS: Losartan 25 MG TAB PO (13:55)
[2023-11-04] MEDS: Enoxaparin 40 MG/0.4 ML SYR SC (19:46)
[2023-11-04] MEDS: DOXYCYCLINE 100 MG in Normal Saline 100 ML 75 MG IVPB (19:50)
--- NOTE | 2023-11-05 00:16 | W.ED.PROC ---
Date of service: 11/05/23 Time of Service: 00:18 Procedures EJ/Peripheral Line Arm R: Time Out Performed: Yes Skin Cleansed in Sterile Fashion: Yes Size (gauge): 18 IV Secured and Dressing Applied: Yes Patient Tolerated Procedure: well and no complications Additional Comments: Ultrasound-guided IV requested by nursing staff and hospitalist physician. Candidate vein examined with linear array probe - confirmed collapsibility, lack of pulsatility, and proper anatomic location. Using aseptic technique, IV catheter inserted with flash of blood noted, flow of venous blood confirmed. Flushes easily and without pain. No hematoma or complications noted. IV secured. Patient tolerated well. Medical Decision Making Quality:SDOH Health Related Social Needs: No Data to Display
--- NOTE | 2023-11-05 01:00 | RT.EKG_ITS ---
APPROVED REPORT Exam: Resting ECG Reason for Exam: chest pain Patient Location: I HR:89 bpm ECG Measurements Heart Rate 89 AXIS OR 210 P 0 QRSd 99 QRS -33 QT 356 T 15 QTc 434 Conclusion Sinus rhythm...normal P axis, V-rate 50- 99 Left axis deviation...QRS axis (-30,-90)
[2023-11-05] MEDS: Ibuprofen 800 MG TAB PO (01:29)
[2023-11-05 01:30] VITALS: BP 165/88; PULSE 92; RESP 18; TEMP 38; O2SAT 93
[2023-11-05] MEDS: CEFEPIME 2 GM in Normal Saline 100 ML IVPB ×2 (01:30→11:06)
[2023-11-05 05:55] VITALS: BP 136/73; PULSE 75; RESP 14; TEMP 36.8; O2SAT 95
[2023-11-05 06:51] LABS: MCV 83 fL (80-95); RDW 15.2 % (11.8-14.1)
[2023-11-05 07:04] LABS: Abs Immature Grans 1.67 10^3/uL (0.0-0.06); HCT 30.8 % (40.0-50.0); HGB 10.5 g/dL (13.5-17.5); MCH 28.4 pg (27.0-33.0); MCHC 34.1 % (32.0-36.0); MPV 10.4 fL (8.0-11.0); Platelet Count 263 10^3/uL (130-400); RDW-SD 46.1 fL; WBC 17.83 10^3/uL (4.4-10.8)
[2023-11-05 07:08] LABS: Absolute Eosinophil Count 0.18 10^3/uL (0.0-0.7); Absolute Lymphocyte Count 3.57 10^3/uL (1.2-3.4); Absolute Monocyte Count 5.71 10^3/uL (0.1-0.8); Absolute Neutrophil Count 7.67 10^3/uL (1.2-6.7); Diff Comment Manual Differential; Metamyelocytes % 4; RBC Morphology Normal
[2023-11-05 07:17] LABS: ALT 78 U/L (16-63); AST 59 U/L (15-37); Albumin 2.1 g/dL (3.4-5.0); Alkaline Phosphatase 366 U/L (46-116); Anion Gap 9.9 mmol/L (3-11); BUN 8 mg/dL (7-18); Bilirubin, Total 0.64 mg/dL (0.2-1.0); CO2 23.1 mmol/L (21.0-32.0); CREATININE 0.6 mg/dL (0.70-1.30); Calcium 8.5 mg/dL (8.5-10.1); Chloride 105 mmol/L (98-107); Estimated GFR 102.56 (mL/min/1.73m2); Glucose 88 mg/dL (74-106); Magnesium 1.9 mg/dL (1.8-2.4); Potassium 3.5 mmol/L (3.5-5.1); Sodium 138 mmol/L (136-145); Total Protein 5.9 g/dL (6.4-8.2)
[2023-11-05] MEDS: Omeprazole 20 MG CAPCR PO (08:45)
[2023-11-05] MEDS: Losartan 25 MG TAB PO (08:45)
[2023-11-05] MEDS: Lactobacillus Acidophilus CAP 1 CAP PO ×2 (08:45→13:29)
[2023-11-05] MEDS: guaiFENesin 600 MG TABCR 1200 MG PO (08:45)
[2023-11-05] MEDS: Benzonatate 200 MG CAP PO ×2 (08:45→13:29)
[2023-11-05] MEDS: Ferrous Sulfate 325 MG TAB PO (08:45)
[2023-11-05] MEDS: Doxycycline Hyclate 100 MG CAP PO (09:09)
--- NOTE | 2023-11-05 10:53 | W.PM.PROGNOT ---
Date of Service Date of service: 11/05/23 Time of Service: 10:54 Assessment and Plan Assessment and plan (1) Sepsis: Status: Acute Assessment and plan: WBC 17, HR 90s, RR 22 Continue Vancomycin, cefepime and doxy MRSA swab pending Sputum cx pending Urine legionella & strep pending PRN acetaminophen PRN ibuprofen Mucinex davide Benzonatate prn Vibra pep IS Scheduled nebs (2) Pneumonia: Status: Acute Assessment and plan: As above Worsening left upper lung infiltrate (3) Fever: Status: Acute Assessment and plan: Hepatiis and Tick and blood-borne pathogen panel pending No thrombocytopenia or lymphocytopenia seen (4) Abnormal transaminases: Status: Acute Assessment and plan: Will continue to monitor As above (5) CLL (chronic lymphocytic leukemia): Status: Acute Assessment and plan: Continue OPT management (6) Esophageal reflux: Status: Chronic Assessment and plan: on omeprozole (7) Essential hypertension: Status: Chronic Assessment and plan: No longer takes lisinopril Discussed with Dr. Cardenas Subjective Subjective Patient reports: no new complaints and feels better Interval history since last seen: max temp overnight 38.0 still with no oxygen requirements. white count continue to climb Exam Const General: cooperative, comfortable and no acute distress Nutritional Appearance: average body habitus Orientation: alert, awake and oriented x3 HENMT Head: normal to inspection, normocephalic and atraumatic Face and sinus: normal facial exam Mouth: oral mucosae normal Eyes General: appearance normal, both eyes and all related structures Chest Chest: normal inspection of the chest Resp Effort & Inspection: normal respiratory effort Auscultation: rhonchi right upper and right lower and no wheezes Cardio Rate: regular rate Rhythm: regular rhythm GI Inspection: normal to inspection Palpation: soft Skin General skin exam: no rashes or lesions noted Neuro General: patient alert, patient awake and patient oriented x3 Extrem General: normal to inspection and full ROM Psych Appearance: grossly normal Mental Status: mental status grossly normal Speech and Movement: speech and movement normal Mood: congruent mood Affect: normal affect Objective Last Vital Signs Temp 36.8 C 11/05/23 05:55 Pulse 75 11/05/23 05:55 Resp 14 11/05/23 05:55 BP 136/73 11/05/23 05:55 Pulse Ox 95 11/05/23 05:55 Laboratory Results - last 24 hr 11/05/23 06:00 WBC 17.83 H RBC 3.70 L Hgb 10.5 L Hct 30.8 L MCV 83 MCH 28.4 MCHC 34.1 RDW 15.2 H Plt Count 263 MPV 10.4 Immature Gran % 0.0 Neutrophils % 43.0 Lymphocytes % 20.0 Monocytes % 32.0 Eosinophils % 1.0 Basophils % 0.0 Metamyelocytes % 4 Nucleated RBC % 0.0 Absolute Neutrophils 7.67 H Absolute Lymphocytes 3.57 H Absolute Monocytes 5.71 H Absolute Eosinophils 0.18 Absolute Basophils 0.00 RBC Morphology Normal Sodium 138 Potassium 3.5 Chloride 105 Carbon Dioxide 23.1 Anion Gap 9.9 BUN 8 Creatinine 0.6 L Est GFR (CKD-EPI 2020) 102.56 Glucose 88 Calcium 8.5 Magnesium 1.9 Total Bilirubin 0.64 AST 59 H ALT 78 H Alkaline Phosphatase 366 H Total Protein 5.9 L Albumin 2.1 L
[2023-11-05] MEDS: Acetaminophen 325 MG TAB 650 MG PO (11:06)
[2023-11-05] MEDS: Normal Saline Flush 10 ML SYR IVP (11:07)
--- NOTE | 2023-11-05 12:01 | W.PM.DS.N ---
Date of service: 11/05/23 Time of Service: 12:01 DS: Diagnosis Discharge Diagnosis (1) Sepsis: Status: Acute (2) Pneumonia: Status: Acute (3) Fever: Status: Acute (4) Abnormal transaminases: Status: Acute (5) CLL (chronic lymphocytic leukemia): Status: Acute (6) Esophageal reflux: Status: Chronic (7) Essential hypertension: Status: Chronic Discharge Plan Disposition Patient Disposition: Home Condition: Improving Discharge Details Reason For Visit: Sepsis, Pneumonia s/p influenza Admit Date/Time: 11/02/23 14:01 Admit Provider: Faizan Cardenas Attending Provider: Faizan Cardenas Primary Care Provider: CAITLIN GRANT Hospital Course Hospital Course: This 73-year-old male patient with a past medical history of CLL, rheumatoid arthritis on Rituxan ,DVT in 2022, hypertension presented to the ED for evaluation of persistent fever. The patient was diagnosed with influenza on October 23, treated with Tamiflu with lack of symptoms improvement. He went to urgent care on October 27 with x-ray showing concerns for pneumonia. The patient was started on antibiotics which also was not helpful and then reported a second antibiotic given. The patient reported persistent fever. He did not have any oxygen requirements. Workup in the ED was significant for WBC 13.45, AST 76, ALT 104, ALK 372. Patient was negative for COVID, RSV and influenza. Chest x-ray showed increased size and extent of the left upper lobe pneumonia when compared to imaging obtained on 10/28/2023. In the ED the patient was treated with IV vancomycin and Zosyn. The hospitalist was consulted and patient admitted to the medical surgical floor for evaluation and management of for persistent fever, worsening pneumonia., slow to respond with ongoing increasing WBC so antibiotics broadened to vanco, cefepime and doxy while awaiting cultures. He remained hemodynamically stable and now clinically improving, feeling much better. He still has no oxygen requirements and is taking good PO. His white count did increase still to 17 but again, clinically improving. He is requesting discharge to home at this point. We did discuss possibility of setback from downstepping too soon but using shared decision making discharge to home without services will be arranged. will discharge to home on linezolid and levofloxacin for 7 more days to complete a 10 day course. he was given symptoms to return for evaluation if needed. he should have outpatient labs to follow CBC and liver function. he will follow up with pcp. discharge discussed with DR Cardenas Haworth Meds and New Rx's Prescriptions: New guaifenesin [Mucus Relief ER] 600 mg Tablet Extended Release 12hr 600 mg PO BID Qty: 0 0RF linezolid 600 mg tablet 600 mg PO BID 7 Days Qty: 14 0RF levofloxacin 750 mg tablet 750 mg PO DAILY Qty: 7 0RF Continued ferrous sulfate [Feosol] 325 mg (65 mg iron) tablet 325 mg PO DAILY albuterol sulfate [Proventil HFA] 90 mcg/actuation HFA aerosol inhaler 2 puff inhalation Q6H PRN (Reason: shortness of breath or wheezing) Qty: 8.5 0RF medical marijuana Inhalation 0RF epigallocatechin gallate(bulk) [green tea extract] 1,000 GM powder 1,000 gm Miscellaneous PRN Rituxan 10 MG/1 ML concentrate 10 mg IV every 6 months protein powder See Rx Instructions PO .COMPLEX PRN Patient Comments: 450 g PO PRN; Rx Instructions: 450 g PO PRN; omeprazole 20 mg capsule,delayed release(DR/EC) 20 mg PO DAILY Qty: 90 4RF montelukast 10 mg tablet 10 mg PO DAILY PRN dorzolamide-timolol 22.3-6.8 mg/mL drops 1 drp ophthalmic (eye) BID Patient Comments: INSTILL 1 DROP IN EACH EYE TWO TIMES A DAY Changed losartan 25 mg tablet 25 mg PO DAILY Qty: 0 0RF Patient Comments: TAKE ONE TABLET BY MOUTH EVERY DAY DIRECTED FOR BLOOD PRESSURE Discontinued amoxicillin-pot clavulanate 875-125 mg tablet 875 tab PO 1XD Patient Comments: TAKE 1 TABLET BY MOUTH EVERY 12 HOURS No Action apixaban 5 mg tablet 5 mg PO BID 30 Days Qty: 60 1RF lisinopril 10 mg tablet 10 mg PO DAILY Qty: 90 4RF Discharge Instructions Instructions: Pneumonia, Adult (DC) Additional Instructions: Your liver function tests have slowly been returning to normal limits Your AST on admission was 95 it is down to 59 Your ALT was 95 on admission down to 78 Your total bilirubin has remained normal and is 0.64 at discharge Your alk phos was 328 on admission and it is 366 at discharge Your outpatient primary care provider will continue to monitor these labs outpatient. You will continue taking antibiotics after discharge for 1 more week. Please complete the course even if you are feeling better and less instructed by your doctor. Push fluids drinking at least 6 to 8 glasses of water daily to stay well-hydrated Return to the emergency department or contact your primary care provider if your symptoms worsen, including increased shortness of breath, chest pain, not tolerating oral fluids or medications or any concerns. Stand Alone Forms: Nursing Discharge Form Referrals: CAITLIN GRANT DRAW FRAME TENDER [Primary Care Provider] - (Call tomorrow to make follow up for next 1-2 weeks) Activity:: Activity as Tolerated Equipment/Supplies:: No Equipment Needed Diet:: As Tolerated Discharge Orders Discharge Orders: Discharge Order (Routine); Ordered 11/05/23 Ordered By: Katharine Hughes Other Ambulatory Orders: Complete Blood Count w/Diff (Routine) Timeframe: 20231106 Facility: [facility] - Location: Laboratory Outpatient - [facility] Ordered By: Katharine Hughes Comprehensive Metabolic Panel (Routine) Timeframe: 20231106 Facility: [facility] - Location: Laboratory Outpatient - [facility] Ordered By: Katharine Hughes Discharge Data Discharge Date/Time-TO BE ENTERED AT DEPARTURE: 11/05/23 14:14 DS: Summary Time Spent with Patient providing and/or coordinating discharge services: Greater than 30 minutes Status at Discharge Functional status at discharge: independent ambulation Overall status at discharge: patient is progressing back to baseline Mental Status: mental status grossly normal Speech and Movement: speech and movement normal Mood: congruent mood Affect: normal affect Quality:SDOH Health Related Social Needs: No Data to Display Exam Const General: cooperative, comfortable and no acute distress Nutritional Appearance: average body habitus Orientation: alert, awake and oriented x3 HENMT Head: normal to inspection, normocephalic and atraumatic Face and sinus: normal facial exam Mouth: oral mucosae normal Eyes General: appearance normal, both eyes and all related structures Chest Chest: normal inspection of the chest Resp Effort & Inspection: normal respiratory effort Auscultation: rhonchi right upper and right lower and no wheezes Cardio Rate: regular rate Rhythm: regular rhythm GI Inspection: normal to inspection Palpation: soft Skin General skin exam: no rashes or lesions noted Neuro General: patient alert, patient awake and patient oriented x3 Extrem General: normal to inspection and full ROM Psych Appearance: grossly normal Mental Status: mental status grossly normal Speech and Movement: speech and movement normal Mood: congruent mood Affect: normal affect DS: Data Vitals/I&O Vitals and I&O: Vital Signs Temperature 36.8 C 11/05/23 05:55 Temperature Source Tympanic 11/05/23 05:55 Pulse 75 11/05/23 05:55 Pulse Rhythm Regular 11/02/23 16:23 Pulse 90 11/02/23 15:10 Respiratory Rate 14 11/05/23 05:55 Respiratory Effort Normal 11/02/23 16:23 Respiratory Depth Normal 11/02/23 16:23 Blood Pressure 136/73 11/05/23 05:55 Blood Pressure Mean 102 11/02/23 15:01 Blood Pressure Position Sitting 11/02/23 09:12 Pulse Oximetry 95 11/05/23 05:55 Oxygen Delivery Method Room Air 11/05/23 05:55 Oxygen Flow Rate 0 11/05/23 05:55 Pain Level 0 11/05/23 05:55 Comment RN Notified 11/04/23 23:35 Intake & Output 11/04/23 11/05/23 11/05/23 23:59 11:59 23:59 Intake Total 992.5 / 2607.5 610 / 610 Balance 992.5 / 2607.5 610 / 610 Intake: IV 442.5 / 2057.5 360 / 360 Oral 550 / 550 250 / 250 Other: Urine Color Yellow Comment pt independently voids, pt denies any discomfort or concerns uses toilet independently Voiding Methods Toilet Toilet Data Completed and Pending Labs on day of discharge: Labs from last 24 hours 11/05/23 06:00 WBC 17.83 H RBC 3.70 L Hgb 10.5 L Hct 30.8 L MCV 83 MCH 28.4 MCHC 34.1 RDW 15.2 H Plt Count 263 MPV 10.4 Immature Gran % 0.0 Neutrophils % 43.0 Lymphocytes % 20.0 Monocytes % 32.0 Eosinophils % 1.0 Basophils % 0.0 Metamyelocytes % 4 Nucleated RBC % 0.0 Absolute Neutrophils 7.67 H Absolute Lymphocytes 3.57 H Absolute Monocytes 5.71 H Absolute Eosinophils 0.18 Absolute Basophils 0.00 RBC Morphology Normal Sodium 138 Potassium 3.5 Chloride 105 Carbon Dioxide 23.1 Anion Gap 9.9 BUN 8 Creatinine 0.6 L Est GFR (CKD-EPI 2020) 102.56 Glucose 88 Calcium 8.5 Magnesium 1.9 Total Bilirubin 0.64 AST 59 H ALT 78 H Alkaline Phosphatase 366 H Total Protein 5.9 L Albumin 2.1 L 11/02/23 22:18 Sputum Sputum Culture - Pending 11/02/23 22:18 Sputum Gram Stain - Pending Preliminary micro results at discharge 11/03/23 17:12 Blood Culture - Preliminary Blood NO GROWTH 24 HOURS 11/03/23 17:02 Blood Culture - Preliminary Blood NO GROWTH 24 HOURS 11/02/23 10:25 Blood Culture - Preliminary Blood NO GROWTH 48 HOURS 11/02/23 09:45 Blood Culture - Preliminary Blood NO GROWTH 48 HOURS 11/02/23 22:18 Sputum Culture - Pending Sputum Gram Stain - Pending [facility] All Active Problems Sepsis (Acute) Abnormal transaminases (Acute) Fever (Acute) Pneumonia (Acute) COVID-19 (Acute) Onset-11/20/21 FUlly vaccinated, 2 boosters Neuralgia and neuritis, unspecified (Acute) CLL (chronic lymphocytic leukemia) (Acute) diagnosed 2018, was seeing oncology at [facility], now followed by rheumatology In remission on Rituxan Glaucoma (Chronic) Sees Dr Charles Esophageal reflux (Chronic) 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) on rituxan for this Essential hypertension (Chronic 05/19/16) Rheumatoid arthritis (Chronic) Medical History Insect bite Stiffness of left shoulder joint Presence of shoulder joint prosthesis Chronic cough Fatigue Scoliosis deformity of spine GERD without esophagitis Neck pain Seasonal allergic rhinitis Acute upper respiratory infection Acute sinusitis Thromboembolism of vein Essential hypertension Scleritis Cannabis use disorder Chronic lymphoid leukemia in remission Cataract removed 2021 L>R History of nasal polyp Asthma (04/12/12) exertional- used to use an inhaler 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 SPENCE Family History Mother , 34 Stroke Father , 48 Substance abuse Alcohol abuse Sister Substance abuse Depression Asthma Maternal Grandfather , 76 No problems noted. Paternal Grandfather , age 78 Alcohol abuse Maternal Grandmother , age 99 No problems noted. Paternal Grandmother , age 68 Skin cancer Son Asthma Daughter Depression Family History RA (rheumatoid arthritis) Social History Smoking/Tobacco Use Status: Former Tobacco Use tobacco type: cigarettes, pipe, cigars and smokeless tobacco Quit Date: 02/20/73 Tobacco: How many years used: 5 Smokeless tobacco user: chewing tobacco Second Hand Exposure: Yes Smoking risk assessment performed?: Yes Alcohol Intake: current Alcohol Intake frequency: a few times a week Alcohol type: beer and hard liquor Drug use: Daily Substance use type: marijuana Counseling given: Yes Caregiver/Support person: No Household members: spouse Housing: house Communication Needs: None Do you need help understanding health information?: Never Pets and animals: Yes Pets and animals: dog(s) Sexually active: No Do you think of yourself as: straight/heterosexual Current gender identity: male What is your relationship status?: How often do you talk on the phone with friends or family?: three or more times per week How often do you get together with friends or relatives?: twice per week How often do you attend [employer] or jehovah's witness services?: decline to answer Do you belong to any clubs or organized social groups?: no Panel score (0-1 are the most socially isolated patients): 2 What type of physical activity do you participate in: weight lifting and running Duration: 30-45 minutes/day Frequency: 3-4 times per week Kaye/Tenriism: None Special kaye needs: No Seatbelt use: always Helmet use: Yes Helmet use: always Drive intox 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 airport shuttle driver: No Do you feel safe at home: Yes Do you feel safe in your relationship?: Yes Time Spent with Patient Time Spent with Patient: 45-69 minutes Time was spent: preparing to see the patient(eg.review tests), obtaining and/or reviewing separately otained hiistory, ordering medications,tests, procedures, indepentently interpreting results and counseling the patient
[2023-11-05] MEDS: VANCOMYCIN/WATER (PEG) 1.25 GM/250 ML BAG IV (12:04)
[2023-11-06 11:36] LABS: Hepatitis A Antibody IgM Negative (Negative); Hepatitis B Core Antibody Negative (Negative); Hepatitis B surface Ag Negative (Negative); Hepatitis C Ab w Rflx HCV PCR Negative (Negative)
[2023-11-06 13:02] LABS: Lyme Ab w Rflx to Lyme Confirm Negative (Negative)
[2023-11-08 00:21] LABS: Anaplasma phagocytophilum Negative (Negative); B. miyamotoi PCR Negative (Negative); Babesia divergens/MO-1 Negative (Negative); Babesia duncani Negative (Negative); Babesia microti Negative (Negative); Ehrlichia chaffeensis Negative (Negative); Ehrlichia ewingii/canis Negative (Negative); Ehrlichia muris eauclairensis Negative (Negative)
== END 2023-11-05 14:14 | disposition home or self-care (01) | DRG 871 ==
LOC: ER 11:10 → MS 15:29
PROVIDERS: Nurse Practitioner Acute Care; Nurse Practitioner Family; Admitting Provider Internal Medicine; Emergency Provider Emergency Medicine; PCP Nurse Practitioner Family; Visit Provider Internal Medicine
DX: A41.9 Sepsis, unspecified organism (principal); J18.9 Pneumonia, unspecified organism; C91.10 Chronic lymphocytic leukemia of B-cell type not having achieved remission; D84.821 Immunodeficiency due to drugs; I10 Essential (primary) hypertension; R74.01 Elevation of levels of liver transaminase levels; K21.9 Gastro-esophageal reflux disease without esophagitis; Z86.718 Personal history of other venous thrombosis and embolism; M10.9 Gout, unspecified; H40.9 Unspecified glaucoma; Z96.612 Presence of left artificial shoulder joint; Z96.642 Presence of left artificial hip joint; F12.90 Cannabis use, unspecified, uncomplicated; Z79.69 Long term (current) use of other immunomodulators and immunosuppressants; M79.2 Neuralgia and neuritis, unspecified
CPT/HCPCS: 36573; 00123; 36415; 36569; 71250; 80048; 80053; 80076; 84145; 85027; 86704; 86709; 86803; 87040; 87340; 87449; 87637; 87641; 87798; 96365; 96366; 96367; 97161; 97530; 99285; J1650; 71045; 80202; 81003; 81015; 83605; 83735; 84484; 85025; 86618; 87070; 87086; 87205; 87899; 94640; 94667; 94668; 94760; 99223; 99232; 99239; J0131; J0692; J2543; J3372; J3475; J7620

== ENCOUNTER 2023-11-23 12:10 | Outpatient (CLI) | payer MEDICARE, BC, SELFPAY ==
[2023-11-23 12:48] LABS: Absolute Basophil Count 0.01 10^3/uL (0.0-0.2); Absolute Lymphocyte Count 2.85 10^3/uL (1.2-3.4); Absolute Neutrophil Count 2.39 10^3/uL (1.2-6.7); Basophils % 0.2 %; Eosinophils % 1.6 %; HCT 36.1 % (40.0-50.0); HGB 11.8 g/dL (13.5-17.5); Immature Grans % 1.6 %; Lymphocytes % 44.2 %; MCH 27.6 pg (27.0-33.0); MCHC 32.7 % (32.0-36.0); MCV 84 fL (80-95); MPV 9.8 fL (8.0-11.0); Monocytes % 15.5 %; Neutrophils % 36.9 %; Platelet Count 471 10^3/uL (130-400); RBC 4.28 10^6/uL (4.36-5.78); RDW 16.1 % (11.8-14.1); RDW-SD 49.5 fL; WBC 6.45 10^3/uL (4.4-10.8)
[2023-11-23 13:49] LABS: ALT 73 U/L (16-63); AST 34 U/L (15-37); Albumin 2.8 g/dL (3.4-5.0); Alkaline Phosphatase 303 U/L (46-116); Anion Gap 9.5 mmol/L (3-11); BUN 10 mg/dL (7-18); Bilirubin, Total 0.37 mg/dL (0.2-1.0); CO2 26.5 mmol/L (21.0-32.0); CREATININE 0.8 mg/dL (0.70-1.30); Calcium 9.3 mg/dL (8.5-10.1); Chloride 104 mmol/L (98-107); Estimated GFR 94.03 (mL/min/1.73m2); Glucose 126 mg/dL (74-106); Potassium 4.1 mmol/L (3.5-5.1); Sodium 140 mmol/L (136-145); Total Protein 7.1 g/dL (6.4-8.2)
[2023-11-24 10:06] LABS: IgA 214 mg/dL (85-499); IgG 578 mg/dL (610-1616); IgM 39 mg/dL (35-242)
== END 2023-11-23 12:11 | disposition home or self-care (01) ==
PROVIDERS: PCP Nurse Practitioner Family; Visit Provider Internal Medicine Rheumatology
DX: D80.1 Nonfamilial hypogammaglobulinemia (principal); C91.10 Chronic lymphocytic leukemia of B-cell type not having achieved remission; A41.9 Sepsis, unspecified organism; R74.8 Abnormal levels of other serum enzymes
CPT/HCPCS: 36415; 80053; 82784; 85025

== ENCOUNTER 2023-12-20 12:15 | Outpatient (REF) | payer MEDICARE, BC, SELFPAY ==
[2023-12-20 16:44] LABS: Abs Immature Grans 0.42 10^3/uL (0.0-0.06); Absolute Basophil Count 0.04 10^3/uL (0.0-0.2); Absolute Eosinophil Count 0.16 10^3/uL (0.0-0.7); Absolute Monocyte Count 3.92 10^3/uL (0.1-0.8); Basophils % 0.3 %; Eosinophils % 1.3 %; HCT 38.9 % (40.0-50.0); HGB 12.7 g/dL (13.5-17.5); Immature Grans % 3.5 %; Lymphocytes % 19.1 %; MCH 27.6 pg (27.0-33.0); MCHC 32.6 % (32.0-36.0); MCV 85 fL (80-95); MPV 10.4 fL (8.0-11.0); Monocytes % 32.5 %; Neutrophils % 43.3 %; Platelet Count 381 10^3/uL (130-400); RDW 16.1 % (11.8-14.1); RDW-SD 49.4 fL; WBC 12.05 10^3/uL (4.4-10.8)
[2023-12-20 16:47] LABS: Absolute Neutrophil Count 5.22 10^3/uL (1.2-6.7)
[2023-12-20 17:05] LABS: Diff Comment Agrees w/ Instrument; RBC Morphology Normal
[2023-12-20 17:12] LABS: ALT 63 U/L (16-63); AST 44 U/L (15-37); Albumin 2.9 g/dL (3.4-5.0); Alkaline Phosphatase 208 U/L (46-116); Anion Gap 8.6 mmol/L (3-11); BUN 11 mg/dL (7-18); Bilirubin, Total 0.49 mg/dL (0.2-1.0); CO2 28.4 mmol/L (21.0-32.0); CREATININE 0.8 mg/dL (0.70-1.30); Calcium 9.5 mg/dL (8.5-10.1); Chloride 104 mmol/L (98-107); Estimated GFR 93.45 (mL/min/1.73m2); Glucose 89 mg/dL (74-106); Potassium 4.5 mmol/L (3.5-5.1); Sodium 141 mmol/L (136-145); Total Protein 7.5 g/dL (6.4-8.2)
== END 2023-12-20 12:16 | disposition home or self-care (01) ==
LOC: NCHCN 12:15
PROVIDERS: PCP Nurse Practitioner Family; Visit Provider Nurse Practitioner Family
DX: Z87.01 Personal history of pneumonia (recurrent) (principal); I10 Essential (primary) hypertension
CPT/HCPCS: 80053; 85025

== ENCOUNTER 2024-01-03 15:07 | Outpatient (CLI) | payer MEDICARE, BC, SELFPAY ==
--- NOTE | 2024-01-03 | DI.RAD_ITS ---
Exam(s) XR CHEST 2V PA LATERAL EXAM: XR CHEST 2V PA LATERAL CLINICAL HISTORY: COUGH, R05.9 TECHNIQUE: 2D digital imaging was performed of the chest. Two images were obtained. PA and lateral views were obtained. COMPARISON: CR XR PORTABLE CHEST AP from 11/02/2023 FINDINGS: MEDIASTINUM: Normal. HEART: Normal. PULMONARY VASCULATURE: Normal. LUNGS: There are infiltrates seen in the left upper lobe. The right lung is clear. PLEURAL SPACE: No pleural effusion or pneumothorax. BONE:Within normal limits for the patient's age. There is a left shoulder replacement again noted. OTHER FINDINGS:Normal. IMPRESSION: Left upper lobe pneumonia. DATA REPOSITORY: RADIATION DOSE DELIVERED:
--- NOTE | 2024-01-03 16:45 | DI.VRAD_ITS ---
PROCEDURE INFORMATION: Exam: XR Chest Exam date and time: 01/03/2024 4:06 PM Age: 73 years old Clinical indication: Cough TECHNIQUE: Imaging protocol: Radiologic exam of the chest. Views: 2 views. COMPARISON: CT CHEST WO 01/29/2024 20:40 FINDINGS: Lungs: Patchy left upper lobe infiltrate and left lower lobe infiltrate. Low lung volumes. Pleural spaces: Unremarkable. No pleural effusion. No pneumothorax. Heart/Mediastinum: Stable cardiomediastinal silhouette. Bones/joints: Left shoulder arthroplasty. Multilevel degenerative changes of the thoracic spine. IMPRESSION: Left pneumonia. Dictated and Authenticated by: Velia Ramos MD. Ordering:HILARIA Ballard MD
== END 2024-01-03 15:27 ==
LOC: DI 15:09
PROVIDERS: PCP Nurse Practitioner Family; Visit Provider Physician Assistant Medical
DX: J18.9 Pneumonia, unspecified organism (principal)
CPT/HCPCS: 71046

== ENCOUNTER 2024-01-03 21:54 | Outpatient (REF) | payer MEDICARE, BC, SELFPAY ==
[2024-01-03 21:32] LABS: Influenza A PCR Negative (Negative); Influenza B PCR Negative (Negative); RSV PCR Negative (Negative)
[2024-01-03 21:37] LABS: COVID-19 PCR Positive (Negative); Source NASOPHARYNX
== END 2024-01-03 21:55 | disposition home or self-care (01) ==
LOC: LBN 21:54
PROVIDERS: PCP Nurse Practitioner Family; Visit Provider Physician Assistant Medical
DX: R50.9 Fever, unspecified (principal); Z11.59 Encounter for screening for other viral diseases; Z20.822 Contact with and (suspected) exposure to COVID-19
CPT/HCPCS: 87637

== ENCOUNTER 2024-01-04 08:30 | Emergency (ER) | payer MEDICARE, BC, SELFPAY ==
[2024-01-04] VITALS (11 sets, daily range): BP systolic 129–142; BP diastolic 67–73; PULSE 85–106; RESP 17–24; TEMP 36.3; O2SAT 93–97
--- NOTE | 2024-01-04 09:15 | ED.GENADUL_ITS ---
Discharge Plan Disposition Patient Disposition: Home Condition: Stable Discharge Details Clinical Impression: COVID-19, CLL (chronic lymphocytic leukemia), Rheumatoid arthritis, Essential hypertension, Pneumonia Primary Care Provider: CAITLIN GRANT ED Provider: Marybeth Heaton Home Meds and New Rx's Prescriptions: New Paxlovid 300 mg (150 mg x 2)-100 mg tablets,dose pack See Rx Instructions .ROUTE .COMPLEX Qty: 30 0RF Rx Instructions: take TWO 150 mg tablets of nirmatrelvir with ONE 100 mg tablet of ritonavir twice daily for 5 days No Action ferrous sulfate [Feosol] 325 mg (65 mg iron) tablet 325 mg PO DAILY medical marijuana Inhalation 0RF epigallocatechin gallate(bulk) [green tea extract] 1,000 GM powder 1,000 gm Miscellaneous PRN Rituxan 10 MG/1 ML concentrate 10 mg IV every 6 months protein powder See Rx Instructions PO .COMPLEX PRN Patient Comments: 450 g PO PRN; Rx Instructions: 450 g PO PRN; omeprazole 20 mg capsule,delayed release(DR/EC) 20 mg PO DAILY Qty: 90 4RF dorzolamide-timolol 22.3-6.8 mg/mL drops 1 drp ophthalmic (eye) BID Patient Comments: INSTILL 1 DROP IN EACH EYE TWO TIMES A DAY losartan 25 mg tablet 25 mg PO DAILY Qty: 0 0RF Patient Comments: TAKE ONE TABLET BY MOUTH EVERY DAY DIRECTED FOR BLOOD PRESSURE cefpodoxime 200 mg tablet 200 mg PO BID doxycycline hyclate 100 mg capsule 100 mg PO BID Discharge Instructions Instructions: Community-Acquired Pneumonia, Adult (DC), COVID-19 ED Additional Instructions: 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 Will physical examination performed and laboratory studies are reassuring. We monitored your oxygen in the emergency department and did not get low, and so it is safe for you to continue your course of antibiotics. We have also started you on Paxlovid, an antiviral medication which can decrease the duration of COVID symptoms as well as severe severity. Please continue to take all of your medications as prescribed, maintain good hydration and nutrition, and follow-up with your primary care prov ider in the next few days to discuss this visit symptoms change, worsen, or persist. If you notice that your pulse oximeter is not reading less than 90%, please take a deep breath, rest and ensure that your hand is not overwhelming while circulated. Please recheck and if this remains well you can always call your provider or return for reevaluation. Additionally, if you have persistent fevers, worsening shortness of breath, or any other abnormalities that cause you concern you can return to the emergency department. Thank you for allowing us to be part of your care. HPI General Date/Time Provider Initiated Documentation: 01/04/24 09:12 . Limitations to Documentation: no limitations . Information obtained by: patient, family, RN/MD and old records reviewed . HPI Narrative: HPI: This is a 73-year-old male patient with a past medical history significant for rheumatoid arthritis on rituximab, CLL not currently on active treatment, hypertension, and admission to this hospital 2 months ago for sepsis secondary to a pulmonary/pneumonia source. He is presenting for evaluation of hypoxia in setting of a recent diagnosis of pneumonia. The patient reports that he has not quite recovered from his recent hospitalization, but noted a worsening on Monday of this week with fever to 101, worsening cough, phlegm, and fatigue. He states that he has not had a fever every day, last fever was yesterday. Has been managing his symptoms with [id number] medications such as Tylenol, ibuprofen. He states that he sought care at an urgent care yesterday, and had a an x-ray performed that showed a left upper lobe pneumonia for which she was started on cefpodoxime and doxycycline. He states that he had a negative rapid flu and RSV at that time. He was instructed to monitor his oxygen saturations at home, and states that on his home probe he noted his oxygen saturation to be less than 91%, prompting him to come in for evaluation. Incidentally, while the patient was in our emergency department I did receive a call from the PA who cared for him at the urgent care, who report that the patient's COVID test had indeed come back positive. Exam: Gen: Awake and alert, in no apparent distress HEENT: Non-icteric sclera, bilateral TMs clear, mucous membranes moist Neck: Supple, full range of motion without meningismus Lungs: No apparent respiratory distress, normal respiratory effort. Crackles /focal wheezing appreciated left upper lobe, otherwise lungs are clear without wheezes, rhonchi, rales CV: Appears well perfused, heart with regular rate and rhythm, strong distal pulses Abdomen: Non-distended, soft, nontender MSK: Moves 4 extremities without apparent limitation in ROM. No peripheral edema Skin: Visualized skin without rashes, cyanosis. Neuro: Normal Gait, no obvious focal deficits or facial asymmetry. Speaks in full, clear sentences. Psych: Appropriate for situation. MDM: This is a 73-year-old male patient presenting for evaluation of low oxygen saturations. My differential includes but is not limited to pneumonia, viral infection including COVID-19. Certainly considered transient hypoxia, equipment failure, atelectasis. The patient is reassuringly without active fever, or hypotension to significantly increase my concern for sepsis or bacteremia. He is tolerating p.o. intake, and I have a lower concern for dehydration, metabolic abnormalities, or kidney injury. He has no history of reactive airway disease nor wheezing on physical examination to suggest exacerbation, no evidence of fluid overload on physical examination. I will obtain laboratory studies to include CBC, CMP, magnesium, and blood gas. I was able to review the patient's x-ray imaging, and agree with the interpretation of left upper lobe pneumonia, I do not feel that he requires any repeat imaging at this time. We will obtain ambulatory sats. ED Course: I reviewed the patient's laboratory studies, which noted a leukocytosis to 18 consistent with his active infection, mild anemia at 12 and no thrombocytopenia. Chemistry panel is without significant electrolyte derangements, no evidence of kidney dysfunction, very modest elevation in AST to 57 and alkaline phosphatase to 170. VBG without acidosis, normal hypercarbia. The patient had no significant desaturation with ambulatory oxygenation testing, and I performed a medication review, and he has no contraindications to Paxlov id. For this reason, I did send a prescription for Paxlovid to his pharmacy, and recommended that he continue his home antibiotic. The patient understands to maintain good pulmonary hygiene, and follow-up with his primary care provider for reassessment after completion of his antibiotic course for reassessment given the frequency for which he is developed respiratory disease. At this time, the patient has had a full medical evaluation and is safe for discharge to home. They are hemodynamically stable, ambulatory, and tolerating PO. They are understanding of the follow-up plan and return precautions. They left our facility without incident. Marybeth Heaton MD Related Data Home Medications ?Medication ?Instructions ?Recorded ?Confirmed epigallocatechin gallate(bulk) 1,000 gm miscellaneous PRN 05/05/16 01/04/24 (green tea extract powder) rituximab 10 mg/mL 10 mg IV every 6 months 09/08/16 01/04/24 concentrate,intravenous (Rituxan) protein See Rx Instructions PO .COMPLEX PRN 06/21/18 01/04/24 ferrous sulfate 325 mg (65 mg 325 mg PO DAILY 07/27/21 01/04/24 iron) tablet (Feosol) omeprazole 20 mg capsule,delayed 20 mg PO DAILY #90 tab-caps 05/09/22 01/04/24 release dorzolamide 22.3 mg-timolol 6.8 1 drp ophthalmic (eye) BID 11/02/23 01/04/24 mg/mL eye drops losartan 25 mg tablet 25 mg PO DAILY #0 tabs 11/05/23 01/04/24 cefpodoxime 200 mg tablet 200 mg PO BID 01/04/24 01/04/24 doxycycline hyclate 100 mg capsule 100 mg PO BID 01/04/24 01/04/24 nirmatrelvir 300 mg (150 mg See Rx Instructions PO .COMPLEX 01/04/24 x2)-ritonavir 100 mg tablet,dose #30 dose pk pack (Paxlovid) Previous Rx's ?Medication ?Instructions ?Recorded omeprazole 20 mg capsule,delayed 20 mg PO DAILY #90 tab-caps 05/09/22 release losartan 25 mg tablet 25 mg PO DAILY #0 tabs 11/05/23 nirmatrelvir 300 mg (150 mg See Rx Instructions PO .COMPLEX 01/04/24 x2)-ritonavir 100 mg tablet,dose #30 dose pk pack (Paxlovid) Allergies Allergy/AdvReac Type Severity Reaction Status Date / Time gold sodium thiomalate Allergy Intermediate Skin Rash Verified 01/04/24 09:13 cat dander Allergy Other (See Verified 01/04/24 09:13 Comment) adalimumab (From Humira) AdvReac Intermediate non-effecti Verified 01/04/24 09:13 ve etanercept (From Enbrel) AdvReac Intermediate Unknown Verified 01/04/24 09:13 methotrexate AdvReac Intermediate Unknown Verified 01/04/24 09:13 DUST Allergy Unknown Other (See Uncoded 01/04/24 09:13 Comment) General Stated Complaint: RespSymp BERTA: 3 Course Vital Signs Vital signs: Vital Signs Temperature 36.3 C L 01/04/24 09:09 Pulse 92 H 01/04/24 09:09 Respiratory Rate 18 01/04/24 09:09 Blood Pressure 142/72 H 01/04/24 09:09 Pulse Oximetry 95 01/04/24 09:09 Temperature 36.3 C L 01/04/24 09:12 Temperature Source Temporal Artery Scan 01/04/24 09:12 Pulse 92 H 01/04/24 09:12 Respiratory Rate 18 01/04/24 09:12 Blood Pressure 142/72 H 01/04/24 09:12 Blood Pressure Position Sitting 01/04/24 09:12 Pulse Oximetry 95 01/04/24 09:12 Oxygen Delivery Method Room Air 01/04/24 09:12 Oxygen Flow Rate 0 01/04/24 09:12 Medical Decision Making Quality:SDOH Health Related Social Needs: No Data to Display PFSH All Active Problems (Updated 01/04/24 @ 10:13 by Marybeth Heaton MD) Pneumonia (Acute) Phlegm in throat (Acute) Sepsis (Acute) Abnormal transaminases (Acute) Fever (Acute) COVID-19 (Acute) Onset-11/20/21 FUlly vaccinated, 2 boosters Neuralgia and neuritis, unspecified (Acute) CLL (chronic lymphocytic leukemia) (Acute) diagnosed 2018, was seeing oncology at [facility], now followed by rheumatology In remission on Rituxan Glaucoma (Chronic) Sees Dr Charles Esophageal reflux (Chronic) 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) on rituxan for this Essential hypertension (Chronic 05/19/16) Rheumatoid arthritis (Chronic) Medical History (Updated 01/04/24 @ 10:13 by Marybeth Heaton MD) Pneumonia Insect bite Stiffness of left shoulder joint Presence of shoulder joint prosthesis Chronic cough Fatigue Scoliosis deformity of spine GERD without esophagitis Neck pain Seasonal allergic rhinitis Acute upper respiratory infection Acute sinusitis Thromboembolism of vein Essential hypertension Scleritis Cannabis use disorder Chronic lymphoid leukemia in remission Cataract removed 2021 L>R History of nasal polyp Asthma (04/12/12) exertional- used to use an inhaler 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 SPENCE Family History Mother , 34 Stroke Father , 48 Substance abuse Alcohol abuse Sister Substance abuse Depression Asthma Maternal Grandfather , 76 No problems noted. Paternal Grandfather , age 78 Alcohol abuse Maternal Grandmother , age 99 No problems noted. Paternal Grandmother , age 68 Skin cancer Son Asthma Daughter Depression Family History RA (rheumatoid arthritis) Social History Smoking/Tobacco Use Status: Former Tobacco Use tobacco type: cigarettes, pipe, cigars and smokeless tobacco Quit Date: 02/20/73 Tobacco: How many years used: 5 Smokeless tobacco user: chewing tobacco Second Hand Exposure: Yes Smoking risk assessment performed?: Yes Alcohol Intake: current Alcohol Intake frequency: a few times a week Alcohol type: beer and hard liquor Drug use: Daily Substance use type: marijuana Counseling given: Yes Caregiver/Support person: No Household members: spouse Housing: house Communication Needs: None Do you need help understanding health information?: Never Pets and animals: Yes Pets and animals: dog(s) Sexually active: No Do you think of yourself as: straight/heterosexual Current gender identity: male What is your relationship status?: How often do you talk on the phone with friends or family?: three or more times per week How often do you get together with friends or relatives?: twice per week How often do you attend mu-ism or quaker services?: decline to answer Do you belong to any clubs or organized social groups?: no Panel score (0-1 are the most socially isolated patients): 2 What type of physical activity do you participate in: weight lifting and running Duration: 30-45 minutes/day Frequency: 3-4 times per week Kaye/Anabaptist: None Special kaye needs: No Seatbelt use: always Helmet use: Yes Helmet use: always Drive intox 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
[2024-01-04 09:17] LABS: BE (Venous) 1 mmol/L (-2-3); HCO3 (Venous) 27 mmol/L (23-28); O2 Sat (Venous) 38 %; TCO2 (Venous) 25 mmol/L (24-29); pCO2 (Venous) 50 mmHg (41-51); pH (Venous) 7.34 (7.31-7.41); pO2 (Venous) 26 mmHg
[2024-01-04 09:18] LABS: HCT 37.3 % (40.0-50.0); MCH 27.4 pg (27.0-33.0); MCHC 32.2 % (32.0-36.0); MCV 85 fL (80-95); MPV 10.1 fL (8.0-11.0); Platelet Count 353 10^3/uL (130-400); RBC 4.38 10^6/uL (4.36-5.78); RDW 16.9 % (11.8-14.1); RDW-SD 52.3 fL; WBC 18.65 10^3/uL (4.4-10.8)
[2024-01-04 09:41] LABS: Bands % 3 %
[2024-01-04 09:42] LABS: Absolute Eosinophil Count 0.37 10^3/uL (0.0-0.7); Absolute Lymphocyte Count 0.93 10^3/uL (1.2-3.4); Absolute Neutrophil Count 11.75 10^3/uL (1.2-6.7); Diff Comment Manual Differential; RBC Morphology Normal
[2024-01-04 09:55] LABS: ALT 58 U/L (16-63); AST 57 U/L (15-37); Albumin 2.9 g/dL (3.4-5.0); Alkaline Phosphatase 170 U/L (46-116); BUN 14 mg/dL (7-18); Bilirubin, Total 0.42 mg/dL (0.2-1.0); CREATININE 0.9 mg/dL (0.70-1.30); Chloride 104 mmol/L (98-107); Estimated GFR 90.18 (mL/min/1.73m2); Glucose 95 mg/dL (74-106); Magnesium 1.9 mg/dL (1.8-2.4); Potassium 4.4 mmol/L (3.5-5.1); Sodium 142 mmol/L (136-145); Total Protein 6.4 g/dL (6.4-8.2)
== END 2024-01-04 10:35 | disposition home or self-care (01) ==
PROVIDERS: Emergency Provider Emergency Medicine; PCP Nurse Practitioner Family
DX: U07.1 COVID-19 (principal); J18.9 Pneumonia, unspecified organism; I10 Essential (primary) hypertension; C91.11 Chronic lymphocytic leukemia of B-cell type in remission; M06.9 Rheumatoid arthritis, unspecified
CPT/HCPCS: 36415; 80053; 82805; 99283; 83735; 85025

== ENCOUNTER 2024-01-22 13:19 | Outpatient (CLI) | payer MEDICARE, BC, SELFPAY ==
--- NOTE | 2024-01-22 | DI.RAD_ITS ---
Exam(s) XR CHEST 2V PA LATERAL EXAM: XR CHEST 2V PA LATERAL CLINICAL HISTORY: F/U PNEUMONIA, Z87.01 TECHNIQUE: 2D digital imaging was performed. Two views. COMPARISON: CR,XR XR CHEST 2V PA LATERAL from 01/03/2024 FINDINGS: HEART: Normal size. Aorta: Not dilated. PULMONARY VASCULATURE: Normal. MEDIASTINUM: Unremarkable. LUNGS: Clear. The previously noted left upper lobe pneumonia has resolved. PLEURAL SPACE: No pleural effusion or pneumothorax. BONE:Left shoulder prosthesis. SOFT TISSUES: Unremarkable. IMPRESSION: Interval clearing of left upper lobe pneumonia. No acute abnormality. DATA REPOSITORY: RADIATION DOSE DELIVERED:
== END 2024-01-22 13:39 ==
LOC: DI 13:20
PROVIDERS: PCP Nurse Practitioner Family; Visit Provider Nurse Practitioner Family
DX: J18.1 Lobar pneumonia, unspecified organism
CPT/HCPCS: 71046

== ENCOUNTER 2024-02-23 13:50 | Outpatient (CLI) | payer MEDICARE, BC, SELFPAY ==
[2024-02-23 13:26] LABS: HCT 39.9 % (40.0-50.0); HGB 13.3 g/dL (13.5-17.5); MCHC 33.3 % (32.0-36.0); MCV 84 fL (80-95); MPV 10.7 fL (8.0-11.0); Platelet Count 258 10^3/uL (130-400); RBC 4.75 10^6/uL (4.36-5.78); RDW-SD 55.3 fL; WBC 7.83 10^3/uL (4.4-10.8)
[2024-02-23 13:55] LABS: Absolute Eosinophil Count 0.23 10^3/uL (0.0-0.7); Absolute Lymphocyte Count 2.74 10^3/uL (1.2-3.4); Absolute Monocyte Count 2.11 10^3/uL (0.1-0.8); Absolute Neutrophil Count 2.74 10^3/uL (1.2-6.7); Atypical Lymphocytes % 2 %; Bands % 1 %
[2024-02-23 13:56] LABS: Anisocytosis 1+; Diff Comment Manual Differential
[2024-02-23 14:14] LABS: ALT 15 U/L (16-63); AST 21 U/L (15-37); Albumin 3.8 g/dL (3.4-5.0); Alkaline Phosphatase 81 U/L (46-116); Anion Gap 7.2 mmol/L (3-11); BUN 9 mg/dL (7-18); Bilirubin, Total 0.49 mg/dL (0.2-1.0); CO2 27.8 mmol/L (21.0-32.0); CREATININE 0.8 mg/dL (0.70-1.30); Calcium 8.6 mg/dL (8.5-10.1); Chloride 107 mmol/L (98-107); Estimated GFR 93.45 (mL/min/1.73m2); Glucose 94 mg/dL (74-106); Potassium 3.6 mmol/L (3.5-5.1); Sodium 142 mmol/L (136-145)
== END 2024-02-23 13:51 | disposition home or self-care (01) ==
LOC: LBO 13:52
PROVIDERS: PCP Nurse Practitioner Family; Visit Provider Physician Assistant
DX: R19.7 Diarrhea, unspecified (principal)
CPT/HCPCS: 36415; 80053; 85025

== ENCOUNTER 2024-02-28 04:14 | Outpatient (CLI) | payer MEDICARE, BC, SELFPAY ==
[2024-02-28 14:18] LABS: Abs Immature Grans 0.04 10^3/uL (0.0-0.06); Absolute Basophil Count 0.02 10^3/uL (0.0-0.2); Absolute Lymphocyte Count 3.39 10^3/uL (1.2-3.4); Absolute Monocyte Count 1.19 10^3/uL (0.1-0.8); Absolute Neutrophil Count 2.34 10^3/uL (1.2-6.7); Basophils % 0.3 %; Eosinophils % 1.4 %; HCT 39.7 % (40.0-50.0); HGB 13.1 g/dL (13.5-17.5); Immature Grans % 0.6 %; Lymphocytes % 47.9 %; MCH 27.6 pg (27.0-33.0); MCV 84 fL (80-95); MPV 11.3 fL (8.0-11.0); Monocytes % 16.8 %; Platelet Count 287 10^3/uL (130-400); RBC 4.75 10^6/uL (4.36-5.78); RDW 17.6 % (11.8-14.1); WBC 7.08 10^3/uL (4.4-10.8)
[2024-02-28 15:15] LABS: ALT 22 U/L (16-63); AST 23 U/L (15-37); Albumin 3.8 g/dL (3.4-5.0); Alkaline Phosphatase 89 U/L (46-116); Anion Gap 7.3 mmol/L (3-11); BUN 14 mg/dL (7-18); Bilirubin, Total 0.39 mg/dL (0.2-1.0); CO2 30.7 mmol/L (21.0-32.0); CREATININE 0.8 mg/dL (0.70-1.30); Calcium 8.6 mg/dL (8.5-10.1); Chloride 106 mmol/L (98-107); Estimated GFR 93.45 (mL/min/1.73m2); Glucose 118 mg/dL (74-106); Potassium 4.3 mmol/L (3.5-5.1); Sodium 144 mmol/L (136-145); Total Protein 6.8 g/dL (6.4-8.2)
[2024-02-29 10:57] LABS: IgA 181 mg/dL (85-499); IgG 623 mg/dL (610-1616); IgM 40 mg/dL (35-242)
== END 2024-02-28 04:15 | disposition home or self-care (01) ==
LOC: LBO 04:14
PROVIDERS: PCP Nurse Practitioner Family; Visit Provider Internal Medicine Rheumatology
DX: M05.79 Rheumatoid arthritis with rheumatoid factor of multiple sites without organ or systems involvement (principal)
CPT/HCPCS: 36415; 80053; 82784; 85025

== ENCOUNTER 2024-08-10 12:27 | Outpatient (REF) | payer MEDICARE, BC, SELFPAY | END 2024-08-10 12:28 | disposition home or self-care (01) | LOC: LBN 12:27 | PROVIDERS: PCP Nurse Practitioner Family; Visit Provider Internal Medicine Hematology & Oncology | DX: R19.7 Diarrhea, unspecified (principal) | CPT/HCPCS: 87015; 87269; 87272 ==

== ENCOUNTER 2024-09-06 00:37 | Outpatient (CLI) | payer MEDICARE, BC, SELFPAY ==
--- NOTE | 2024-09-06 | DI.CT_ITS ---
Exam(s) CT ABDOMEN PELVIS W EXAM: CT ABDOMEN PELVIS W CLINICAL HISTORY: Epigastric Mass R19.06 4CM nodule, 3cm below sternum, splenomegaly TECHNIQUE: Imaging Protocol: Axial computed tomography images with coronal and sagittal reformatted images were created and reviewed. CONTRAST MATERIAL: Intravenous: Omnipaque 350 Contrast volume:100 mL Oral: Yes COMPARISON: CT ABD PELVIS WITH CONTRAST from 01/10/[address] CHEST WO from 11/02/2023 FINDINGS: ABDOMEN: Lung Bases: Coronary artery calcifications are present. Liver: Normal density. No measurable mass. Portal, Superior Mesenteric, and Splenic Veins: Unremarkable. Gallbladder and Biliary Tract: No radiodense calculus or dilation. Pancreas: Normal density, no abnormal calcifications or inflammatory process. Spleen: Normal. There is a stable round hypodensity in the spleen. This may represent a cyst or hemangioma. Adrenals: No masses seen. Kidneys: Normal size, contour and axis. No radiodense stones or obstructive uropathy. There are renal cysts. No follow-up is recommended. Abdominal Aorta: Abdominal portion non-dilated. Atherosclerotic calcification is present. Bowel: No obstruction or bowel wall thickening. Appendix is unremarkable. Peritoneal Cavity: No ascites, collection or mesenteric inflammatory response. No free air. Lymph Nodes: Within normal limits. Bones: Within normal limits for the patient's age. Old rib fracture deformities are seen on the right. The patient has a left total hip arthroplasty. The visualized sternum is unremarkable. Soft Tissues: Unremarkable. The patient appears to be status post bilateral inguinal hernia repairs. PELVIS: Bladder: Symmetric distention, no gross wall thickening. Reproductive Organs: Unremarkable as visualized. Lymph Nodes: Within normal limits. Bones: Within normal limits for the patient's age. IMPRESSION: 1. No evidence of an anterior abdominal wall soft tissue mass or hernia. 2. The visualized sternum is unremarkable. 3. No acute abdominal or pelvic process. RADIATION DOSE DELIVERED: 578.49mGy.cm Total DLP DATA REPOSITORY: All CT scans at this facility are submitted to the National Radiology Data Registry (NRDR) Dose Index Registry (DIR) with the [employer] (A[employer]). RADIATION OPTIMIZATION: All CT scans at this facility use at least one of these dose optimization techniques: automated exposure control; mA and/or kV adjustment per patient size (includes targeted exams where dose is matched to clinical indication); or iterative reconstruction.
[2024-09-06] MEDS: Barium Sulfate 2% W/V-Creamy Vanilla Smoothie 450 ML BTL PO ×2 (13:03→13:04)
[2024-09-06] MEDS: Normal Saline - Diluent 50 ML VIAL IJ (15:11)
[2024-09-06] MEDS: Omnipaque 350 MG/ML 100 ML BTL IJ (15:11)
== END 2024-09-06 00:57 ==
PROVIDERS: PCP Nurse Practitioner Family; Visit Provider Internal Medicine Hematology & Oncology
DX: R19.06 Epigastric swelling, mass or lump (principal)
CPT/HCPCS: 74177; J3490

== ENCOUNTER 2024-12-21 19:26 | Emergency (ER) | payer MEDICARE, BC, SELFPAY ==
[2024-12-21 19:29] VITALS: BP 171/129; PULSE 72; RESP 20; TEMP 36.5; O2SAT 95
--- NOTE | 2024-12-21 21:02 | ED.GENADUL_ITS ---
Discharge Plan Disposition Patient Disposition: Home Discharge Details Clinical Impression: Leg pain, right, History of deep vein thrombosis Primary Care Provider: CAITLIN GRANT ED Provider: Dragan Khanna Home Meds and New Rx's Prescriptions: New apixaban 5 mg tablet 5 mg PO BID Qty: 90 0RF Rx Instructions: Take 10 mg (2 Tabs), twice daily for the first 7 days. Then, take 5 mg (1 Tab), twice daily until instructed to stop by your doctor. No Action ferrous sulfate [Feosol] 325 mg (65 mg iron) tablet 325 mg PO DAILY medical marijuana Inhalation 0RF epigallocatechin gallate(bulk) [green tea extract] 1,000 GM powder 1,000 gm Miscellaneous PRN Rituxan 10 MG/1 ML concentrate 10 mg IV every 6 months protein powder See Rx Instructions PO .COMPLEX PRN Patient Comments: 450 g PO PRN; Rx Instructions: 450 g PO PRN; omeprazole 20 mg capsule,delayed release(DR/EC) 20 mg PO DAILY Qty: 90 4RF dorzolamide-timolol 22.3-6.8 mg/mL drops 1 drp ophthalmic (eye) BID Patient Comments: INSTILL 1 DROP IN EACH EYE TWO TIMES A DAY losartan 25 mg tablet 25 mg PO DAILY Qty: 0 0RF Patient Comments: TAKE ONE TABLET BY MOUTH EVERY DAY DIRECTED FOR BLOOD PRESSURE Discharge Instructions Instructions: How to Give a Blood Thinner Shot Additional Instructions: As discussed, I am concerned that the pain you are having may be related to a blood clot in your leg given your history of prior similar blood clots. Due to unavailability of confirmatory ultrasound this time I would recommend Monday morning 8 AM reporting to our diagnostic imaging center to obtain a ultrasound to assess for DVT. In the meantime we will start you on treatment for possible DVT with apixaban. You received your first dose here tonight. Please brass pickler the rest your prescription and take as prescribed. You may discontinue this medication should your ultrasound results be negative for blood clot. If the ultrasound does show a blood clot be sure to follow-up with your doctor as they will discuss with you when you should discontinue your blood thinner use. Please follow-up with your primary care provider regarding your visit to the emergency department today. Be sure to discuss results of all test performed here today to include radiology, and laboratory testing as well as results for any pending cultures. Should your symptoms worsen, or if you develop new concerning symptoms, please return immediately emergency department for further evaluation. Discharge Orders Other Ambulatory Orders: US lower extremity venous RT (Routine) Timeframe: 20241223 Facility: [facility] - Location: DIAGNOSTIC IMAGING Ordered By: Dragan Khanna Discharge Data Discharge Date/Time-TO BE ENTERED AT DEPARTURE: 12/21/24 21:23 HPI General Date/Time Provider Initiated Documentation: 12/21/24 19:38 . HPI Narrative: MDM/Narrative: 74-year-old male with right calf pain consistent with prior DVT. High suspicion for recurrent DVT. Initiated apixaban, outpatient ultrasound scheduled for Monday. Discharged with instructions to return to ED if difficulty obtaining scan or if new symptoms develop. Plan of care discussed with patient and his adult daughter. This document was created with assistance from [employer] Super[employer]. HPI: The patient is a 74-year-old male with a medical history significant for deep vein thrombosis (DVT) and chronic lymphocytic leukemia (CLL), presenting with right calf pain. The onset of symptoms occurred 4 days ago following curling activity, with progressive worsening that has impaired ambulation. The patient reports that the symptoms are reminiscent of his previous DVT episodes. He denies experiencing chest pain, dyspnea, hemoptysis, leg edema, or any other new symptoms. ROS: Negative besides as mentioned above Exam: Vital signs: Reviewed. General Appearance: Alert and oriented. No acute distress. HEENT: NCAT, EOMI, not icteric. External ears normal. No rhinorrhea. Moist mucous membranes. Neck: Supple, full range of motion, no observable masses, No meningeal sign. Respiratory: No Respiratory distress. No tachypnea. Cardiovascular: RRR, no edema. Gastrointestinal: Soft, nondistended, No rebound tenderness. Back: No midline tenderness to palpation or palpable step-offs of the C/T/L spine. Musculoskeletal: Tenderness to palpation in right calf. No palpable cord. Skin: Warm and dry, no rash. Neurological: Normal Gait, Grossly intact. Psychiatric: Appropriate for situation. Related Data Home Medications Medication Instructions Recorded Confirmed epigallocatechin gallate(bulk) 1,000 gm miscellaneous PRN 05/05/16 12/21/24 (green tea extract powder) rituximab 10 mg/mL 10 mg IV every 6 months 08/2112/21/24 concentrate,intravenous (Rituxan) protein See Rx Instructions PO .COMP JEISON PRN 06/21/18 12/21/24 ferrous sulfate 325 mg (65 mg 325 mg PO DAILY 07/27/21 12/21/24 iron) tablet (Feosol) omeprazole 20 mg capsule,delayed 20 mg PO DAILY #90 ta b-caps 05/09/22 12/21/24 release dorzolamide 22.3 mg-timolol 6.8 1 drp ophthalmic (eye) BID 11/02/23 12/21/24 mg/mL eye drops losartan 25 mg tablet 25 mg PO DAILY #0 tabs 11/0412/21/24 apixaban 5 mg tablet 5 mg PO BID DVT treatment #9 0 tabs 12/21/24 Previous Rx's Medication Instructions Recorded omeprazole 20 mg capsule,delayed 20 mg PO DAILY #90 ta b-caps 05/09/22 release losartan 25 mg tablet 25 mg PO DAILY #0 tabs 11/04 apixaban 5 mg tablet 5 mg PO BID DVT treatment #9 0 tabs 12/21/24 Allergies Allergy/AdvReac Type Severity Reaction Status Date / Time gold sodium thiomalate Allergy Intermediate Skin Rash Verified 12/21/24 19:33 cat dander Allergy Other (See Verified 12/21/24 19:33 Comment) adalimumab (From Humira) AdvReac Intermediate non-effecti Verified 12/21/24 19:33 ve etanercept (From Enbrel) AdvReac Intermediate Unknown Verified 12/21/24 19:33 methotrexate AdvReac Intermediate Unknown Verified 12/21/24 19:33 DUST Allergy Unknown Other (See Uncoded 12/21/24 19:33 Comment) General Stated Complaint: Vascular BERTA: 3 Course Vital Signs Vital signs: Vital Signs Temperature 36.5 C 12/21/24 19:29 Pulse 72 12/21/24 19:29 Respiratory Rate 20 12/21/24 19:29 Blood Pressure 171/129 H 12/21/24 19:29 Pulse Oximetry 95 12/21/24 19:29 Temperature 36.5 C 12/21/24 19:29 Pulse 72 12/21/24 19:29 Respiratory Rate 20 12/21/24 19:29 Blood Pressure 171/129 H 12/21/24 19:29 Blood Pressure Position Sitting 12/21/24 19:29 Pulse Oximetry 95 12/21/24 19:29 Oxygen Delivery Method Room Air 12/21/24 19:29 Oxygen Flow Rate 0 12/21/24 19:29 Pain Level 6 12/21/24 20:50 PFSH All Active Problems (Updated 12/21/24 @ 21:05 by Dragan Khanna MD) History of deep vein thrombosis (Acute) Leg pain, right (Acute) Phlegm in throat (Acute) Sepsis (Acute) Abnormal transaminases (Acute) Fever (Acute) COVID-19 (Acute) Onset-11/20/21 FUlly vaccinated, 2 boosters Neuralgia and neuritis, unspecified (Acute) CLL (chronic lymphocytic leukemia) (Acute) diagnosed 2018, was seeing oncology at [facility], now followed by rheumatology In remission on Rituxan Glaucoma (Chronic) Sees Dr Charles Esophageal reflux (Chronic) 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) on rituxan for this Essential hypertension (Chronic 05/19/16) Rheumatoid arthritis (Chronic) Medical History (Updated 12/21/24 @ 21:05 by Dragan Khanna MD) Pneumonia Insect bite Stiffness of left shoulder joint Presence of shoulder joint prosthesis Chronic cough Fatigue Scoliosis deformity of spine GERD without esophagitis Neck pain Seasonal allergic rhinitis Acute upper respiratory infection Acute sinusitis Thromboembolism of vein Essential hypertension Scleritis Cannabis use disorder Chronic lymphoid leukemia in remission Cataract removed 2021 L>R History of nasal polyp Asthma (04/12/12) exertional- used to use an inhaler 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 SPENCE Family History Mother , 34 Stroke Father , 48 Substance abuse Alcohol abuse Sister Substance abuse Depression Asthma Maternal Grandfather , 76 No problems noted. Paternal Grandfather , age 78 Alcohol abuse Maternal Grandmother , age 99 No problems noted. Paternal Grandmother , age 68 Skin cancer Son Asthma Daughter Depression Family History RA (rheumatoid arthritis) Social History Smoking/Tobacco Use Status: Former Tobacco Use tobacco type: cigarettes, pipe, cigars and smokeless tobacco Quit Date: 02/20/73 Tobacco: How many years used: 5 Smokeless tobacco user: chewing tobacco Second Hand Exposure: Yes Smoking risk assessment performed?: Yes Alcohol Intake: current Alcohol Intake frequency: a few times a week Alcohol type: beer and hard liquor Drug use: Daily Substance use type: marijuana Counseling given: Yes Caregiver/Support person: No Household members: spouse Housing: house Communication Needs: None Do you need help understanding health information?: Never Pets and animals: Yes Pets and animals: dog(s) Sexually active: No Do you think of yourself as: straight/heterosexual Current gender identity: male What is your relationship status?: How often do you talk on the phone with friends or family?: three or more times per week How often do you get together with friends or relatives?: twice per week How often do you attend sikh or yazidism services?: decline to answer Do you belong to any clubs or organized social groups?: no Panel score (0-1 are the most socially isolated patients): 2 What type of physical activity do you participate in: weight lifting and running Duration: 30-45 minutes/day Frequency: 3-4 times per week Kaye/Jehovah'S Witness: None Special kaye needs: No Seatbelt use: always Helmet use: Yes Helmet use: always Drive intox 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 six horse hitch driver: No Do you feel safe at home: Yes Do you feel safe in your relationship?: Yes PAWSS Have you Been Recently Intoxicated or Drunk Within the Last 30 days?: No Have you Ever Experienced Previous Episodes of Alcohol Withdrawal?: No Have you ever Experienced Withdrawal Seizures?: No Have you ever Experienced Delirium Tremens(DT)s?: No Have you ever undergone Alcohol Rehabilitation Treatment (i.e, inpt ot outpatient treatment programs)?: No Have you ever Experienced Blackouts?: No Have you ever Combined Alcohol with other Downers within the last 90 days?: No Have you ever Combined Alcohol with any other Substance of Abuse during the last 90 days?: No Positive Blood Alcohol level on Presentation? [PCS.BAL]: No Evidence of Increased Autonomic Activity (i.e. HR>120, tremor, sweating, agitation, nausea)?: No Result: 0
[2024-12-21] MEDS: Apixaban 5 MG TAB 10 MG PO (21:13)
--- NOTE | 2024-12-23 17:16 | NUR.NOTE ---
Access chart to determine if pt put on blood thinner for outpatient DVT US done for Dr. Lincoln. She has the result and will contact patient for further instructions. Nursing Note:
--- NOTE | 2024-12-23 17:18 | ED.FU.B_ITS ---
Date of service: 12/23/24 Time of Service: 17:18 Follow Up Plan: Radiology read of DVT study today was faxed to ED and showed no DVT. I called patient at [phone] however he did not warp picker. A voicemail was left with instructions to STOP taking the apixiban which was prescribed and to followup with his PCP regarding his leg symptoms. confidential secretary was also instructed to pass this information on to his PCP.
--- NOTE | 2024-12-23 17:18 | W.ED.FU ---
Date of service: 12/23/24 Time of Service: 17:18 Follow Up Plan: Radiology read of DVT study today was faxed to ED and showed no DVT. I called patient at [phone] however he did not supervisor opening and picking. A voicemail was left with instructions to STOP taking the apixiban which was prescribed and to followup with his PCP regarding his leg symptoms. scientific informatics project leader was also instructed to pass this information on to his PCP.
--- NOTE | 2024-12-23 17:32 | W.ED.FU ---
Date of service: 12/23/24 Time of Service: 17:33 Follow Up Plan: Pt DVT result placed on ED followup board with instructions for oncoming provider/s to attempt to contact patient and confirm pt's receipt of voicemail and need to stop anticoagulation.
--- NOTE | 2024-12-24 08:32 | W.ED.FU ---
Date of service: 12/24/24 Time of Service: 08:32 Follow Up Plan: I reach out to this patient by phone and was able to get in touch with him. He notes that he was contacted by [facility], and was made aware of his negative DVT ultrasound. He understands that he is to stop taking the apixaban, and has a scheduled appointment with his PCP on of this week for follow-up. The patient had an opportunity to have all questions answered to his satisfaction. Marybeth Heaton MD
== END 2024-12-21 21:23 | disposition home or self-care (01) ==
PROVIDERS: Emergency Provider General Practice; PCP Nurse Practitioner Family
DX: M79.604 Pain in right leg (principal); Z86.711 Personal history of pulmonary embolism
CPT/HCPCS: 99284; 99283

== ENCOUNTER → 2024-12-23 10:03 | Outpatient (CLI) | payer MEDICARE, BC, SELFPAY ==
--- NOTE | 2024-12-23 08:45 | DI.US_ITS ---
Exam(s) US LOWER EXTREMITY VENOUS RT EXAM: US LOWER EXTREMITY VENOUS RT CLINICAL HISTORY: hx of DVT, now with RLE pain VTE I82.90 PAIN RT LEG M79.604 TECHNIQUE: Right lower extremity venous ultrasound performed using grayscale, color-flow, and spectral Doppler analysis. COMPARISON: US US LOWER EXTREMITY VENOUS RT from 05/19/2022 FINDINGS: The right common femoral, femoral and popliteal veins demonstrate normal compressibility, augmentation, and color Doppler. The posterior tibial and peroneal veins are patent. The saphenofemoral junction is unremarkable. There is no evidence of a Keene cyst. The soft tissues are unremarkable. IMPRESSION: No evidence of a right lower extremity DVT. DATA REPOSITORY:
== END ==
LOC: DI 10:03
PROVIDERS: PCP Nurse Practitioner Family; Visit Provider General Practice
DX: M79.604 Pain in right leg (principal); I82.90 Acute embolism and thrombosis of unspecified vein
CPT/HCPCS: 93971